=== PATIENT | female | born 1950 | race African-American/Black ===

== ENCOUNTER 2024-05-06 09:17 | Inpatient (IN) | payer MEDICAID, SELFPAY ==
--- NOTE | ~2024-05-06 | CT_ITS ---
EXAMINATION: CT ABDOMEN AND PELVIS WITHOUT CONTRAST CLINICAL INFORMATION: Extensive DVT COMPARISON: None available. TECHNIQUE: Multidetector volumetric imaging was performed from the superior aspect of the liver through the pubic symphysis. Sagittal and coronal reformatted images were obtained on the technologist's workstation. This CT examination was performed using dose optimization techniques as appropriate, variously including the following: *Automated exposure control *Adjustment of mA and/or kV according to patient size (this includes techniques or standardized protocols for targeted exams where dose is matched to indication/reason for exam; i.e. extremities or head) *Use of iterative reconstruction technique DLP: 674 mGy-cm FINDINGS: LUNG BASES: The visualized lung bases are unremarkable. LIVER, GALLBLADDER, AND BILIARY TREE: The liver is normal in size, shape, and attenuation. No focal hepatic lesion or biliary ductal dilatation is present. The gallbladder is unremarkable with no evidence of radiopaque gallstones, gallbladder wall thickening, or obvious pericholecystic inflammatory changes. PANCREAS: Unremarkable. SPLEEN: Unremarkable. ADRENAL GLANDS: There is left adrenal gland thickening KIDNEYS AND URETERS: Left kidney unremarkable. Right kidney not marked hydroureteronephrosis and there is stent present extending from the collecting system total urinary bladder. There is perinephric stranding seen proximally. BLADDER: The pigtail catheter coiled in the bladder GASTROINTESTINAL TRACT: The small and large bowel are unremarkable. The appendix is unremarkable. ABDOMINAL WALL: No significant hernia is appreciated. LYMPH NODES: Normal. VASCULAR: Unremarkable. PELVIC VISCERA: Unremarkable. OSSEOUS STRUCTURES: Unremarkable. CT/CT abdomen pelvis wo IV con IMPRESSION: Right hydroureteronephrosis with stent. Fleischner guidelines were followed. Electronically signed by: Duglas Ordoñez MD 05/06/2024 03:12 PM EDT
--- NOTE | ~2024-05-06 | CT_ITS ---
EXAMINATION: CT angio chest PE protocol CLINICAL INFORMATION: chest pain new DVT concerning for PE COMPARISON: No pertinent prior studies are available for comparison. TECHNIQUE: Prior to contrast administration, noncontrast localization images were obtained. Subsequently, multidetector volumetric imaging was performed from the thoracic inlet to below the pubic symphysis following the administration of 65 mL Omnipaque 350 intravenous contrast. No contrast reaction reported Sagittal, coronal, and MIP oblique sagittal reformatted images were obtained on the CT workstation, uploaded to PACS, and reviewed. This CT examination was performed using dose optimization techniques as appropriate, variously including the following: * Automated exposure control * Adjustment of mA and/or kV according to patient size (this includes techniques or standardized protocols for targeted exams where dose is matched to indication/reason for exam; i.e. extremities or head) Use of iterative reconstruction technique Total exam dose-length product 674 mGy-cm FINDINGS: QUALITY OF STUDY/CONTRAST BOLUS: Satisfactory. PULMONARY ARTERIES: There is pulmonary embolism identified in the pulmonary arteries of the left lower lobe THORACIC AORTA: No aneurysm or dissection. LUNG: No focal consolidation, nodules or masses. PLEURA: No pleural effusion or pneumothorax. MEDIASTINUM: Normal heart size. No pericardial effusion. No hilar or mediastinal lymphadenopathy. No evidence of septal bowing or right heart strain. CHEST WALL/AXILLA: No axillary or internal mammary lymphadenopathy. ABDOMEN/PELVIS: LIVER, GALLBLADDER, BILIARY TREE: The liver is normal in size, shape, and attenuation. No focal hepatic lesion or biliary ductal dilatation is present. The gallbladder is unremarkable with no evidence of radiopaque gallstones, gallbladder wall thickening, or pericholecystic inflammatory changes. PANCREAS: Normal; no mass or surrounding fluid. SPLEEN: Normal size. No focal lesion. ADRENAL GLANDS: There is thickening of the left adrenal gland. KIDNEYS AND URETERS: Kidneys are unremarkable. The right kidney revealed high-grade infiltrative process and periureteral stranding seen proximally there is right ureteral stent present. BLADDER: Pigtail catheter coiled in the urinary bladder PELVIC VISCERA: Unremarkable. GASTROINTESTINAL TRACT: The stomach and small bowel appear unremarkable. No dilated loops of bowel or evidence of obstruction. No colonic wall thickening or adjacent inflammatory changes. The appendix is unremarkable. PERITONEAL SPACE: No free air or free fluid identified. ABDOMINAL WALL: No significant hernia is appreciated. LYMPHOVASCULAR STRUCTURES: Lymph nodes: Normal. Vascular: The aorta is normal in caliber. OSSEOUS STRUCTURES: No suspicious sclerotic or lytic bone lesions are identified. CT/CT angio chest PE protocol IMPRESSION: Left pulmonary embolism Right-sided hydronephrosis is catheter extending from the collecting system to urinary bladder VTE: positive Electronically signed by: Duglas Ordoñez MD 05/06/2024 03:10 PM EDT
--- NOTE | ~2024-05-06 | US_ITS ---
EXAMINATION: US TRIPLEX LOWER EXTREMITY, LEFT CLINICAL INFORMATION: Left lower extremity pain and swelling COMPARISON: None available. TECHNIQUE: Color-flow triplex imaging with spectral analysis and compression Doppler were performed on the left lower extremity. FINDINGS: Occlusive thrombus extending from the visualized external left iliac vein, left common femoral vein, superficial femoral vein, profunda femoral vein, popliteal vein, posterior tibial vein, and peroneal vein. Normal respiratory variation and flow in the contralateral right common femoral vein. There is no Mcfarland's cyst. US/US venous duplex LE LT IMPRESSION: Extensive occlusive thrombus extending from the visualized left external iliac vein to the calf veins. Consider CTV of the abdomen/pelvis to assess for extension of thrombus. Electronically signed by: Frida Melgoza MD 05/06/2024 11:53 AM EDT
--- NOTE | ~2024-05-06 | XR_ITS ---
EXAMINATION: XR CHEST CLINICAL INFORMATION: Dyspnea. COMPARISON: None available. TECHNIQUE: Frontal view of the chest was obtained. FINDINGS: Focal linear scarring within the left lung base. No large airspace consolidation. No pleural effusion or pneumothorax. Unremarkable cardiomediastinal silhouette. XR/XR chest 1V IMPRESSION: Focal linear scarring within the left lung base. Electronically signed by: Juan David Murray MD 05/06/2024 12:05 PM EDT
[2024-05-06 09:39] VITALS: BP 149/67; PULSE 73; RESP 18; TEMP 36.5; O2SAT 99
--- NOTE | 2024-05-06 10:10 | ED.GENADULT ---
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 She still has L left swelling and has told them she has pain on L side of her body as well. No fevers, n/v/d and her family who is now caring for her here note she is at her baseline confused and has hallucinations but is doing much better since her arrival and they have been giving her her medications. MD complaint: left leg swelling, pain L body Onset (ago): day(s) (several) Location: left and lower extremity Radiation: other (entire L side of body points to L shoulder area) Severity: moderate Quality: aching Pain Consistency: constant Relieving factors: none Exacerbating factors: movement Associated symptoms: denies other symptoms Treatments prior to arrival: NSAID Related Data Allergies Allergy/AdvReac Type Severity Reaction Status Date / Time No Known Allergies Allergy Verified 05/06/24 09:43 Review of Systems Review of Systems: ROS unable to be obtained due to dementia REPLACED BY [facility] Past Medical History Attestation statement: The following information was validated with the patient. Source: old records reviewed Medical History Leg edema Dementia TIA (transient ischemic attack) HTN (hypertension) Diabetes Social History Social History (Updated 05/06/24 @ 10:38 by Michell Salter DO) Patient Tobacco Use Status: Tobacco use Unknown Advance Directives: No Advance Directives Information Provided: Yes Physical Exam ED Vital Signs: Vital Signs - 24 hr 05/06/24 09:39 05/06/24 12:22 Temperature 97.7 F 97.6 F Pulse Rate 73 78 Respiratory Rate 18 15 Blood Pressure 149/67 H 163/65 H Pulse Oximetry 99 98 Oxygen Delivery Method Room Air Room Air BMI result Body Mass Index 30.2 Appearance: Alert. Oriented to person. No acute distress. Eyes: Pupils equal, round and reactive to light. ENT: Pharynx normal. Neck: Normal inspection. Neck supple. CVS: Normal heart rate and rhythm. Pulses normal. Respiratory: No respiratory distress. Breath sounds normal. Abdomen: Soft and nontender. Skin: Skin warm and dry. Normal skin color. Normal skin turgor. Extremities: left leg edema 1-2+ on L side no heat or erythema noted pulses intact swelling up to thigh noted Neuro: Oriented to person. No motor deficit. No sensory deficit. Course Course Course Narrative: has DVT given L shoulder pain will order CTA 1114am Reevaluation(s) Reevaluation #1: IV heparin given extent of DVT Reevaluation #2: + UTI at this time infection suspected 322pm patient not aware of ureteral stent and family nor patient not aware of R kidney lesion/disease or stent family is going to call those caring for [place] Medications Administered Generic Name Dose Route Start Last Admin Trade Name Freq PRN Reason Stop Dose Admin Heparin Sodium/Sodium Chloride 25,000 unit in 250 mls @ 0 mls/hr 05/06/24 12:15 05/06/24 12:28 Heparin Sodium,Porcine/1/2ns IVCONT 14 units/kg/hr .Q0M CRIS 12.18 mls/hr Administration Protocol Per Protocol Discontinued Medications Generic Name Dose Route Start Last Admin Trade Name Freq PRN Reason Stop Dose Admin Heparin Sodium (Porcine) 7,000 unit 05/06/24 12:01 05/06/24 12:26 Heparin Sodium,Porcine 5,000 Unit/Ml Vial 80 unit/kg (7000 unit) 05/06/24 12:02 7,000 unit IVPUSH Administration ONCE ONE Iohexol 65 ml 05/06/24 12:39 05/06/24 12:40 Iohexol 350 Mg/Ml 100 Ml Infus..Btl IV 05/06/24 12:40 65 ml ONCE ONE Administration Medical Decision Making Medical Decision Making [facility] Narrative: 74 yo female with PMH of dementia - severe hx of elopements, TIA, CAD, HTN, IDDM, UTI here with c/o left leg swelling and pain on L shoulder area at this time labs, DVT study if positive CTA to evaluate for PE. She will get basic labs, EKG, BNP. Suspect mass/DVT/renal failure Differential Diagnosis Differential Diagnoses: The differential diagnosis associated with the presentation includes mass/DVT/renal failure/PE Admission/Observation Consideration of admission/observation: Escalation of care including admission/observation considered admit for IV heparin vascular input Consult Healthcare Provider Management of the patient was discussed with: Hospitalist (will admit) and Geographic Information System Surveyor Dr. Song aware - IV heparin at this time Lab Data MDM Lab Attestation statement: I reviewed the patient's lab results. 05/06/24 10:29 05/06/24 10:29 Labs: Lab Results 05/06/24 05/06/24 05/06/24 Range/Units 10:29 12:46 14:56 WBC 6.1 (4.8-10.8) X10*3/uL RBC 4.01 L (4.20-5.50) X10*6/uL Hgb 12.4 (12.0-16.0) g/dl Hct 36.4 L (37.0-47.0) % MCV 90.8 (80.0-98.0) fL MCH 30.9 (27.0-33.0) pg MCHC 34.1 (31.0-35.0) g/dl RDW 11.9 (11.0-16.0) % Plt Count 126 L (160-400) X10*3/uL MPV 9.8 (9.4-12.3) fL Immature Gran % (Auto) 0.5 H (0.0-0.4) % Neut % (Auto) 63.0 (45-73) % Lymph % (Auto) 18.2 L (20-40) % [place] % (Auto) 14.9 H (2-11) % Eos % (Auto) 3.1 (0-4) % Baso % (Auto) 0.3 (0-2) % Lymph # (Auto) 1.1 L (1.2-4.9) X10*3/uL [place] # (Auto) 0.9 (0.1-1.2) X10*3/uL Eos # (Auto) 0.2 (0.0-0.4) X10*3/uL Baso # (Auto) 0.0 (0.0-0.2) X10*3/uL Abs Immat Gran (auto) 0.03 (0.00-0.03) X10*3/uL Absolute Neuts (auto) 3.8 (2.0-8.3) x10*3/uL Absolute Nucleated RBC 0.000 (0.0-0.012) X10*3/uL Nucleated RBC % (auto) 0.0 (0.0-0.2) /100WBC PT 11.6 (11.1-13.3) SEC INR 1.0 (0.9-1.1) aPTT Heparin Protocol 30.4 L Cancelled (53-77.9) SEC D-Dimer High Sensitivty 2413 NG/ML Sodium 138 (135-145) mmol/L Potassium 4.2 (3.3-5.1) mmol/L Chloride 103 (96-108) mmol/L Carbon Dioxide 30 H (22-29) mmol/L Anion Gap 9 L (12-20) BUN 18 H (9-16) mg/dL Creatinine 1.51 H (0.5-1.4) mg/dL Estim Creat Clear Calc 37.0 Estimated GFR 34 Random Glucose 145 H (60-115) mg/dL Calcium 9.6 (8.4-10.2) mg/dL Total Bilirubin 0.8 (0.0-1.0) mg/dL Direct Bilirubin 0.2 (0.0-0.5) mg/dL AST 15 (5-31) U/L ALT 9 (0-31) U/L Alkaline Phosphatase 97 (39-117) U/L Troponin I High Sens < 2.7 (<3.5-17.0) ng/L B-Natriuretic Peptide < 10 (<100) pg/mL Total Protein 7.7 (6.5-8.0) g/dL Albumin 4.1 (3.5-5.0) g/dL Lipase 20 (8-78) U/L Urine Color Yellow Urine Appearance Cloudy Urine pH 6.5 (5.0-9.0) Ur Specific [place] >= 1.030 H (1.005-1.025) Urine Protein 30 (1+) H (Neg-Trace) mg/dL Urine Glucose (UA) Negative (Negative) mg/dL Urine Ketones Trace (Negative) mg/dL Urine Blood Negative (Negative) Urine Nitrite Negative (Negative) Ur Leukocyte Esterase Large (3+) H (Negative) Independent Interpretation I performed an independent interpretation of an: EKG, Plain X-Ray (normal), Ultrasound (+ DVT) and CT Scan (+ PE) Interpretation: Rate: 66 Rhythm: NSR [place]: left Normal P waves. Normal DIA. Normal QRS complex. ST T wave : normal no GILA qTC: 423 prior studies: no acute ischemia The study has been interpreted contemporaneously by me. . Radiology Impression Discussion of test interpretation with radiology: I have reviewed the radiologist's reading. Independent Historian Clinical information obtained from an independent historian. History obtained from or confirmed by: Other (daughter in law) External Record Review External record reviewed: Outpatient record Critical Care Time Critical Care Time Critical Care Time: Yes Total Critical Care Time: 40 Attestation: review of outside records, heparin for extensive DVT, admission, consult I attest to this time spent taking care of the patient Discharge Plan Discharge Clinical Impression: Acute UTI DVT (deep venous thrombosis) Qualifiers: DVT location: lower extremity Affected thrombotic vein of extremity: iliac Chronicity: acute Laterality: left Qualified Code(s): I82.422 - Acute embolism and thrombosis of left iliac vein Patient Disposition: Admitted As Inpatient Print Language: Bruneian
--- NOTE | 2024-05-06 10:23 | ECG_ITS ---
Test Reason : DYSPNEA Blood Pressure : / mmHG Vent. Rate : 066 BPM Atrial Rate : 066 BPM P-R Int : 184 ms QRS Dur : 088 ms QT Int : 404 ms P-R-T Axes : 073 -16 053 degrees QTc Int : 423 ms Normal sinus rhythm Moderate voltage criteria for LVH, may be normal variant ( R in aVL , Ruddy product ) Cannot rule out Anterior infarct , age undetermined Abnormal ECG No previous ECGs available Referred By: Michell Salter Electronically Signed By:WILLARD ALEXANDRE
[2024-05-06 10:34] LABS: MANUAL DIFF FLAG NO
[2024-05-06 10:37] LABS: Basophils Percent Auto 0.3 % (0-2); Eosinophils Absolute Auto 0.2 X10*3/uL (0.0-0.4); Eosinophils Percent Auto 3.1 % (0-4); Hematocrit 36.4 % (37.0-47.0); Hemoglobin 12.4 g/dl (12.0-16.0); Imm Gran Abs Auto 0.03 X10*3/uL (0.00-0.03); Imm Gran Pct Auto 0.5 % (0.0-0.4); Lymphocytes Absolute Auto 1.1 X10*3/uL (1.2-4.9); Lymphocytes Percent Auto 18.2 % (20-40); Mean Corpuscular HGB Conc 34.1 g/dl (31.0-35.0); Mean Corpuscular Hemoglobin 30.9 pg (27.0-33.0); Mean Corpuscular Volume 90.8 fL (80.0-98.0); Mean Platelet Volume 9.8 fL (9.4-12.3); Monocytes Absolute Auto 0.9 X10*3/uL (0.1-1.2); Monocytes Percent Auto 14.9 % (2-11); Neutrophils Absolute Auto 3.8 x10*3/uL (2.0-8.3); Platelet Count 126 X10*3/uL (160-400); Red Blood Count 4.01 X10*6/uL (4.20-5.50); Red Cell Distribution Width 11.9 % (11.0-16.0); White Blood Count 6.1 X10*3/uL (4.8-10.8)
[2024-05-06 10:44] LABS: Prothrombin Time 11.6 SEC (11.1-13.3)
[2024-05-06 10:46] LABS: D Dimer High Sensitivity 2413 NG/ML
[2024-05-06 11:10] LABS: B Type Natriuretic Peptide < 10 pg/mL (<100)
[2024-05-06 11:15] LABS: Troponin-I High Sensitivity < 2.7 ng/L (<3.5-17.0)
[2024-05-06 11:17] LABS: Alanine Aminotransferase 9 U/L (0-31); Albumin Level 4.1 g/dL (3.5-5.0); Alkaline Phosphatase 97 U/L (39-117); Anion Gap 9 (12-20); Aspartate Amino Transferase 15 U/L (5-31); Bilirubin Direct 0.2 mg/dL (0.0-0.5); Bilirubin Total 0.8 mg/dL (0.0-1.0); Blood Urea Nitrogen 18 mg/dL (9-16); Calcium 9.6 mg/dL (8.4-10.2); Carbon Dioxide 30 mmol/L (22-29); Chloride 103 mmol/L (96-108); Estimated Glomerular Filt Rate 34; Glucose Random 145 mg/dL (60-115); Lipase 20 U/L (8-78); Potassium 4.2 mmol/L (3.3-5.1); Sodium 138 mmol/L (135-145); Total Protein 7.7 g/dL (6.5-8.0)
[2024-05-06 12:08] VITALS: BMI 30.2
--- NOTE | 2024-05-06 12:17 | PC.NURSE ---
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
[2024-05-06 12:22] VITALS: BP 163/65; PULSE 78; RESP 15; TEMP 36.4; O2SAT 98
[2024-05-06] MEDS: Heparin Sodium,Porcine 5,000 UNIT/ML VIAL 7000 UNIT IVPUSH (12:26)
[2024-05-06] MEDS: Heparin Sodium,Porcine/1/2NS 25,000 UNIT/250 ML IV.SOLN 12.18 UNIT IVCONT (12:28)
--- NOTE | 2024-05-06 12:36 | PC.NURSE ---
Pt.'s actual weight is 87.4kg, but Heparin gtt was made based on 87kg. Per Braulio in Pharmacy, use 87.4kg to program the pump.
[2024-05-06] MEDS: iohexoL 350 MG/ML 100 ML INFUS..BTL 65 ML IV (12:40)
[2024-05-06 13:08] LABS: PTT Heparin Drip 30.4 SEC (53-77.9)
[2024-05-06 15:12] LABS: Appearance Urine Cloudy; Color Urine Yellow; Glucose Urine UA Negative (Negative); Leukocyte Esterase Urine Large (3+) (Negative); Nitrite Urine Negative (Negative); PH 6.5 (5.0-9.0); Specific Gravity - Urine >= 1.030 (1.005-1.025); UMIC TRIGGER UACC YES; Urine Blood Negative (Negative); Urine Ketones Trace mg/dL (Negative); Urine Protein 30 (1+) mg/dL (Neg-Trace)
[2024-05-06 15:17] LABS: Bacteria Urine 1+ (None Seen); Hyaline Casts Urine 0-2 /LPF (0-2); RBC Urine 0-2 /HPF (0-2); UACC Culture Trigger YES; WBC Urine >50 /HPF (0-5)
[2024-05-06 16:18] LABS: Lactic Acid 1.8 mmol/L (0.5-2.0)
[2024-05-06] MEDS: cefTRIAXone sodium 1 GM in 0.9 % Sodium Chloride 50 ML IV (16:32)
--- NOTE | 2024-05-06 16:33 | P.HPHOSP_ITS ---
History of Present Illness Date of Service: 05/06/24 Chief Complaint: Pulmonary embolus 74-year-old female with a history of dementia (with elopement) TIA, CAD, hypertension, IDDM, UTI brought from [place] by family secondary to inadequate care. They noted her left leg to be swollen and she told them also she has pain on the left side of her body. Family denies fever chills nausea vomiting. Family notes she is less confused since arriving with them but continues to have pain and swelling of the left leg. Initial workup in the ER including CTA of the chest and venous duplex demonstrates extensive occlusive thrombus from visualized left external iliac vein to calf. CTA demonstrates left pulmonary embolism; right-sided hydronephrosis and stent is visualized as well etiology unknown. Family attempting records from [place] at this time Review of Systems 2 Review of Systems: Via [id number]; Denies chest pain Denies shortness of breath Denies nausea vomiting diarrhea Denies fever chills PMFSH Medical History (Updated 05/06/24 @ 16:39 by Idris Clark DO) Leg edema Dementia TIA (transient ischemic attack) HTN (hypertension) Diabetes Social History Patient Tobacco Use Status: Tobacco use Unknown Advance Directives: No Advance Directives Information Provided: Yes Meds Allergies Allergy/AdvReac Type Severity Reaction Status Date / Time No Known Allergies Allergy Verified 05/06/24 09:43 Active Medications: Current Medications Acetaminophen (Acetaminophen 325 Mg Tablet) 650 mg PO Q6H PRN PRN Reason: Pain, Mild (Pain Scale 1-3), fever or headache Calcium Carbonate (Calcium Carbonate 750 Mg Tab.Chew) 750 mg PO Q4H PRN PRN Reason: Heartburn Heparin Sodium (Porcine) (Heparin Sodium,Porcine 5,000 Unit/Ml Vial) 3,500 unit 40 unit/kg (3500 unit) IVPUSH PROTOCOL BOLUS PRN; Protocol PRN Reason: 40 unit/kg - Heparin Protocol Heparin Sodium (Porcine) (Heparin Sodium,Porcine 5,000 Unit/Ml Vial) 7,000 unit 80 unit/kg (7000 unit) IVPUSH PROTOCOL BOLUS PRN; Protocol PRN Reason: 80 unit/kg - Heparin Protocol Hydromorphone HCl (Hydromorphone Hcl 0.5 Mg/0.5 Ml Syringe) 0.5 mg SUBCUT Q4H PRN; Protocol PRN Reason: Pain, Severe (Pain Scale 7-10) Heparin Sodium/Sodium Chloride (Heparin Sodium,Porcine/1/2ns) 25,000 unit in 250 mls @ 0 mls/hr IVCONT .Q0M [facility]; Protocol Last Admin: 05/06/24 12:28 Dose: 14 units/kg/hr, 12.18 mls/hr Magnesium Hydroxide (Milk Of Magnesia 30 Ml Oral.Susp) 30 ml PO DAILY PRN PRN Reason: Constipation Melatonin (Melatonin 3 Mg Tablet) 6 mg PO BEDTIME PRN PRN Reason: Insomnia Ondansetron HCl (Ondansetron Hcl 4 Mg/2 Ml Vial) 4 mg IVPUSH Q8H PRN PRN Reason: Nausea and Vomiting Oxycodone HCl (Oxycodone Hcl Immed Release 5 Mg Tablet) 5 mg PO Q6H PRN PRN Reason: Pain, Severe (Pain Scale 7-10) Sodium Chloride (0.9 % Sodium Chloride Flush 3 Ml Syringe) 3 [facility] Medications ?Medication ?Instructions ?Recorded ?Confirmed ?Last Taken ?Type risperidone 0.5 mg tablet 0.5 mg PO BID 05/06/24 05/06/24 05/06/24 09:00 History temazepam 15 mg capsule 15 mg PO BEDTIME 05/06/24 05/06/24 05/05/24 History Physical Exam 2 Vital Signs and Narrative: Vital Signs: Last Vital Signs Temp 97.6 F 05/06/24 12:22 Pulse 78 05/06/24 12:22 Resp 15 05/06/24 12:22 BP 163/65 H 05/06/24 12:22 Pulse Ox 98 05/06/24 12:22 O2 Del Method Room Air 05/06/24 12:22 BMI result Body Mass Index 30.2 Const: Other: Awake alert pleasant Resp: Other: Clear to auscultation bilaterally no rales rhonchi or wheezes Cardio: Other: No S4; positive S1-S2; no S3 murmurs rubs or gallops GI: Other: Soft nontender nondistended normoactive bowel sounds Extrem: Other: Extensive left leg swelling from thigh to calf. Right leg without edema Results Labs 05/06/24 10:29 05/06/24 10:29 Labs: Laboratory Results - last 24 hr 05/06/24 05/06/24 05/06/24 10:29 12:46 14:56 MCV 90.8 MCH 30.9 MCHC 34.1 RDW 11.9 Plt Count 126 L MPV 9.8 Immature Gran % (Auto) 0.5 H Neut % (Auto) 63.0 Lymph % (Auto) 18.2 L [place] % (Auto) 14.9 H Eos % (Auto) 3.1 Baso % (Auto) 0.3 Lymph # (Auto) 1.1 L [place] # (Auto) 0.9 Eos # (Auto) 0.2 Baso # (Auto) 0.0 Abs Immat Gran (auto) 0.03 Absolute Neuts (auto) 3.8 Absolute Nucleated RBC 0.000 Nucleated RBC % (auto) 0.0 PT 11.6 INR 1.0 aPTT Heparin Protocol 30.4 L Cancelled D-Dimer High Sensitivty 2413 Anion Gap 9 L Estim Creat Clear Calc 37.0 Estimated GFR 34 Random Glucose 145 H Lactic Acid Calcium 9.6 Total Bilirubin 0.8 Direct Bilirubin 0.2 AST 15 ALT 9 Alkaline Phosphatase 97 Troponin I High Sens < 2.7 B-Natriuretic Peptide < 10 Total Protein 7.7 Albumin 4.1 Lipase 20 Urine Color Yellow Urine Appearance Cloudy Urine pH 6.5 Ur Specific [place] >= 1.030 H Urine Protein 30 (1+) H Urine Glucose (UA) Negative Urine Ketones Trace Urine Blood Negative Urine Nitrite Negative Ur Leukocyte Esterase Large (3+) H Urine RBC 0-2 Urine WBC >50 H Ur Squamous Epith Cells 3-5 Urine Bacteria 1+ Hyaline Casts 0-2 Blood Type O Positive Antibody Screen NEGATIVE 05/06/24 15:59 MCV MCH MCHC RDW Plt Count MPV Immature Gran % (Auto) Neut % (Auto) Lymph % (Auto) [place] % (Auto) Eos % (Auto) Baso % (Auto) Lymph # (Auto) [place] # (Auto) Eos # (Auto) Baso # (Auto) Abs Immat Gran (auto) Absolute Neuts (auto) Absolute Nucleated RBC Nucleated RBC % (auto) PT INR aPTT Heparin Protocol D-Dimer High Sensitivty Anion Gap Estim Creat Clear Calc Estimated GFR Random Glucose Lactic Acid 1.8 Calcium Total Bilirubin Direct Bilirubin AST ALT Alkaline Phosphatase Troponin I High Sens B-Natriuretic Peptide Total Protein Albumin Lipase Urine Color Urine Appearance Urine pH Ur Specific [place] Urine Protein Urine Glucose (UA) Urine Ketones Urine Blood Urine Nitrite Ur Leukocyte Esterase Urine RBC Urine WBC Ur Squamous Epith Cells Urine Bacteria Hyaline Casts Blood Type Antibody Screen Imaging Radiologist's Impressions: Impressions Chest X-Ray 05/06/24 10:22 IMPRESSION: Focal linear scarring within the left lung base. Electronically signed by: Juan David Murray MD 05/06/2024 12:05 PM EDT RP Venous Duplex 05/06/24 10:56 IMPRESSION: Extensive occlusive thrombus extending from the visualized left external iliac vein to the calf veins. Consider CTV of the abdomen/pelvis to assess for extension of thrombus. Electronically signed by: Frida Melgoza MD 05/06/2024 11:53 AM EDT RP Chest CTA 05/06/24 11:49 IMPRESSION: Left pulmonary embolism Right-sided hydronephrosis is catheter extending from the collecting system to urinary bladder VTE: positive Electronically signed by: Duglas Ordoñez MD 05/06/2024 03:10 PM EDT RP Abdomen/Pelvis CT 05/06/24 13:54 IMPRESSION: Right hydroureteronephrosis with stent. Fleischner guidelines were followed. Electronically signed by: Duglas Ordoñez MD 05/06/2024 03:12 PM EDT RP Assessment and Plan (1) DVT (deep venous thrombosis): Qualifiers: Affected thrombotic vein of extremity: iliac Chronicity: acute DVT location: lower extremity Laterality: left Qualified Code(s): I82.422 - Acute embolism and thrombosis of left iliac vein Status: Acute (2) Acute UTI: Status: Acute (3) Pulmonary emboli: Qualifiers: Pulmonary embolism type: unspecified Chronicity: acute Acute cor pulmonale presence: without acute cor pulmonale Qualified Code(s): I26.99 - Other pulmonary embolism without acute cor pulmonale Status: Acute (4) HTN (hypertension): Qualifiers: Hypertension type: primary hypertension Qualified Code(s): I10 - Essential (primary) hypertension Status: Acute (5) Dementia: Qualifiers: Dementia type: unspecified type Dementia severity: unspecified severity Dementia behavioral or psychological symptom: unspecified whether behavioral, psychotic, or mood disturbance or anxiety Qualified Code(s): F03.90 - Unspecified dementia, unspecified severity, without behavioral disturbance, psychotic disturbance, mood disturbance, and anxiety Status: Acute Plan 74-year-old female recently immigrated from [place] with a history of dementia, diabetes hypertension. Imaging revealed right-sided hydro as well as pulmonary embolus and extensive left lower extremity thrombus. Limited history; family attempting to get records from [place] 1. Extensive left lower extremity thrombus/pulmonary embolism -case discussed with vascular; recommended heparinization and no acute intervention -heparin as per protocol -PPI for gut protection while on heparin 2. Acute UTI -ceftriaxone empirically -adjust as appropriate when cultures complete 3. Hypertension -list no antihypertensive meds -will start low-dose amlodipine and adjust as indicated 4. ADELSO -unknown creatinine baseline -gentle volume overnight -follow renals/divalents 5. Right hydronephrosis with stent imaging -unknown etiology -await records from [place] -urology consult Full code Heparin Requires at least 2 midnights going forward of inpatient stay to anticoagulate for extensive clot burden and evaluate right hydronephrosis. We will also requires specialty consultation. This can not be achieved a lesser acute setting Quality Stroke Does the patient have a stroke diagnosis?: No VTE Prior VTE?: No VTE Risk Level:: Medical - moderate - high VTE Device Contraindication: Treatment Not Indicated VTE Drug Contraindication: N/A - Med Ordered
[2024-05-06 17:24] LABS: PTT Heparin Drip > 200.0 SEC (53-77.9)
--- NOTE | 2024-05-06 17:28 | PC.NURSE ---
Lab called this RN with critical result of PTT-HD of >200. This PTT-HD was scheduled to be drawn at 18:30 and was mistakenly drawn by vp construction appx. two hours early. Heparin gtt held at this time and Michele Clark MD notified on how to proceed next- whether to hold gtt and follow protocol although lab was drawn early, or to continue gtt and re-draw at 18:30.
--- NOTE | 2024-05-06 17:36 | PHA.MEDREC ---
Addendum entered by Issa Montes, [facility] 05/06/24 17:44: Med rec reviewed Original Note: Pharmacy Consult ? Medication Reconciliation Pharmacy has completed the medication reconciliation. Family at bedside brought Rx stock bottles of Sertraline 50mg 1 tab daily, Furosemide 20mg 1 daily, Rispiridone 0.5mg 1 tab BID and Temazepam 15mh 1 tab @ bedtime. Patient family also states she is taking Humalog U-100 and states according to her uncle the patient is doing it only 15 units if her levels are less then 300 and 20 units if her levels are above 300 daily. She took all her medications this morning but the Furosemide and Termazepam.
--- NOTE | 2024-05-06 17:39 | PC.NURSE ---
Per Michele Clark MD re: Heparin gtt: Hold the Heparin gtt at this time, re-draw another PTT-HD at 18:30, then follow the Heparin protocol from there based on that PTT-HD result.
--- NOTE | 2024-05-06 18:59 | PC.NURSE ---
received report from Krystina Miller RN, assume care of pt at this time
--- NOTE | 2024-05-06 19:00 | PC.NURSE ---
Report given to Deedee Toth RN. Heparin gtt continues to be paused at this time. Awaiting results of PTT-HD redraw. Deedee aware of plan re: Heparin gtt.
[2024-05-06 19:01] VITALS: BP 149/62; PULSE 80; RESP 16; O2SAT 99
[2024-05-06] MEDS: Omeprazole 40 MG CAPSULE.DR PO (19:02)
[2024-05-06] MEDS: amLODIPine Besylate 2.5 MG TABLET PO (19:02)
[2024-05-06] MEDS: Lactated Ringers 1,000 ML 100 ML IVCONT (19:03)
[2024-05-06 19:54] LABS: PTT Heparin Drip > 200.0 SEC (53-77.9)
--- NOTE | 2024-05-06 20:06 | PC.NURSE ---
PTT greater than 200, informed Dr Elias Dan, will redraw PTT per protocol
[2024-05-06 20:43] LABS: PTT Heparin Drip 59.7 SEC (53-77.9)
[2024-05-06 23:08] VITALS: BP 131/63; PULSE 82; RESP 20; TEMP 37.1; O2SAT 98
[2024-05-06] MEDS: risperiDONE 0.5 MG TABLET PO (23:32)
[2024-05-07] VITALS (8 sets, daily range): BP systolic 137–174; BP diastolic 64–82; PULSE 85–98; RESP 18–20; TEMP 36–36.7; O2SAT 97–100; BMI 30.2
--- NOTE | 2024-05-07 01:34 | PC.NURSE ---
pt pulled her bilat IV's out, replaced 2 IVs.
[2024-05-07 04:21] LABS: PTT Heparin Drip 63.5 SEC (53-77.9)
[2024-05-07] MEDS: Lactated Ringers 1,000 ML 100 ML IVCONT (06:29)
[2024-05-07] MEDS: Omeprazole 40 MG CAPSULE.DR PO (06:30)
[2024-05-07 08:49] LABS: MANUAL DIFF FLAG NO
[2024-05-07 08:52] LABS: Basophils Percent Auto 0.3 % (0-2); Eosinophils Absolute Auto 0.2 X10*3/uL (0.0-0.4); Eosinophils Percent Auto 2.3 % (0-4); Hematocrit 34.5 % (37.0-47.0); Hemoglobin 11.8 g/dl (12.0-16.0); Imm Gran Abs Auto 0.04 X10*3/uL (0.00-0.03); Imm Gran Pct Auto 0.6 % (0.0-0.4); Lymphocytes Absolute Auto 1.2 X10*3/uL (1.2-4.9); Lymphocytes Percent Auto 18.3 % (20-40); Mean Corpuscular HGB Conc 34.2 g/dl (31.0-35.0); Mean Corpuscular Volume 90.6 fL (80.0-98.0); Mean Platelet Volume 10.1 fL (9.4-12.3); Monocytes Absolute Auto 0.8 X10*3/uL (0.1-1.2); Monocytes Percent Auto 12.5 % (2-11); Neutrophils Absolute Auto 4.3 x10*3/uL (2.0-8.3); Platelet Count 115 X10*3/uL (160-400); Red Blood Count 3.81 X10*6/uL (4.20-5.50); Red Cell Distribution Width 11.9 % (11.0-16.0); White Blood Count 6.5 X10*3/uL (4.8-10.8)
[2024-05-07 08:59] LABS: Prothrombin Time 11.6 SEC (10.9-12.4)
[2024-05-07 09:01] LABS: PTT Heparin Drip 78.9 SEC (53-77.9)
[2024-05-07 09:12] LABS: Alanine Aminotransferase 11 U/L (0-31); Albumin Level 4.1 g/dL (3.5-5.0); Alkaline Phosphatase 102 U/L (39-117); Anion Gap 14 (12-20); Aspartate Amino Transferase 12 U/L (5-31); Bilirubin Total 0.7 mg/dL (0.0-1.0); Blood Urea Nitrogen 17 mg/dL (9-16); Calcium 9.5 mg/dL (8.4-10.2); Carbon Dioxide 25 mmol/L (22-29); Chloride 101 mmol/L (96-108); Creatinine Clr Calc Pharmacy 38.8; Estimated Glomerular Filt Rate 36; Glucose Random 355 mg/dL (60-115); Potassium 4.7 mmol/L (3.3-5.1); Sodium 135 mmol/L (135-145); Total Protein 7.7 g/dL (6.5-8.0)
--- NOTE | 2024-05-07 09:12 | MHC.CM.PN ---
Addendum entered by Delilah Abdalla 05/07/24 14:08: Dtr, Citlalli has an appointment scheduled with Financial services 2:30pm. The provider informed Citlalli that Eliquis will be ordered for discharge. A coupon was provided for a 30 day supply. Discharge is anticipated tomorrow 05/08. Original Note: Female 74 DX PE. Recent UTI HX dementia. She lives with her DTR/HCP. She brought her from [place]. Her Dtr works @ [employer] [facility] [employer] 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 The patient is requiring more assistance. She is more forgetful, Per DTR. The patient needs Insurance. A consult has been faxed to Sandra, @ [employer]. A referral has been sent to [facility]. An [facility] [employer] [facility] Physician brochure was provided to pts dtr. She was instructed to schedule an appointment with a new PCP. A copy of patients HCP has been requested. DP home with dtrs support and transport home.
--- NOTE | 2024-05-07 09:22 | PC.NURSE ---
Late entry because unable to back time a MAR entry to yesterday's date 05/06: This RN turned off Heparin gtt on 05/06 at 17:30 after receiving critical PTT-HD result of greater than 200. Left Heparin gtt turned off at that time per instructions of Michele Clark MD.
[2024-05-07] MEDS: risperiDONE 0.5 MG TABLET PO ×2 (09:48→20:51)
[2024-05-07] MEDS: amLODIPine Besylate 2.5 MG TABLET PO (09:48)
[2024-05-07] MEDS: oxyCODONE HCl Immed Release 5 MG TABLET PO (09:53)
[2024-05-07 10:37] LABS: Estimated Average Glucose 174 mg/dL; Hemoglobin A1c % 7.7 % (<6.0)
[2024-05-07 11:22] LABS: Glucose, Whole Blood 319 mg/dL (60-115)
[2024-05-07] MEDS: Insulin Lispro 100 UNIT/ML 3 ML VIAL SUBCUT ×3 (11:32→20:52)
--- NOTE | 2024-05-07 11:54 | PM.UROCN ---
History of Present Illness Consult details Consult date: 05/07/24 Narrative: Sheri is a 74-year-old Malay-speaking female history of dementia TIA, CAD, hypertension, IDDM, UTI brought from [place] by family who was admitted with complaints of left lower extremity swelling and pain. Evaluation included CT scan imaging. CTAP-right hydronephrosis with right ureteral stent. Review of Systems Review of Systems: Yes all other systems are reviewed and are negative Constitutional: Constitutional: Reports no additional constitutional complaints Eyes: Eyes: Reports no additional eye complaints ENT: Reports system reviewed and no additional complaints, except as documented Cardiovascular: Cardiovascular: Reports no additional cardiovascular complaints Respiratory: Respiratory: Reports no additional respiratory complaints Gastrointestinal: Gastrointestinal: Reports no additional gastrointestinal complaints Genitourinary: Genitourinary: Reports as per HPI Musculoskeletal: Musculoskeletal: Reports no additional musculoskeletal complaints Integumentary/Breasts: Skin/Breast: Reports system reviewed and no additional complaints, except as docu Neurologic: Reports system reviewed and no additional complaints, except as documented Psychiatric: Psychiatric: Reports no additional psychiatric complaints Endocrine: Endocrine: Reports no additional endocrine complaints Hematologic/Lymphatic: Hematologic/Lymphatic: Reports no additional hematologic/lymphatic complaints Allergic/Immunologic: Allergic/Immunologic: Reports no additional allergic/immunologic complaints [facility] Past Medical History Medical History (Updated 05/07/24 @ 11:58 by Alejo Thomas MD) Leg edema Dementia TIA (transient ischemic attack) HTN (hypertension) Diabetes Social History Social History Household Members: Children Housing: House Do you presently have visiting nurse or other home services: No Comment: sitter in room Patient Tobacco Use Status: Former Tobacco user service: No Meds Allergies Allergy/AdvReac Type Severity Reaction Status Date / Time No Known Allergies Allergy Verified 05/06/24 09:43 Active Medications: Current Medications Acetaminophen (Acetaminophen 325 Mg Tablet) 650 mg PO Q6H PRN PRN Reason: Pain, Mild (Pain Scale 1-3), fever or headache Amlodipine Besylate (Amlodipine Besylate 2.5 Mg Tablet) 2.5 mg PO DAILY CRIS; Protocol Last Admin: 05/07/24 09:48 Dose: 2.5 mg Calcium Carbonate (Calcium Carbonate 750 Mg Tab.Chew) 750 mg PO Q4H PRN PRN Reason: Heartburn Glucose (Glucose Gel 15 Gm Gel..Gram.) 15 gm PO Q15M PRN; Protocol PRN Reason: per Hypoglycemia Standing Ord. Heparin Sodium (Porcine) (Heparin Sodium,Porcine 5,000 Unit/Ml Vial) 3,500 unit 40 unit/kg (3500 unit) IVPUSH PROTOCOL BOLUS PRN; Protocol PRN Reason: 40 unit/kg - Heparin Protocol Heparin Sodium (Porcine) (Heparin Sodium,Porcine 5,000 Unit/Ml Vial) 7,000 unit 80 unit/kg (7000 unit) IVPUSH PROTOCOL BOLUS PRN; Protocol PRN Reason: 80 unit/kg - Heparin Protocol Heparin Sodium/Sodium Chloride (Heparin Sodium,Porcine/1/2ns) 25,000 unit in 250 mls @ 0 mls/hr IVCONT .Q0M [facility]; Protocol Last Titration: 05/07/24 10:59 Dose: 8 units/kg/hr, 6.96 mls/hr Ceftriaxone Sodium 1 gm/ (Sodium Chloride) 50 mls @ 100 mls/hr IV Q24H [facility] Lactated Ringer's (Lr) 1,000 mls @ 100 mls/hr IVCONT .Q10H [facility] Last Admin: 05/07/24 06:29 Dose: 100 mls/hr Dextrose (D10) 250 mls @ 750 mls/hr IV Q15M PRN; Protocol PRN Reason: per Hypoglycemia Standing Ord. Insulin Human Lispro (Insulin Lispro 100 Unit/Ml 3 Ml Vial) 0 unit SUBCUT QIDACHS [facility]; Protocol Last Admin: 05/07/24 11:32 Dose: 8 unit Magnesium Hydroxide (Milk Of Magnesia 30 Ml Oral.Susp) 30 ml PO DAILY PRN PRN Reason: Constipation Melatonin (Melatonin 3 Mg Tablet) 6 mg PO BEDTIME PRN PRN Reason: Insomnia Omeprazole (Omeprazole 40 Mg Capsule.Dr) 40 mg PO DAILY@0630 [facility] Last Admin: 05/07/24 06:30 Dose: 40 mg Ondansetron HCl (Ondansetron Hcl 4 Mg/2 Ml Vial) 4 mg IVPUSH Q8H PRN PRN Reason: Nausea and Vomiting Oxycodone HCl (Oxycodone Hcl Immed Release 5 Mg Tablet) 5 mg PO Q6H PRN PRN Reason: Pain, Severe (Pain Scale 7-10) Last Admin: 05/07/24 09:53 Dose: 5 mg Risperidone (Risperidone 0.5 Mg Tablet) 0.5 mg PO BID [facility] Last Admin: 05/07/24 09:48 Dose: 0.5 mg Sertraline HCl (Sertraline Hcl 50 Mg Tablet) 50 mg PO DAILY [facility] Sodium Chloride (0.9 % Sodium Chloride Flush 3 Ml Syringe) 3 ml IVFLUSH QSHIFT [facility] Last Admin: 05/07/24 09:48 Dose: Not Given Temazepam (Temazepam 15 Mg Capsule) 15 mg PO BEDTIME [facility] Last Admin: 05/06/24 23:41 Dose: Not Given Home Medications ?Medication ?Instructions ?Recorded ?Confirmed ?Last Taken ?Type furosemide 20 mg tablet 20 mg PO DAILY 05/06/24 05/06/24 05/05/24 07:30 History risperidone 0.5 mg tablet 0.5 mg PO BID 05/06/24 05/06/24 05/06/24 09:00 History sertraline 50 mg tablet 50 mg PO DAILY 05/06/24 05/06/24 05/06/24 07:30 History temazepam 15 mg capsule 15 mg PO BEDTIME 05/06/24 05/06/24 05/05/24 07:30 History Physical Exam Vital Signs: Vital Signs: Last Vital Signs Temp 97.1 F 05/07/24 07:38 Pulse 85 05/07/24 07:38 Resp 18 05/07/24 07:38 BP 152/72 H 05/07/24 09:48 Pulse Ox 100 05/07/24 07:38 O2 Del Method Room Air 05/07/24 07:38 BMI result Body Mass Index 30.2 Const: General: no acute distress Orientation/consciousness: patient oriented x3 HEENT: Head: Yes normal to inspection, Yes normocephalic and Yes atraumatic Eyes: Conjunctivae: conjunctivae normal Neck: Neck: Yes normal visual inspection and Yes trachea midline Chest: Chest palpation & inspection: normal inspection of the chest Resp: Effort & Inspection: normal respiratory effort Cardio: Rate: regular rate GI: Inspection: Yes normal to inspection Palpation (GI): Soft to palpation Neuro: General: patient oriented x3 Psych: Appearance: grossly normal Results Labs 05/08/24 08:56 05/08/24 08:56 Labs: Abnormal lab results 05/06/24 05/06/24 05/06/24 Range/Units 10:29 14:56 16:23 RBC (4.20-5.50) X10*6/uL Hgb (12.0-16.0) g/dl Hct (37.0-47.0) % Plt Count (160-400) X10*3/uL Immature Gran % (Auto) (0.0-0.4) % Lymph % (Auto) (20-40) % Angelina % (Auto) (2-11) % Abs Immat Gran (auto) (0.00-0.03) X10*3/uL aPTT Heparin Protocol 30.4 L > 200.0 H* D (53-77.9) SEC BUN (9-16) mg/dL Creatinine (0.5-1.4) mg/dL POC Glucose (60-115) mg/dL Random Glucose (60-115) mg/dL Hemoglobin A1c % (<6.0) % Ur Specific Winters >= 1.030 H (1.005-1.025) Urine Protein 30 (1+) H (Neg-Trace) mg/dL Ur Leukocyte Esterase Large (3+) H (Negative) Urine WBC >50 H (0-5) /HPF 05/06/24 05/07/24 05/07/24 Range/Units 18:40 08:45 10:08 RBC 3.81 L (4.20-5.50) X10*6/uL Hgb 11.8 L (12.0-16.0) g/dl Hct 34.5 L (37.0-47.0) % Plt Count 115 L (160-400) X10*3/uL Immature Gran % (Auto) 0.6 H (0.0-0.4) % Lymph % (Auto) 18.3 L (20-40) % Angelina % (Auto) 12.5 H (2-11) % Abs Immat Gran (auto) 0.04 H (0.00-0.03) X10*3/uL aPTT Heparin Protocol > 200.0 H* 78.9 H D 82.0 H (53-77.9) SEC BUN 17 H (9-16) mg/dL Creatinine 1.44 H (0.5-1.4) mg/dL POC Glucose (60-115) mg/dL Random Glucose 355 H* (60-115) mg/dL Hemoglobin A1c % 7.7 H (<6.0) % Ur Specific Winters (1.005-1.025) Urine Protein (Neg-Trace) mg/dL Ur Leukocyte Esterase (Negative) Urine WBC (0-5) /HPF 05/07/24 Range/Units 11:14 RBC (4.20-5.50) X10*6/uL Hgb (12.0-16.0) g/dl Hct (37.0-47.0) % Plt Count (160-400) X10*3/uL Immature Gran % (Auto) (0.0-0.4) % Lymph % (Auto) (20-40) % Angelina % (Auto) (2-11) % Abs Immat Gran (auto) (0.00-0.03) X10*3/uL aPTT Heparin Protocol (53-77.9) SEC BUN (9-16) mg/dL Creatinine (0.5-1.4) mg/dL POC Glucose 319 H (60-115) mg/dL Random Glucose (60-115) mg/dL Hemoglobin A1c % (<6.0) % Ur Specific Winters (1.005-1.025) Urine Protein (Neg-Trace) mg/dL Ur Leukocyte Esterase (Negative) Urine WBC (0-5) /HPF Short CBC 05/07/24 Range/Units 08:45 WBC 6.5 (4.8-10.8) X10*3/uL Hgb 11.8 L (12.0-16.0) g/dl Hct 34.5 L (37.0-47.0) % Plt Count 115 L (160-400) X10*3/uL BMP 05/07/24 08:45 Sodium 135 Potassium 4.7 Chloride 101 Carbon Dioxide 25 BUN 17 H Creatinine 1.44 H Calcium 9.5 Liver Function 05/07/24 Range/Units 08:45 Total Bilirubin 0.7 (0.0-1.0) mg/dL AST 12 (5-31) U/L ALT 11 (0-31) U/L Alkaline Phosphatase 102 (39-117) U/L Albumin 4.1 (3.5-5.0) g/dL Urine 05/06/24 Range/Units 14:56 Urine Color Yellow Urine Appearance Cloudy Urine pH 6.5 (5.0-9.0) Ur Specific Winters >= 1.030 H (1.005-1.025) Urine Protein 30 (1+) H (Neg-Trace) mg/dL Urine Glucose (UA) Negative (Negative) mg/dL Imaging Additional studies: Date of Service: 05/06/24 CT ABDOMEN AND PELVIS WITHOUT CONTRAST CLINICAL INFORMATION: Extensive DVT COMPARISON: None available. TECHNIQUE: Multidetector volumetric imaging was performed from the superior aspect of the liver through the pubic symphysis. Sagittal and coronal reformatted images were obtained on the technologist's workstation. This CT examination was performed using dose optimization techniques as appropriate, variously including the following: *Automated exposure control *Adjustment of mA and/or kV according to patient size (this includes techniques or standardized protocols for targeted exams where dose is matched to indication/reason for exam; i.e. extremities or head) *Use of iterative reconstruction technique DLP: 674 mGy-cm FINDINGS: LUNG BASES: The visualized lung bases are unremarkable. LIVER, GALLBLADDER, AND BILIARY TREE: The liver is normal in size, shape, and attenuation. No focal hepatic lesion or biliary ductal dilatation is present. The gallbladder is unremarkable with no evidence of radiopaque gallstones, gallbladder wall thickening, or obvious pericholecystic inflammatory changes. PANCREAS: Unremarkable. SPLEEN: Unremarkable. ADRENAL GLANDS: There is left adrenal gland thickening KIDNEYS AND URETERS: Left kidney unremarkable. Right kidney not marked hydroureteronephrosis and there is stent present extending from the collecting system total urinary bladder. There is perinephric stranding seen proximally. BLADDER: The pigtail catheter coiled in the bladder GASTROINTESTINAL TRACT: The small and large bowel are unremarkable. The appendix is unremarkable. ABDOMINAL WALL: No significant hernia is appreciated. LYMPH NODES: Normal. VASCULAR: Unremarkable. PELVIC VISCERA: Unremarkable. OSSEOUS STRUCTURES: Unremarkable. IMPRESSION: Right hydroureteronephrosis with stent. Assessment and Plan (1) Hydronephrosis, right: Status: Acute (2) Ureteral stent present: Status: Acute Plan UTI possible, UA -- white cells and blood typical finding with ureteral stent present. urine culture pending. Hydronephrosis etiology is unclear. Further evaluation with cystoscopy retrograde and possible stent removal is nonurgent can either be done as an outpatient or if she has a longer hospital stay may be done during this admission next week. Procedures Date of Service Date of Service: 05/09/24
[2024-05-07] MEDS: Heparin Sodium,Porcine/1/2NS 25,000 UNIT/250 ML IV.SOLN 6.96 UNIT IVCONT (12:39)
--- NOTE | 2024-05-07 14:02 | P.PNIM_ITS ---
Subjective Subjective Date of Service: 05/07/24 Interval History: Seen and examined this morning Follow-up for acute PE/DVT Pleasantly confused, no shortness of breath Review of Systems Review of Systems: Yes all other systems are reviewed and are negative Constitutional Constitutional: Denies chills and Denies fever(s) Cardiovascular Cardiovascular: Denies chest pain Neurologic Neurologic: Reports confusion Psychiatric Psychiatric: Reports confusion Physical Exam 2 Vital Signs: Vital Signs: Last Vital Signs Temp 96.9 F 05/07/24 12:00 Pulse 88 05/07/24 12:00 Resp 20 05/07/24 12:00 BP 147/67 H 05/07/24 12:00 Pulse Ox 97 05/07/24 12:00 O2 Del Method Room Air 05/07/24 12:00 BMI result Body Mass Index 30.2 Const: General: comfortable, no acute distress, alert, awake and confusion Nutritional Appearance: average body habitus Orientation/consciousness: c onfusion Resp: Effort & Inspection: normal respiratory effort, able to speak in complete sentences, no respiratory distress and no use of accessory muscles Cardio: Rate: regular rate Neuro: Other: grossly nonfocal General: moves all extremities and confusion Objective Data Active Medications Acetaminophen (Acetaminophen 325 Mg Tablet) 650 mg PO Q6H PRN PRN Reason: Pain, Mild (Pain Scale 1-3), fever or headache Amlodipine Besylate (Amlodipine Besylate 2.5 Mg Tablet) 2.5 mg PO DAILY CRIS; Protocol Last Admin: 05/07/24 09:48 Dose: 2.5 mg Documented By: ERASMO Calcium Carbonate (Calcium Carbonate 750 Mg Tab.Chew) 750 mg PO Q4H PRN PRN Reason: Heartburn Glucose (Glucose Gel 15 Gm Gel..Gram.) 15 gm PO Q15M PRN; Protocol PRN Reason: per Hypoglycemia Standing Ord. Heparin Sodium (Porcine) (Heparin Sodium,Porcine 5,000 Unit/Ml Vial) 3,500 unit 40 unit/kg (3500 unit) IVPUSH PROTOCOL BOLUS PRN; Protocol PRN Reason: 40 unit/kg - Heparin Protocol Heparin Sodium (Porcine) (Heparin Sodium,Porcine 5,000 Unit/Ml Vial) 7,000 unit 80 unit/kg (7000 unit) IVPUSH PROTOCOL BOLUS PRN; Protocol PRN Reason: 80 unit/kg - Heparin Protocol Heparin Sodium/Sodium Chloride (Heparin Sodium,Porcine/1/2ns) 25,000 unit in 250 mls @ 0 mls/hr IVCONT .Q0M [facility]; Protocol Last Admin: 05/07/24 12:39 Dose: 8 units/kg/hr, 6.96 mls/hr Documented By: ERASMO Co-signed By: YEMI Ceftriaxone Sodium 1 gm/ (Sodium Chloride) 50 mls @ 100 mls/hr IV Q24H [facility] Dextrose (D10) 250 mls @ 750 mls/hr IV Q15M PRN; Protocol PRN Reason: per Hypoglycemia Standing Ord. Insulin Human Lispro (Insulin Lispro 100 Unit/Ml 3 Ml Vial) 0 unit SUBCUT QIDACHS [facility]; Protocol Last Admin: 05/07/24 11:32 Dose: 8 unit Documented By: ERASMO Magnesium Hydroxide (Milk Of Magnesia 30 Ml Oral.Susp) 30 ml PO DAILY PRN PRN Reason: Constipation Melatonin (Melatonin 3 Mg Tablet) 6 mg PO BEDTIME PRN PRN Reason: Insomnia Omeprazole (Omeprazole 40 Mg Capsule.) 40 mg PO DAILY@0630 [facility] Last Admin: 05/07/24 06:30 Dose: 40 mg Documented By: DEEDEE Ondansetron HCl (Ondansetron Hcl 4 Mg/2 Ml Vial) 4 mg IVPUSH Q8H PRN PRN Reason: Nausea and Vomiting Oxycodone HCl (Oxycodone Hcl Immed Release 5 Mg Tablet) 5 mg PO Q6H PRN PRN Reason: Pain, Severe (Pain Scale 7-10) Last Admin: 05/07/24 09:53 Dose: 5 mg Documented By: ERASMO Risperidone (Risperidone 0.5 Mg Tablet) 0.5 mg PO BID [facility] Last Admin: 05/07/24 09:48 Dose: 0.5 mg Documented By: ERASMO Sertraline HCl (Sertraline Hcl 50 Mg Tablet) 50 mg PO DAILY [facility] Sodium Chloride (0.9 % Sodium Chloride Flush 3 Ml Syringe) 3 ml IVFLUSH QSHIFT [facility] Last Admin: 05/07/24 09:48 Dose: Not Given Documented By: ERASMO Non-Admin Reason: IV Running Temazepam (Temazepam 15 Mg Capsule) 15 mg PO BEDTIME [facility] Last Admin: 05/06/24 23:41 Dose: Not Given Documented By: SUN Non-Admin Reason: Med Not Available Labs 05/07/24 08:45 05/07/24 08:45 Labs: Laboratory Results - last 24 hr 05/06/24 05/06/24 05/06/24 14:56 15:59 16:23 MCV MCH MCHC RDW Plt Count MPV Immature Gran % (Auto) Neut % (Auto) Lymph % (Auto) Union % (Auto) Eos % (Auto) Baso % (Auto) Lymph # (Auto) Union # (Auto) Eos # (Auto) Baso # (Auto) Abs Immat Gran (auto) Absolute Neuts (auto) Absolute Nucleated RBC Nucleated RBC % (auto) PT INR aPTT Heparin Protocol > 200.0 H* D Anion Gap Estim Creat Clear Calc Estimated GFR POC Glucose Random Glucose Estimat Average Glucose Hemoglobin A1c % Lactic Acid 1.8 Calcium Total Bilirubin AST ALT Alkaline Phosphatase Total Protein Albumin Urine Color Yellow Urine Appearance Cloudy Urine pH 6.5 Ur Specific [place]vid >= 1.030 H Urine Protein 30 (1+) H Urine Glucose (UA) Negative Urine Ketones Trace Urine Blood Negative Urine Nitrite Negative Ur Leukocyte Esterase Large (3+) H Urine RBC 0-2 Urine WBC >50 H Ur Squamous Epith Cells 3-5 Urine Bacteria 1+ Hyaline Casts 0-2 Blood Type O Positive Antibody Screen NEGATIVE 05/06/24 05/06/24 05/07/24 18:40 20:29 04:02 MCV MCH MCHC RDW Plt Count MPV Immature Gran % (Auto) Neut % (Auto) Lymph % (Auto) Union % (Auto) Eos % (Auto) Baso % (Auto) Lymph # (Auto) Union # (Auto) Eos # (Auto) Baso # (Auto) Abs Immat Gran (auto) Absolute Neuts (auto) Absolute Nucleated RBC Nucleated RBC % (auto) PT INR aPTT Heparin Protocol > 200.0 H* 59.7 D 63.5 Anion Gap Estim Creat Clear Calc Estimated GFR POC Glucose Random Glucose Estimat Average Glucose Hemoglobin A1c % Lactic Acid Calcium Total Bilirubin AST ALT Alkaline Phosphatase Total Protein Albumin Urine Color Urine Appearance Urine pH Ur Specific [place] Urine Protein Urine Glucose (UA) Urine Ketones Urine Blood Urine Nitrite Ur Leukocyte Esterase Urine RBC Urine WBC Ur Squamous Epith Cells Urine Bacteria Hyaline Casts Blood Type Antibody Screen 09/05/07/24 05/07/24 08:45 10:08 11:14 MCV 90.6 MCH 31.0 MCHC 34.2 RDW 11.9 Plt Count 115 L MPV 10.1 Immature Gran % (Auto) 0.6 H Neut % (Auto) 66.0 Lymph % (Auto) 18.3 L Union % (Auto) 12.5 H Eos % (Auto) 2.3 Baso % (Auto) 0.3 Lymph # (Auto) 1.2 Union # (Auto) 0.8 Eos # (Auto) 0.2 Baso # (Auto) 0.0 Abs Immat Gran (auto) 0.04 H Absolute Neuts (auto) 4.3 Absolute Nucleated RBC 0.000 Nucleated RBC % (auto) 0.0 PT 11.6 INR 1.0 aPTT Heparin Protocol 78.9 H D 82.0 H Anion Gap 14 Estim Creat Clear Calc 38.8 Estimated GFR 36 POC Glucose 319 H Random Glucose 355 H* Estimat Average Glucose 174 Hemoglobin A1c % 7.7 H Lactic Acid Calcium 9.5 Total Bilirubin 0.7 AST 12 ALT 11 Alkaline Phosphatase 102 Total Protein 7.7 Albumin 4.1 Urine Color Urine Appearance Urine pH Ur Specific [place] Urine Protein Urine Glucose (UA) Urine Ketones Urine Blood Urine Nitrite Ur Leukocyte Esterase Urine RBC Urine WBC Ur Squamous Epith Cells Urine Bacteria Hyaline Casts Blood Type Antibody Screen Microbiology Microbiology Results: Microbiology 05/06/24 Unknown Urine Culture - Final Urine clean catch - Clean Catch Midstream Assessment and Plan (1) Hydronephrosis, right: Status: Acute (2) Dementia: Status: Acute (3) Pulmonary emboli: Status: Acute (4) DVT (deep venous thrombosis): Status: Acute Plan 74-year-old female recently immigrated from [place] with a history of dementia, diabetes hypertension. Imaging revealed right-sided hydro as well as pulmonary embolus and extensive left lower extremity thrombus. Limited history; family attempting to get records from [place] 1. Extensive left lower extremity thrombus/pulmonary embolism case discussed with vascular; recommended heparin, no acute intervention trop, bnp negative will transition to PO eliquis this evenin 2. Acute UTI ruled out Urine culture negative, we will DC antibiotics 3. Hypertension Not on any medication baseline Blood pressure improving on low-dose Norvasc 4. ADELSO unknown creatinine baseline Kidney function improved slightly. Likely at baseline we will stop IV fluid 5. Right hydronephrosis with stent imaging unknown etiology No records available from [place] at this time Seen by Urology, recommend cystoscopy and possible stent removal as an outpatient 6. Diabetes Continue diabetic diet HB A1c 7.7 Likely discharge on sliding scale Full code Heparin ->eliquis Requires ongoing inpatient stay for anticoagulation for extensive clot burden and evaluate right hydronephrosis Quality Stroke Does the patient have a stroke diagnosis?: No VTE Prior VTE?: No VTE Risk Level:: Medical - moderate - high VTE Device Contraindication: Treatment Not Indicated VTE Drug Contraindication: N/A - Med Ordered
[2024-05-07 16:17] LABS: Glucose, Whole Blood 204 mg/dL (60-115)
[2024-05-07] MEDS: cefTRIAXone sodium 1 GM in 0.9 % Sodium Chloride 50 ML IV (16:42)
[2024-05-07 18:08] LABS: PTT Heparin Drip 100.6 SEC (53-77.9)
[2024-05-07] MEDS: Temazepam 15 MG CAPSULE PO (20:51)
[2024-05-07] MEDS: Apixaban 5 MG TABLET 10 MG PO (20:52)
[2024-05-07] MEDS: 0.9 % Sodium Chloride Flush 3 ML SYRINGE IVFLUSH (20:55)
[2024-05-07 20:56] LABS: Glucose, Whole Blood 183 mg/dL (60-115)
[2024-05-08 02:43] LABS: PTT Heparin Drip 78.9 SEC (53-77.9)
[2024-05-08 03:34] VITALS: BP 138/63; PULSE 85; RESP 20; TEMP 37.1; O2SAT 96
[2024-05-08] MEDS: Omeprazole 40 MG CAPSULE.DR PO (06:14)
[2024-05-08 07:42] LABS: Glucose, Whole Blood 196 mg/dL (60-115)
[2024-05-08 08:00] VITALS: BP 128/54; PULSE 99; RESP 20; TEMP 37.2; O2SAT 97
[2024-05-08] MEDS: oxyCODONE HCl Immed Release 5 MG TABLET PO (08:40)
[2024-05-08] MEDS: Sertraline HCL 50 MG TABLET PO (08:40)
[2024-05-08] MEDS: risperiDONE 0.5 MG TABLET PO (08:40)
[2024-05-08] MEDS: amLODIPine Besylate 2.5 MG TABLET PO (08:40)
[2024-05-08] MEDS: Apixaban 5 MG TABLET 10 MG PO (08:40)
[2024-05-08] MEDS: Insulin Lispro 100 UNIT/ML 3 ML VIAL SUBCUT ×3 (08:41→18:19)
[2024-05-08] MEDS: 0.9 % Sodium Chloride Flush 3 ML SYRINGE IVFLUSH ×2 (08:41→15:52)
[2024-05-08 09:25] LABS: Hematocrit 32.2 % (37.0-47.0); Hemoglobin 10.9 g/dl (12.0-16.0); Mean Corpuscular HGB Conc 33.9 g/dl (31.0-35.0); Mean Corpuscular Hemoglobin 31.1 pg (27.0-33.0); Mean Corpuscular Volume 91.7 fL (80.0-98.0); Mean Platelet Volume 10.2 fL (9.4-12.3); Platelet Count 151 X10*3/uL (160-400); Red Blood Count 3.51 X10*6/uL (4.20-5.50); Red Cell Distribution Width 12.1 % (11.0-16.0); White Blood Count 5.4 X10*3/uL (4.8-10.8)
[2024-05-08 09:36] LABS: Anion Gap 12 (12-20); Blood Urea Nitrogen 15 mg/dL (9-16); Calcium 9.3 mg/dL (8.4-10.2); Carbon Dioxide 29 mmol/L (22-29); Chloride 102 mmol/L (96-108); Creatinine Clr Calc Pharmacy 40.5; Estimated Glomerular Filt Rate 37; Glucose Random 204 mg/dL (60-115); Potassium 4.5 mmol/L (3.3-5.1); Sodium 138 mmol/L (135-145)
[2024-05-08] MEDS: ondansetron HCL 4 MG/2 ML VIAL IVPUSH (09:55)
--- NOTE | 2024-05-08 11:15 | MHC.CM.PN ---
Addendum entered by Delilah Abdalla 05/08/24 16:13: Patient c/o abdominal painearlier today. Discharge may be on hold. Provider will reassess for discharge. Original Note: Per MD rounds patient is ready to discharge today. A script for Eliquis is to be filled be [facility]. The Eliquis coupon was provided yesterday to hermanr/Felecia. [facility] has referred the patient to [facility]. The patient lives in [place]. [facility] does not cover [place], S does. Felecia met with Financial services for assist with obtaining [employer]. DP home with family support. Felecia will provide a ride home.
[2024-05-08 11:19] VITALS: BP 125/59; PULSE 76; RESP 20; TEMP 36.7; O2SAT 95
[2024-05-08 11:39] LABS: Glucose, Whole Blood 210 mg/dL (60-115)
[2024-05-08 15:47] VITALS: BP 120/59; PULSE 70; RESP 20; TEMP 36.5; O2SAT 96
[2024-05-08 16:24] LABS: Glucose, Whole Blood 191 mg/dL (60-115)
--- NOTE | 2024-05-08 17:23 | PM.DS ---
DS: Providers Provider Date of Service: 05/08/24 Date of admission: 05/06/24 16:31 Date of discharge: 05/08/24 Primary care physician: None Physician Consults: 05/07/24 10:51 Consult to Urology Routine Consulting Provider: [facility] Reason for consultation: hydro with stent placed in [place] Has provider been notified: No Attending physician on discharge: Cristopher Guardado Discharging clinician: Jenna Sanches DS: Diagnosis Discharge Diagnosis (1) Pulmonary emboli: Status: Acute (2) Hydronephrosis, right: Status: Acute (3) Dementia: Status: Acute (4) DVT (deep venous thrombosis): Status: Acute DS: Summary Hospital Course Hospital Course: From H&P on the day of admission 74-year-old female with a history of dementia (with elopement) TIA, CAD, hypertension, IDDM, UTI brought from [place] by family secondary to inadequate care. They noted her left leg to be swollen and she told them also she has pain on the left side of her body. Family denies fever chills nausea vomiting. Family notes she is less confused since arriving with them but continues to have pain and swelling of the left leg. Initial workup in the ER including CTA of the chest and venous duplex demonstrates extensive occlusive thrombus from visualized left external iliac vein to calf. CTA demonstrates left pulmonary embolism; right-sided hydronephrosis and stent is visualized as well etiology unknown. Family attempting records from [place] at this time 74-year-old female recently immigrated from [place] with a history of dementia, diabetes hypertension. Imaging revealed right-sided hydro as well as pulmonary embolus and extensive left lower extremity thrombus. Limited history; family attempting to get records from [place] Extensive left lower extremity thrombus/pulmonary embolism case discussed with vascular; recommended heparin, no acute intervention trop, bnp negative will transition to PO eliquis this evenin Acute UTI ruled out Urine culture negative, we will DC antibiotics Hypertension Not on any medication baseline Blood pressure improving on low-dose Norvasc ADELSO unknown creatinine baseline Kidney function improved slightly. Likely at baseline Right hydronephrosis with stent imaging unknown etiology No records available from [place] at this time Seen by Urology, recommend cystoscopy and possible stent removal as an outpatient Diabetes Continue diabetic diet HB A1c 7.7 was only taking short acting insulin prior to admission, will change to sliding scale met with financial services to assist with obtaining [facility]. Time Attestation Discharge Coordination Time (in mins): 36 Quality: Safe Use of Opioids Does Pt have an Active Cancer Diagnosis on the Problem List?: No Quality: Stroke Does the patient have a stroke diagnosis?: No Physical Exam Vital Signs: Vital Signs: Last Vital Signs Temp 97.7 F 05/08/24 15:47 Pulse 70 05/08/24 15:47 Resp 20 05/08/24 15:47 BP 120/59 L 05/08/24 15:47 Pulse Ox 96 05/08/24 15:47 O2 Del Method Room Air 05/08/24 15:47 BMI result Body Mass Index 30.2 Const: General: comfortable, no acute distress, alert, awake and confusion Nutritional Appearance: average body habitus Orientation/consciousness: confusion Resp: Effort & Inspection: normal respiratory effort, able to speak in complete sentences, no respiratory distress and no use of accessory muscles Cardio: Rate: regular rate Neuro: Other: grossly nonfocal General: moves all extremities and confusion DS: Data Data Completed and Pending Labs on day of discharge: Laboratory Results - last 24 hr 05/07/24 05/07/24 05/08/24 17:38 20:43 02:23 WBC RBC Hgb Hct MCV MCH MCHC RDW Plt Count MPV Absolute Nucleated RBC Nucleated RBC % (auto) aPTT Heparin Protocol 100.6 H D 78.9 H D Sodium Potassium Chloride Carbon Dioxide Anion Gap BUN Creatinine Estim Creat Clear Calc Estimated GFR POC Glucose 183 H Random Glucose Calcium 05/08/24 05/08/24 05/08/24 07:36 08:56 11:22 WBC 5.4 RBC 3.51 L Hgb 10.9 L Hct 32.2 L MCV 91.7 MCH 31.1 MCHC 33.9 RDW 12.1 Plt Count 151 L D MPV 10.2 Absolute Nucleated RBC 0.000 Nucleated RBC % (auto) 0.0 aPTT Heparin Protocol Sodium 138 Potassium 4.5 Chloride 102 Carbon Dioxide 29 Anion Gap 12 BUN 15 Creatinine 1.38 Estim Creat Clear Calc 40.5 Estimated GFR 37 POC Glucose 196 H 210 H Random Glucose 204 H Calcium 9.3 05/08/24 16:11 WBC RBC Hgb Hct MCV MCH MCHC RDW Plt Count MPV Absolute Nucleated RBC Nucleated RBC % (auto) aPTT Heparin Protocol Sodium Potassium Chloride Carbon Dioxide Anion Gap BUN Creatinine Estim Creat Clear Calc Estimated GFR POC Glucose 191 H Random Glucose Calcium Preliminary micro results at discharge 05/06/24 16:23 Blood Culture - Preliminary Blood - Venous No growth after 24 hours. 05/06/24 15:59 Blood Culture - Preliminary Blood - Venous No growth after 24 hours. Discharge Plan Discharge Anticipated Discharge Date/Time: 05/08/24 17:32 Patient Disposition: Home, Self-Care Discharge Diagnosis: DVT/PE HTN Referrals: Alejo Thomas MD [Physician] - 1 Week Physician,None [Primary Care Provider] - 1 Week Discharge Medications: New Eliquis 5 mg tablet 5 mg PO BID Qty: 60 0RF Rx Instructions: take two tabs (10mg) twice daily until 05/13 then take 1 tab (5mg) twice daily after that amlodipine 2.5 mg Tablet 2.5 mg PO DAILY 30 Days Qty: 30 0RF Protocol: Hold for SBP< HOLD for SBP < : 90 insulin lispro [Humalog KwikPen Insulin] 100 unit/mL insulin pen 1 sliding scale dose SUBCUT QIDACHS MDD 30 Qty: 15 0RF Rx Instructions: Blood Sugar: <150 - 0 units 151-200 - 2 units 201-250 - 4 units 251-300 - 6 units 301-350 - 8 units >350 - 10 units Continued temazepam 15 mg Capsule 15 mg PO BEDTIME Rx Instructions: Per pt.'s daughter, pt. takes this medication at 19:00 risperidone 0.5 mg Tablet 0.5 mg PO BID furosemide 20 mg Tablet 20 mg PO DAILY sertraline 50 mg Tablet 50 mg PO DAILY Discontinued insulin lispro [Humalog U-100 Insulin] 100 unit/mL Solution See Protocol SUBCUT TIDAC Protocol: Insulin Correction Scale Less than or equal to 110 ---- Give (units): 0 111 to 150 Give (units): 0 151 to 200 Give (units): 15 201 to 250 Give (units): 15 251 to 300 Give (units): 15 301 to 350 Give (units): 20 Greater than 350 Give (units): 20 Call MD if Blood Glucose > : 350 Rx Instructions: 15 units if levels are under 300 20 units if levels are over 300 Discharge Orders: Discharge Order (Routine); Ordered 05/08/24 Ordered By: Jenna Sanches Activity on Discharge: As tolerated Stand Alone Forms: Patient Portal Discharge page Print Language: Bruneian Care Plan Goals: See below Health Concerns: Left lower extremity DVT, pulmonary embolism Hypertension Diabetes Right hydronephrosis Plan of Treatment: Take Eliquis 10 mg twice daily until 05/13, then take 5 mg twice daily take norvasc as prescribed for blood pressure control Take short-acting insulin on sliding scale Establish care with primary care provider for close monitoring of blood sugar, blood pressure monitor for signs of bleeding while taking blood thinner Outpatient follow-up with Urology for cystoscopy and evaluation for stent removal Assessment: See discharge summary
--- NOTE | 2024-05-08 17:54 | P.CDIM_ITS ---
PROVIDER RESPONSE TEXT: To clarify, the appropriate diagnosis supported by the clinical indicators: Deep Vein Thrombus left external iliac vein to the calf veins: acute QUERY TEXT: PHYSICIAN'S DOCUMENTATION REQUEST Date of Query: 05/08/2024 12:41 PM EDT Patient Name: Sheri Jansen Admit Date: 05/06/2024 Dear Jenna MERCEDES, A review of the medical record indicates additional documentation may be needed. Please review below and update the documentation accordingly. Clinical Indicators: Venous Duplex - Extensive occlusive thrombus extending from the visualized left external iliac vein t o the calf vein. Consider CTV of the abdomen/pelvis to assess for extension of thrombus. Based on the above, could you clarify further specifics of the noted DVT: Deep Vein Thrombus left external iliac vein to the calf veins possible, probable, suspected etc. Other (explain) Clinically unable to determine (explain) Thank you, Della James, CCS, CDIS Use of terms such as suspected, likely, concern for, or probable (associated with a specific diagnosi s that is being evaluated, monitored, or treated as if it exists) are acceptable and can be coded in the inpatient se tting, when documented at the time of discharge. Please use your independent medical judgment in providing your response. THIS QUERY IS PART OF THE PERMANENT MEDICAL RECORD
== END 2024-05-08 18:45 | disposition home or self-care (01) | DRG 197 ==
LOC: HO.ED 14:44 → HO.EDOVER 16:36 → HO.IMC 05-07 00:26
PROVIDERS: Internal Medicine; Admitting Provider Hospitalist; Emergency Provider Emergency Medicine; Visit Provider Physician Assistant Medical
DX: I82.422 Acute embolism and thrombosis of left iliac vein (principal); I26.99 Other pulmonary embolism without acute cor pulmonale; N17.9 Acute kidney failure, unspecified; I82.412 Acute embolism and thrombosis of left femoral vein; F03.911 Unspecified dementia, unspecified severity, with agitation; I25.10 Atherosclerotic heart disease of native coronary artery without angina pectoris; I82.432 Acute embolism and thrombosis of left popliteal vein; I10 Essential (primary) hypertension; N13.30 Unspecified hydronephrosis; E11.9 Type 2 diabetes mellitus without complications; I82.452 Acute embolism and thrombosis of left peroneal vein; I82.442 Acute embolism and thrombosis of left tibial vein; Z87.891 Personal history of nicotine dependence; Z79.899 Other long term (current) drug therapy
CPT/HCPCS: 36415; 71045; 71275; 74176; 80048; 80053; 81001; 82248; 82947; 83036; 83605; 83690; 83880; 84484; 85025; 85027; 85379; 85610; 85730; 86850; 86900; 86901; 87040; 87086; 93005; 93971; 99285; J0696; J1644; J2405; J7120; Q9967

== ENCOUNTER → 2024-05-06 16:31 | Outpatient (BNV) | payer MEDICAID, SELFPAY | PROVIDERS: Admitting Provider Hospitalist; Emergency Provider Emergency Medicine; Visit Provider Urology | DX: N13.30 Unspecified hydronephrosis (principal); Z96.0 Presence of urogenital implants | CPT/HCPCS: 99222 ==

== ENCOUNTER → 2024-05-06 16:31 | Outpatient (BNV) | payer OTHER, SELFPAY | PROVIDERS: Admitting Provider Hospitalist; Emergency Provider Emergency Medicine; Visit Provider Hospitalist | DX: I82.422 Acute embolism and thrombosis of left iliac vein (principal); I26.99 Other pulmonary embolism without acute cor pulmonale; F03.90 Unspecified dementia, unspecified severity, without behavioral disturbance, psychotic disturbance, mood disturbance, and anxiety; N13.30 Unspecified hydronephrosis | CPT/HCPCS: 99223; 99232; 99239 ==

== ENCOUNTER 2024-06-25 08:32 | Outpatient (AMB) | payer MEDICAID, SELFPAY ==
--- NOTE | 2024-06-25 08:39 | A.OFFVIS_ITS ---
Intake Visit Reasons: hydronephrosis/stent in place(Placed in [place]) Intake Note: New patient is Present for Hydronephrosis/Stent in place Stent was placed in [place]. Patient's daughter states that her mother does not remember what surgery took place, she is in early stages of dementia Daughter states that stent was placed in 10 years ago. Was recently treated for Urinary Tract Infection at [facility] er 05/06/24 Urology Med:None Antibiotic Allergy: None Blood Thinner: Eliquis Supervisor Belt And Link Assembly Required: No Assistant Professor Sculpture: Assistant Professor Sculpture Present (Caleb Naidu) Accompanied by: Daughter Allergies No Known Allergies Allergy (Verified 06/25/24 08:43) HPI Comments Details: Sheri is a pleasant Thai-speaking female. She is a patient of Dr. Christian. She seen for the following urologic conditions - retained ureteric stent Translation provided by daughter who is comfortable with this role Retained ureteric stent Right side Placed a number of years ago in [place] Patient has been developing persistent right flank pain Imaging reviewed which shows indwelling right ureteric stent Plan removal in operating room [facility] Medical History Leg edema Dementia TIA (transient ischemic attack) HTN (hypertension) Diabetes Social History Household Members: Children Housing: House Do you presently have visiting nurse or other home services: No Comment: sitter in room Patient Tobacco Use Status: Former Tobacco user service: No Review of Systems Const Denies chills and Denies fever(s) Card Reports no additional complaints and Denies syncope Resp Denies cough GI Denies abdominal pain and Denies heartburn Reports as per HPI and Denies change in libido Neuro Denies syncope Psych Denies change in libido Endo Denies change in libido Physical Exam Const General: cooperative, healthy appearing, comfortable and no acute distress Orientation/consciousness: patient oriented x3 HEENT Face and sinus: Yes normal facial exam Mouth: moist mucous membranes Neck Neck: Yes normal visual inspection, Yes full ROM and Yes trachea midline Chest Chest palpation & inspection: normal inspection of the chest Resp Effort & Inspection: normal respiratory effort, able to speak in complete sentences and no respiratory distress GI Inspection: Yes normal to inspection Back/Spine/Pelvis Cervical Spine: normal cervical lordosis Thoracic/Lumbar Spine: thoracic and lumbar spine normal to inspection Skin General skin exam: no rashes or lesions noted Neuro General: patient oriented x3, gait normal, tone normal and moves all extremities Extrem General: Yes normal to inspection and Yes capillary refill normal Results AMB Urinalysis, Automated UA Leukoctes 500 Yuli/uL Last Edit by TERRA BoatengA on 06/25/24 09:00 UA Nitrite Negative Last Edit by Gretta Mosquera A on 06/25/24 09:00 UA Urobilinogen 0.2 mg/dL Last Edit by Gretta Mosquera A on 06/25/24 09:0 0 UA Protein 30 mg/dL Last Edit by Gretta Mosquera A on 06/25/24 09:00 UA pH 6.5 Last Edit by Gretta Mosquera A on 06/25/24 09:00 UA Blood 80 Primitivo/uL Last Edit by Gretta Mosquera A on 06/25/24 09:00 UA Specific [place] 1.010 Last Edit by Gretta Mosquera A on 06/25/24 09: 00 UA Ketone Negative Last Edit by Gretta Mosquera A on 06/25/24 09:00 UA Bilirubin 0 mg/dL Last Edit by Gretta Mosquera A on 06/25/24 09:00 UA Glucose 0 mg/dL Last Edit by Gretta Mosquera A on 06/25/24 09:00 Results Reviewed Results Reviewed: Laboratory Last Values Urine pH (Auto) 6.5 06/25/24 08:43 Specific [place] (Auto) 1.010 06/25/24 08:43 Urine Protein (Auto) 30 mg/dL 06/25/24 08:43 Glucose (UA)(Auto) 0 mg/dL 06/25/24 08:43 Urine Ketones (Auto) Negative 06/25/24 08:43 Urine Blood (Auto) 80 Primitivo/uL 06/25/24 08:43 Urine Nitrite (Auto) Negative 06/25/24 08:43 Urine Bilirubin (Auto) 0 mg/dL 06/25/24 08:43 Urine Urobilinogen (Auto) 0.2 mg/dL 06/25/24 08:43 Leukocyte Esterase (Auto) 500 Yuli/uL 06/25/24 08:43 Assessment & Plan Assessment & Plan (1) Hydronephrosis, right: Code(s): N13.30 - Unspecified hydronephrosis Category: Medical (2) Ureteral stent present: Code(s): Z96.0 - Presence of urogenital implants Category: Medical Plan Risks, benefits and alternatives to therapy were discussed. These include but are not limited to infection, bleeding, damage to local organs and tissues, need for further interventions. Anesthetic risks regarding cardiac arrhythmia, blood clots, and potential mortality were discussed. The patient understands the typical recovery time and the outpatient nature of the procedure. After consideration of these risks the patient gives full informed consent and they wish to move ahead with the procedure. Cystoscopy, right stent removal, possible retrograde with ureteroscopy Orders: Orders AMB Urinalysis Automated Today Z13.9 - Encounter for screening, unspecified Patient Instructions: Imaging studies, laboratory and physical exam results were discussed and reviewed in detail. No major barriers to patient understanding were identified. An opportunity to ask questions regarding the treatment plan was provided. All questions were answered. The patient expressed understanding and agreement with the above treatment plan. The patient is aware they should contact our office by phone for worsening of their current condition or the appearance of new urologic symptoms. Compliance is encouraged with any medications and followup testing that is ordered. It is a privilege to participate in the urologic care of your patient. If you have any questions or concerns regarding treatment for the above conditions, or other urologic issues, please do not hesitate to contact me. The office telephone contact is [phone]. This note is constructed using voice recognition software. While every effort has been made to ensure accuracy consumer lender errors may have been included. Yours sincerely, Dr Tio Payan MD, [place] [facility] - Urology Providers of Expert, Compassionate Care for the Genitourinary System Coding Level of Care Code New Pt Level 4 (07044) Diagnoses Hydronephrosis, right N13.30 Ureteral stent present Z96.0
== END 2024-06-25 09:23 | disposition home or self-care (01) ==
PROVIDERS: PCP Internal Medicine; Visit Provider Urology
DX: N13.30 Unspecified hydronephrosis (principal); Z96.0 Presence of urogenital implants; Z13.9 Encounter for screening, unspecified
CPT/HCPCS: 99204

== ENCOUNTER → 2024-06-25 08:32 | Outpatient (BNVA) | payer MEDICAID, SELFPAY | PROVIDERS: PCP Internal Medicine; Visit Provider Urology | DX: N13.30 Unspecified hydronephrosis (principal); Z96.0 Presence of urogenital implants | CPT/HCPCS: 81003; 99202 ==

== ENCOUNTER 2024-07-13 11:17 | Day surgery (SDC) | payer MEDICAID, SELFPAY ==
[2024-07-13 11:35] VITALS: BMI 29.2
[2024-07-13 11:50] VITALS: BP 155/59; PULSE 68; RESP 18; TEMP 36.7; O2SAT 100
[2024-07-13] MEDS: Lactated Ringers 1,000 ML 100 ML IVCONT (11:59)
[2024-07-13 12:02] LABS: Glucose, Whole Blood 223 mg/dL (60-115)
--- NOTE | 2024-07-13 12:15 | HO.ANESPROP2 ---
Documented by User: Hannah Pearce NP 07/10/24 10:41 HPI - Anesthesia Eval Consult details Narrative: 74yo F for Right Cystoscopy, Ureteroroscopy, Retro, Laser with stent removal Eliquis for hx DVT/PE PMFSH Active Problems Active Problems: All Active Problems Ureteral stent present (Acute) Hydronephrosis, right (Acute) HTN (hypertension) (Acute) Pulmonary emboli (Acute) DVT (deep venous thrombosis) (Acute) Past Medical History Medical History (Updated 07/13/24 @ 11:53 by Tammy Dennis RN) Hx of blood clots Leg edema Dementia TIA (transient ischemic attack) HTN (hypertension) Diabetes Surgical History Surgical History (Updated 07/13/24 @ 11:53 by Tammy Dennis RN) Hx of cardiac catheterization Hx of hysterectomy Social History Social History Household Members: Children Housing: House Are you a primary geriatric care manager to a significant other at home: No Do you presently have visiting nurse or other home services: No Comment: within the last year prior to moving in with family Patient Tobacco Use Status: Former Tobacco user Have you been hit, kicked, punched, or otherwise hurt by someone within the past year? If so, by whom?: No Are you DNR?: No Advance Directives: No Advance Directives Information Provided: Yes Recently lost weight without trying: No Nutrition Risks: No Nutritional Risk service: No Meds Allergies Allergy/AdvReac Type Severity Reaction Status Date / Time No Known Allergies Allergy Verified 07/13/24 11:54 Home Medications ?Medication ?Instructions ?Recorded ?Confirmed ?Last Taken ?Type furosemide 20 mg tablet 20 mg PO DAILY 05/06/24 07/13/24 05/05/24 07:30 History risperidone 0.5 mg tablet 0.5 mg PO BID 05/06/24 07/13/24 07/13/24 History sertraline 50 mg tablet 50 mg PO DAILY 05/06/24 07/13/24 05/06/24 07:30 History temazepam 15 mg capsule 15 mg PO BEDTIME 05/06/24 07/13/24 05/05/24 07:30 History Exam Pertinent Lab Results Pertinent Lab Results: Laboratory Tests 05/08/24 08:56 WBC 5.4 Hgb 10.9 L Hct 32.2 L Plt Count 151 L D Sodium 138 Potassium 4.5 Chloride 102 Carbon Dioxide 29 BUN 15 Creatinine 1.38 Narrative Narrative: EKG 04/2024 Vent. Rate : 066 BPM Atrial Rate : 066 BPM P-R Int : 184 ms QRS Dur : 088 ms QT Int : 404 ms P-R-T Axes : 073 -16 053 degrees QTc Int : 423 ms Normal sinus rhythm Moderate voltage criteria for LVH, may be normal variant ( R in aVL , [place] product ) Cannot rule out Anterior infarct , age undetermined Abnormal ECG No previous ECGs available Assessment and Plan Assessment Anesthesia Assessment: Chart Reviewed Documented by User: Romi Daugherty, 07/13/24 12:27 PMFSH Past Medical History Medical History (Updated 07/13/24 @ 11:53 by Tammy Dennis RN) Hx of blood clots Leg edema Dementia TIA (transient ischemic attack) HTN (hypertension) Diabetes Family History Family history of problems with anesthesia: No Surgical History Surgical History (Updated 07/13/24 @ 11:53 by Tammy Dennis RN) Hx of cardiac catheterization Hx of hysterectomy History of Problems with Anesthesia: No Social History Social History Household Members: Children Housing: House Are you a primary geriatric care manager to a significant other at home: No Do you presently have visiting nurse or other home services: No Comment: within the last year prior to moving in with family Patient Tobacco Use Status: Former Tobacco user Have you been hit, kicked, punched, or otherwise hurt by someone within the past year? If so, by whom?: No Are you DNR?: No Advance Directives: No Advance Directives Information Provided: Yes Recently lost weight without trying: No Nutrition Risks: No Nutritional Risk service: No Meds Allergies Allergy/AdvReac Type Severity Reaction Status Date / Time No Known Allergies Allergy Verified 07/13/24 11:54 Home Medications ?Medication ?Instructions ?Recorded ?Confirmed ?Last Taken ?Type furosemide 20 mg tablet 20 mg PO DAILY 05/06/24 07/13/24 05/05/24 07:30 History risperidone 0.5 mg tablet 0.5 mg PO BID 05/06/24 07/13/24 07/13/24 History sertraline 50 mg tablet 50 mg PO DAILY 05/06/24 07/13/24 05/06/24 07:30 History temazepam 15 mg capsule 15 mg PO BEDTIME 05/06/24 07/13/24 05/05/24 07:30 History Exam Exam Date and Time: 07/13/24 1215 Height,Weight and Vital Signs: Height 5 ft 6 in Weight 82.1 kg Vital Signs Temperature 98.1 F 07/13/24 11:50 Pulse Rate 68 07/13/24 11:50 Respiratory Rate 18 07/13/24 11:50 Blood Pressure 155/59 H 07/13/24 11:50 Pulse Oximetry 100 07/13/24 11:50 Oxygen Delivery Method Room Air 07/13/24 11:50 Temperature 98.1 F 07/13/24 11:50 Pulse Rate 68 07/13/24 11:50 Respiratory Rate 18 07/13/24 11:50 Blood Pressure 155/59 H 07/13/24 11:50 Pulse Oximetry 100 07/13/24 11:50 Oxygen Delivery Method Room Air 07/13/24 11:50 Airway Mallampati Class: II TM Dist: >3cm Neck ROM: Full Heart: S1S2 Lungs: CTAB Assessment and Plan Assessment Anesthesia Assessment: Anesthesia Plan Discussed and Chart Reviewed Final Anesthetic Review Family History of Problems with Anesthesia: No History of Problems with Anesthesia: No NPO: Yes ASA Class: II Final Preanesthetic Review: No Changes in Pt Med Stat, Meds/Allgs Chart Reviewed, Consent Obtained/Reviewed (consent signed with HCP ([id number])) and Anes Risks/Benef Reviewed Patient Risk: Low Procedure Risk: Low Anesthetic Plan Anesthetic Plan: GA and Agree w/ Assess. and Plan Disposition: Standard PACU
--- NOTE | 2024-07-13 12:32 | MHC.SHP ---
Pre-Procedural Eval Section A - 24 Hr Update-Section A only Date of Service: 07/13/24 The patient is an INPATIENT: No Changes since office visit: No Cold of Flu in the past 2 weeks, No New Medical Problems, No Changes in Medication and No Patient answered all questions The patient has been examined within 24 hours of the surgical procedure. The History & Physical has been completed within 30 days and I have reviewed it.: Yes Section B - Complete if H&P > 30 days Chief Complaint: Unspecified hydronephrosis Details of Present Illness: Retained right ureteric stent from [place] Allergies: Allergies Allergy/AdvReac Type Severity Reaction Status Date / Time No Known Allergies Allergy Verified 07/13/24 11:54 Review of Systems Sugical H&P ROS: Negative: Constitution, Cardiovascular, Respiratory, Neurological, Psychiatric, Hem-Onc, Allergic/Immunologic, Gastrointestinal, Genitourinary, Musculoskeletal, Integumentary, Endocrine and Eyes/Ears/Nose/Throat Exam Surgical H&P Exam: Normal: HEENT, Normal: Heart, Normal: Lungs, Normal: Extremities, Normal: Abdomen, Normal: Skin and Normal: Neurological Plan Diagnosis/Plan: Unchanged (Cystoscopy, right retrograde, ureteroscopy with laser lithotripsy and stent removal) I have reviewed the history and physical and performed a pertinent physical examination on my patient. No changes have occurred unless specified. Time Spent With Patient Time: Total time managing care of this patient today ____ minutes.
--- NOTE | 2024-07-13 13:05 | P.OP_ITS ---
Operative Note Operative Note Date of Service: 07/13/24 Narrative: PreOperative Diagnosis: Right retained ureteric stent Post Operative Diagnosis: Right retained ureteric stent Procedure: Cystoscopy Right retrograde Laser of calcification from distal portion of right retained stent in bladder Right stent removal Surgeon: Dr Tio Payan Anesthesia: LMA Indications for procedure: Patient arrived from [place]. Right retained stent present for proximally 7 years was found on imaging. Here for removal. Procedure: After informed consent was verified the patient was brought to the operating room and placed in a supine position. Anesthesia was administered per protocol. The patient was prepped and draped in a sterile fashion. Safety pause time-out was performed. Antibiotics were given. Patient was in a modified dorsal lithotomy position. Twenty-two Maltese cystoscope inserted per urethra. Stent seen in place with extensive calcifications on the distal curl portion of the stent. Open-ended catheter placed alongside stent and retrograde examination performed. Dye was able to reach the kidney. Attempt was made to place a wire alongside the stent. The wire was unable to pass distal 3rd of the stent due to potential obstruction. Using a 500nm end fire holmium laser with bladder stone settings the calcification along the coil of the distal stent was broken apart and removed. This took approximately 30 minutes. Once complete the end of the stent was grasped and the intention was to bring it out to the meatus so that a rigid ureteral scope could be passed alongside and further laser could be performed on calcifications that were expected to be throughout the stent. The stent was able to be removed from the ureter in 1 piece with minimal traction. Imaging confirmed stent had been removed. She tolerated the procedure well and was extubated in operating room transferred in stable condition to the recovery area. Pathology: stent with calcifications Drains: []
[2024-07-13 13:14] VITALS: BP 167/81; PULSE 92; RESP 16; TEMP 36.1; O2SAT 99
[2024-07-13 13:19] VITALS: BP 159/75; PULSE 81; RESP 16; TEMP 36.1; O2SAT 98
[2024-07-13 13:24] VITALS: BP 165/69; PULSE 72; RESP 16; TEMP 36.1; O2SAT 99
[2024-07-13 13:29] VITALS: BP 169/73; PULSE 69; RESP 16; TEMP 36.1; O2SAT 99
[2024-07-13 13:44] VITALS: BP 180/79; PULSE 71; RESP 16; TEMP 36.1; O2SAT 99
== END 2024-07-13 14:55 | disposition home or self-care (01) ==
PROVIDERS: Visit Provider Urology
PROC: (CPT 52315; principal; 2024-07-13 13:10)
DX: T83.192A Other mechanical complication of indwelling ureteral stent, initial encounter (principal); N13.30 Unspecified hydronephrosis; R10.9 Unspecified abdominal pain; Z96.0 Presence of urogenital implants; Y73.2 Prosthetic and other implants, materials and accessory gastroenterology and urology devices associated with adverse incidents; F03.90 Unspecified dementia, unspecified severity, without behavioral disturbance, psychotic disturbance, mood disturbance, and anxiety; I10 Essential (primary) hypertension; E11.9 Type 2 diabetes mellitus without complications; R60.0 Localized edema; Z86.73 Personal history of transient ischemic attack (TIA), and cerebral infarction without residual deficits; Z79.01 Long term (current) use of anticoagulants; Z79.4 Long term (current) use of insulin; Z79.899 Other long term (current) drug therapy; Z87.891 Personal history of nicotine dependence
CPT/HCPCS: 52315; 82947; C1758; C1769; J0131; J1100; J1956; J2003; J2405; J2704; J3010; Q9967

== ENCOUNTER → 2024-07-13 11:17 | Outpatient (BNV) | payer MEDICAID, SELFPAY | PROVIDERS: Visit Provider Urology | DX: N13.30 Unspecified hydronephrosis (principal); Z96.0 Presence of urogenital implants | CPT/HCPCS: 52353 ==

== ENCOUNTER 2024-07-30 10:41 | Outpatient (AMB) | payer MEDICARE, MEDICAID, SELFPAY ==
--- NOTE | 2024-07-30 10:43 | AM.OFFWIN_ITS ---
Intake Vital Signs 07/30/24 10:44 Weight 187 lb BP 140/80 H Blood Pressure Location Rt brachial Position Sitting Pulse 70 Pulse Source Pulse Oximeter Pulse Oximetry (%) 98 Oxygen Delivery Method Room Air Intake Visit Reasons: EP leg swelling, question of DVT Intake Note: Patient here for leg swelling, daughter states when she came from [place] she had her legs very swollen and was brought to the ED and was diagnosed w/DVT and blood clot in lung and was put on eliquis and she finished and now that she has run out her leg is starting to swell again. Patient Tobacco Use Status: Former Tobacco user Allergies No Known Allergies Allergy (Verified 07/30/24 10:47) Do you need a note to return to daycare/school/sports/work: No HPI HPI Comments History of Present Illness Details History of Present Illness The patient is a 74-year-old Macanese-speaking female presenting with her daughter who is interpreting, with left lower extremity swelling and pain, raising concerns for possible recurrent deep vein thrombosis. The patient was initially diagnosed with a left lower extremity thrombus and pulmonary embolism after presenting with leg swelling and shortness of breath in April. She was hospitalized and treated with a heparin drip and transitioned to oral anticoagulation with Eliquis, which she completed two weeks ago. A massive thrombus in the left leg and embolism in the lung were documented. During her hospital stay, she also experienced acute kidney injury, and was noted to have right hydronephrosis managed with stenting. Her hypertension became particularly elevated post-operatively but is currently managed with medication. The patient lacks a primary care physician due to insurance issues since arriving from [place], complicating her ongoing care. She received an appointment with a new PCP (Dr Christian) for May next year, leaving her interim anticoagulation needs unmet. Her current symptoms stem from the previously affected limb, and there is concern over potential clot extension or recurrence due to her anticoagulation cessation. General: Cooperative, healthy appearing, comfortable, no acute distress and well developed Orientation: Patient oriented x3 Limitations: Macanese speaking Head: Normal to inspection Ears: Hearing grossly normal bilaterally Nose: Normal external nose present Face and sinus: Normal facial exam Eyes: Appearance normal, both eyes and all related structures Neck: Normal visual inspection and Yes full ROM Respiratory: Normal respiratory effort and able to speak in complete sentences. Skin: No rashes or lesions noted Neuro: Patient oriented x3 Extremities: Left lower extremity with nonpitting edema, + Homans left leg, normal color. [facility] Medical History (Updated 07/30/24 @ 10:56 by Lesli Castro PA-C) Hx of blood clots Leg edema Dementia TIA (transient ischemic attack) HTN (hypertension) Diabetes Surgical History (Updated 07/13/24 @ 11:53 by Tammy Dennis RN) Hx of cardiac catheterization Hx of hysterectomy Social History Household Members: Children Housing: House Are you a primary career placement specialist to a significant other at home: No Do you presently have visiting nurse or other home services: No Comment: within the last year prior to moving in with family Patient Tobacco Use Status: Former Tobacco user service: No Review of Systems Const All systems reviewed & are unremarkable except as noted in HPI and below Physical Exam Vital Signs: Last Vital Signs Pulse 70 07/30/24 10:44 BP 140/80 H 07/30/24 10:44 Pulse Ox 98 07/30/24 10:44 Oxygen Delivery Method Room Air 07/30/24 10:44 Assessment & Plan Assessment & Plan (1) DVT (deep venous thrombosis): Code(s): I82.409 - Acute embolism and thrombosis of unspecified deep veins of unspecified lower extremity Qualifiers: Affected thrombotic vein of extremity: iliac Chronicity: acute DVT location: lower extremity Laterality: left Qualified Code(s): I82.422 - Acute embolism and thrombosis of left iliac vein Plan: Plan - Conduct an ultrasound of the left lower extremity to evaluate for recurrent deep vein thrombosis. Ultrasound of the left lower extremity showed a small clot. We will restart patient on her Eliquis, prescribed 14 day dose as patient has an appointment with her new PCP in 12 days. Also gave her 14 day supply of her other medications. - Arranged an urgent appointment with Marci Hart PA-C at the [place] office to establish care and ensure anticoagulation continuity. - Monitor blood pressure and ensure dosage adjustment of antihypertensive medications as necessary with new PCP next week. - Ensure upcoming urology and ultrasound appointments are maintained for continuity of care. Patient was informed and verbally consented to the use of an ambient scribe for clinic note documentation during this visit. (2) Left leg swelling: Code(s): M79.89 - Other specified soft tissue disorders Plan: See above Orders: Orders US venous duplex LE LT Today I82.422 - Acute embolism and thrombosis of left iliac vein, M79.89 - Other specified soft tissue disorders Medications: New apixaban (Eliquis) 5 mg PO BID 28 tabs 0RF 14 days sertraline 50 mg PO DAILY 14 tabs 0RF Changed From risperidone 0.5 mg PO BID To risperidone 0.5 mg PO BID 28 tabs 0RF 14 days From amlodipine 2.5 mg See Protocol PO DAILY 30 days 30 tabs 0RF To amlodipine 2.5 mg See Protocol PO DAILY 14 tabs 0RF 14 days Refilled insulin lispro (Humalog KwikPen (U-100) Insulin) Blood Sugar: <150 - 0 units 151-200 - 2 units 201-250 - 4 units 251-300 - 6 units 301-350 - 8 units >350 - 10 units 1 sliding scale dose subcut QIDACHS 15 mL 0RF MDD 30 Coding Level of Care Code New Pt Level 5 (18427) Diagnoses DVT (deep venous thrombosis) I82.422 Affected thrombotic vein of extremity: iliac Chronicity: acute DVT location: lower extremity Laterality: left Left leg swelling M79.89
[2024-07-30 10:44] VITALS: BP 140/80; PULSE 70; O2SAT 98
== END 2024-07-30 12:10 | disposition home or self-care (01) ==
PROVIDERS: Visit Provider Physician Assistant
DX: I82.422 Acute embolism and thrombosis of left iliac vein (principal); M79.89 Other specified soft tissue disorders

== ENCOUNTER 2024-07-30 11:01 | Outpatient (REF) | payer MEDICARE, MEDICAID, SELFPAY ==
--- NOTE | ~2024-07-30 | US_ITS ---
EXAMINATION: US TRIPLEX LOWER EXTREMITY, LEFT CLINICAL INFORMATION: History DVT COMPARISON: 05/06/2024 TECHNIQUE: Color-flow triplex imaging with spectral analysis and compression Doppler were performed on the left lower extremity. FINDINGS: There has been recanalization of the left lower extremity veins with some residual chronic thrombus seen within the common femoral and proximal femoral vein with the vessel is not fully compressible. The remaining venous structures including the external iliac vein, mid and distal segments of the femoral vein, popliteal vein, and midcalf venous segments are patent and have normal flow and compressibility. There is no Mcfarland's cyst. US/US venous duplex LE LT IMPRESSION: Recanalization of the left lower extremity vasculature with chronic thrombus remodeling at the common femoral/proximal femoral vein. The remainder of the lower extremity veins are patent. Electronically signed by: Isidro Dumont MD 07/30/2024 02:37 PM [facility]
== END 2024-07-30 11:02 | disposition home or self-care (01) ==
LOC: HO.HMGCX 11:01
PROVIDERS: PCP Internal Medicine; Visit Provider Physician Assistant
DX: I82.422 Acute embolism and thrombosis of left iliac vein (principal); M79.89 Other specified soft tissue disorders; Z79.01 Long term (current) use of anticoagulants
CPT/HCPCS: 93971; 99212

== ENCOUNTER 2024-08-11 10:35 | Outpatient (AMB) | payer MEDICARE, MEDICAID, SELFPAY ==
--- NOTE | 2024-08-11 10:37 | MHC.PC.OV ---
Vital Signs 08/11/24 10:39 08/11/24 11:19 Height 5 ft 6 in Weight 181 lb BMI 29.2 BP 146/70 H 138/78 Blood Pressure Location Lt brachial Lt brachial Position Sitting Sitting Pulse 84 Pulse Source Pulse Oximeter Pulse Oximetry (%) 97 Oxygen Delivery Method Room Air Intake Visit Reasons: Establish care-ciro connally requested sooner appt Furniture Stainer Required: No Accompanied by: daughter in law/ HCP Allergies No Known Allergies Allergy (Verified 08/11/24 10:42) Medication List - Last Reconciled 08/11/24 by Marci Hart PA-C amlodipine 2.5 mg See Protocol PO DAILY 14 days apixaban (Eliquis) 5 mg PO BID 14 days furosemide 20 mg PO DAILY insulin lispro (Humalog KwikPen (U-100) Insulin) 1 sliding scale dose subcut QIDACHS MDD 30 risperidone 0.5 mg PO BID 14 days sertraline 50 mg PO DAILY temazepam 15 mg PO BEDTIME Tobacco use date assessed: 08/11/24 Fall risk assessment: 1 Fall in past year Last assessed Fall Risk: 08/11/24 Dental Screening Dental Screen Date: 08/11/24 Did you have a dental visit in the last 12 months?: No Did you have a dental problem in the last 6 months where you did not have access to dental care?: No Was dental information given to patient?: Patient has dentist HPI Establish care-ciro connally requested sooner appt HPI Details 74-year-old female coming to the office for the 1st time.? In review of the notes, patient was seen in walk-in clinic 07/30/2024 after having been diagnosed with DVT and pulmonary embolism was placed on Eliquis and has run out of medication at that time and was presenting with lower leg swelling Eliquis and other medications were refilled.?Patient was diagnosed with DVT and pulmonary embolism 05/06/2024 also found to have acute kidney injury while hospitalized. Patient was seen by Urology 06/25/2024 after hospitalization advised to remove the ureter stent which was removed in 06/2024. Patient presents today with her [id number] who interprets for the duration of this visit. Formal pet care associate was offered but declined. Patient has a history of dementia and is a poor historian. She was previously being seen by PCP in [place] but moved to the [facility] in April. She was found to have DVT and pulmonary embolism and was started on Eliquis but does not have any follow up with specialties. She has a history of coronary artery disease and previous myocardial infarctions and was being seen by Cardiology after cardiac catheterization in [place]. She was started on multitude of medications while in [place] and hospitalized for dementia and started on risperidone, sertraline and temazepam nightly. Her [id number] reports if she does not have her temazepam she will act erratically and scream in her sleep. [facility] Medical History Dementia History of [place] (myocardial infarction) Hx of blood clots Leg edema TIA (transient ischemic attack) HTN (hypertension) Diabetes Surgical History Hx of cardiac catheterization Hx of hysterectomy Family History Mother Dementia Social History Household Members: Children Housing: House Are you a primary healthcare facility administrator to a significant other at home: No Do you presently have visiting nurse or other home services: No Alcohol intake: never Comment: within the last year prior to moving in with family Patient Tobacco Use Status: Former Tobacco user Tobacco use type: Cigarette e-Cigarette/Vaping Use: Never Used Second Hand Smoke Exposure: No service: No Current occupational status: disabled Cognitive needs: Yes Hearing needs: No Vision needs: Yes Questionnaire PHQ-9 Over the last 2 weeks, how often have you been bothered by any of the following problems? 1. Little interest or pleasure in doing things: more than half the days 2. Feeling down, depressed, or hopeless: not at all 3. Trouble falling or staying asleep, or sleeping too much: several days 4. Feeling tired or having little energy: several days 5. Poor appetite or overeating: several days 6. Feeling bad about yourself - or that you are a failure or have let yourself or your family down: not at all 7. Trouble concentrating on things, such as reading the newspaper or watching television: nearly every day 8. Moving or speaking so slowly that other people could have noticed. Or the opposite - being so fidgety or restless that you have been moving around a lot more than usual: nearly every day 9. Thoughts that you would be better off or of hurting yourself in some way: not at all Total score: 11 Depression Screening Interpretation: Positive Depression Screening Done: Yes Source: Developed by Drs. Dorian Hawthorne, Niharika Sanchez, Jesse Alston and colleagues, with an educational janet from [employer]. Thrive Questionnaire Date Thrive assessed: 08/11/24 I am a: Parent/Caregiver What is your living situation today?: I have a steady place to live Within the past 12 months, did the food you bought not last and you didn't have the money to get more?: Never true Within the past 12 months, did you worry whether your food would run out before you got money to buy more?: Never true Do you have trouble paying for medicines?: No Do you have trouble getting transportation to medical appointments?: No Do you have trouble paying your heating and electricity bill?: No Do you have trouble taking care of your child, family member or friend?: I choose not to answer this question Do you have trouble with day-to-day activities such as bathing, preparing meals, shopping, managing finances, etc.?: Yes Are you currently unemployed and looking for a job?: I choose not to answer this question Are you interested in more education?: No Please select the resources that you would like help with: Care for elder or disabled Currently or been in a relationship where the following occur: No concerns reported THRIVE Score: 0 AUDIT C Alcohol Use Questionnaire (AUDIT-C) 1. How often do you have a drink containing alcohol?: Never Total Score: 0 OLIVIA-7 AMB Questionnaire OLIVIA-7 Date OLIVIA - 7 assessed: 08/11/24 Feeling nervous, anxious, or on edge: 1 = Several days Not being able to stop or control worryin = Several days Worrying too much about different things: 1 = Several days Trouble relaxin = Nearly every day Being so restless that it is hard to sit still: 0 = Not at all Becoming easily annoyed or irritable: 3 = Nearly every day Feeling afraid as if something awful might happen: 1 = Several days Total OLIVIA-7 score (0-4 normal; 5-9 mild; 10-14 moderate; 15-21 severe): 10 Source: Developed by Drs. Dorian Hawthorne, Niharika Sanchez, Jesse Alston and colleagues, with an educational janet from [employer]. Review of Systems Const Denies body aches, Denies fatigue, Denies fever(s), Denies frequent falls, Denies headache(s) and Denies weakness Eyes Reports no additional complaints and Denies change in vision ENT Denies dizziness, Denies facial pain, Denies headache(s) and Denies nasal congestion Card Denies chest pain, Reports leg edema (Previously) and Denies dyspnea Resp Denies cough and Denies dyspnea GI Denies constipation, Denies dyspepsia, Denies diarrhea, Denies nausea and Denies vomiting Denies urinary frequency, Denies dysuria, Denies urinary hesitancy and Denies urinary urgency Musc Denies back pain and Denies myalgias Skin/Breast Reports system reviewed and no additional complaints, except as documented Neuro Denies dizziness, Denies frequent falls, Denies headache(s) and Denies weakness Psych Reports no additional complaints Endo Denies fatigue Physical exam (Primary Care) Vital Signs: Last Vital Signs Pulse 84 08/11/24 10:39 BP 138/78 08/11/24 11:19 Pulse Ox 97 08/11/24 10:39 Oxygen Delivery Method Room Air 08/11/24 10:39 BMI result Body Mass Index 29.2 Tobacco/Smoking Status: Tobacco use Status Tobacco use date assessed 08/11/24 08/11/24 10:43 Patient Tobacco Use Status Former Tobacco user 08/11/24 10:43 Tobacco use type Cigarette 08/11/24 10:43 e-Cigarette/Vaping Use Never Used 08/11/24 10:43 PHQ-9: PHQ-9 Score PHQ-9: Total score 11 08/11/24 11:25 Depression Screening Interpretation: Positive Thrive Assessment: Date of Thrive Assessment Date Thrive assessed 08/11/24 08/11/24 10:43 Currently or been in a relationship where the following occur: No concerns reported Const General: cooperative, healthy appearing, comfortable and no acute distress Orientation/consciousness: patient oriented x3 HENMT Head: Yes normocephalic Ears: hearing grossly normal bilaterally General nose exam: Normal external nose present Eyes General: appearance normal, both eyes and all related structures Conjunctivae: conjunctivae normal Neck Neck: Yes full ROM and Yes no lymphadenopathy Resp Effort & Inspection: normal respiratory effort Auscultation: clear to auscultation bilaterally, no crackles, no rales, no rhonchi and no wheezes Cardio Rate: regular rate Rhythm: regular rhythm Skin General skin exam: no rashes or lesions noted Neuro General: patient oriented x3 Gait exam (Neuro): Normal gait present Extrem General: Yes normal to inspection, Yes full ROM and No edema Psych Affect: normal affect Attitude: cooperative Insight: Good insight present (Psych) Judgement: Good judgement present (Psych) Office Procedures Flu Questionnaire Does the patient have a severe egg allergy?: No Immunizations Fluarix Triv [id number] (PF) 45 mcg (15 mcg x 3)/0.5 mL IM syringe Performing Provider: Marci Hart PA-C [facility] Documented (not given) by: NEHEMIAS Ken on 08/11/24 11:26 Reason Not Given: Not Given Coding Level of Care Code New Pt Level 4 (27428) Diagnoses Ureteral stent present Z96.0 Acute pulmonary embolism without acute cor pulmonale, unspecified pulmonary embolism type I26.99 Acute cor pulmonale presence: without acute cor pulmonale Chronicity: acute Pulmonary embolism type: unspecified DVT (deep venous thrombosis) I82.422 Affected thrombotic vein of extremity: iliac Chronicity: acute DVT location: lower extremity Laterality: left Primary hypertension I10 Hypertension type: primary hypertension Coronary artery disease I25.10 Hypercholesteremia E78.00 Diabetes E11.9 Dementia, unspecified dementia severity, unspecified dementia type, unspecified whether behavioral, psychotic, or mood disturbance or anxiety F03.90 Dementia behavioral or psychological symptom: unspecified whether behavioral, psychotic, or mood disturbance or anxiety Dementia severity: unspecified severity Dementia type: unspecified type Assessment & Plan Assessment & Plan (1) Ureteral stent present: Code(s): Z96.0 - Presence of urogenital implants Category: Medical Plan: Currently following with Urology and had stent removed successfully without complication. Continue to follow with Urology for follow up. (2) Pulmonary emboli: Code(s): I26.99 - Other pulmonary embolism without acute cor pulmonale Category: Medical Qualifiers: Acute cor pulmonale presence: without acute cor pulmonale Chronicity: acute Pulmonary embolism type: unspecified Qualified Code(s): I26.99 - Other pulmonary embolism without acute cor pulmonale Plan: Patient found to have pulmonary emboli on apixaban 5 mg b.i.d. referral placed to Hematology today for further workup. (3) DVT (deep venous thrombosis): Code(s): I82.409 - Acute embolism and thrombosis of unspecified deep veins of unspecified lower extremity Category: Medical Qualifiers: Affected thrombotic vein of extremity: iliac Chronicity: acute DVT location: lower extremity Laterality: left Qualified Code(s): I82.422 - Acute embolism and thrombosis of left iliac vein Plan: Patient found to have DVT in April started on apixaban b.i.d.. Continue to monitor for symptoms and referral placed for Hematology today. (4) HTN (hypertension): Code(s): I10 - Essential (primary) hypertension Category: Medical Qualifiers: Hypertension type: primary hypertension Qualified Code(s): I10 - Essential (primary) hypertension Plan: Continue on current blood pressure medication. Avoid salt intake and encourage healthy diet and regular exercise. Blood pressure at goal today 130/78 however slightly increased. Given history of myocardial infarction we will have to have good control of blood pressure can consider increasing amlodipine to 5 mg. (5) Coronary artery disease: Code(s): I25.10 - Atherosclerotic heart disease of [place] coronary artery without angina pectoris Category: Medical Plan: Patient has paperwork from [place] and states she has a history of coronary artery disease with lesions on multiple coronary arteries. We will review paperwork further referral placed to Cardiology at this time. Advised good control of cholesterol, blood pressure and blood sugars. Ordered for updated blood work. Patient not currently on a statin we will await cholesterol labs to see intensity of statin. (6) Hypercholesteremia: Code(s): E78.00 - Pure hypercholesterolemia, unspecified Category: Medical Plan: Avoid foods that are high in cholesterol such as red meat, fried foods, eggs and baked goods. Triglyceride goal of less than 150 and LDL goal of less than 70. Not currently on a statin ordered for updated blood work and we will prescribe statin intensity based on these labs. (7) Diabetes: Code(s): E11.9 - Type 2 diabetes mellitus without complications Category: Medical Plan: Decrease the amount of carbohydrates such as pasta, bread, rice, and potatoes and limit the amount of sweets. Although fruits are generally healthy they should be eaten in moderation as they are still high in sugar. Hemoglobin A1c goal of less than 7%. Ordered for repeat A1c currently on a sliding scale of insulin. Patient does have dementia and can not manages on her own but does have a FORECLOSURE CLERK who does this for her. (8) Dementia: Code(s): F03.90 - Unspecified dementia, unspecified severity, without behavioral disturbance, psychotic disturbance, mood disturbance, and anxiety Category: Medical Qualifiers: Dementia behavioral or psychological symptom: unspecified whether behavioral, psychotic, or mood disturbance or anxiety Dementia severity: unspecified severity Dementia type: unspecified type Qualified Code(s): F03.90 - Unspecified dementia, unspecified severity, without behavioral disturbance, psychotic disturbance, mood disturbance, and anxiety Plan: Patient having dementia and currently on sertraline, temazepam and risperidone. Patient was hospitalized while in [place] and we will request these notes. Currently has a FORECLOSURE CLERK and finds this helpful. Referral placed to Neurology for further evaluation and cognitive assessment. Plan to taper temazepam as this medication is not ideal for this patient to be taken daily. Plan to have temazepam 7.5 mg daily for 1 month and every other day for the following month and reassess at that time. In the meantime we will also begin trazodone to help with sleep and mood at bedtime. Reviewed red flag symptoms of benzodiazepine withdrawal and when to present for re-evaluation. Patient and FORECLOSURE CLERK are understanding and agreed to the plan. Plan This note was constructed using voice recognition software. While every effort has been made to ensure accuracy and laborer turkey farm, still areas may have been included sometimes these areas may affect the content or meeting of the given symptoms. Total time spent caring for the patient today was 30 minutes. This includes time spent before the visit reviewing the chart, time spent during the visit, and time spent after the visit and documentation. Orders: Orders Lipid Panel Today E78.00 - Pure hypercholesterolemia, unspecified TSH reflex Free T4 Today Z00.00 - Encounter for general adult medical examination without abnormal findings Free T4 (Free Thyroxine) Today Z00.00 - Encounter for general adult medical examination without abnormal findings Vitamin B12 and Folate Today Z00.00 - Encounter for general adult medical examination without abnormal findings Vitamin D 25-OH Total Today Z00.00 - Encounter for general adult medical examination without abnormal findings Influenza [id number] Immunization Today Z23 - Encounter for immunization Hemoglobin A1c Today E11.65 - Type 2 diabetes mellitus with hyperglycemia Referrals Neurology Referral F03.90 - Unspecified dementia, unspecified severity, without behavioral disturbance, psychotic disturbance, mood disturbance, and anxiety Hematology & Oncology Referral I26.99 - Other pulmonary embolism without acute cor pulmonale, I82.422 - Acute embolism and thrombosis of left iliac vein Cardiology Referral I10 - Essential (primary) hypertension, I25.10 - Atherosclerotic heart disease of [place] coronary artery without angina pectoris, I25.2 - Old myocardial infarction Medications: New temazepam 7.5 mg PO BEDTIME 28 caps 0RF trazodone 50 mg PO BEDTIME 30 tabs 2RF sleep pen needle, diabetic (Ultra-Thin II Insulin Pen [place]) As directed 100 ea 1RF Changed From risperidone 0.5 mg PO BID 14 days 28 tabs 0RF To risperidone 0.5 mg PO BID 180 tabs 2RF From apixaban (Eliquis) 5 mg PO BID 14 days 28 tabs 0RF To apixaban (Eliquis) 5 mg PO BID 180 tabs 3RF Refilled amlodipine 2.5 mg See Protocol PO DAILY 90 tabs 2RF 14 days insulin lispro (Humalog KwikPen (U-100) Insulin) Blood Sugar: <150 - 0 units 151-200 - 2 units 201-250 - 4 units 251-300 - 6 units 301-350 - 8 units >350 - 10 units 1 sliding scale dose subcut QIDACHS 15 mL 3RF MDD 30 sertraline 50 mg PO DAILY 90 tabs 3RF
[2024-08-11 10:39] VITALS: BP 146/70; PULSE 84; O2SAT 97; BMI 29.2
[2024-08-11 11:19] VITALS: BP 138/78
== END 2024-08-11 11:24 | disposition home or self-care (01) ==
PROVIDERS: PCP Internal Medicine
DX: E11.9 Type 2 diabetes mellitus without complications (principal); I26.99 Other pulmonary embolism without acute cor pulmonale; I82.422 Acute embolism and thrombosis of left iliac vein; F03.90 Unspecified dementia, unspecified severity, without behavioral disturbance, psychotic disturbance, mood disturbance, and anxiety; Z96.0 Presence of urogenital implants; I10 Essential (primary) hypertension; I25.10 Atherosclerotic heart disease of native coronary artery without angina pectoris; E78.00 Pure hypercholesterolemia, unspecified; Z23 Encounter for immunization

== ENCOUNTER → 2024-08-11 10:35 | Outpatient (BNVA) | payer MEDICARE, MEDICAID, SELFPAY | PROVIDERS: PCP Internal Medicine | DX: Z00.00 Encounter for general adult medical examination without abnormal findings (principal); I10 Essential (primary) hypertension; I25.10 Atherosclerotic heart disease of native coronary artery without angina pectoris; E78.00 Pure hypercholesterolemia, unspecified; E11.9 Type 2 diabetes mellitus without complications; F03.90 Unspecified dementia, unspecified severity, without behavioral disturbance, psychotic disturbance, mood disturbance, and anxiety; I82.422 Acute embolism and thrombosis of left iliac vein; I26.99 Other pulmonary embolism without acute cor pulmonale; E11.65 Type 2 diabetes mellitus with hyperglycemia; Z96.0 Presence of urogenital implants; Z79.01 Long term (current) use of anticoagulants | CPT/HCPCS: 96127; 99202 ==

== ENCOUNTER 2024-08-20 14:06 | Outpatient (AMB) | payer MEDICARE, MEDICAID, SELFPAY ==
--- NOTE | 2024-08-20 14:07 | A.OFFVIS_ITS ---
Vital Signs 08/20/24 14:10 Height 5 ft 6 in Weight 181 lb BMI 29.2 Intake Visit Reasons: 08/14LVM+Let INP-Cog Impairement Intake Note: pstient [id number] for cognitive impairement Allergies No Known Allergies Allergy (Verified 08/20/24 14:11) Medication List - Last Reconciled 08/20/24 by Gayla Byers MD amlodipine 2.5 mg See Protocol PO DAILY 14 days apixaban (Eliquis) 5 mg PO BID insulin lispro (Humalog KwikPen (U-100) Insulin) 1 sliding scale dose subcut QIDACHS MDD 30 pen needle, diabetic (Ultra-Thin II Insulin Pen [place]) As directed risperidone 0.5 mg PO BID sertraline 50 mg PO DAILY temazepam 7.5 mg PO BEDTIME trazodone 50 mg PO BEDTIME HPI Comments Details: 74y/o Right handed female comes for evaluation of memory issues.A certified medical insurance coder Valorie Gold helped. Her daughter in law is at this visit and helps with history . 1 year ago she was found wandering confused.she was living in [place] at that time . she was admitted to a psych unit .she was started on Risperdal, temazepam and Sert raline. she moved [place] stay with her son 3 mths ago. According to her daughter in law, she needs help with bathing, cooking , dressing . Her confusion worsens in the evenings.she is oriented to people but confused with place .she talks about people that have . she has hallucinations, visual and auditory . she thinks she is is [place]. she also has abnormal screaming yelling and crying at night when she is sleeping 2-3times/week she used to like to cook but now she does not cook. [facility] Medical History Dementia History of [place] (myocardial infarction) Hx of blood clots Leg edema TIA (transient ischemic attack) HTN (hypertension) Diabetes Surgical History Hx of cardiac catheterization Hx of hysterectomy Family History Mother Dementia Social History Household Members: Children Housing: House Are you a primary career information specialist to a significant other at home: No Do you presently have visiting nurse or other home services: No Alcohol intake: never Comment: within the last year prior to moving in with family Patient Tobacco Use Status: Former Tobacco user Tobacco use type: Cigarette e-Cigarette/Vaping Use: Never Used Second Hand Smoke Exposure: No service: No Current occupational status: disabled Cognitive needs: Yes Hearing needs: No Vision needs: Yes Review of Systems Neuro Reports confusion Psych Reports confusion Physical Exam Vital Signs: BMI result Body Mass Index 29.2 Const General: cooperative, healthy appearing, comfortable and confusion Nutritional Appearance: average body habitus Orientation/consciousness: confusion Eyes Pupils: Equal, round and reactive pupils present Neck Neck: Yes no meningeal signs Neuro General: tone normal, moves all extremities, no meningeal signs, no focal motor deficits and confusion Cranial nerves: Yes Facial sensation intact/muscles of mastication intact, Yes Equal, round and reactive pupils present, Yes Bilaterally intact EOM present, Yes Nystagmus not present, Yes Normal facial strength present and Yes Midline tongue present Cognition (Neuro): abnormal cognition Gait exam (Neuro): Normal gait present Deep tendon reflexes (DTR's): Right triceps reflex intensity grade: 2+, Left triceps reflex intensity grade: 2+, Rt Biceps (C5, C6): 2+, Left biceps reflex intensity grade: 2+, Right brachioradialis reflex intensity grade: 2+, Left brachioradialis reflex intensity grade: 2+, Right patellar reflex intensity grade: 2+ and Left patellar reflex intensity grade: 2+ Coordination: [id number] test normal Orientation What is the (year) (season) (date) (day) (month)?: year and season Where are we (state) (county) (town or city) (hospital) (floor)?: hospital/clinic and floor Registration Name of 3 unrelated objects clearly and slowly, then ask patient to repeat all 3 of them. (1st repeat determines score. Make sure they can repeat all three): object 1, object 2 and object 3 Attention & Calculation (CHOOSE ONE) Spell WORLD backwards (DLROW): 3 letters Recall Ask patient to repeat the 3 items from question #3.: object 1 and object 2 Language Show patient a wristwatch & ask what it is. Repeat for pencil.: watch and pencil Ask the patient to repeat the phrase 'No ifs, ands, or buts' after you.: correct Ask the patient to 'take a piece of paper with their right hand' 'fold paper in half' 'place paper on floor': take paper in right hand and fold paper in half Print the sentence 'CLOSE YOUR EYES' on a piece. If patient actually closes eyes then score.: followed written direction Score Score: 18 Assessment & Plan Assessment & Plan (1) Dementia: Comment: with psyhcosis , REM behavior disorder Code(s): F03.90 - Unspecified dementia, unspecified severity, without behavioral disturbance, psychotic disturbance, mood disturbance, and anxiety Category: Medical Qualifiers: Dementia type: unspecified type Dementia severity: unspecified severity Dementia behavioral or psychological symptom: unspecified whether behavioral, psychotic, or mood disturbance or anxiety Qualified Code(s): F03.90 - Unspecified dementia, unspecified severity, without behavioral disturbance, psychotic disturbance, mood disturbance, and anxiety Plan MRI brain Labs ordered by PCP EEG I will trial her on memantine XR 7 mg qd Will consider melatonin for REM Behavior disorder. Orders: Orders MR head/brain wo con Today F03.90 - Unspecified dementia, unspecified severity, without behavioral disturbance, psychotic disturbance, mood disturbance, and anxiety EEG electroencephalogram Today F03.90 - Unspecified dementia, unspecified severity, without behavioral disturbance, psychotic disturbance, mood disturbance, and anxiety Medications: New memantine 7 mg PO DAILY 30 ea 3RF Coding Level of Care Code New Pt Level 4 (70137) Complex EM visit Add On G2211 Diagnoses Dementia, unspecified dementia severity, unspecified dementia type, unspecified whether behavioral, psychotic, or mood disturbance or anxiety F03.90 Dementia type: unspecified type Dementia severity: unspecified severity Dementia behavioral or psychological symptom: unspecified whether behavioral, psychotic, or mood disturbance or anxiety
[2024-08-20 14:10] VITALS: BMI 29.2
== END 2024-08-20 15:00 | disposition home or self-care (01) ==
PROVIDERS: PCP Internal Medicine; Visit Provider Psychiatry & Neurology Neurology
DX: F03.90 Unspecified dementia, unspecified severity, without behavioral disturbance, psychotic disturbance, mood disturbance, and anxiety (principal)
CPT/HCPCS: 99204; G2211

== ENCOUNTER → 2024-08-20 14:06 | Outpatient (BNVA) | payer MEDICARE, MEDICAID, SELFPAY | PROVIDERS: PCP Internal Medicine; Visit Provider Psychiatry & Neurology Neurology | DX: F03.90 Unspecified dementia, unspecified severity, without behavioral disturbance, psychotic disturbance, mood disturbance, and anxiety (principal) | CPT/HCPCS: 99202 ==

== ENCOUNTER 2024-08-24 10:16 | Outpatient (REF) | payer MEDICARE, MEDICAID, SELFPAY ==
--- NOTE | ~2024-08-24 | US_ITS ---
EXAMINATION: US KIDNEY BILATERAL HISTORY: N20.0 - Calculus of kidney TECHNIQUE: Real-time grayscale ultrasound imaging of the kidneys was performed and images were reviewed. COMPARISON: Correlation is made with an unenhanced CT of the abdomen and pelvis dated 05/06/2024. FINDINGS: Right kidney: The right kidney measures 12.4 x 6.9 x 7.6 cm. Renal parenchymal echotexture and thickness are normal. There are no masses. There is severe hydronephrosis. A 1.1 cm calculus is noted in the interpolar region. Left Kidney: The left kidney measures 10.2 x 5.1 x 5.6 cm. Renal parenchymal echotexture and thickness are normal. There are no masses. There is no hydronephrosis or renal calculi. US/US renal BI IMPRESSION: Severe right hydronephrosis. 1.1 cm calculus in the interpolar region. Electronically signed by: Dorian Carlson MD 08/24/2024 02:54 PM EST
[2024-08-24 12:25] LABS: Estimated Average Glucose 209 mg/dL; Hemoglobin A1c % 8.9 % (<6.0); Total Hemoglobin (HGBA1C) 3168.2013 umol/L
[2024-08-24 13:04] LABS: Cholesterol 225 mg/dL (<200); HDL Cholesterol 52 mg/dL (>40); LDL Cholesterol Calculated 150 mg/dL (<100); Triglycerides 117 mg/dL (<150)
[2024-08-24 13:14] LABS: Free T4 (Free Thyroxine) 1.25 ng/dL (0.71-1.85); TSH reflex Free T4 0.87 uIU/mL (0.32-4.0); Vitamin D 25-OH Total 16.4 ng/mL (>30)
[2024-08-24 13:30] LABS: Folate 7.1 ng/mL (> or = 4.0); Vitamin B12 289 pg/mL (200-900)
== END 2024-08-24 10:17 | disposition home or self-care (01) ==
LOC: HO.US 10:16
PROVIDERS: Visit Provider Nurse Practitioner Family
DX: N20.0 Calculus of kidney (principal)
CPT/HCPCS: 36415; 76775; 80061; 82306; 82607; 82746; 83036; 84439; 84443

== ENCOUNTER → 2024-08-24 10:22 | Outpatient (BNV) | payer MEDICARE, MEDICAID, SELFPAY | PROVIDERS: Visit Provider Radiology Diagnostic Radiology | DX: N20.0 Calculus of kidney (principal); N13.39 Other hydronephrosis | CPT/HCPCS: 70551; 76775 ==

== ENCOUNTER 2024-08-24 15:10 | Outpatient (REF) | payer MEDICARE, MEDICAID, SELFPAY ==
--- NOTE | ~2024-08-24 | MR_ITS ---
EXAMINATION: MR BRAIN WITHOUT IV CONTRAST HISTORY: F03.90 - Unspecified dementia, unspecified severity, without behavioral ... TECHNIQUE: Sagittal T1, coronal FLAIR, and axial T1, FLAIR, T2, gradient echo, and diffusion weighted MR images of the brain were obtained. COMPARISON: None FINDINGS: There is prominence of the cortical sulci consistent with atrophy. This is most prominent involving the bilateral temporal and parietal lobes. Santos/white differentiation is normal. There is no mass effect or midline shift. No intra or extra-axial fluid collections are identified. There are no foci of restricted diffusion. Normal vascular flow voids are noted in the basilar and carotid arteries. There is a 4.8 cm soft tissue mass in the right maxillary sinus extending into the nasal vault and right ethmoid sinuses. MR/MR head/brain wo con IMPRESSION: 1. Cortical atrophy, most prominently involving the bilateral temporal and parietal lobes. No evidence of an acute infarct. 2. 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 ENT evaluation is suggested. Electronically signed by: Dorian Carlson MD 08/25/2024 07:37 AM EST
== END 2024-08-24 15:11 | disposition home or self-care (01) ==
LOC: HO.MRI 15:10
PROVIDERS: Visit Provider Psychiatry & Neurology Neurology
DX: F03.90 Unspecified dementia, unspecified severity, without behavioral disturbance, psychotic disturbance, mood disturbance, and anxiety (principal)
CPT/HCPCS: 70551

== ENCOUNTER 2024-08-26 15:35 | Outpatient (REF) | payer MEDICARE, MEDICAID, SELFPAY ==
[2024-08-26 18:02] LABS: Blood Urea Nitrogen 21 mg/dL (9-16); Estimated Glomerular Filt Rate 23
== END 2024-08-26 15:36 | disposition home or self-care (01) ==
LOC: HO.LAB 15:35
PROVIDERS: Visit Provider Nurse Practitioner Family
DX: N13.30 Unspecified hydronephrosis (principal)
CPT/HCPCS: 36415; 82565; 84520

== ENCOUNTER 2024-08-27 10:22 | Outpatient (AMB) | payer MEDICARE, MEDICAID, SELFPAY ==
--- NOTE | 2024-08-27 10:22 | A.OFFVIS_ITS ---
Intake Visit Reasons: follow up Allergies No Known Allergies Allergy (Verified 08/27/24 10:27) Medication List - Last Reconciled 08/27/24 by MARK Corea-STACIE amlodipine 2.5 mg See Protocol PO DAILY 14 days apixaban (Eliquis) 5 mg PO BID dulaglutide (Trulicity) 0.75 mg (0.5 mL) subcut QWEEK insulin lispro (Humalog KwikPen (U-100) Insulin) 1 sliding scale dose subcut QIDACHS MDD 30 memantine 7 mg PO DAILY pen needle, diabetic (Ultra-Thin II Insulin Pen [place]) As directed risperidone 0.5 mg PO BID rosuvastatin 5 mg PO DAILY sertraline 50 mg PO DAILY temazepam 7.5 mg PO BEDTIME trazodone 50 mg PO BEDTIME HPI Comments Details: Sheri is a pleasantly confused 74-year-old [place]-speaking female patient of Dr. Christian who is accompanied by her healthcare proxy Caleb during today's telehealth visit. She has a past medical history of dementia, myocardial infarction, blood clots, TIA, hypertension, and diabetes. Of note, patient underwent surgical procedure with Dr. Payan for retained right-sided ureteric stent on 07/13/24. In discussion with patient's healthcare proxy patient with right-sided stent placement in [place] many years ago however is unaware as to why she had this. In review of patient's chart it appears patient had been reporting persistent right-sided flank pain at which time imaging noted right ureteric stent and therefore this was removed and recommendations were made for renal ultrasound for follow-up. However, in review of most recent renal ultrasound without right ureteral stent in place it notes right-sided severe hydronephrosis. Recent renal imaging results reviewed with the patient and her proxy today. 09/12 Right kidney with severe hydronephrosis. A 1.1 cm calculus is noted in the interpolar region. Left kidney with no hydronephrosis, renal calculi, or masses noted. BUN/creatinine are as follows: BUN: 05/12 18, 05/12 19, 05/12 15, 09/12 21 Creatinine: 05/12 1.51, 05/12 1.44, 05/12 1.38, 09/12 2.07 We discussed further treatment options and risks and benefits of these treatment options. When asked she currently denies any bothersome urinary issues or concerns. We discussed cystoscopy with right retrograde and right stent placement. All questions were answered. [facility] Medical History Dementia History of [place] (myocardial infarction) Hx of blood clots Leg edema TIA (transient ischemic attack) HTN (hypertension) Diabetes Surgical History Hx of cardiac catheterization Hx of hysterectomy Family History Mother Dementia Social History Household Members: Children Housing: House Are you a primary healthcare social worker to a significant other at home: No Do you presently have visiting nurse or other home services: No Alcohol intake: never Comment: within the last year prior to moving in with family Patient Tobacco Use Status: Former Tobacco user Tobacco use type: Cigarette e-Cigarette/Vaping Use: Never Used Second Hand Smoke Exposure: No service: No Current occupational status: disabled Cognitive needs: Yes Hearing needs: No Vision needs: Yes Review of Systems Const Unobtainable due to mental status Physical Exam Const General: cooperative Resp Effort & Inspection: able to speak in complete sentences Psych Attitude: cooperative Insight: Limited insight present (Psych) Judgement: Limited judgement present (Psych) Telehealth Telehealth Telehealth Platform: [facility] Location of provider rendering services: practice address Location of patient: address on file Patient Identification confirmed using: Name, : Yes Telehealth method: voice only Patient verbally consented to treatment: Yes Patient verbally consented to billing insurance company: Yes Patient informed of any privacy concerns related to visit: Yes Minutes spent on Phone/Video with Pt.: 25 Results Reviewed Results Reviewed: Date of Service: 08/24/24 EXAMINATION: US KIDNEY BILATERAL FINDINGS: Right kidney: The right kidney measures 12.4 x 6.9 x 7.6 cm. Renal parenchymal echotexture and thickness are normal. There are no masses. There is severe hydronephrosis. A 1.1 cm calculus is noted in the interpolar region. Left Kidney: The left kidney measures 10.2 x 5.1 x 5.6 cm. Renal parenchymal echotexture and thickness are normal. There are no masses. There is no hydronephrosis or renal calculi. IMPRESSION: Severe right hydronephrosis. 1.1 cm calculus in the interpolar region. Assessment & Plan Assessment & Plan (1) Hydronephrosis, right: Code(s): N13.30 - Unspecified hydronephrosis Category: Medical (2) Nephrolithiasis: Code(s): N20.0 - Calculus of kidney Category: Medical Plan: Risks, benefits and alternatives to therapy were discussed. These include but are not limited to infection, bleeding, damage to local organs and tissues, need for further interventions. ? Anesthetic risks regarding cardiac arrhythmia, blood clots, and potential mortality were discussed. The patient understands the typical recovery time and the outpatient nature of the procedure. After consideration of these risks the patient gives full informed consent and they wish to move ahead with the procedure. Plan Recent renal imaging results reviewed with the patient and her proxy today. Recent BUN and creatinine results reviewed with the patient and her proxy today. We discussed further treatment options and risks and benefits of these treatment options. Patient currently denies any bothersome urinary issues or concerns. Will schedule for cystoscopy, right retrograde, and right-sided stent placement as discussed. All questions were answered. Follow up per doctors orders; or sooner with any issues, concerns, and or questions. Patient Instructions: The patient had an opportunity to ask questions regarding the treatment plan. All questions were answered. Physical exam, labs, and imaging were discussed and reviewed in detail. As well as risks, benefits, and discussion of treatment choices. No major barriers to understanding were identified. The patient expressed understanding and agreement with the above treatment plan. The patient was made aware they should contact our office by phone for worsening of their current condition, the appearance of new symptoms, or with any questions or concerns. Compliance is encouraged with any medications and follow up testing that is ordered. It is a privilege to be allowed the opportunity to participate in? your urological care.? Again, if you have any questions or concerns If you have any questions or concerns please do not hesitate to contact me. The office is [phone]. This note is constructed using voice recognition software. While every effort has been made to ensure accuracy communications tech errors may have been included. Yours sincerely, RADHA Corea Coding Level of Care Code Tele Est Pt Level 4 (17859) Diagnoses Hydronephrosis, right N13.30 Nephrolithiasis N20.0
== END 2024-08-27 11:16 | disposition home or self-care (01) ==
LOC: HO.HUSH 10:22
PROVIDERS: Visit Provider Nurse Practitioner Family
DX: N13.30 Unspecified hydronephrosis (principal); N20.0 Calculus of kidney
CPT/HCPCS: 99214

== ENCOUNTER → 2024-08-27 10:22 | Outpatient (BNVA) | payer MEDICARE, MEDICAID, SELFPAY | PROVIDERS: Visit Provider Nurse Practitioner Family ==

== ENCOUNTER 2024-09-11 11:06 | Outpatient (AMB) | payer MEDICARE, MEDICAID, SELFPAY ==
--- NOTE | 2024-09-11 11:16 | MHC.PC.OV ---
Vital Signs 09/11/24 11:18 Height 5 ft 9 in Weight 182 lb 4 oz BMI 26.9 BP 130/66 Blood Pressure Location Lt brachial Position Sitting Pulse 80 Pulse Source Pulse Oximeter Temp 97.5 F Temp Source Skin Pulse Oximetry (%) 93 Oxygen Delivery Method Room Air Intake Visit Reasons: f/u DM and HLD Intake Note: Patient is here to follow up on DM, HLD. Complaint of coughing, congestion, warm to touch and running nose. Recreation Activities Coordinator Required: Yes Recreation Activities Coordinator Language: Chicle Grinder Feeder Name: Caleb (latoya copeland) Information Interpreted: non-clinical & clinical Aws Architect: Present Accompanied by: Latoya copeland Allergies No Known Allergies Allergy (Verified 09/11/24 11:18) Medication List - Last Reconciled 09/11/24 by Marci Hart PA-C amlodipine 2.5 mg See Protocol PO DAILY 14 days apixaban (Eliquis) 5 mg PO BID blood sugar diagnostic (Freestyle InsuLinx strips) As directed; QID blood-glucose meter (Freestyle InsuLinx meter) As directed dulaglutide (Trulicity) 0.75 mg (0.5 mL) subcut QWEEK insulin lispro (Humalog KwikPen (U-100) Insulin) 1 sliding scale dose subcut QIDACHS MDD 30 lancets (FreeStyle Lancets) As directed QID memantine 7 mg PO DAILY pen needle, diabetic (Ultra-Thin II Insulin Pen [place]) As directed risperidone 0.5 mg PO BID rosuvastatin 5 mg PO DAILY sertraline 50 mg PO DAILY temazepam 7.5 mg PO BEDTIME trazodone 50 mg PO BEDTIME Tobacco use date assessed: 09/11/24 Fall risk assessment: No Falls in past year Last assessed Fall Risk: 09/11/24 Dental Screening Dental Screen Date: 09/11/24 Did you have a dental visit in the last 12 months?: No Did you have a dental problem in the last 6 months where you did not have access to dental care?: No Was dental information given to patient?: No HPI f/u DM and HLD HPI Details 74-year-old female with past medical history of dementia, diabetes, hypertension, DVT and PE, coronary artery disease, hypercholesterolemia last seen 07/2024 coming in for follow up. In review of the notes, patient was seen by Hematology 09/10/2024 advised to continue on Eliquis for at least 1 year and reassess at that time. She also reported right upper quadrant pain in the breast hematology ordered for ultrasound and mammogram for further evaluation. She was seen by Urology 08/27/2024 plan for cystoscopy, right retrograde and right-sided stent placement. Patient was seen by Neurology 08/20/2024 ordered for MRI of the brain, EEG and trial on memantine. Her MRI showed cortical atrophy and 4.8 cm soft tissue mass in the right maxillary sinus may represent in antrochoanal polyp recommended ENT evaluation. Patient presents today with her daughter who is the primary historian and provides translation for the duration of this visit. Formal translation was declined. She states the memantine has been helping with the patient's mood and hallucinations and has been sleeping better at night. Her blood sugars at home since starting the Trulicity have been in the normal range and denies any episodes of hypoglycemia. She was informed by the urologist she would have to discontinue Trulicity prior to her procedure on Saturday but we will resume after the procedure is completed. Patient also complaining of right shoulder pain which has been ongoing for several months. [facility] Medical History (Updated 09/11/24 @ 11:58 by Marci Hart PA-C) History of [place] (myocardial infarction) Hx of blood clots Leg edema Dementia TIA (transient ischemic attack) HTN (hypertension) Diabetes Surgical History Hx of cystoscopy Hx of cardiac catheterization Hx of hysterectomy Family History (Updated 09/11/24 @ 11:17 by NEHEMIAS Santos) Mother Dementia Other Mental health disorder Social History Household Members: Family and Children Housing: House Are you a primary foster care social worker to a significant other at home: No Do you presently have visiting nurse or other home services: No Alcohol intake: never Comment: within the last year prior to moving in with family Patient Tobacco Use Status: Former Tobacco user Tobacco use type: Cigarette e-Cigarette/Vaping Use: Never Used Second Hand Smoke Exposure: Yes service: No Current occupational status: disabled Gender identity: Female Cognitive needs: Yes Hearing needs: No Vision needs: Yes Questionnaire Thrive Questionnaire Date Thrive assessed: 09/11/24 OLIVIA-7 AMB Questionnaire OLIVIA-7 Date OLIVIA - 7 assessed: 08/11/24 Source: Developed by Drs. Dorian Hawthorne, Niharika Sanchez, Jesse Alston and colleagues, with an educational janet from [employer]. Review of Systems Const Denies body aches, Denies chills, Denies fever(s), Denies headache(s) and Denies poor appetite Eyes Reports no additional complaints ENT Denies dizziness and Denies headache(s) Card Denies chest pain, Denies lightheadedness and Denies dyspnea Resp Denies cough and Denies dyspnea GI Denies abdominal pain, Denies nausea and Denies vomiting Reports no additional complaints Musc Details: right shoulder pain Reports no additional complaints and Denies abnormal gait Skin/Breast Reports system reviewed and no additional complaints, except as documented Neuro Denies abnormal gait, Denies dizziness and Denies headache(s) Psych Reports no additional complaints Physical exam (Primary Care) Vital Signs: Last Vital Signs Temp 97.5 F 09/11/24 11:18 Pulse 80 09/11/24 11:18 BP 130/66 09/11/24 11:18 Pulse Ox 93 09/11/24 11:18 Oxygen Delivery Method Room Air 09/11/24 11:18 BMI result Body Mass Index 26.9 Tobacco/Smoking Status: Tobacco use Status Tobacco use date assessed 09/11/24 09/11/24 11:25 Patient Tobacco Use Status Former Tobacco user 09/11/24 11:17 Tobacco use type Cigarette 09/11/24 11:17 e-Cigarette/Vaping Use Never Used 09/11/24 11:17 Thrive Assessment: Date of Thrive Assessment Date Thrive assessed 09/11/24 09/11/24 11:17 Const General: cooperative, healthy appearing, comfortable and no acute distress Orientation/consciousness: patient oriented x3 HENMT Head: Yes normocephalic Ears: hearing grossly normal bilaterally General nose exam: Normal external nose present Eyes General: appearance normal, both eyes and all related structures Conjunctivae: conjunctivae normal Neck Neck: Yes full ROM and Yes no lymphadenopathy Resp Effort & Inspection: normal respiratory effort Auscultation: clear to auscultation bilaterally, no crackles, no rales, no rhonchi and no wheezes Cardio Rate: regular rate Rhythm: regular rhythm Skin General skin exam: no rashes or lesions noted Neuro General: patient oriented x3 Gait exam (Neuro): Normal gait present Extrem General: Yes normal to inspection, Yes full ROM and No edema Psych Affect: normal affect Attitude: cooperative Insight: Good insight present (Psych) Judgement: Good judgement present (Psych) Coding Level of Care Code Est Pt Level 4 (93524) Diagnoses Right shoulder pain M25.511 Upper respiratory infection J06.9 Hypercholesteremia E78.00 Coronary artery disease I25.10 DVT (deep venous thrombosis) I82.422 Affected thrombotic vein of extremity: iliac Chronicity: acute DVT location: lower extremity Laterality: left Dementia, unspecified dementia severity, unspecified dementia type, unspecified whether behavioral, psychotic, or mood disturbance or anxiety F03.90 Dementia type: unspecified type Dementia severity: unspecified severity Dementia behavioral or psychological symptom: unspecified whether behavioral, psychotic, or mood disturbance or anxiety Diabetes E11.9 Primary hypertension I10 Hypertension type: primary hypertension 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 Ordered for shoulder x-ray which showed mild osteoarthritis recommend Tylenol and lidocaine patch for pain. Can consider PT or orthopedics referral. (2) Upper respiratory infection: Code(s): J06.9 - Acute upper respiratory infection, unspecified Category: Medical Plan: Patient complaining of a cough and stuffy nose would like to have viral testing. Ordered for viral testing placed today. (3) Hypercholesteremia: Code(s): E78.00 - Pure hypercholesterolemia, unspecified Category: Medical Plan: Avoid foods that are high in cholesterol such as red meat, fried foods, eggs and baked goods. Triglyceride goal of less than 150 and LDL goal of less than 70. Patient was recently started on rosuvastatin 5 mg we will have repeat blood work in 2 months. (4) Coronary artery disease: Code(s): I25.10 - Atherosclerotic heart disease of [place] coronary artery without angina pectoris Category: Medical Plan: Advised good control of blood pressure, blood sugar and cholesterol. (5) DVT (deep venous thrombosis): Code(s): I82.409 - Acute embolism and thrombosis of unspecified deep veins of unspecified lower extremity Category: Medical Qualifiers: Affected thrombotic vein of extremity: iliac Chronicity: acute DVT location: lower extremity Laterality: left Qualified Code(s): I82.422 - Acute embolism and thrombosis of left iliac vein Plan: Recently seen by Hematology advised to continue on Eliquis for at least a year. Patient will follow up in the next several months with Hematology. (6) Dementia: Comment: with psyhcosis , REM behavior disorder Code(s): F03.90 - Unspecified dementia, unspecified severity, without behavioral disturbance, psychotic disturbance, mood disturbance, and anxiety Category: Medical Qualifiers: Dementia type: unspecified type Dementia severity: unspecified severity Dementia behavioral or psychological symptom: unspecified whether behavioral, psychotic, or mood disturbance or anxiety Qualified Code(s): F03.90 - Unspecified dementia, unspecified severity, without behavioral disturbance, psychotic disturbance, mood disturbance, and anxiety Plan: Recently started on memantine by Neurology and daughter reports her symptoms have been much improved. She is no longer having hallucinations and sleep has been much improved. Continue to follow with Neurology Plan to continue tapering temazepam 7.5 mg to every other day for 2 months. (7) Diabetes: Code(s): E11.9 - Type 2 diabetes mellitus without complications Category: Medical Plan: Decrease the amount of carbohydrates such as pasta, bread, rice, and potatoes and limit the amount of sweets. Although fruits are generally healthy they should be eaten in moderation as they are still high in sugar. Hemoglobin A1c goal of less than 7%. Patient is on sliding scale insulin and Trulicity. Her daughter who is also her caregiver reports her blood sugars since starting on the Trulicity have been improved and she has not needed insulin injections for the most part. She will have to discontinue Trulicity prior to her cystoscopy on Saturday. We will have a repeat A1c in 3 months once the Trulicity has been resumed. Continue on sliding scale insulin and prescription sent for glucose monitor (8) HTN (hypertension): Code(s): I10 - Essential (primary) hypertension Category: Medical Qualifiers: Hypertension type: primary hypertension Qualified Code(s): I10 - Essential (primary) hypertension Plan: Continue on current blood pressure medication. Avoid salt intake and encourage healthy diet and regular exercise. (9) Antrochoanal polyp: Code(s): J33.0 - Polyp of nasal cavity Category: Medical Plan: Patient found to have incidental polyp on MRI and per radiologist recommending ENT evaluation. Referral placed to ENT (10) Breast mass, right: Code(s): N63.10 - Unspecified lump in the right breast, unspecified quadrant Category: Medical Plan: Patient complaining of right breast pain hematology ordered for breast ultrasound and mammogram for further evaluation. Plan This note was constructed using voice recognition software. While every effort has been made to ensure accuracy and automotive technology instructor, still areas may have been included sometimes these areas may affect the content or meeting of the given symptoms. Total time spent caring for the patient today was twenty minutes. This includes time spent before the visit reviewing the chart, time spent during the visit, and time spent after the visit and documentation. Orders: Orders SARS-CoV2/FLU/RSV Today J06.9 - Acute upper respiratory infection, unspecified XR shoulder RT min 2V Today M25.511 - Pain in right shoulder Referrals Ear/Nose/Throat Referral J33.0 - Polyp of nasal cavity Medications: New blood-glucose meter (Freestyle InsuLinx meter) As directed 1 ea 0RF blood sugar diagnostic (Freestyle InsuLinx strips) As directed; QID 50 ea 3RF lancets (FreeStyle Lancets) As directed QID 100 ea 3RF Changed From temazepam 7.5 mg PO BEDTIME 14 caps 0RF To temazepam 7.5 mg orally; At bedtime every other day 14 caps 0RF Refilled temazepam 7.5 mg PO BEDTIME 14 caps 0RF
[2024-09-11 11:18] VITALS: BP 130/66; PULSE 80; TEMP 36.4; O2SAT 93; BMI 26.9
== END 2024-09-11 12:04 | disposition home or self-care (01) ==
PROVIDERS: PCP Internal Medicine
DX: M25.511 Pain in right shoulder (principal); J06.9 Acute upper respiratory infection, unspecified; E78.00 Pure hypercholesterolemia, unspecified; I25.10 Atherosclerotic heart disease of native coronary artery without angina pectoris; I82.422 Acute embolism and thrombosis of left iliac vein; F03.90 Unspecified dementia, unspecified severity, without behavioral disturbance, psychotic disturbance, mood disturbance, and anxiety; E11.9 Type 2 diabetes mellitus without complications; I10 Essential (primary) hypertension; J33.0 Polyp of nasal cavity; N63.10 Unspecified lump in the right breast, unspecified quadrant

== ENCOUNTER 2024-09-11 11:06 | Outpatient (REF) | payer MEDICARE, MEDICAID, SELFPAY ==
--- NOTE | ~2024-09-11 | XR_ITS ---
EXAMINATION: XR SHOULDER 2 OR MORE VIEWS RIGHT HISTORY: M25.511 - Pain in right shoulder COMPARISON: There are no prior studies available for comparison. FINDINGS: Three views of the right shoulder are submitted. Osseous mineralization is normal. There is no fracture or dislocation. The glenohumeral joint is maintained. There is moderate osteoarthritis of the AC joint. The soft tissues are unremarkable. XR/XR shoulder RT min 2V IMPRESSION: Moderate osteoarthritis of the AC joint. Electronically signed by: Dorian Carlson MD 09/11/2024 01:01 PM [facility] BURCIAG[facility]
[2024-09-11 13:14] LABS: Influenza A PCR POSITIVE (Negative); Influenza B PCR NEGATIVE (Negative); Resp Syncy Virus RNA Qual PCR NEGATIVE (Negative); SARS COV2 PCR INHOUSE NEGATIVE (Negative)
== END 2024-09-11 11:07 | disposition home or self-care (01) ==
LOC: HO.XRAY 11:06
PROVIDERS: PCP Internal Medicine
DX: J06.9 Acute upper respiratory infection, unspecified (principal); M25.511 Pain in right shoulder; E78.00 Pure hypercholesterolemia, unspecified; I25.10 Atherosclerotic heart disease of native coronary artery without angina pectoris; I82.422 Acute embolism and thrombosis of left iliac vein; F03.90 Unspecified dementia, unspecified severity, without behavioral disturbance, psychotic disturbance, mood disturbance, and anxiety; E11.9 Type 2 diabetes mellitus without complications; I10 Essential (primary) hypertension; J33.0 Polyp of nasal cavity; N63.10 Unspecified lump in the right breast, unspecified quadrant; Z79.899 Other long term (current) drug therapy
CPT/HCPCS: 0241U; 73030; 99212

== ENCOUNTER → 2024-09-11 12:29 | Outpatient (BNV) | payer MEDICARE, MEDICAID, SELFPAY | PROVIDERS: PCP Internal Medicine; Visit Provider Radiology Diagnostic Radiology | DX: M19.011 Primary osteoarthritis, right shoulder (principal) | CPT/HCPCS: 73030 ==

== ENCOUNTER 2024-09-14 10:57 | Day surgery (SDC) | payer MEDICARE, MEDICAID, SELFPAY ==
[2024-09-10 14:04] VITALS: BMI 29.2
--- NOTE | 2024-09-11 10:57 | P.CONAN_ITS ---
Documented by User: Hannah Pearce NP 09/11/24 11:04 HPI - Anesthesia Eval Consult details Narrative: 74yo F for Cystoscopy right side Retrograde and stent placement s/p same 06/2024 with GA-LMA 4 Eliquis for PE/DVT - not to hold for procedure CAD with vague hx, ? [place] (last cardiac care in [place]) pending referral to [facility] Cardiology Anesthesia Pre-Procedure Meds Is the patient on any of the following meds?: GLP1/DPP4 PMFSH Active Problems Active Problems: All Active Problems Breast mass, right (Acute) Pulmonary embolism (Acute) Nephrolithiasis (Acute) Hypercholesteremia (Acute) Coronary artery disease (Acute) Left leg swelling (Acute) Ureteral stent present (Acute) Hydronephrosis, right (Acute) Pulmonary emboli (Acute) DVT (deep venous thrombosis) (Acute) Dementia (Acute) Diabetes (Acute) HTN (hypertension) (Acute) Past Medical History Medical History (Updated 09/11/24 @ 13:34 by Marci Hart PA-C) History of [place] (myocardial infarction) Hx of blood clots Leg edema Dementia TIA (transient ischemic attack) HTN (hypertension) Diabetes Family History Family History (Updated 09/11/24 @ 11:17 by NEHEMIAS Santos) Mother Dementia Other Mental health disorder Family history of problems with anesthesia: No Surgical History Surgical History Hx of cystoscopy Hx of cardiac catheterization Hx of hysterectomy History of Problems with Anesthesia: No Social History Social History Household Members: Family and Children Household Members Other:: lives with son and daughter in law Housing: House Are you a primary career consultant to a significant other at home: No Do you presently have visiting nurse or other home services: No Alcohol intake: never Comment: within the last year prior to moving in with family Patient Tobacco Use Status: Former Tobacco user Tobacco use type: Cigarette e-Cigarette/Vaping Use: Never Used Second Hand Smoke Exposure: Yes service: No Current occupational status: disabled Gender identity: Female Cognitive needs: Yes Hearing needs: No Vision needs: Yes Meds Allergies Allergy/AdvReac Type Severity Reaction Status Date / Time No Known Allergies Allergy Verified 09/11/24 11:18 Exam Height,Weight and Vital Signs: Height 5 ft 6 in Weight 82.1 kg Narrative Narrative: EKG 04/2024 Vent. Rate : 066 BPM Atrial Rate : 066 BPM P-R Int : 184 ms QRS Dur : 088 ms QT Int : 404 ms P-R-T Axes : 073 -16 053 degrees QTc Int : 423 ms Normal sinus rhythm Moderate voltage criteria for LVH, may be normal variant ( R in aVL , [place] product ) Cannot rule out Anterior infarct , age undetermined Abnormal ECG No previous ECGs available Assessment and Plan Assessment Anesthesia Assessment: Chart Reviewed Final Anesthetic Review Family History of Problems with Anesthesia: No History of Problems with Anesthesia: No Documented by User: Kirstyn Ferreira MD 09/14/24 13:32 [facility] Past Medical History Medical History (Updated 09/11/24 @ 13:34 by Marci Hart PA-C) History of [place] (myocardial infarction) Hx of blood clots Leg edema Dementia TIA (transient ischemic attack) HTN (hypertension) Diabetes Family History Family History (Updated 09/11/24 @ 11:17 by NEHEMIAS Santos) Mother Dementia Other Mental health disorder Surgical History Surgical History Hx of cystoscopy Hx of cardiac catheterization Hx of hysterectomy Social History Social History Household Members: Family and Children Household Members Other:: lives with son and daughter in law Housing: House Are you a primary career consultant to a significant other at home: No Do you presently have visiting nurse or other home services: No Alcohol intake: never Comment: within the last year prior to moving in with family Patient Tobacco Use Status: Former Tobacco user Tobacco use type: Cigarette e-Cigarette/Vaping Use: Never Used Second Hand Smoke Exposure: Yes service: No Current occupational status: disabled Gender identity: Female Cognitive needs: Yes Hearing needs: No Vision needs: Yes Meds Allergies Allergy/AdvReac Type Severity Reaction Status Date / Time No Known Allergies Allergy Verified 09/11/24 11:18 Exam Airway Mallampati Class: II (edentulous) TM Dist: >3cm Neck ROM: Limited Loose/Missing/Broken Teeth: Yes, Upper and Lower Heart: RRR Lungs: CTA Assessment and Plan Assessment Anesthesia Assessment: Anesthesia Plan Discussed Final Anesthetic Review NPO: Yes ASA Class: III Final Preanesthetic Review: Meds/Allgs Chart Reviewed, Consent Obtained/Reviewed and Anes Risks/Benef Reviewed Patient Risk: Intermediate Procedure Risk: Low Anesthetic Plan Anesthetic Plan: GA Disposition: Standard PACU
[2024-09-14] VITALS (7 sets, daily range): BP systolic 145–160; BP diastolic 56–68; PULSE 71–76; RESP 16–20; TEMP 36.7–37.6; O2SAT 100; BMI 28.7
--- NOTE | ~2024-09-14 | FL_ITS ---
EXAMINATION: FL GUIDANCE ONLY HISTORY: STENT COMPARISON: None available. TECHNIQUE: Fluoroscopy time: 1.8 minutes. Cumulative Dose: 35.71 mGy. Images: 2. FINDINGS: Images demonstrate a right nephroureteral stent in place. There is contrast in the bladder and a small amount of contrast in the right renal collecting system. FL/FL guidance in OR IMPRESSION: Fluoroscopy during procedure. Please see procedure report for additional information. Electronically signed by: Dorian Carlson MD 09/15/2024 07:21 AM EST
[2024-09-14 12:10] LABS: Glucose, Whole Blood 98 mg/dL (60-115)
--- NOTE | 2024-09-14 12:28 | PC.NURSE ---
Dr. Ferreira and Dr. Payan aware that patient tested positive for Flu on Saturday at PCP visit due to cough symptoms. Daughter in law, HCP, is at bedside and denies fever/chill/n/v/diarrhea. Stated non productive cough that has improved. VS WNL. Lungs clear, but slightly diminished throughout. OK to proceed per doctors as no acute symptoms. no interventions.
--- NOTE | 2024-09-14 13:13 | MHC.SHP ---
Pre-Procedural Eval Section A - 24 Hr Update-Section A only Date of Service: 09/14/24 The patient is an INPATIENT: No Changes since office visit: No Cold of Flu in the past 2 weeks, No New Medical Problems, No Changes in Medication and No Patient answered all questions The patient has been examined within 24 hours of the surgical procedure. The History & Physical has been completed within 30 days and I have reviewed it.: Yes Section B - Complete if H&P > 30 days Chief Complaint: Unspecified hydronephrosis Details of Present Illness: Cystoscopy, right retrograde, right stent placement Allergies: Allergies Allergy/AdvReac Type Severity Reaction Status Date / Time No Known Allergies Allergy Verified 09/11/24 11:18 Plan I have reviewed the history and physical and performed a pertinent physical examination on my patient. No changes have occurred unless specified. Time Spent With Patient Time: Total time managing care of this patient today ____ minutes.
[2024-09-14] MEDS: Phenazopyridine HCL 100 MG TABLET PO (14:45)
--- NOTE | 2024-09-24 14:50 | P.OP_ITS ---
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 Stent removed a month ago. Subsequent recurrence of right hydronephrosis. Plan for stent placement and diagnostic ureteroscopy. Procedure: After informed consent was verified the patient was brought to the operating room and placed in a supine position. Anesthesia was administered per protocol. The patient was placed in modified dorsal lithotomy position and prepped and draped in a sterile fashion. A safety pause time-out was performed. Laterality of procedure and antibiotics were confirmed, appropriate imaging was available A 22 Ecuadorean cystoscope was introduced per urethra. No abnormality was noted of urethra or bladder. Both ureteric orifices were seen in a normal position. The right ureter was cannulated with an open ended catheter and a retrograde examination was performed. Prostatic narrowing seen through proximal and mid ureter. Hydronephrosis. . A Sensor guidewire was placed under fluoroscopy. The wire was unable to be advanced beyond the mid ureter. The wire was switched for a Glidewire 0.35. This to coiled at mid ureter was unable to be advanced. A decision was made to proceed with diagnostic ureteroscopy in an attempt to pass the area of narrowing. Roney dilator used to dilate the ureteric orifice under fluoroscopy with an indwelling sensor wire. The semi rigid ureteral scope was placed alongside the wire. This was advanced to the mid ureter narrowing. There was redundant ureter and this position. Using retrograde contrast through the ureteral scope the small opening proximally was defined. Sensor wire was able to be fed through the opening in the ureter straightened. The scope was advanced to the next area of narrowing and a similar procedure performed. At this point a sensor wire had good coil within the renal pelvis. A 6 [place]cu[place]orean by 24 cm double J stent was advanced over the wire and up to the level of the renal pelvis under fluoroscopic and direct visualization. The stent was seen with appropriate coil within the renal pelvis and in the bladder after deployment. The patient tolerated the procedure well and was transferred in a stable condition to the recovery area. Pathology: Drains: Stent in place as above
== END 2024-09-14 15:45 | disposition home or self-care (01) ==
PROVIDERS: Visit Provider Urology
PROC: 0TJB8ZZ Inspection of Bladder, Via Natural or Artificial Opening Endoscopic (ICD-10-PCS; CPT 52005; principal; 2024-09-14 12:30)
DX: N13.2 Hydronephrosis with renal and ureteral calculous obstruction (principal); R05.9 Cough, unspecified; F03.90 Unspecified dementia, unspecified severity, without behavioral disturbance, psychotic disturbance, mood disturbance, and anxiety; I25.10 Atherosclerotic heart disease of native coronary artery without angina pectoris; I25.2 Old myocardial infarction; I10 Essential (primary) hypertension; E11.9 Type 2 diabetes mellitus without complications; Z86.73 Personal history of transient ischemic attack (TIA), and cerebral infarction without residual deficits; Z86.718 Personal history of other venous thrombosis and embolism; Z79.4 Long term (current) use of insulin; Z79.85 Long-term (current) use of injectable non-insulin antidiabetic drugs; Z79.01 Long term (current) use of anticoagulants; Z79.899 Other long term (current) drug therapy; Z87.891 Personal history of nicotine dependence
CPT/HCPCS: 52351; 52332; 82947; C1758; C1769; C2617; J1956; J2003; J2704; J3010; Q9967

== ENCOUNTER 2024-09-22 12:31 | Outpatient (REF) | payer MEDICARE, MEDICAID, SELFPAY ==
--- NOTE | ~2024-09-22 | MM_ITS ---
EXAMINATION: MM DIAGNOSTIC DIGITAL BREAST TOMOSYNTHESIS, BILATERAL Limited right breast ultrasound. CLINICAL INFORMATION: Right palpable lump and pain to the axilla and arm. COMPARISON: Mammography: No prior imaging available for comparison. TECHNIQUE: Digital breast mammography with tomosynthesis is performed in both the craniocaudal and mediolateral oblique views along with computer-aided detection (CAD). Limited right breast ultrasound. FINDINGS: There are scattered areas of fibroglandular density (ACR BI-RADS breast composition Category b). There are no significant masses, abnormal calcifications, or other abnormalities. Targeted color Doppler ultrasound scanning in the area of the patient's palpable lump and pain in the right upper outer quadrant and axilla demonstrates normal axillary tissue and normal fibronodular breast tissue. There is no sonographic abnormality. Results are provided to the patient at time of visit by the technologist. MM/MM tomosynthesis diagnostic BI IMPRESSION: Right: No mammographic or sonographic abnormality to account for the patient's palpable area and pain. Recommend clinical evaluation and follow-up. Left: Negative. ASSESSMENT: BI-RADS BI-RADS 1 - Negative RECOMMENDATION: 1 year F/U This patient's information was entered into a reminder system with a target due date for their next mammogram. Electronically signed by: Benita Martínez DO 09/22/2024 01:47 PM [facility]
== END 2024-09-22 12:32 | disposition home or self-care (01) ==
LOC: HO.MAMMO 12:31
PROVIDERS: Visit Provider Internal Medicine Medical Oncology
DX: N63.11 Unspecified lump in the right breast, upper outer quadrant (principal)
CPT/HCPCS: 76642; 77062; 77066

== ENCOUNTER → 2024-09-22 12:45 | Outpatient (BNV) | payer MEDICARE, MEDICAID, SELFPAY | PROVIDERS: Visit Provider Internal Medicine | DX: N64.4 Mastodynia (principal); R92.323 Mammographic fibroglandular density, bilateral breasts | CPT/HCPCS: 76642; 77066; G0279 ==

== ENCOUNTER 2024-09-23 09:26 | Outpatient (AMB) | payer MEDICARE, MEDICAID, SELFPAY ==
--- NOTE | 2024-09-23 09:27 | A.OFFVIS_ITS ---
Intake Visit Reasons: Cysto, Retrograde- follow up Intake Note: Patient is present for CYSTO,RETROGRADE F/U Urology Medication:NONE Antibiotic Allergy:NONE Blood Thinner:APIXABAN Assistant Men'S Lacrosse Coach Required: No Allergies No Known Allergies Allergy (Verified 09/23/24 09:27) HPI Comments Details: Lucero is a pleasantly confused French-speaking female. She is a patient of Dr. Christian. She is seen for the following urologic conditions - right hydro uretero nephrosis Telemedicine Evaluation 15 min Consultation Nitronex Valentino Video Recent stent placement Lucero is cared for by her daughter. Medical history of dementia. Had right-sided stent placed in [place] many years ago and was uncertain as to why this had been placed Stent was removed On follow-up persistent hydronephrosis On stent placement she was found to have scarring in the proximal and mid ureter presumed secondary to prior stone passage Will remain on stent exchange protocol Creatinine: 05/12 1.51, 05/12 1.44, 05/12 1.38, 09/12 2.07, 10/13 1.7 4 month follow-up [facility] Medical History (Updated 09/20/24 @ 12:20 by Lizabeth Clark MD) History of [place] (myocardial infarction) Hx of blood clots Leg edema Dementia TIA (transient ischemic attack) HTN (hypertension) Diabetes Surgical History Hx of cystoscopy Hx of cardiac catheterization Hx of hysterectomy Family History (Updated 09/11/24 @ 11:17 by NEHEMIAS Santos) Mother Dementia Other Mental health disorder Social History Household Members: Family and Children Household Members Other:: lives with son and daughter in law Housing: House Are you a primary critical care nurse to a significant other at home: No Do you presently have visiting nurse or other home services: No Alcohol intake: never Comment: within the last year prior to moving in with family Patient Tobacco Use Status: Former Tobacco user Tobacco use type: Cigarette e-Cigarette/Vaping Use: Never Used Second Hand Smoke Exposure: Yes service: No Current occupational status: disabled Gender identity: Female Cognitive needs: Yes Hearing needs: No Vision needs: Yes Review of Systems Const All systems reviewed & are unremarkable except as noted in HPI and below Reports no additional complaints Resp Reports no additional complaints GI Reports no additional complaints Reports as per HPI Musc Reports no additional complaints Physical Exam Telemedicine evaluation Appropriate responses Regular breathing rate and rhythm HEENT Head: Yes normal to inspection Ears: hearing grossly normal bilaterally Eyes General: appearance normal, both eyes and all related structures Neck Neck: Yes normal visual inspection Chest Chest palpation & inspection: normal inspection of the chest Resp Effort & Inspection: normal respiratory effort and able to speak in complete sentences Telehealth Telehealth Telehealth Platform: Nitronex Location of provider rendering services: practice address Location of patient: address on file Patient Identification confirmed using: Name, : Yes Telehealth method: voice only Patient verbally consented to treatment: Yes Patient verbally consented to billing insurance company: Yes Patient informed of any privacy concerns related to visit: Yes Minutes spent on Phone/Video with Pt.: 15 Assessment & Plan Assessment & Plan (1) Nephrolithiasis: Code(s): N20.0 - Calculus of kidney Category: Medical (2) Hydronephrosis, right: Code(s): N13.30 - Unspecified hydronephrosis Category: Medical Plan Review in 4 months Orders: Orders Creatinine 5 Months N20.0 - Calculus of kidney Blood Urea Nitrogen 5 Months N20.0 - Calculus of kidney Patient Instructions: This note is constructed using voice recognition software. While every effort has been made to ensure accuracy cancer program director errors may have been included. Imaging studies, laboratory and physical exam results were discussed and reviewed in detail. No major barriers to patient understanding were identified. An opportunity to ask questions regarding the treatment plan was provided. All questions were answered. The patient expressed understanding and agreement with the above treatment plan. The patient is aware they should contact our office by phone for worsening of their current condition or the appearance of new urologic symptoms. Compliance is encouraged with any medications and followup testing that is ordered. It is a privilege to participate in the urologic care of your patient. If you have any questions or concerns regarding treatment for the above conditions, or other urologic issues, please do not hesitate to contact me. The office telephone contact is [phone]. Sincerely, Dr Tio Payan MD, [place] [facility] - Urology Compassionate Specialist Care for the Genitourinary System Coding Level of Care Code Tele Est Pt Level 3 (13935) Complex EM visit Add On G2211 Diagnoses Nephrolithiasis N20.0 Hydronephrosis, right N13.30
== END 2024-09-23 10:33 | disposition home or self-care (01) ==
LOC: HO.HUSH 09:26
PROVIDERS: Visit Provider Nurse Practitioner Family
DX: N20.0 Calculus of kidney (principal); N13.30 Unspecified hydronephrosis
CPT/HCPCS: 98016

== ENCOUNTER → 2024-09-23 09:26 | Outpatient (BNVA) | payer MEDICARE, MEDICAID, SELFPAY | PROVIDERS: Visit Provider Nurse Practitioner Family ==

== ENCOUNTER 2024-10-08 09:53 | Outpatient (REF) | payer MEDICARE, MEDICAID, SELFPAY ==
--- NOTE | 2024-10-08 09:57 | EEG_ITS ---
This is a 16-channel EEG with an EKG lead. The patient is reported awake during the tracing. Background EEG rhythm is mixed theta beta, low to medium amplitude with no obvious asymmetry or paroxysmal tendency. Photic stimulation does not produce any significant abnormality. Hyperventilation is not performed. Cardiac lead does not reveal any significant abnormality. No sharp wave spikes or paroxysmal tendency noted. IMPRESSION: Mild slowing with no evidence of seizure disorder. MD TAMMY Barahona/ERIK / [id number]
== END 2024-10-08 09:54 | disposition home or self-care (01) ==
LOC: HO.NEURO 09:53
PROVIDERS: Visit Provider Psychiatry & Neurology Neurology
DX: F03.90 Unspecified dementia, unspecified severity, without behavioral disturbance, psychotic disturbance, mood disturbance, and anxiety (principal)
CPT/HCPCS: 95816

== ENCOUNTER 2024-10-14 11:20 | Outpatient (AMB) | payer MEDICARE, MEDICAID, SELFPAY ==
[2024-10-14 11:25] VITALS: BP 140/82; PULSE 63; O2SAT 95; BMI 28.6
--- NOTE | 2024-10-14 11:25 | A.OFFPC_ITS ---
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 Accompanied by: Self / Same As Patient Allergies No Known Allergies Allergy (Verified 10/14/24 11:41) Medication List - Last Reconciled 10/14/24 by Marci Hart PA-C amlodipine 2.5 mg See Protocol PO DAILY 14 days apixaban (Eliquis) 5 mg PO BID blood sugar diagnostic (Freestyle InsuLinx strips) As directed; QID blood-glucose meter (Freestyle InsuLinx meter) As directed dulaglutide (Trulicity) 0.75 mg (0.5 mL) subcut QWEEK insulin lispro (Humalog KwikPen (U-100) Insulin) 1 sliding scale dose subcut QIDACHS MDD 30 lancets (FreeStyle Lancets) As directed QID lidocaine 5% 1 patch topical DAILY memantine 7 mg PO DAILY pen needle, diabetic (Ultra-Thin II Insulin Pen [place]) As directed risperidone 0.5 mg PO BID rosuvastatin 5 mg PO DAILY sertraline 50 mg PO DAILY temazepam 7.5 mg orally; At bedtime every other day trazodone 50 mg PO BEDTIME Tobacco use date assessed: 10/14/24 Fall risk assessment: No Falls in past year Last assessed Fall Risk: 10/14/24 Dental Screening Dental Screen Date: 10/14/24 Did you have a dental visit in the last 12 months?: Yes Did you have a dental problem in the last 6 months where you did not have access to dental care?: No Was dental information given to patient?: Patient has dentist HPI f/u NOEMI stearns HPI Details 74-year-old female with past medical his tory of dementia, diabetes, hypertension, DVT and PE, coronary artery disease, hypercholesterolemia last seen 08/2024 coming in for follow up.? In review of the notes, patient was seen by Urology 09/23/2024 after recent stent placement for hydronephrosis plan to follow up in 4 months. presenting with insomnia and recurrent nightmares. Nightmares occur two to four times weekly, with themes related to intrusions and expressions of anger. These nightmares are not linked to specific past traumatic experiences known to the family or the patient but can not be certain due to patient's dementia. The patient maintains a strong attachment to her childhood home, which may relate to her emotional state and sleep disturbances. [facility] Medical History History of NH (myocardial infarction) Hx of blood clots Leg edema Dementia TIA (transient ischemic attack) HTN (hypertension) Diabetes Surgical History Hx of cystoscopy Hx of cardiac catheterization Hx of hysterectomy Family History Mother Dementia Other Mental health disorder Social History Household Members: Family and Children Household Members Other:: lives with son and daughter in law Housing: House Are you a primary care director rn to a significant other at home: No Do you presently have visiting nurse or other home services: No Alcohol intake: never Comment: within the last year prior to moving in with family Patient Tobacco Use Status: Former Tobacco user Tobacco use type: Cigarette e-Cigarette/Vaping Use: Never Used Second Hand Smoke Exposure: Yes service: No Current occupational status: disabled Gender identity: Female Cognitive needs: Yes Hearing needs: No Vision needs: Yes Questionnaire PHQ-9 Over the last 2 weeks, how often have you been bothered by any of the following problems? 1. Little interest or pleasure in doing things: more than half the days 2. Feeling down, depressed, or hopeless: not at all 3. Trouble falling or staying asleep, or sleeping too much: several days 4. Feeling tired or having little energy: several days 5. Poor appetite or overeating: several days 6. Feeling bad about yourself - or that you are a failure or have let yourself or your family down: not at all 7. Trouble concentrating on things, such as reading the newspaper or watching television: nearly every day 8. Moving or speaking so slowly that other people could have noticed. Or the opposite - being so fidgety or restless that you have been moving around a lot more than usual: nearly every day 9. Thoughts that you would be better off or of hurting yourself in some way: not at all Total score: 11 Depression Screening Interpretation: Positive Depression Screening Done: Yes Source: Developed by Drs. Dorian Hawthorne, Niharika Sanchez, Jesse Alston and colleagues, with an educational janet from [employer]. Thrive Questionnaire Date Thrive assessed: 10/14/24 I am a: Patient What is your living situation today?: I have a steady place to live Within the past 12 months, did the food you bought not last and you didn't have the money to get more?: Never true Within the past 12 months, did you worry whether your food would run out before you got money to buy more?: Never true Do you have trouble paying for medicines?: No Do you have trouble getting transportation to medical appointments?: No Do you have trouble paying your heating and electricity bill?: No Do you have trouble taking care of your child, family member or friend?: No Do you have trouble with day-to-day activities such as bathing, preparing meals, shopping, managing finances, etc.?: No Are you currently unemployed and looking for a job?: No Are you interested in more education?: No Please select the resources that you would like help with: None Currently or been in a relationship where the following occur: No concerns reported THRIVE Score: 0 AUDIT C Alcohol Use Questionnaire (AUDIT-C) 1. How often do you have a drink containing alcohol?: Never 3. How often do you have six or more drinks on one occasion?: Never Total Score: 0 OLIVIA-7 AMB Questionnaire OLIVIA-7 Date OLIVIA - 7 assessed: 10/14/24 Feeling nervous, anxious, or on edge: 0 = Not at all Not being able to stop or control worryin = Not at all Worrying too much about different things: 0 = Not at all Trouble relaxin = Not at all Being so restless that it is hard to sit still: 0 = Not at all Becoming easily annoyed or irritable: 0 = Not at all Feeling afraid as if something awful might happen: 0 = Not at all Total OLIVIA-7 score (0-4 normal; 5-9 mild; 10-14 moderate; 15-21 severe): 0 Source: Developed by Drs. Dorian Hawthorne, Niharika Sanchez, Jesse Alston and colleagues, with an educational janet from [employer]. Review of Systems Const Denies body aches, Denies chills, Denies fever(s), Denies headache(s) and Denies poor appetite Eyes Reports no additional complaints ENT Denies dizziness and Denies headache(s) Card Denies chest pain, Denies lightheadedness and Denies dyspnea Resp Denies cough and Denies dyspnea GI Denies abdominal pain, Denies constipation, Denies diarrhea, Denies nausea and Denies vomiting Reports no additional complaints Musc Reports no additional complaints and Denies abnormal gait Skin/Breast Reports system reviewed and no additional complaints, except as documented Neuro Denies abnormal gait, Denies dizziness and Denies headache(s) Psych Reports no additional complaints Physical exam (Primary Care) Vital Signs: Last Vital Signs Pulse 63 10/14/24 11:25 BP 140/82 H 10/14/24 11:25 Pulse Ox 95 10/14/24 11:25 Oxygen Delivery Method Room Air 10/14/24 11:25 BMI result Body Mass Index 28.6 Tobacco/Smoking Status: Tobacco use Status Tobacco use date assessed 10/14/24 10/14/24 11:27 Patient Tobacco Use Status Former Tobacco user 10/14/24 11:27 Tobacco use type Cigarette 10/14/24 11:27 e-Cigarette/Vaping Use Never Used 10/14/24 11:27 PHQ-9: PHQ-9 Score PHQ-9: Total score 11 10/14/24 11:35 Depression Screening Interpretation: Positive Thrive Assessment: Date of Thrive Assessment Date Thrive assessed 10/14/24 10/14/24 11:35 Currently or been in a relationship where the following occur: No concerns reported Const General: cooperative, healthy appearing, comfortable and no acute distress Orientation/consciousness: patient oriented x3 HENMT Head: Yes normocephalic Ears: hearing grossly normal bilaterally General nose exam: Normal external nose present Eyes General: appearance normal, both eyes and all related structures Conjunctivae: conjunctivae normal Neck Neck: Yes full ROM and Yes no lymphadenopathy Resp Effort & Inspection: normal respiratory effort Auscultation: clear to auscultation bilaterally, no crackles, no rales, no rhonchi and no wheezes Cardio Rate: regular rate Rhythm: regular rhythm Skin General skin exam: no rashes or lesions noted Neuro General: patient oriented x3 Gait exam (Neuro): Normal gait present Extrem General: Yes normal to inspection, Yes full ROM and No edema Psych Affect: normal affect Attitude: cooperative Insight: Good insight present (Psych) Judgement: Good judgement present (Psych) Coding Level of Care Code Est Pt Level 4 (81813) Diagnoses Insulin dependent type 2 diabetes mellitus E11.9; Z79.4 Hypercholesteremia E78.00 Coronary artery disease I25.10 DVT (deep venous thrombosis) I82.422 Affected thrombotic vein of extremity: iliac Chronicity: acute DVT location: lower extremity Laterality: left Dementia, unspecified dementia severity, unspecified dementia type, unspecified whether behavioral, psychotic, or mood disturbance or anxiety F03.90 Dementia type: unspecified type Dementia severity: unspecified severity Dementia behavioral or psychological symptom: unspecified whether behavioral, psychotic, or mood disturbance or anxiety Primary hypertension I10 Hypertension type: primary hypertension Breast mass, right N63.10 AC joint arthropathy M19.019 Insomnia G47.00 Assessment & Plan Assessment & Plan (1) Insulin dependent type 2 diabetes mellitus: Code(s): E11.9 - Type 2 diabetes mellitus without complications; Z79.4 - long term acute care registered nurse (current) use of insulin Category: Medical Plan: Decrease the amount of carbohydrates such as pasta, bread, rice, and potatoes and limit the amount of sweets. Although fruits are generally healthy they should be eaten in moderation as they are still high in sugar. Hemoglobin A1c goal of less than 7%. Last A1c 8.9%. Patient is not due for A1c plan to repeat at next visit (2) Hypercholesteremia: Code(s): E78.00 - Pure hypercholesterolemia, unspecified Category: Medical Plan: Avoid foods that are high in cholesterol such as red meat, fried foods, eggs and baked goods. Triglyceride goal of less than 150 and LDL goal of less than 70. Continue on rosuvastatin 5 reminded patient about blood work (3) Coronary artery disease: Code(s): I25.10 - Atherosclerotic heart disease of [place] coronary artery without angina pectoris Category: Medical Plan: Advised good control of cholesterol, diabetes and blood pressure. On blood thinner apixaban 5 mg twice daily. (4) DVT (deep venous thrombosis): Code(s): I82.409 - Acute embolism and thrombosis of unspecified deep veins of unspecified lower extremity Category: Medical Qualifiers: Affected thrombotic vein of extremity: iliac Chronicity: acute DVT location: lower extremity Laterality: left Qualified Code(s): I82.422 - Acute embolism and thrombosis of left iliac vein Plan: Recently seen by Hematology advised to continue on Eliquis for at least a year. Patient will follow up in the next several months with Hematology. (5) Dementia: Comment: with psyhcosis , REM behavior disorder Code(s): F03.90 - Unspecified dementia, unspecified severity, without behavioral disturbance, psychotic disturbance, mood disturbance, and anxiety Category: Medical Qualifiers: Dementia type: unspecified type Dementia severity: unspecified severity Dementia behavioral or psychological symptom: unspecified whether behavioral, psychotic, or mood disturbance or anxiety Qualified Code(s): F03.90 - Unspecified dementia, unspecified severity, without behavioral disturbance, psychotic disturbance, mood disturbance, and anxiety Plan: Recently started on memantine by Neurology and daughter reports her symptoms have been much improved. She is no longer having hallucinations and sleep has been much improved. Continue to follow with Neurology patient is a longer taking temazepam (6) HTN (hypertension): Code(s): I10 - Essential (primary) hypertension Category: Medical Qualifiers: Hypertension type: primary hypertension Qualified Code(s): I10 - Essential (primary) hypertension Plan: Continue on current blood pressure medication. Avoid salt intake and encourage healthy diet and regular exercise. (7) Breast mass, right: Code(s): N63.10 - Unspecified lump in the right breast, unspecified quadrant Category: Medical Plan: Breast ultrasound mammogram negative for any abnormality. (8) AC joint arthropathy: Code(s): M19.019 - Primary osteoarthritis, unspecified shoulder Category: Medical Plan: Referral placed to Orthopedics. (9) Insomnia: Code(s): G47.00 - Insomnia, unspecified Category: Medical Plan: Currently on trazodone nightly which has been helping with sleep. And started on prazosin 1 mg nightly to help with nightmares follow up in 1 month. Plan Patient was informed and verbally consented to the use of an ambient scribe for clinic note documentation during this visit. This note was constructed using voice recognition software. While every effort has been made to ensure accuracy and visiting professor, still areas may have been included sometimes these areas may affect the content or meeting of the given symptoms. Total time spent caring for the patient today was 20 minutes. This includes time spent before the visit reviewing the chart, time spent during the visit, and time spent after the visit and documentation. Orders: Referrals Orthopedics Referral M19.019 - Primary osteoarthritis, unspecified shoulder Medications: New flash glucose scanning reader (DryncStyle Ez[place]iel 14 Day [place]) As directed 1 ea 0RF E11.9 - Type 2 diabetes mellitus without complications, Z79.4 - retirement (current) use of insulin prazosin 1 mg PO BEDTIME 30 caps 0RF flash glucose sensor (FreeStyle Ezequiel 14 Day Sensor kit) As directed 1 ea 0RF E11.9 - Type 2 diabetes mellitus without complications, Z79.4 - long term acute care registered nurse (current) use of insulin Refilled dulaglutide (Trulicity) takes on 0.75 mg (0.5 mL) subcut QWEEK 2 mL 0RF Discontinued temazepam Discontinued Reason: Patient no longer taking 7.5 mg orally; At bedtime every other day 14 caps 0RF
[2024-10-14 11:59] VITALS: BP 138/68
== END 2024-10-14 12:04 | disposition home or self-care (01) ==
PROVIDERS: PCP Internal Medicine
DX: E11.9 Type 2 diabetes mellitus without complications (principal); Z79.4 Long term (current) use of insulin; I82.422 Acute embolism and thrombosis of left iliac vein; F03.90 Unspecified dementia, unspecified severity, without behavioral disturbance, psychotic disturbance, mood disturbance, and anxiety; I25.10 Atherosclerotic heart disease of native coronary artery without angina pectoris; E78.00 Pure hypercholesterolemia, unspecified; I10 Essential (primary) hypertension; N63.10 Unspecified lump in the right breast, unspecified quadrant; M19.019 Primary osteoarthritis, unspecified shoulder; G47.00 Insomnia, unspecified

== ENCOUNTER → 2024-10-14 11:20 | Outpatient (BNVA) | payer MEDICARE, MEDICAID, SELFPAY | PROVIDERS: PCP Internal Medicine | DX: E11.9 Type 2 diabetes mellitus without complications (principal); E78.00 Pure hypercholesterolemia, unspecified; I25.10 Atherosclerotic heart disease of native coronary artery without angina pectoris; I82.422 Acute embolism and thrombosis of left iliac vein; F03.90 Unspecified dementia, unspecified severity, without behavioral disturbance, psychotic disturbance, mood disturbance, and anxiety; I10 Essential (primary) hypertension; N63.10 Unspecified lump in the right breast, unspecified quadrant; M19.019 Primary osteoarthritis, unspecified shoulder; G47.00 Insomnia, unspecified; Z79.4 Long term (current) use of insulin | CPT/HCPCS: 99212 ==

== ENCOUNTER 2024-11-11 11:06 | Outpatient (REF) | payer MEDICARE, MEDICAID, SELFPAY | END 2024-11-11 11:07 | disposition home or self-care (01) | LOC: HO.LNP 11:06 | PROVIDERS: PCP Internal Medicine | DX: Z13.89 Encounter for screening for other disorder (principal) | CPT/HCPCS: 87086 ==

== ENCOUNTER 2024-11-11 11:06 | Outpatient (AMB) | payer MEDICARE, MEDICAID, SELFPAY ==
[2024-11-11 11:15] VITALS: BP 120/70; TEMP 36.3; BMI 28.9
--- NOTE | 2024-11-11 11:15 | A.OFFPC_ITS ---
Vital Signs 11/11/24 11:15 Height 5 ft 6 in Weight 179 lb 4 oz BMI 28.9 BP 120/70 Blood Pressure Location Lt brachial Position Sitting Temp 97.3 F Temp Source Temporal Artery Scan Intake Visit Reasons: 1 month f/u Intake Note: Patient is here to follow up on DM. Complaint of burning sensation, confusion and cloudy urine. Family Practice Medical Doctor Required: Yes Family Practice Medical Doctor Language: Senior Director Of Strategy Name: Caleb (latoya copeland) Information Interpreted: non-clinical & clinical (pt decline imaging assistant service prefer daughterin-law to translate) Automotive Technology Instructor: Present Accompanied by: latoya copeland Allergies No Known Allergies Allergy (Verified 11/11/24 11:37) Medication List - Last Reconciled 11/11/24 by Marci Hart PA-C amlodipine 2.5 mg See Protocol PO DAILY 14 days apixaban (Eliquis) 5 mg PO BID blood sugar diagnostic (Freestyle InsuLinx strips) As directed; QID blood-glucose meter (Freestyle InsuLinx meter) As directed blood-glucose meter,continuous (FreeStyle Ezequiel 3 [place]) As directed blood-glucose sensor (FreeStyle Ezequiel 3 Sensor device) As directed dulaglutide (Trulicity) 0.75 mg (0.5 mL) subcut QWEEK insulin lispro (Humalog KwikPen (U-100) Insulin) 1 sliding scale dose subcut QIDACHS MDD 30 lancets (FreeStyle Lancets) As directed QID lidocaine 5% 1 patch topical DAILY memantine 7 mg PO DAILY pen needle, diabetic (Ultra-Thin II Insulin Pen [place]) As directed prazosin 1 mg PO BEDTIME risperidone 0.5 mg PO BID rosuvastatin 5 mg PO DAILY sertraline 50 mg PO DAILY trazodone 50 mg PO BEDTIME Tobacco use date assessed: 11/11/24 Fall risk assessment: No Falls in past year Last assessed Fall Risk: 11/11/24 Dental Screening Dental Screen Date: 10/14/24 HPI 1 month f/u HPI Details 74-year-old female with past medical his tory of dementia, diabetes, hypertension, DVT and PE, coronary artery disease, hypercholesterolemia last seen 09/2024 coming in for follow up.?? Presenting with confusion suspected to be associated with a urinary tract infection, which started following a trip during which she refrained from urination for an extended period. Laboratory findings support infection, noting leukocytes and blood in the urine. The patient's past medical history indicates treatment with Eliquis for prior leg clotting, and she is experiencing recurrent unilateral ankle swelling with associated itchiness but without pain. Continued compliance with anticoagulation therapy is confirmed. At her last visit she was started on prazosin and has found good benefit and night terrors and nightmares with this medication. [facility] Medical History (Updated 11/11/24 @ 11:57 by Marci Hart PA-C) History of [place] (myocardial infarction) Hx of blood clots Leg edema Dementia TIA (transient ischemic attack) HTN (hypertension) Surgical History Hx of cystoscopy Hx of cardiac catheterization Hx of hysterectomy Family History Mother Dementia Other Mental health disorder Social History Household Members: Family and Children Household Members Other:: lives with son and daughter in law Housing: House Are you a primary care manager cna to a significant other at home: No Do you presently have visiting nurse or other home services: No Alcohol intake: never Comment: within the last year prior to moving in with family Patient Tobacco Use Status: Former Tobacco user Tobacco use type: Cigarette e-Cigarette/Vaping Use: Never Used Second Hand Smoke Exposure: Yes service: No Current occupational status: disabled Gender identity: Female Cognitive needs: Yes Hearing needs: No Vision needs: Yes Questionnaire Thrive Questionnaire Date Thrive assessed: 09/11/24 AUDIT C Alcohol Use Questionnaire (AUDIT-C) 2. How many drinks containing alcohol do you have on a typical day when you are drinking?: 1 or 2 3. How often do you have six or more drinks on one occasion?: Never Total Score: 0 OLIVIA-7 AMB Questionnaire OLIVIA-7 Date OLIVIA - 7 assessed: 10/14/24 Source: Developed by Drs. Dorina Hawthorne, Niharika Sanchez, Jesse Alston and colleagues, with an educational janet from [employer]. Review of Systems Const Denies body aches, Denies chills, Denies fever(s), Denies headache(s), Denies poor appetite and Reports weakness Eyes Reports no additional complaints ENT Denies dizziness and Denies headache(s) Card Denies chest pain, Denies lightheadedness and Denies dyspnea Resp Denies cough and Denies dyspnea GI Denies abdominal pain, Denies constipation, Denies diarrhea, Denies nausea and Denies vomiting Reports no additional complaints Musc Details: Left ankle swelling Reports no additional complaints and Denies abnormal gait Skin/Breast Reports system reviewed and no additional complaints, except as documented Neuro Denies abnormal gait, Denies dizziness, Denies headache(s) and Reports weakness Psych Reports no additional complaints Physical exam (Primary Care) Vital Signs: Last Vital Signs Temp 97.3 F 11/11/24 11:15 BP 120/70 11/11/24 11:15 BMI result Body Mass Index 28.9 Tobacco/Smoking Status: Tobacco use Status Tobacco use date assessed 11/11/24 11/11/24 11:26 Patient Tobacco Use Status Former Tobacco user 11/11/24 11:26 Tobacco use type Cigarette 11/11/24 11:26 e-Cigarette/Vaping Use Never Used 11/11/24 11:26 Thrive Assessment: Date of Thrive Assessment Date Thrive assessed 09/11/24 11/11/24 11:26 Const General: cooperative, healthy appearing, comfortable and no acute distress Orientation/consciousness: patient oriented x3 HENMT Head: Yes normocephalic Ears: hearing grossly normal bilaterally General nose exam: Normal external nose present Eyes General: appearance normal, both eyes and all related structures Conjunctivae: conjunctivae normal Neck Neck: Yes full ROM and Yes no lymphadenopathy Resp Effort & Inspection: normal respiratory effort Auscultation: clear to auscultation bilaterally, no crackles, no rales, no rhonchi and no wheezes Cardio Rate: regular rate Rhythm: regular rhythm General: Yes no CVA tenderness Back/Spine/Pelvis Back: no CVA tenderness Skin General skin exam: no rashes or lesions noted Neuro General: patient oriented x3 Gait exam (Neuro): Normal gait present Extrem Other: 1+ pitting edema of left ankle pulses intact in bilateral lower extremities. General: Yes normal to inspection, Yes full ROM and No edema Psych Affect: normal affect Attitude: cooperative Insight: Good insight present (Psych) Judgement: Good judgement present (Psych) Results AMB Urinalysis, Automated UA Leukoctes 3 Yuli/uL Last Edit by Vega Benson A on 11/11/24 11:43 UA Nitrite Negative Last Edit by Vega Benson A on 11/11/24 11:43 UA Urobilinogen 0 mg/dL Last Edit by Vega Benson A on 11/11/24 11:43 UA Protein 1 mg/dL Last Edit by Vega Benson A on 11/11/24 11:43 UA pH 6.5 Last Edit by Vega Benson, A on 11/11/24 11:43 UA Blood 3 Primitivo/uL Last Edit by Vega Benson A on 11/11/24 11:43 UA Specific Cocoa 1.015 Last Edit by Vega Benson A on 11/11/24 11: 43 UA Ketone Negative Last Edit by Vega Benson A on 11/11/24 11:43 UA Bilirubin 0 mg/dL Last Edit by Vega Benson [facility] on 11/11/24 11:43 UA Glucose 0 mg/dL Last Edit by Vega Benson A on 11/11/24 11:43 Results Reviewed Results Reviewed: Laboratory Last Values Urine pH (Auto) 6.5 11/11/24 11:14 Specific Cocoa (Auto) 1.015 11/11/24 11:14 Urine Protein (Auto) 1 mg/dL L* 11/11/24 11:14 Glucose (UA)(Auto) 0 mg/dL 11/11/24 11:14 Urine Ketones (Auto) Negative 11/11/24 11:14 Urine Blood (Auto) 3 Primitivo/uL H* 11/11/24 11:14 Urine Nitrite (Auto) Negative 11/11/24 11:14 Urine Bilirubin (Auto) 0 mg/dL 11/11/24 11:14 Urine Urobilinogen (Auto) 0 mg/dL 11/11/24 11:14 Leukocyte Esterase (Auto) 3 Yuli/uL H* 11/11/24 11:14 Coding Level of Care Code Est Pt Level 4 (25537) Diagnoses Insulin dependent type 2 diabetes mellitus E11.9; Z79.4 Coronary artery disease I25.10 Primary hypertension I10 Hypertension type: primary hypertension Hypercholesteremia E78.00 Cystitis N30.90 DVT (deep venous thrombosis) I82.422 Affected thrombotic vein of extremity: iliac Chronicity: acute DVT location: lower extremity Laterality: left Assessment & Plan Assessment & Plan (1) Insulin dependent type 2 diabetes mellitus: Code(s): E11.9 - Type 2 diabetes mellitus without complications; Z79.4 - 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 Although fruits are generally healthy they should be eaten in moderation as they are still high in sugar. Hemoglobin A1c goal of less than 7%. Working on getting glucose sensors covered as patient is insulin dependent. Repeat A1c next month (2) Coronary artery disease: Code(s): I25.10 - Atherosclerotic heart disease of [place] coronary artery without angina pectoris Category: Medical Plan: Advised good control of diabetes, blood pressure and cholesterol. (3) HTN (hypertension): Code(s): I10 - Essential (primary) hypertension Category: Medical Qualifiers: Hypertension type: primary hypertension Qualified Code(s): I10 - Essential (primary) hypertension Plan: Continue on current blood pressure medication. Avoid salt intake and encourage healthy diet and regular exercise. (4) Hypercholesteremia: Code(s): E78.00 - Pure hypercholesterolemia, unspecified Category: Medical Plan: Avoid foods that are high in cholesterol such as red meat, fried foods, eggs and baked goods. Triglyceride goal of less than 150 and LDL goal of less than 70. Continue on rosuvastatin. Blood Work due at next visit (5) Cystitis: Code(s): N30.90 - Cystitis, unspecified without hematuria Category: Medical Plan: The plan is to address the confusion and suspected urinary tract infection by starting cefpodoxime therapy, observing closely for symptom resolution. Advised good water intake and prevention of holding the urine. Discussed with patient and her daughter if symptoms do not resolve ED evaluation may be needed. Reviewed with patient red flag symptoms (6) DVT (deep venous thrombosis): Code(s): I82.409 - Acute embolism and thrombosis of unspecified deep veins of unspecified lower extremity Category: Medical Qualifiers: Affected thrombotic vein of extremity: iliac Chronicity: acute DVT location: lower extremity Laterality: left Qualified Code(s): I82.422 - Acute embolism and thrombosis of left iliac vein Plan: Swelling from past DVT is managed with attention to current anticoagulation treatment and continued patient education on supportive care like elevation and use of compression. Plan to reorder for left lower extremity venous duplex ordered urgently. Continue on Eliquis Plan This note was constructed using voice recognition software. While every effort has been made to ensure accuracy and offset lithographic press operator, still areas may have been included sometimes these areas may affect the content or meeting of the given symptoms. Total time spent caring for the patient today was 20 minutes. This includes time spent before the visit reviewing the chart, time spent during the visit, and time spent after the visit and documentation. Patient was informed and verbally consented to the use of an ambient scribe for clinic note documentation during this visit. Orders: Orders AMB Urinalysis Automated Today Z13.9 - Encounter for screening, unspecified Hemoglobin A1c 1 Month E11.65 - Type 2 diabetes mellitus with hyperglycemia Urine Culture Today N30.90 - Cystitis, unspecified without hematuria US venous duplex LE LT Today I82.422 - Acute embolism and thrombosis of left iliac vein Medications: New cefpodoxime must administer with a meal/food 100 mg PO BID 7 days 14 tabs 0RF flash glucose scanning reader (FreeStyle Ezequiel 14 Day [place]) As directed 1 ea 0RF flash glucose sensor (FreeStyle Ezequiel 14 Day Sensor kit) As directed 1 ea 0RF Refilled prazosin 1 mg PO BEDTIME 90 caps 1RF Discontinued blood-glucose sensor (FreeStyle Ezequiel 3 Sensor device) Discontinued Reason: Insurance Denied As directed 1 ea 0RF E11.9 - Type 2 diabetes mellitus without complications blood-glucose meter,continuous (FreeStyle Ezequiel 3 [place]) Discontinued Reason: Insurance Denied As directed 1 ea 0RF E11.9 - Type 2 diabetes mellitus without complications
== END 2024-11-11 12:14 | disposition home or self-care (01) ==
LOC: HO.HMCH 11:07
PROVIDERS: PCP Internal Medicine
DX: E11.9 Type 2 diabetes mellitus without complications (principal); Z79.4 Long term (current) use of insulin; I25.10 Atherosclerotic heart disease of native coronary artery without angina pectoris; I82.422 Acute embolism and thrombosis of left iliac vein; I10 Essential (primary) hypertension; E78.00 Pure hypercholesterolemia, unspecified; N30.90 Cystitis, unspecified without hematuria

== ENCOUNTER 2024-11-11 14:08 | Outpatient (REF) | payer MEDICARE, MEDICAID, SELFPAY ==
--- NOTE | ~2024-11-11 | US_ITS ---
EXAMINATION: US TRIPLEX LOWER EXTREMITY, LEFT CLINICAL INFORMATION: Edema, left lower extremity. COMPARISON: None available. TECHNIQUE: Color-flow triplex imaging with spectral analysis and compression Doppler were performed on the left lower extremity. FINDINGS: Respiratory variation, normal compression and augmented flow are noted throughout the interrogated common femoral vein, superficial femoral vein, profunda femoral vein, popliteal vein and midcalf peroneal and posterior tibial veins. There is no Mcfarland's cyst. US/US venous duplex LE IMPRESSION: No acute deep venous thrombosis involving the left lower extremity. Negative for DVT. Electronically signed by: Nabeel Hardin MD 11/11/2024 02:59 PM EDT
== END 2024-11-11 14:09 | disposition home or self-care (01) ==
LOC: HO.US 14:08
DX: I82.422 Acute embolism and thrombosis of left iliac vein (principal); N30.90 Cystitis, unspecified without hematuria; E11.9 Type 2 diabetes mellitus without complications; I25.10 Atherosclerotic heart disease of native coronary artery without angina pectoris; I10 Essential (primary) hypertension; E78.00 Pure hypercholesterolemia, unspecified; Z79.4 Long term (current) use of insulin
CPT/HCPCS: 81003; 87086; 93971; 99212

== ENCOUNTER → 2024-11-11 14:20 | Outpatient (BNV) | payer MEDICARE, MEDICAID, SELFPAY | PROVIDERS: Visit Provider Radiology Diagnostic Radiology | DX: R22.42 Localized swelling, mass and lump, left lower limb (principal) | CPT/HCPCS: 93971 ==

== ENCOUNTER 2024-12-02 11:10 | Outpatient (AMB) | payer MEDICARE, MEDICAID, SELFPAY ==
--- NOTE | 2024-12-02 11:15 | A.OFFVIS_ITS ---
Vital Signs 12/02/24 11:17 Height 5 ft 6 in Weight 179 lb 4 oz BMI 28.9 Pulse 51 Pulse Source Pulse Oximeter Pulse Oximetry (%) 100 Oxygen Delivery Method Room Air Intake Visit Reasons: 3 mnts f/u per MD with Re Intake Note: patient presents followup Dementia. MRI done 08/24/24-EEG 10/08/24. Medication working but still having moments of aggression and sometimes daughter in law gets worried and patient does not want to leave the house. Qlikview Developer Required: Yes Qlikview Developer Services: Qlikview Developer Offered & Declined Qlikview Developer Name: Daughter dinorah(caregiver) Accompanied by: Other Relationship Allergies No Known Allergies Allergy (Verified 11/11/24 11:37) HPI Comments Details: 74y/o Right handed female comes for evaluation of memory issues. Her DIL Felecia helps with history. 1 year ago she was found wandering confused. She was living [place] at that time. She was admitted to a psych unit, and started on Risperdone, Temazepam and Sertraline. She moved to [place] to stay with her son in Aug 2024. According to her daughter in law, she needs help with bathing, cooking , dressing. Her confusion worsens in the evenings. She is oriented to people but confused with places. She talks about people that have . She has A/V hallucinations now 2x a week since starting Prazosin, she still believes she is living in [place] and gets disoriented. She screams and yell at night, starts crying and goes to the bathroom 2-3x since her stent replacement for hydronephrosis. She used to enjoy cooking but now she is sedentary, watches her [employer] daily and refuses to leave the home. She gets aggressive with the grandkids 18, and 19 year old so Felecia has to diffuse the situation by changing the topics to de- escalate the situation. Today we reviewed her labs and EEG she has no evidence of seizure disorder, we also reviewed her brain MRI which shows temporal and parietal atrophy. 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 [facility] Medical History History of [place] (myocardial infarction) Hx of blood clots Leg edema Dementia TIA (transient ischemic attack) HTN (hypertension) Surgical History Hx of cystoscopy Hx of cardiac catheterization Hx of hysterectomy Family History Mother Dementia Other Mental health disorder Social History Household Members: Family and Children Household Members Other:: lives with son and daughter in law Housing: House Are you a primary child caregiver private home to a significant other at home: No Do you presently have visiting nurse or other home services: No Alcohol intake: never Comment: within the last year prior to moving in with family Patient Tobacco Use Status: Former Tobacco user Tobacco use type: Cigarette e-Cigarette/Vaping Use: Never Used Second Hand Smoke Exposure: Yes service: No Current occupational status: disabled Gender identity: Female Cognitive needs: Yes Hearing needs: No Vision needs: Yes Review of Systems Neuro Reports confusion Psych Reports confusion Physical Exam Vital Signs: Last Vital Signs Pulse 51 12/02/24 11:17 Pulse Ox 100 12/02/24 11:17 Oxygen Delivery Method Room Air 12/02/24 11:17 BMI result Body Mass Index 28.9 Const General: cooperative, healthy appearing, comfortable and confusion Nutritional Appearance: average body habitus Orientation/consciousness: confusion Eyes Pupils: Equal, round and reactive pupils present Neck Neck: Yes no meningeal signs Neuro Other: Disoriented, with tongue tremors and slow to respond, may be the language barrier. General: tone normal, moves all extremities, no meningeal signs, no focal motor deficits and confusion Cranial nerves: Yes Facial sensation intact/muscles of mastication intact, Yes Equal, round and reactive pupils present, Yes Bilaterally intact EOM present, Yes Nystagmus not present, Yes Normal facial strength present and Yes Midline tongue present Cognition (Neuro): abnormal cognition Gait exam (Neuro): Normal gait present Motor exam (neuro): Abnormal motor strength present (4/5 UE and LE) Deep tendon reflexes (DTR's): Right triceps reflex intensity grade: 2+, Left triceps reflex intensity grade: 2+, Rt Biceps (C5, C6): 2+, Left biceps reflex intensity grade: 2+, Right brachioradialis reflex intensity grade: 2+, Left brachioradialis reflex intensity grade: 2+, Right patellar reflex intensity grade: 2+ and Left patellar reflex intensity grade: 2+ Coordination: [id number] test normal Psych Speech and movement: Other speech and movement exam findings present (Psych) (Disoriented) Attitude: cooperative and Other attitude/behavior findings present (Psych) (she smiles and says thank you often.) Insight: Fair insight present (Psych) Judgement: Fair judgement present (Psych) Results Reviewed Results Reviewed: 10/2024 FINDINGS: Venous US - Negative for DVT Respiratory variation, normal compression and augmented flow are noted throughout the interrogated common femoral vein, superficial femoral vein, profunda femoral vein, popliteal vein and midcalf peroneal and posterior tibial veins. There is no Mcfarland's cyst. EEG Sep 2024 This is a 16-channel EEG with an EKG lead. The patient is reported awake during the tracing. Background EEG rhythm is mixed theta beta, low to medium amplitude with no obvious asymmetry or paroxysmal tendency. Photic stimulation does not produce any significant abnormality. Hyperventilation is not performed. Cardiac lead does not reveal any significant abnormality. No sharp wave spikes or paroxysmal tendency noted. MRI Aug 2024 IMPRESSION: Mild slowing with no evidence of seizure disorder. 1. Cortical atrophy, most prominently involving the bilateral temporal and parietal lobes. No evidence of an acute infarct. 2. 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 ENT evaluation is suggested. Assessment & Plan Assessment & Plan (1) Dementia: Comment: with psyhcosis , REM behavior disorder, LBD? and Alzheimers? Code(s): F03.90 - Unspecified dementia, unspecified severity, without behavioral disturbance, psychotic disturbance, mood disturbance, and anxiety Category: Medical Qualifiers: Dementia type: unspecified type Dementia severity: unspecified severity Dementia behavioral or psychological symptom: unspecified whether behavioral, psychotic, or mood disturbance or anxiety Qualified Code(s): F03.90 - Unspecified dementia, unspecified severity, without behavioral disturbance, psychotic disturbance, mood disturbance, and anxiety (2) Confusion and disorientation: Code(s): R41.0 - Disorientation, unspecified Category: Medical (3) Aggressive behavior due to dementia: Code(s): F03.918 - Unspecified dementia, unspecified severity, with other behavioral disturbance Category: Medical (4) Night terrors: Code(s): F51.4 - Sleep terrors [night terrors] Category: Medical (5) Screaming: Code(s): R45.89 - Other symptoms and signs involving emotional state Category: Medical (6) Fatigue due to sleep pattern disturbance: Code(s): R53.83 - Other fatigue; G47.9 - Sleep disorder, unspecified Category: Medical Plan Home Sleep study for evaluation of apneic events and somnolence, taking Trazadone 50mg PO for sleep, will add Melatonin 5mg today. Reviewed EEG with patient today and No evidence for Seizure disorder Reviewed MRI of brain with patient today, Temporal and Parietal Atrophy most likely dementia. Reviewed Labs she is slightly anemic we disscused dietary and supplemental options to increase iron, will do labs to check Ferritin, B12, TSH, Aggressive behavior and irritable mood continue Risperidone 0.5mg PO BID Night terrors with screaming continue Prazosin 1mg PO at bedtime. I will increase her Memantine XR to 14mg PO daily at bedtime. I will increase the Sertraline from 50mg PO daily to 75mg PO daily in the mornings. Orders: Orders Homocysteine Today G47.9 - Sleep disorder, unspecified, R53.83 - Other fatigue Methylmalonic Acid Today G47.9 - Sleep disorder, unspecified, R53.83 - Other fatigue Vitamin B12 and Folate Today G47.9 - Sleep disorder, unspecified, R53.83 - Other fatigue Comprehensive Met. Panel Today G47.9 - Sleep disorder, unspecified, R53.83 - Other fatigue Ferritin Today G47.9 - Sleep disorder, unspecified, R53.83 - Other fatigue Vitamin D 25-OH Total Today G47.9 - Sleep disorder, unspecified, R53.83 - Other fatigue TSH reflex Free T4 Today G47.9 - Sleep disorder, unspecified, R53.83 - Other fatigue RT home sleep study Today G47.19 - Other hypersomnia Medications: Changed From sertraline 50 mg PO DAILY 90 tabs 3RF F03.918 - Unspecified dementia, unspecified severity, with other behavioral disturbance, R45.89 - Other symptoms and signs involving emotional state To sertraline take one 75 mg po tablet daily in the morning. 75 mg (1.5 x 50 mg) PO DAILY 90 tabs 3RF anxiety MDD 75mg F03.918 - Unspecified dementia, unspecified severity, with other behavioral disturbance, R45.89 - Other symptoms and signs involving emotional state Patient Instructions: Sleep Hygiene provided: set a scheduled bedtime and wake time to help regulate the circadian rhythm and balance the release of pituitary hormones. Sleep in a dark room, temperatures below 68 degrees, and no devices n bed. Limit caffeinated products 6 hours prior to bed, and limit fluids 2-4 hours prior to bed. Gentle night yoga, diffusing essential oils, and playing soft music can be relaxing. Coding Level of Care Code Est Pt Level 4 (12374) Complex EM visit Add On G2211 Diagnoses Dementia, unspecified dementia severity, unspecified dementia type, unspecified whether behavioral, psychotic, or mood disturbance or anxiety F03.90 Dementia type: unspecified type Dementia severity: unspecified severity Dementia behavioral or psychological symptom: unspecified whether behavioral, psychotic, or mood disturbance or anxiety Confusion and disorientation R41.0 Aggressive behavior due to dementia F03.918 Night terrors F51.4 Screaming R45.89 Fatigue due to sleep pattern disturbance R53.83; G47.9 Time Spent (min) 40
[2024-12-02 11:17] VITALS: PULSE 51; O2SAT 100; BMI 28.9
== END 2024-12-02 12:25 | disposition home or self-care (01) ==
LOC: HO.HSMS 11:11
PROVIDERS: PCP Internal Medicine; Visit Provider Physician Assistant Medical
DX: F03.90 Unspecified dementia, unspecified severity, without behavioral disturbance, psychotic disturbance, mood disturbance, and anxiety (principal); R41.0 Disorientation, unspecified; F03.918 Unspecified dementia, unspecified severity, with other behavioral disturbance; F51.4 Sleep terrors [night terrors]; R45.89 Other symptoms and signs involving emotional state; R53.83 Other fatigue; G47.9 Sleep disorder, unspecified
CPT/HCPCS: 99214; G2211

== ENCOUNTER → 2024-12-02 11:10 | Outpatient (BNVA) | payer MEDICARE, MEDICAID, SELFPAY | PROVIDERS: PCP Internal Medicine; Visit Provider Physician Assistant Medical | DX: R41.0 Disorientation, unspecified (principal); F03.918 Unspecified dementia, unspecified severity, with other behavioral disturbance; F51.4 Sleep terrors [night terrors]; R45.89 Other symptoms and signs involving emotional state; R53.83 Other fatigue; G47.9 Sleep disorder, unspecified | CPT/HCPCS: 99212 ==

== ENCOUNTER 2024-12-16 10:31 | Outpatient (AMB) | payer MEDICARE, MEDICAID, SELFPAY ==
[2024-12-16 10:44] VITALS: BP 126/64; PULSE 63; TEMP 36.4; O2SAT 98; BMI 28.1
--- NOTE | 2024-12-16 10:44 | A.OFFPC_ITS ---
Vital Signs 12/16/24 10:44 Height 5 ft 6 in Weight 174 lb BMI 28.1 BP 126/64 Blood Pressure Location Lt brachial Position Sitting Pulse 63 Pulse Source Pulse Oximeter Temp 97.5 F Temp Source Skin Pulse Oximetry (%) 98 Oxygen Delivery Method Room Air Intake Visit Reasons: f/u DM and HLD Intake Note: Patient here for a follow up DM, HLD Manager Utilization Required: No Accompanied by: daughter in law/caregiver Allergies No Known Allergies Allergy (Verified 12/16/24 10:51) Medication List - Last Reconciled 12/16/24 by Marci Hart PA-C amlodipine 2.5 mg See Protocol PO DAILY 14 days apixaban (Eliquis) 5 mg PO BID blood sugar diagnostic (Freestyle InsuLinx strips) As directed; QID blood-glucose meter (Freestyle InsuLinx meter) As directed blood-glucose sensor (BiddingForGoodStyle Ezequiel 2 Plus Sensor device) 1 ea miscellaneous QID dulaglutide (Trulicity) 0.75 mg (0.5 mL) subcut QWEEK flash glucose scanning reader (FreeStyle Ezequiel 2 Center [place]) 1 ea miscellaneous QID insulin lispro (Humalog KwikPen (U-100) Insulin) 1 sliding scale dose subcut QIDACHS MDD 30 lancets (FreeStyle Lancets) As directed QID lidocaine 5% 1 patch topical DAILY memantine 14 mg (2 x 7 mg) PO DAILY pen needle, diabetic (Ultra-Thin II Insulin Pen [place]) As directed prazosin 1 mg PO BEDTIME risperidone 0.5 mg PO BID rosuvastatin 5 mg PO DAILY sertraline 75 mg (1.5 x 50 mg) PO DAILY MDD 75mg trazodone 50 mg PO BEDTIME Tobacco use date assessed: 11/11/24 Fall risk assessment: No Falls in past year Last assessed Fall Risk: 12/16/24 Dental Screening Dental Screen Date: 12/16/24 Did you have a dental visit in the last 12 months?: No Did you have a dental problem in the last 6 months where you did not have access to dental care?: No Was dental information given to patient?: Patient has dentist HPI f/u DM and HLD HPI Details 74-year-old female with past medical his tory of dementia, diabetes, hypertension, DVT and PE, coronary artery disease, hypercholesterolemia last seen 10/2024 coming in for follow up. In review of the notes, he was seen by Neurology 11/2024 plan for sleep study, continue with trazodone and add melatonin.?MRI was reviewed consistent with dementia plan to started on risperidone twice daily for irritable mood, continue on prazosin and increase memantine and sertraline. Presenting with type 2 diabetes managed with Trulicity. Her recent A1c of 5.5% is a significant improvement since August when it was at 8.9%. She was previously utilizing Humalog, but has not needed it in recent months. She has been monitoring her blood sugar and denies any lows below 98. Pain management for persistent shoulder discomfort has been ineffective with Tylenol and Lidocaine patches. The patient's dementia includes difficulty in recognition and memory retention, impairing her routine activities. [facility] Medical History History of SC (myocardial infarction) Hx of blood clots Leg edema Dementia TIA (transient ischemic attack) HTN (hypertension) Surgical History Hx of cystoscopy Hx of cardiac catheterization Hx of hysterectomy Family History Mother Dementia Other Mental health disorder Social History Household Members: Family and Children Household Members Other:: lives with son and daughter in law Housing: House Are you a primary respiratory care technician to a significant other at home: No Do you presently have visiting nurse or other home services: No Alcohol intake: never Comment: within the last year prior to moving in with family Patient Tobacco Use Status: Former Tobacco user Tobacco use type: Cigarette e-Cigarette/Vaping Use: Never Used Second Hand Smoke Exposure: Yes service: No Current occupational status: disabled Gender identity: Female Cognitive needs: Yes Hearing needs: No Vision needs: Yes Questionnaire PHQ-9 Over the last 2 weeks, how often have you been bothered by any of the following problems? 1. Little interest or pleasure in doing things: several days 2. Feeling down, depressed, or hopeless: several days 3. Trouble falling or staying asleep, or sleeping too much: several days 4. Feeling tired or having little energy: several days 5. Poor appetite or overeating: several days 6. Feeling bad about yourself - or that you are a failure or have let yourself or your family down: more than half the days 7. Trouble concentrating on things, such as reading the newspaper or watching television: several days 8. Moving or speaking so slowly that other people could have noticed. Or the opposite - being so fidgety or restless that you have been moving around a lot more than usual: nearly every day 9. Thoughts that you would be better off or of hurting yourself in some way: not at all Total score: 11 Depression Screening Interpretation: Positive Depression Screening Follow-up: Existing condition and In treatment Depression Screening Done: Yes Source: Developed by Drs. Dorian Hawthorne, Niharika Sanchez, Jesse Alston and colleagues, with an educational janet from [employer]. Thrive Questionnaire Date Thrive assessed: 12/16/24 I am a: Parent/Caregiver What is your living situation today?: I have a steady place to live Within the past 12 months, did the food you bought not last and you didn't have the money to get more?: I choose not to answer this question Within the past 12 months, did you worry whether your food would run out before you got money to buy more?: I choose not to answer this question Do you have trouble paying for medicines?: I choose not to answer this question Do you have trouble getting transportation to medical appointments?: Yes Do you have trouble paying your heating and electricity bill?: I choose not to answer this question Do you have trouble taking care of your child, family member or friend?: No Do you have trouble with day-to-day activities such as bathing, preparing meals, shopping, managing finances, etc.?: Yes Are you currently unemployed and looking for a job?: No Are you interested in more education?: No Please select the resources that you would like help with: None Currently or been in a relationship where the following occur: No concerns reported THRIVE Score: 1 AUDIT C Alcohol Use Questionnaire (AUDIT-C) 1. How often do you have a drink containing alcohol?: Never Total Score: 0 OLIVIA-7 AMB Questionnaire OLIVIA-7 Date OLIVIA - 7 assessed: 12/16/24 Feeling nervous, anxious, or on edge: 0 = Not at all Not being able to stop or control worryin = Not at all Worrying too much about different things: 1 = Several days Trouble relaxin = Not at all Being so restless that it is hard to sit still: 0 = Not at all Becoming easily annoyed or irritable: 1 = Several days Feeling afraid as if something awful might happen: 0 = Not at all Total OLIVIA-7 score (0-4 normal; 5-9 mild; 10-14 moderate; 15-21 severe): 2 Source: Developed by Drs. Dorian Hawthorne, Niharika Sanchez, Jesse Alston and colleagues, with an educational janet from [employer]. Review of Systems Const Denies body aches, Denies chills, Denies fever(s), Denies headache(s) and Denies poor appetite Eyes Reports no additional complaints ENT Denies dizziness and Denies headache(s) Card Denies chest pain, Denies syncope, Denies lightheadedness and Denies dyspnea Resp Denies dyspnea Details: Nocturnal enuresis Musc Reports no additional complaints and Denies abnormal gait Skin/Breast Reports system reviewed and no additional complaints, except as documented Neuro Denies abnormal gait, Denies dizziness, Denies syncope and Denies headache(s) Psych Reports no additional complaints Physical exam (Primary Care) Vital Signs: Last Vital Signs Temp 97.5 F 12/16/24 10:44 Pulse 63 12/16/24 10:44 BP 126/64 12/16/24 10:44 Pulse Ox 98 12/16/24 10:44 Oxygen Delivery Method Room Air 12/16/24 10:44 BMI result Body Mass Index 28.1 Tobacco/Smoking Status: Tobacco use Status Tobacco use date assessed 11/11/24 12/16/24 10:48 Patient Tobacco Use Status Former Tobacco user 12/16/24 10:48 Tobacco use type Cigarette 12/16/24 10:48 e-Cigarette/Vaping Use Never Used 12/16/24 10:48 PHQ-9: PHQ-9 Score PHQ-9: Total score 11 12/16/24 10:53 Depression Screening Interpretation: Positive Depression Screening Follow-up: Existing condition and In treatment Thrive Assessment: Date of Thrive Assessment Date Thrive assessed 12/16/24 12/16/24 10:48 Currently or been in a relationship where the following occur: No concerns reported Const General: cooperative, healthy appearing, comfortable and no acute distress Orientation/consciousness: patient oriented x3 HENMT Head: Yes normocephalic Ears: hearing grossly normal bilaterally General nose exam: Normal external nose present Eyes General: appearance normal, both eyes and all related structures Conjunctivae: conjunctivae normal Neck Neck: Yes full ROM and Yes no lymphadenopathy Resp Effort & Inspection: normal respiratory effort Auscultation: clear to auscultation bilaterally, no crackles, no rales, no rhonchi and no wheezes Cardio Rate: regular rate Rhythm: regular rhythm Skin General skin exam: no rashes or lesions noted Neuro General: patient oriented x3 Gait exam (Neuro): Normal gait present Extrem General: Yes normal to inspection, Yes full ROM and No edema Psych Affect: normal affect Attitude: cooperative Insight: Good insight present (Psych) Judgement: Good judgement present (Psych) Results AMB Hemoglobin A1c AMB Hemoglobin A1c 5.5 % Last Edit by NEHEMIAS Ken on 12/16/24 10:5 1 Results Reviewed Results Reviewed: Laboratory Last Values Hgb A1c (Clinic) 5.5 % (4.0-6.0) 12/16/24 10:49 Coding Level of Care Code Est Pt Level 3 (50158) Diagnoses Insulin dependent type 2 diabetes mellitus E11.9; Z79.4 Coronary artery disease I25.10 Primary hypertension I10 Hypertension type: primary hypertension Hypercholesteremia E78.00 Night terrors F51.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 Although fruits are generally healthy they should be eaten in moderation as they are still high in sugar. Hemoglobin A1c goal of less than 7%. Patient's A1c in the clinic today is 5.5% she has been using only the Trulicity 0.75 mg weekly. At this time her blood sugars are very well managed plan to discontinue Trulicity and repeat A1c in 3 months. She has not had any lows below 98. (2) Coronary artery disease: Code(s): I25.10 - Atherosclerotic heart disease of [place] coronary artery without angina pectoris Category: Medical Plan: Advised good control of diabetes, blood pressure and cholesterol. (3) HTN (hypertension): Code(s): I10 - Essential (primary) hypertension Category: Medical Qualifiers: Hypertension type: primary hypertension Qualified Code(s): I10 - Essential (primary) hypertension Plan: Continue on current blood pressure medication. Avoid salt intake and encourage healthy diet and regular exercise. (4) Hypercholesteremia: Code(s): E78.00 - Pure hypercholesterolemia, unspecified Category: Medical Plan: Avoid foods that are high in cholesterol such as red meat, fried foods, eggs and baked goods. Triglyceride goal of less than 150 and LDL goal of less than 70. Continue on rosuvastatin. Reminded about blood work (5) Night terrors: Code(s): F51.4 - Sleep terrors [night terrors] Category: Medical Plan: Has been doing well in the prazosin and has not no longer having night terrors. 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 Family member reports improvement of mental status and irritation. (7) Confusion and disorientation: Code(s): R41.0 - Disorientation, unspecified Category: Medical Plan: Continue to follow with Neurology and continue on current medication regimen. Her family reports seeing improvement in overall mental status and agitation. (8) Incontinence: Code(s): R32 - Unspecified urinary incontinence Category: Medical Plan: Patient experiencing nocturnal incontinence prescription was sent for bed under pads for management. (9) AC joint arthropathy: Code(s): M19.019 - Primary osteoarthritis, unspecified shoulder Category: Medical Plan: Patient continues to have severe right shoulder pain she was due to see the orthopedics however appointment was canceled and rescheduled to end of December. At this time patient continues to have severe pain and due to Eliquis is restricted in what medications she can take. Recommend continue with Tylenol and lidocaine patch and plan to give short course of steroids for 5 days. I did advise the patient to maintain her Trulicity while on the steroids and then may discontinue as prednisone can raise the blood sugars. Plan The patient's diabetes management will focus on maintaining her current A1c level, with Trulicity on hold as we monitor glucose metrics. I will observe for any rises that necessitate returning to medication. Current pain management strategies for her shoulder discomfort include a short steroid course to relieve inflammation while ensuring glucose stability. Continued monitoring of the patient's dementia will include sustained use of trazodone and memantine, supported by her family ensuring a stable environment. Hyperlipidemia will be controlled through ongoing rosuvastatin therapy, and cholesterol levels will be revisited at subsequent appointments. This note was constructed using voice recognition software. While every effort has been made to ensure accuracy and plan manager, still areas may have been included sometimes these areas may affect the content or meeting of the given symptoms. Total time spent caring for the patient today was 20 minutes. This includes time spent before the visit reviewing the chart, time spent during the visit, and time spent after the visit and documentation. Patient was informed and verbally consented to the use of an ambient scribe for clinic note documentation during this visit. Orders: Orders AMB Hemoglobin A1c Today E11.9 - Type 2 diabetes mellitus without complications, Z79.4 - USP (current) use of insulin Medications: New blood sugar diagnostic (OneTouch Ultra Test strips) As directed. BID 100 ea 0RF E11.9 - Type 2 diabetes mellitus without complications, Z79.4 - USP (current) use of insulin prednisone 20 mg PO DAILY 5 tabs 0RF prednisone 20 mg PO DAILY 5 tabs 0RF blood-glucose meter (OneTouch Ultra2 Meter) As directed BID 1 ea 0RF E11.9 - Type 2 diabetes mellitus without complications, Z79.4 - USP (current) use of insulin lancets (OneTouch Delica Plus Lancet) As directed. BID 100 ea 0RF underpads (Bed Underpads) As directed. nightly use 100 ea 0RF R32 - Unspecified urinary incontinence Refilled dulaglutide (Trulicity) takes on 0.75 mg (0.5 mL) subcut QWEEK 2 mL 0RF Discontinued insulin lispro (Humalog KwikPen (U-100) Insulin) Blood Sugar: <150 - 0 units 151-200 - 2 units 201-250 - 4 units 251-300 - 6 units 301-350 - 8 units >350 - 10 units Discontinued Reason: Patient no longer taking 1 sliding scale dose subcut QIDACHS 15 mL 3RF MDD 30 blood-glucose meter (Freestyle InsuLinx meter) Discontinued Reason: Patient no longer taking As directed 1 ea 0RF E11.9 - Type 2 diabetes mellitus without complications, Z79.4 - parts counterman (current) use of insulin blood sugar diagnostic (Freestyle InsuLinx strips) Discontinued Reason: Patient no longer taking As directed; QID 50 ea 3RF E11.9 - Type 2 diabetes mellitus without complications, Z79.4 - parts counterman (current) use of insulin lancets (FreeStyle Lancets) Discontinued Reason: Patient no longer taking As directed QID 100 ea 3RF E11.9 - Type 2 diabetes mellitus without complications, Z79.4 - parts counterman (current) use of insulin blood-glucose sensor (FreeStyle Ezequiel 2 Plus Sensor device) Sugars to be checked QID Discontinued Reason: Patient no longer taking 1 ea miscellaneous QID 1 ea 0RF E11.9 - Type 2 diabetes mellitus without complications, Z79.4 - USP (current) use of insulin pen needle, diabetic (Ultra-Thin II Insulin Pen [place]) Discontinued Reason: Patient no longer taking As directed 100 ea 1RF flash glucose scanning reader (FreeStyle Ezequiel 2 Center [place]) To be tested four times a day Discontinued Reason: Patient no longer taking 1 ea miscellaneous QID 1 ea 0RF E11.9 - Type 2 diabetes mellitus without complications, Z79.4 - parts counterman (current) use of insulin
== END 2024-12-16 11:22 | disposition home or self-care (01) ==
LOC: HO.HMCH 10:32
PROVIDERS: PCP Internal Medicine
DX: E11.9 Type 2 diabetes mellitus without complications (principal); Z79.4 Long term (current) use of insulin; F03.918 Unspecified dementia, unspecified severity, with other behavioral disturbance; M19.011 Primary osteoarthritis, right shoulder; I25.10 Atherosclerotic heart disease of native coronary artery without angina pectoris; I10 Essential (primary) hypertension; E78.00 Pure hypercholesterolemia, unspecified; F51.4 Sleep terrors [night terrors]; R41.0 Disorientation, unspecified; R32 Unspecified urinary incontinence

== ENCOUNTER → 2024-12-16 10:31 | Outpatient (BNVA) | payer MEDICARE, MEDICAID, SELFPAY | PROVIDERS: PCP Internal Medicine | DX: E11.9 Type 2 diabetes mellitus without complications (principal); I25.10 Atherosclerotic heart disease of native coronary artery without angina pectoris; I10 Essential (primary) hypertension; E78.00 Pure hypercholesterolemia, unspecified; F51.4 Sleep terrors [night terrors]; F03.918 Unspecified dementia, unspecified severity, with other behavioral disturbance; R41.0 Disorientation, unspecified; R32 Unspecified urinary incontinence; M19.019 Primary osteoarthritis, unspecified shoulder; Z79.4 Long term (current) use of insulin | CPT/HCPCS: 83036; 99212 ==

== ENCOUNTER 2024-12-17 13:38 | Outpatient (AMB) | payer MEDICARE, MEDICAID, SELFPAY ==
--- NOTE | 2024-12-17 13:51 | MHC.OFFVIS ---
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 BID blood-glucose meter ([employer] Ultra2 Meter) As directed BID dulaglutide (Trulicity) 0.75 mg (0.5 mL) subcut QWEEK lancets (GAMINSIDETouch Delica Plus Lancet) As directed. BID lidocaine 5% 1 patch topical DAILY memantine 14 mg (2 x 7 mg) PO DAILY prazosin 1 mg PO BEDTIME prednisone 20 mg PO DAILY risperidone 0.5 mg PO BID rosuvastatin 5 mg PO DAILY sertraline 75 mg (1.5 x 50 mg) PO DAILY MDD 75mg trazodone 50 mg PO BEDTIME underpads (Bed Underpads) As directed. nightly use HPI Comments Details: Sheri is here for consultation regarding coronary artery disease. She is accompanied by her family. She has lived in [place] in the past but then moved here to be with family. She underwent a cardiac catheterization 2021. Etiology for that isn't very clear. Findings on that study include 70% LAD lesion in the proximal part; 70% mid circumflex lesion. Nothing significant in RCA. Does not appear that she had any interventions. Per family, patient has also been diagnosed with dementia. Because of this, they feel she is not a reliable historian. Any case, she has not really complained about any chest pains or anything cardiac related. In 2023, she also had DVT/PE and it seems that she has been put on Eliquis since that time. [facility] Medical History History of DC (myocardial infarction) Hx of blood clots Leg edema Dementia TIA (transient ischemic attack) HTN (hypertension) Surgical History Hx of cystoscopy Hx of cardiac catheterization Hx of hysterectomy Family History Mother Dementia Other Mental health disorder Social History Household Members: Family and Children Household Members Other:: lives with son and daughter in law Housing: House Are you a primary client care manager to a significant other at home: No Do you presently have visiting nurse or other home services: No Alcohol intake: never Comment: within the last year prior to moving in with family Patient Tobacco Use Status: Former Tobacco user Tobacco use type: Cigarette e-Cigarette/Vaping Use: Never Used Second Hand Smoke Exposure: Yes service: No Current occupational status: disabled Gender identity: Female Cognitive needs: Yes Hearing needs: No Vision needs: Yes Review of Systems Const Denies chills, Denies fatigue, Denies fever(s), Denies frequent falls, Denies weakness, Denies weight gain and Denies weight loss ENT Denies dizziness Card Denies chest pain, Denies leg edema, Denies lightheadedness, Denies palpitations, Denies dyspnea, Denies dyspnea on exertion and Denies orthopnea Resp Denies cough, Denies dyspnea and Denies dyspnea on exertion GI Denies bloating and Denies change in bowel habits Musc Denies muscle weakness, Denies numbness and Denies tingling Neuro Denies dizziness, Denies frequent falls, Denies numbness, Denies tingling and Denies weakness Endo Denies fatigue and Denies palpitations Physical Exam Vital Signs: Last Vital Signs Pulse 72 12/17/24 13:53 BP 130/60 12/17/24 13:53 BMI result Body Mass Index 28.5 Const General: comfortable and no acute distress Orientation/consciousness: patient oriented x3 HEENT Other: Unremarkable Head: Yes normal to inspection Neck Neck: Yes normal visual inspection Chest Chest palpation & inspection: normal inspection of the chest Resp Auscultation: clear to auscultation bilaterally Cardio Palpation: normal PMI Heart sounds: S1 normal heart sound present, S2 normal heart sound present, no gallops, no murmurs and no rubs GI Palpation (GI): Soft to palpation Back/Spine/Pelvis Other: unremarkable Skin General skin exam: no rashes or lesions noted Neuro General: patient oriented x3 Extrem General: Yes normal to inspection Psych Mental Status: mental status grossly normal Office Procedures EKG Details: EKG with underlying sinus rhythm, 72/Min; nonspecific intraventricular conduction defect; rightward axis; inferior downsloping STs as well as lateral leads. These changes are not seen in the EKG from 2023. [id number], Complete Assessment & Plan Assessment & Plan (1) Atherosclerotic cardiovascular disease: Code(s): I25.10 - Atherosclerotic heart disease of [place] coronary artery without angina pectoris Category: Medical Plan EKG findings as discussed above. Unclear chronicity but not seen in the EKG from April 2024. Cardiac catheterization 2021 at [place]-proximal LAD 70% stenosis; 90% D1 ostial lesion, very small artery; mid circumflex 70% stenosis; RCA nothing significant. Per notes, no interventions. Echocardiogram 2021 at [place]-LVEF > 55%; no significant valvular findings. Overall, multivessel coronary artery disease as discussed above; no clear angina at this time; new EKG changes when compared to EKG from April 2024; background of dementia. Discussed with family who came for appointment in detail. Findings discussed. Recommended diagnostic catheterization to assess coronary anatomy considering the new EKG findings. They agree with the above. In spite of dementia, they would like to proceed. We will make arrangements for the same. Start low-dose aspirin. Per apparently, advised to take anticoagulation with Eliquis for about one year total. We will follow her up after the procedure. Discussion Notes I discussed with the patient and her tuyere fitter the need for further diagnostic evaluations including an echocardiogram and a repeat catheterization to assess coronary artery disease progression. Consent for catheterization included explaining procedural risks, while emphasizing benefits given the changes in EKG findings and the need to address potential worsening of coronary blockages. Patient was informed and verbally consented to the use of an ambient scribe for clinic note documentation during this visit. Orders: Orders Cardiac Cath LT Diagnostic Today I25.10 - Atherosclerotic heart disease of [place] coronary artery without angina pectoris Complete Blood Count no Diff Today I25.10 - Atherosclerotic heart disease of [place] coronary artery without angina pectoris CA echo transthoracic complete Today I25.10 - Atherosclerotic heart disease of [place] coronary artery without angina pectoris Basic Metabolic Panel Today I25.10 - Atherosclerotic heart disease of [place] coronary artery without angina pectoris Prothrombin Time INR Today I25.10 - Atherosclerotic heart disease of [place] coronary artery without angina pectoris Patient Instructions: - Begin taking baby aspirin daily as advised. - Undergo scheduled echocardiogram and catheterization. - Monitor for any new or worsening symptoms, including chest pain or increased dizziness. - Follow up with blood tests to check cholesterol levels. - Maintain safe physical activity that does not increase fatigue or breathlessness. Coding Level of Care Code New Pt Level 5 (98784) Complex EM visit Add On G2211 Diagnoses Atherosclerotic cardiovascular disease I25.10 CPT Codes EKG - CPT: 27999-[id number], Complete ([id number])
[2024-12-17 13:53] VITALS: BP 130/60; PULSE 72; BMI 28.5
== END 2024-12-17 14:37 | disposition home or self-care (01) ==
LOC: HO.HCS 13:39
PROVIDERS: Visit Provider Internal Medicine
DX: I25.10 Atherosclerotic heart disease of native coronary artery without angina pectoris (principal)
CPT/HCPCS: 93010; 99204; G2211

== ENCOUNTER → 2024-12-17 13:38 | Outpatient (BNVA) | payer MEDICARE, MEDICAID, SELFPAY | PROVIDERS: Visit Provider Internal Medicine | DX: I25.10 Atherosclerotic heart disease of native coronary artery without angina pectoris (principal); I45.4 Nonspecific intraventricular block; R94.31 Abnormal electrocardiogram [ECG] [EKG] | CPT/HCPCS: 93005; 99202 ==

== ENCOUNTER 2025-01-08 13:40 | Outpatient (AMB) | payer MEDICARE, MEDICAID, SELFPAY ==
--- NOTE | 2025-01-08 13:48 | A.OFFVIS_ITS ---
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 History of dementia. Patient was seen by here PCP who ordered x-rays and referred to orthopedics. Patient reports her pain has been present for about a year, Denies injury. Her pain radiates down her arm. Her pain is mostly when she wakes up in the mornings. Limited ROM. Finds little relief with taking motrin. Strategic Partnership Representative Required: Yes Strategic Partnership Representative Services: Strategic Partnership Representative Present Strategic Partnership Representative Name: Rossana Allergies No Known Allergies Allergy (Verified 01/08/25 13:51) Medication List - Last Reconciled 01/08/25 by Bjorn Song PA-C amlodipine 2.5 mg See Protocol PO DAILY 14 days apixaban (Eliquis) 5 mg PO BID blood sugar diagnostic ([employer]Touch Ultra Test strips) As directed. BID blood-glucose meter ([employer] Ultra2 Meter) As directed BID dulaglutide (Trulicity) 0.75 mg (0.5 mL) subcut QWEEK lancets ([employer] SolutionsTouch Delica Plus Lancet) As directed. BID lidocaine 5% 1 patch topical DAILY memantine 14 mg (2 x 7 mg) PO DAILY prazosin 1 mg PO BEDTIME prednisone 20 mg PO DAILY risperidone 0.5 mg PO BID rosuvastatin 5 mg PO DAILY sertraline 75 mg (1.5 x 50 mg) PO DAILY MDD 75mg trazodone 50 mg PO BEDTIME underpads (Bed Underpads) As directed. 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 She denies injury, developed pain overtime. The pain is constant and worse with reaching over head. She does have strength with carrying objects. She does have pain with sleeping as she sleeps with her arm up under her head. [facility] Medical History History of [place] (myocardial infarction) Hx of blood clots Leg edema Dementia TIA (transient ischemic attack) HTN (hypertension) Surgical History Hx of cystoscopy Hx of cardiac catheterization Hx of hysterectomy Family History Mother Dementia Other Mental health disorder Social History (Updated 01/08/25 @ 13:51 by Yue Rodríguez [facility]) Household Members: Family and Children Household Members Other:: lives with son and daughter in law Housing: House Are you a primary healthcare administrative assistant to a significant other at home: No Do you presently have visiting nurse or other home services: No Alcohol intake: never Comment: within the last year prior to moving in with family Patient Tobacco Use Status: Former Tobacco user Tobacco use type: Cigarette e-Cigarette/Vaping Use: Never Used Second Hand Smoke Exposure: Yes service: No Current occupational status: disabled Current occupation: right hand dominant Gender identity: Female Cognitive needs: Yes Hearing needs: No Vision needs: Yes Review of Systems Const All systems reviewed & are unremarkable except as noted in HPI and below Physical Exam Const General: cooperative and no acute distress Orientation/consciousness: patient oriented x3 Resp Effort & Inspection: normal respiratory effort and able to speak in complete sentences Cardio Peripheral pulses: Peripheral pulses 2+ throughout Neuro General: patient oriented x3 Extrem Other: Right shoulder is normal to inspection she has mild tenderness over the AC joint and pain with cross-body abduction. She is able to activate rotator cuff strength. Results Reviewed Results Reviewed: X-rays of the right shoulder obtained from primary care provider in August of 2024 show mild AC joint arthritis. Assessment & Plan Assessment & Plan (1) Osteoarthritis of right AC (acromioclavicular) joint: Code(s): M19.011 - Primary osteoarthritis, right shoulder Category: Medical Plan: We discussed options which include PT, NSAIDs and injections. She will defer on the injection today and proceed with PT and NSAIDs. If symptoms persist she will contact me for an injection, otherwise, prn. Orders: Orders PT Evaluation and Treatment Today M19.011 - Primary osteoarthritis, right shoulder Coding Level of Care Code New Pt Level 3 (49879) Complex EM visit Add On G2211 Diagnoses Osteoarthritis of right AC (acromioclavicular) joint M19.011
== END 2025-01-08 14:14 | disposition home or self-care (01) ==
LOC: HO.HOS 13:41
PROVIDERS: PCP Internal Medicine; Visit Provider Physician Assistant
DX: M19.011 Primary osteoarthritis, right shoulder (principal)
CPT/HCPCS: 99203; G2211

== ENCOUNTER → 2025-01-08 13:40 | Outpatient (BNVA) | payer MEDICARE, MEDICAID, SELFPAY | PROVIDERS: PCP Internal Medicine; Visit Provider Physician Assistant | DX: M19.011 Primary osteoarthritis, right shoulder (principal) | CPT/HCPCS: 99202 ==

== ENCOUNTER → 2025-01-15 14:20 | Outpatient (REF) | payer MEDICARE, MEDICAID, SELFPAY ==
--- NOTE | 2025-01-15 14:24 | CA_ITS ---
Transthoracic Echocardiogram Patient (Last, First, Middle): Sheri Jansen, Gender: Female Date of : 1950 Age: 74 Procedure Date: 01/15/2025 Procedure Type: Transthoracic Echocardiogram Location: OP Height: 167. cm Weight: 82.56 kg BSA: 1.92 m2 Heart Rate: 68 bpm BP: 142 / 80 mmHg Sales Exec: LYNDSEY Tena MD: Son Evans MD Bulk Sealer Operator: Ken Dobson MD Symptoms: I25.10 - Atherosclerotic heart disease of [place] coronary artery without... Study Quality: Adequate ECG Rhythm: Sinus Conclusions: - 1. Normal LV ejection fraction of 60 65% 2. Normal cardiac valvular Dopplers 3. Normal RV systolic pressure 4. No gross pericardial effusion Findings Left Ventricle Normal left ventricular size, thickness, and systolic function. The visually estimated ejection fraction is between 60-65%. Spectral Doppler is indicative of an impaired relaxation filling pattern. Wall Motion Rest Echo Findings The inferoseptal wall, the basal inferior, and mid inferior segments are hypokinetic. All other scored wall segments showed normal motion. Right Ventricle Normal right ventricular cavity size and systolic function. Atria Both atria are normal in size. There is no evidence of interatrial shunt. Aortic Valve Normal aortic valve structure and function. There is no aortic valve stenosis. There is no aortic valve regurgitation. Mitral Valve Normal mitral valve structure and function. There is trace mitral valve regurgitation. There is no mitral valve stenosis. Pulmonic Valve The pulmonic valve is likely normal. Tricuspid Valve Normal tricuspid valve structure. There is trace tricuspid valve regurgitation. The right ventricular systolic pressure is normal. The right ventricular systolic pressure is 27 mmHg. Normal right atrial pressure. There is no evidence of pulmonary hypertension. Great Vessels All visible segments of the aorta are normal in size. The pulmonary artery was not well visualized. There is no dilatation of the ascending aorta measuring 2.90 cm. Venous The inferior vena cava is normal in size and collapses greater than 50% with inspiration. Pericardium/Pleural There is no evidence of pericardial effusion. Prior Study Comparison No prior study available for comparison. Measurements 2D Linear Measurements IVSd: 0.92 0.6-0.9/0.6-1.0 cm LVIDd: 4.59 3.9-5.3/4.2-5.9 cm LVIDd Index: 2.39 2.4-3.2/2.2-3.1 cm/m2 LVIDs: 3.04 2.0-3.6 cm LVPWd: 0.97 0.7-1.1 cm LA Diam: 3.00 2.7-3.8/3.0-4.0 cm LAIDs Index: 1.56 1.5-2.3 cm/m2 LV Mass: 183.20 67-162/88-224 g LV Mass Index: 95.42 43-95/49-115 g/m2 LVOT Diam: 1.90 3.0+(-)1.3 cm 2D Systolic Function EF 4C: 61.90 >55% EF 2C: 67.10 >55% EF BiP: 63.70 >55% Mitral Valve MV Pk E: 0.91 MV PK A: 1.12 MV Decel Time: 177.00 E/A: 0.80 E'Lateral: 7.07 E'Medial: 5.22 E/E' Med: 17.40 E/E' Lat: 12.80 PHT: 52.00 MVA PHT: 4.23 Decel Nelson: 5.12 Aortic Valve AoV Pk Robbin: 1.49 AoV Mn Robbin: 1.03 AoV VTI: 0.36 AoV Pk Grad: 9.00 Aov Mn Grad: 5.00 JAGRUTI Cont.VTI: 2.01 LVOT LVOT Pk Robbin: 1.13 LVOT Mn Robbin: 0.77 LVOT VTI: 0.25 LVOT Pk Grad: 5.00 LVOT Mn Grad: 3.00 LVOT Diam: 1.90 LVOT Area: 2.84 Diastolic Function MV Pk E: 0.91 MV Pk A: 1.12 E/A: 0.80 E'Medial: 5.22 E/E' Med: 17.40 E' Laterial: 7.07 E/E' Lat: 12.80 Right Ventricle TAPSE (mm): 22.80 TVS' Robbin: 9.15 Tricuspid Valve TR Pk Robbin: 2.44 TR Pk Grad: 24.00 RA Press: 3.00 RVSP: 27.00 Great Vessels Aorta Sinus of Valsalva: 2.80 2.0-3.5 cm Ao Asc: 2.90 2.1-3.4 cm Ao Arch: 2.20 Pulmonary Valve PV Pk Robbin: 0.81 Peak PV Grad: 3.00 Updated in Other Vendor System with Status of Final Ken Dobson MD electronically signed on 01/16/2025 11:40:18 AM with status of Final
[2025-01-15 14:35] LABS: Hematocrit 33.4 % (37.0-47.0); Hemoglobin 10.9 g/dl (12.0-16.0); Mean Corpuscular HGB Conc 32.6 g/dl (31.0-35.0); Mean Corpuscular Hemoglobin 28.7 pg (27.0-33.0); Mean Corpuscular Volume 87.9 fL (80.0-98.0); Mean Platelet Volume 10.2 fL (9.4-12.3); Platelet Count 153 X10*3/uL (160-400); Red Cell Distribution Width 12.6 % (11.0-16.0); White Blood Count 4.2 X10*3/uL (4.8-10.8)
[2025-01-15 14:40] LABS: INTERNATIONAL NORM RATIO 1.2 (0.9-1.1); Prothrombin Time 13.9 SEC (10.9-12.4)
[2025-01-15 15:51] LABS: Anion Gap 9 (12-20); Blood Urea Nitrogen 24 mg/dL (9-16); Calcium 9.7 mg/dL (8.4-10.2); Carbon Dioxide 31 mmol/L (22-29); Chloride 104 mmol/L (96-108); Estimated Glomerular Filt Rate 25; Glucose Random 110 mg/dL (60-115); Potassium 4.3 mmol/L (3.3-5.1); Sodium 140 mmol/L (135-145)
== END ==
LOC: HO.CARD 14:20
PROVIDERS: Visit Provider Internal Medicine
DX: I25.10 Atherosclerotic heart disease of native coronary artery without angina pectoris (principal)
CPT/HCPCS: 36415; 80048; 85027; 85610; 93306

== ENCOUNTER → 2025-01-15 14:24 | Outpatient (BNV) | payer MEDICARE, MEDICAID, SELFPAY | PROVIDERS: Visit Provider Internal Medicine Cardiovascular Disease | DX: I25.10 Atherosclerotic heart disease of native coronary artery without angina pectoris (principal); I42.8 Other cardiomyopathies | CPT/HCPCS: 93306 ==

== ENCOUNTER → 2025-01-19 23:59 | Outpatient (BNV) | payer MEDICARE, MEDICAID, SELFPAY | PROVIDERS: Visit Provider Internal Medicine Cardiovascular Disease | DX: I25.10 Atherosclerotic heart disease of native coronary artery without angina pectoris (principal) | CPT/HCPCS: 93458; 99152 ==

== ENCOUNTER 2025-01-20 11:12 | Outpatient (AMB) | payer MEDICARE, MEDICAID, SELFPAY ==
--- NOTE | 2025-01-20 11:13 | A.OFFVIS_ITS ---
Intake Visit Reasons: F/u Stent Intake Note: Patient is present for STENT F/U Urology Medication:NONE Antibiotic Allergy:NONE Blood Thinner:APIXABAN Power Barker Required: No Allergies No Known Allergies Allergy (Verified 01/20/25 11:15) HPI Comments Details: Lucero is a pleasantly confused British-speaking female. She is a patient of Dr. Christian. She is seen for the following urologic conditions - right hydro uretero nephrosis Telemedicine Evaluation 15 min Consultation Cydcor Valentino Video Discussion about stent exchange Daughter busy next 3 weeks with education related activities Lucero is cared for by her daughter. Medical history of dementia. Had right-sided stent placed in [place] many years ago and was uncertain as to why this had been placed Stent was removed On follow-up persistent hydronephrosis On stent placement she was found to have scarring in the proximal and mid ureter presumed secondary to prior stone passage Will remain on stent exchange protocol Creatinine: 05/12 1.51, 05/12 1.44, 05/12 1.38, 09/12 2.07, 10/13 1.7 Last stent exchange 09/24/24 [facility] Medical History History of [place] (myocardial infarction) Hx of blood clots Leg edema Dementia TIA (transient ischemic attack) HTN (hypertension) Surgical History Hx of cystoscopy Hx of cardiac catheterization Hx of hysterectomy Family History Mother Dementia Other Mental health disorder Social History (Updated 01/08/25 @ 13:51 by NEHEMIAS Almazan) Household Members: Family and Children Household Members Other:: lives with son and daughter in law Housing: House Are you a primary health care recruiter to a significant other at home: No Do you presently have visiting nurse or other home services: No Alcohol intake: never Comment: within the last year prior to moving in with family Patient Tobacco Use Status: Former Tobacco user Tobacco use type: Cigarette e-Cigarette/Vaping Use: Never Used Second Hand Smoke Exposure: Yes service: No Current occupational status: disabled Current occupation: right hand dominant Gender identity: Female Cognitive needs: Yes Hearing needs: No Vision needs: Yes Review of Systems Const All systems reviewed & are unremarkable except as noted in HPI and below Reports no additional complaints Resp Reports no additional complaints GI Reports no additional complaints Reports as per HPI Musc Reports no additional complaints Physical Exam Telemedicine evaluation Appropriate responses Regular breathing rate and rhythm HEENT Head: Yes normal to inspection Ears: hearing grossly normal bilaterally Eyes General: appearance normal, both eyes and all related structures Neck Neck: Yes normal visual inspection Chest Chest palpation & inspection: normal inspection of the chest Resp Effort & Inspection: normal respiratory effort and able to speak in complete sentences Telehealth Telehealth Telehealth Platform: Cydcor Location of provider rendering services: practice address Location of patient: address on file Patient Identification confirmed using: Name, : Yes Telehealth method: video Patient verbally consented to treatment: Yes Patient verbally consented to billing insurance company: Yes Patient informed of any privacy concerns related to visit: Yes Minutes spent on Phone/Video with Pt.: 15 Assessment & Plan Assessment & Plan (1) Hydronephrosis, right: Code(s): N13.30 - Unspecified hydronephrosis Category: Medical Plan: .E Plan Risks, benefits and alternatives to therapy were discussed. These include but are not limited to infection, bleeding, damage to local organs and tissues, need for further interventions. Anesthetic risks regarding cardiac arrhythmia, blood clots, and potential mortality were discussed. The patient understands the typical recovery time and the outpatient nature of the procedure. After consideration of these risks the patient gives full informed consent and they wish to move ahead with the procedure. - right stent exchange Patient Instructions: This note is constructed using voice recognition software. While every effort has been made to ensure accuracy clerical grader errors may have been included. Imaging studies, laboratory and physical exam results were discussed and reviewed in detail. No major barriers to patient understanding were identified. An opportunity to ask questions regarding the treatment plan was provided. All questions were answered. The patient expressed understanding and agreement with the above treatment plan. The patient is aware they should contact our office by phone for worsening of their current condition or the appearance of new urologic symptoms. Compliance is encouraged with any medications and followup testing that is ordered. It is a privilege to participate in the urologic care of your patient. If you have any questions or concerns regarding treatment for the above conditions, or other urologic issues, please do not hesitate to contact me. The office telephone contact is [phone]. Sincerely, Dr Tio Payan MD, [place] [facility] - Urology Compassionate Specialist Care for the Genitourinary System Coding Level of Care Code Tele Est Pt Level 3 (76261) Complex EM visit Add On G2211 Diagnoses Hydronephrosis, right N13.30
== END 2025-01-20 12:07 | disposition home or self-care (01) ==
LOC: HO.HUSH 11:12
PROVIDERS: Visit Provider Urology
DX: N13.30 Unspecified hydronephrosis (principal)
CPT/HCPCS: 99213; G2211

== ENCOUNTER → 2025-01-20 11:12 | Outpatient (BNVA) | payer MEDICARE, MEDICAID, SELFPAY | PROVIDERS: Visit Provider Urology | DX: Z13.89 Encounter for screening for other disorder (principal) ==

== ENCOUNTER 2025-01-25 09:49 | Outpatient (AMB) | payer MEDICARE, MEDICAID, SELFPAY ==
--- NOTE | 2025-01-25 10:07 | AM.OFFVISNUR ---
Intake Visit Reasons: TB implant Allergies No Known Allergies Allergy (Verified 01/20/25 11:15) Office Meds tuberculin PPD 5 tub. unit/0.1 mL intradermal injection solution Performing Provider: Marci Hart PA-C [facility] Administered by: Doreen Peña RN on 01/25/25 10:07 Dose Route Admin Location Dispensed Lot Number Expiration Date [facility] Laboratory Engineer 0.1 mL intradermal left forearm 0.1 mL [id number] 07/18/27 90054-312-37 [employer] Assessment & Plan Assessment & Plan Orders: Orders AMB PPD Planted Today Z11.1 - Encounter for screening for respiratory tuberculosis Medications: New tuberculin PPD 0.1 mL intradermal ONCE 0.1 mL 0RF Z11.1 - Encounter for screening for respiratory tuberculosis Coding
== END 2025-01-25 10:09 | disposition home or self-care (01) ==
LOC: HO.HMCH 09:50
DX: Z11.1 Encounter for screening for respiratory tuberculosis (principal)

== ENCOUNTER 2025-01-25 09:49 | Outpatient (REF) | payer MEDICARE, MEDICAID, SELFPAY ==
[2025-01-25 10:54] LABS: Estimated Average Glucose 140 mg/dL; Hemoglobin A1c % 6.5 % (<6.0)
[2025-01-25 11:21] LABS: Alanine Aminotransferase 10 U/L (0-31); Albumin Level 4.1 g/dL (3.5-5.0); Alkaline Phosphatase 81 U/L (39-117); Anion Gap 7 (12-20); Aspartate Amino Transferase 15 U/L (5-31); Bilirubin Total 0.4 mg/dL (0.0-1.0); Blood Urea Nitrogen 23 mg/dL (9-16); Calcium 9.3 mg/dL (8.4-10.2); Carbon Dioxide 29 mmol/L (22-29); Chloride 107 mmol/L (96-108); Cholesterol 135 mg/dL (<200); Estimated Glomerular Filt Rate 29; Glucose Random 149 mg/dL (60-115); HDL Cholesterol 48 mg/dL (>40); LDL Cholesterol Calculated 78 mg/dL (<100); Potassium 4.4 mmol/L (3.3-5.1); Sodium 139 mmol/L (135-145); Total Protein 6.9 g/dL (6.5-8.0); Triglycerides 49 mg/dL (<150)
[2025-01-25 11:35] LABS: Ferritin 28 ng/mL (10-250); TSH reflex Free T4 1.41 uIU/mL (0.32-4.0); Vitamin D 25-OH Total 15.1 ng/mL (>30)
[2025-01-25 11:45] LABS: Folate 6.3 ng/mL (> or = 4.0); Vitamin B12 257 pg/mL (200-900)
[2025-01-27 19:42] LABS: Homocysteine 26.3 umol/L (< or = 13.4)
[2025-01-28 11:33] LABS: Methylmalonic Acid 418 nmol/L (69-390)
== END 2025-01-25 09:50 | disposition home or self-care (01) ==
LOC: HO.LAB 09:49
PROVIDERS: Physician Assistant Medical
DX: Z11.1 Encounter for screening for respiratory tuberculosis (principal); R53.83 Other fatigue; G47.9 Sleep disorder, unspecified; E78.00 Pure hypercholesterolemia, unspecified; E11.65 Type 2 diabetes mellitus with hyperglycemia
CPT/HCPCS: 36415; 80053; 80061; 82306; 82607; 82728; 82746; 83036; 83090; 83921; 84443; 86580

== ENCOUNTER → 2025-01-27 14:01 | Outpatient (BNVA) | payer MEDICARE, MEDICAID, SELFPAY | DX: Z13.89 Encounter for screening for other disorder (principal) ==

== ENCOUNTER 2025-02-02 13:56 | Outpatient (AMB) | payer MEDICARE, MEDICAID, SELFPAY ==
--- NOTE | 2025-02-02 14:10 | MHC.OFFVIS ---
Vital Signs 02/02/25 14:13 Height 5 ft 6 in Weight 179 lb 7.3 oz BMI 29.0 BP 124/60 Blood Pressure Location Lt brachial Position Sitting Pulse 63 Pulse Source Pulse Oximeter Intake Visit Reasons: 2 week follow up s/p / Cardiac cath Clinical Cytogeneticist Required: No Clinical Cytogeneticist Services: Clinical Cytogeneticist Offered & Declined Accompanied by: Self / Same As Patient Allergies No Known Allergies Allergy (Verified 01/20/25 11:15) Medication List - Last Reconciled 02/02/25 by Son Evans MD amlodipine 2.5 mg See Protocol PO DAILY 14 days apixaban (Eliquis) 5 mg PO BID blood sugar diagnostic ([employer] Ultra Test strips) As directed. BID blood-glucose meter ([employer] Ultra2 Meter) As directed BID cholecalciferol (vitamin D3) 25 mcg PO DAILY 4 months MDD 1 capsule 1000 units dulaglutide (Trulicity) 0.75 mg (0.5 mL) subcut QWEEK lancets ([employer] Delica Plus Lancet) As directed. BID lidocaine 5% 1 patch topical DAILY mecobalamin (vitamin B12) 1,000 mcg sublingual BEDTIME 2 months MDD 1 tablet memantine 14 mg (2 x 7 mg) PO DAILY metoprolol succinate ER 25 mg PO DAILY prazosin 1 mg PO BEDTIME prednisone 20 mg PO DAILY risperidone 0.5 mg PO BID rosuvastatin 5 mg PO DAILY sertraline 75 mg (1.5 x 50 mg) PO DAILY MDD 75mg trazodone 50 mg PO BEDTIME underpads (Bed Underpads) As directed. nightly use HPI Comments Details: Sheri returns for follow-up regarding coronary artery disease. She is accompanied by her [id number]. She used to live in [place], but then moved here to be with her family. She underwent cardiac catheterization in 2021 but no interventions. She also has dementia and hence not a reliable historian. Any case, she did not have any clear-cut chest pains. However, there were EKG changes last time that led to a repeat catheterization but again recommended medical therapy. 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 No new concerns since last seen. She states she feels well. [facility] Medical History History of [place] (myocardial infarction) Hx of blood clots Leg edema Dementia TIA (transient ischemic attack) HTN (hypertension) Surgical History Hx of cystoscopy Hx of cardiac catheterization Hx of hysterectomy Family History Mother Dementia Other Mental health disorder Social History Household Members: Family and Children Household Members Other:: lives with son and daughter in law Housing: House Are you a primary customer care professional to a significant other at home: No Do you presently have visiting nurse or other home services: No Alcohol intake: never Comment: within the last year prior to moving in with family Patient Tobacco Use Status: Former Tobacco user Tobacco use type: Cigarette e-Cigarette/Vaping Use: Never Used Second Hand Smoke Exposure: Yes service: No Current occupational status: disabled Current occupation: right hand dominant Gender identity: Female Cognitive needs: Yes Hearing needs: No Vision needs: Yes Review of Systems Const Denies chills, Denies fatigue, Denies fever(s), Denies frequent falls, Denies weakness, Denies weight gain and Denies weight loss ENT Denies dizziness Card Denies chest pain, Denies leg edema, Denies lightheadedness, Denies palpitations, Denies dyspnea and Denies dyspnea on exertion Resp Denies cough, Denies dyspnea and Denies dyspnea on exertion GI Denies hematochezia Musc Denies abnormal gait, Denies muscle weakness, Denies numbness, Denies radiating pain into limb and Denies tingling Neuro Denies abnormal gait, Denies dizziness, Denies frequent falls, Denies numbness, Denies tingling and Denies weakness Endo Denies fatigue and Denies palpitations Physical Exam Vital Signs: Last Vital Signs Pulse 63 02/02/25 14:13 BP 124/60 02/02/25 14:13 BMI result Body Mass Index 29.0 Const General: comfortable and no acute distress Orientation/consciousness: patient oriented x3 HEENT Other: Unremarkable Head: Yes normal to inspection Neck Neck: Yes normal visual inspection Chest Chest palpation & inspection: normal inspection of the chest Resp Auscultation: clear to auscultation bilaterally Cardio Palpation: normal PMI Heart sounds: S1 normal heart sound present, S2 normal heart sound present, no gallops, no murmurs and no rubs GI Palpation (GI): Soft to palpation Back/Spine/Pelvis Other: unremarkable Skin General skin exam: no rashes or lesions noted Neuro General: patient oriented x3 Extrem General: Yes normal to inspection Psych Mental Status: mental status grossly normal Assessment & Plan Assessment & Plan (1) Atherosclerotic cardiovascular disease: Code(s): I25.10 - Atherosclerotic heart disease of [place] coronary artery without angina pectoris Category: Medical Plan Cardiac catheterization reviewed from 01/2025-LAD with 2 tandem lesions of 60% stenosis. Diagonal 1 and 2 have ostial stenosis. Mild disease in the RCA/circumflex. Recommended medical therapy. She is currently on Eliquis for DVT. If that is going to be stopped, then we will need aspirin. We discussed about that today. She is on beta-blockers she has got no active chest pains but if present we can do sublingual nitroglycerin. With regard to statins, we can increase the dose. Follow-up lipids in due course. Discussed with family who came for appointment. They will contact us with any concerns. Follow up in 6 months. Discussion Notes We discussed the plan to manage the patient's coronary artery disease non-invasively through consistent medication use. Plan would be to continue the current medications. We agreed to increase the rosuvastatin dose for better lipid management, reviewing potential benefits of improved cholesterol levels and risks of higher dosages. Safety measures such as watching for adverse effects or new symptoms, like chest pain and dizziness, were highlighted. Instructions included addressing symptoms promptly to prevent complications. Follow-up arrangements in six months were discussed to evaluate treatment progress and amend as needed. Patient was informed and verbally consented to the use of an ambient scribe for clinic note documentation during this visit. Total time spent including review of data, counseling, documentation, coordination of care-33 minutes. Medications: New rosuvastatin 10 mg PO DAILY 90 tabs 3RF Discontinued rosuvastatin Discontinued Reason: Doctor's Order 5 mg PO DAILY 90 tabs 2RF Patient Instructions: - Increase Rosuvastatin to 10 mg daily. - Monitor for chest pain or dizziness; use nitroglycerin if pain starts and inform me. - Watch for forgetfulness; report any changes. - Come back for a check-up in six months. - Let me know if you notice any new symptoms or concerns. Coding Level of Care Code Est Pt Level 4 (94674) Complex EM visit Add On G2211 Diagnoses Atherosclerotic cardiovascular disease I25.10
[2025-02-02 14:13] VITALS: BP 124/60; PULSE 63; BMI 29.0
== END 2025-02-02 14:28 | disposition home or self-care (01) ==
PROVIDERS: Visit Provider Internal Medicine
DX: I25.10 Atherosclerotic heart disease of native coronary artery without angina pectoris (principal)
CPT/HCPCS: 99214; G2211

== ENCOUNTER → 2025-02-02 13:56 | Outpatient (BNVA) | payer MEDICARE, MEDICAID, SELFPAY | PROVIDERS: Visit Provider Internal Medicine | DX: I25.10 Atherosclerotic heart disease of native coronary artery without angina pectoris (principal) | CPT/HCPCS: 99212 ==

== ENCOUNTER 2025-02-03 09:57 | Outpatient (AMB) | payer MEDICARE, MEDICAID, SELFPAY ==
--- NOTE | 2025-02-03 10:06 | MHC.OFFVIS ---
Vital Signs 02/03/25 10:10 Height 5 ft 6 in Weight 179 lb BMI 28.9 Intake Visit Reasons: INJ- RT shoulder injection Intake Note: Sheri is a 74 year old female who presents today for a left shoulder injection. Allergies No Known Allergies Allergy (Verified 02/03/25 10:10) HPI HPI INJ- RT shoulder injection: Details: 74-year-old female returns to the office today accompanied by her daughter for right shoulder pain. The pain is limiting her ability to perform daily activities. [facility] Medical History History of [place] (myocardial infarction) Hx of blood clots Leg edema Dementia TIA (transient ischemic attack) HTN (hypertension) Surgical History Hx of cystoscopy Hx of cardiac catheterization Hx of hysterectomy Family History Mother Dementia Other Mental health disorder Social History Household Members: Family and Children Household Members Other:: lives with son and daughter in law Housing: House Are you a primary healthcare sales representative to a significant other at home: No Do you presently have visiting nurse or other home services: No Alcohol intake: never Comment: within the last year prior to moving in with family Patient Tobacco Use Status: Former Tobacco user Tobacco use type: Cigarette e-Cigarette/Vaping Use: Never Used Second Hand Smoke Exposure: Yes service: No Current occupational status: disabled Current occupation: right hand dominant Gender identity: Female Cognitive needs: Yes Hearing needs: No Vision needs: Yes Review of Systems Const All systems reviewed & are unremarkable except as noted in HPI and below Physical Exam Vital Signs: BMI result Body Mass Index 28.9 Const General: cooperative and no acute distress Orientation/consciousness: patient oriented x3 Resp Effort & Inspection: normal respiratory effort and able to speak in complete sentences Cardio Peripheral pulses: Peripheral pulses 2+ throughout Neuro General: patient oriented x3 Extrem Other: Right shoulder is normal to inspection she has mild tenderness over the AC joint and pain with cross-body abduction. She is able to activate rotator cuff strength. Office Procedures AMB Joint Injection/Aspiration Joint Injection/Aspiration Primary Site: right shoulder Prep: site was prepped using aseptic technique, ethochloride spray was applied and injection warnings given Injected: 80 mg of, DepoMedrol, with 8 mL of, 1% plain lidocaine and in the subcromial space Approach Used: posterolateral Procedure: The patient tolerated the procedure well and there was some relief with the local anesthesia Coding 60593 - Glenohumeral/Tronchanteric Bursa/Intraarticular Procedure code (CPT) selection complete Assessment & Plan Assessment & Plan (1) Osteoarthritis of right AC (acromioclavicular) joint: Code(s): M19.011 - Primary osteoarthritis, right shoulder Category: Medical Plan: We discussed options today, which include steroid injection. The patient did consent to move forward with the injection, which was tolerated well.? I recommended rest, ice and elevation and OTC antiinflammatories prn for discomfort. If symptoms persist over the next 6-8 weeks, they will contact our office, otherwise, prn We also discussed their diabetes and the effect the steroid can have on thier blood glucose levels; therefore, they will continue to monitor these very closely over the next 72 hours Coding Level of Care Code Est Pt Level 3 (39072) Complex EM visit Add On G2211 Diagnoses Osteoarthritis of right AC (acromioclavicular) joint M19.011 CPT Codes Coding - Joint 7: 85497 - Glenohumeral/Tronchanteric Bursa/Intraarticular ([id number])
[2025-02-03 10:10] VITALS: BMI 28.9
== END 2025-02-03 10:36 | disposition home or self-care (01) ==
LOC: HO.HOS 09:58
PROVIDERS: PCP Internal Medicine; Visit Provider Physician Assistant
DX: M19.011 Primary osteoarthritis, right shoulder (principal)
CPT/HCPCS: 20610; 99213

== ENCOUNTER → 2025-02-03 09:57 | Outpatient (BNVA) | payer MEDICARE, MEDICAID, SELFPAY | PROVIDERS: PCP Internal Medicine; Visit Provider Physician Assistant | DX: M19.011 Primary osteoarthritis, right shoulder (principal) | CPT/HCPCS: 20610; 99212; J1010; J2003 ==

== ENCOUNTER → 2025-02-17 11:04 | Outpatient (REF) | payer MEDICARE, MEDICAID, SELFPAY | LOC: HO.SL 11:04 | PROVIDERS: Visit Provider Physician Assistant Medical | DX: G47.19 Other hypersomnia (principal); R06.83 Snoring | CPT/HCPCS: 95806 ==

== ENCOUNTER → 2025-02-17 11:12 | Outpatient (BNV) | payer MEDICARE, MEDICAID, SELFPAY | PROVIDERS: Visit Provider Psychiatry & Neurology Neurology | DX: R06.83 Snoring (principal) | CPT/HCPCS: 95806 ==

== ENCOUNTER 2025-02-23 11:29 | Outpatient (AMB) | payer MEDICARE, MEDICAID, SELFPAY ==
--- NOTE | 2025-02-23 11:28 | A.OFFVIS_ITS ---
Intake Visit Reasons: 5m/labs Intake Note: Patient is present for 5 mo follow up for hydronephrosis , patient is c/o flank pain , strong odor in urine Urology Medication:NONE Antibiotic Allergy:NONE Blood Thinner:APIXABAN Labs 01/25/25 Molder Vacuum Required: Yes Molder Vacuum Language: Kazakh Accompanied by: Health Care Proxy Allergies No Known Allergies Allergy (Verified 02/23/25 11:40) HPI Comments Details: Lucero is a pleasantly confused Kazakh-speaking female. She is a patient of Dr. Christian. She is seen for the following urologic conditions - right hydro uretero nephrosis Discussion about stent exchange may well have urinary tract infection - Treat antibiotics Also noted to have some incontinence plan for right stent exchange and may benefit from overactive bladder medications Lucero is cared for by her daughter. Medical history of dementia. Had right-sided stent placed in [place] many years ago and was uncertain as to why this had been placed Stent was removed On follow-up persistent hydronephrosis On stent placement she was found to have scarring in the proximal and mid ureter presumed secondary to prior stone passage Creatinine: 05/12 1.51, 05/12 1.44, 05/12 1.38, 09/12 2.07, 10/13 1.7 Last stent exchange 09/24/24 [facility] Medical History History of [place] (myocardial infarction) Hx of blood clots Leg edema Dementia TIA (transient ischemic attack) HTN (hypertension) Surgical History Hx of cystoscopy Hx of cardiac catheterization Hx of hysterectomy Family History Mother Dementia Other Mental health disorder Social History Household Members: Family and Children Household Members Other:: lives with son and daughter in law Housing: House Are you a primary day care supervisor to a significant other at home: No Do you presently have visiting nurse or other home services: No Alcohol intake: never Comment: within the last year prior to moving in with family Patient Tobacco Use Status: Former Tobacco user Tobacco use type: Cigarette e-Cigarette/Vaping Use: Never Used Second Hand Smoke Exposure: Yes service: No Current occupational status: disabled Current occupation: right hand dominant Gender identity: Female Cognitive needs: Yes Hearing needs: No Vision needs: Yes Review of Systems Const Denies chills and Denies fever(s) Card Reports no additional complaints and Denies syncope Resp Denies cough GI Denies abdominal pain and Denies heartburn Reports as per HPI and Denies change in libido Neuro Denies syncope Psych Denies change in libido Endo Denies change in libido Physical Exam Const General: cooperative, healthy appearing, comfortable and no acute distress Orientation/consciousness: patient oriented x3 HEENT Face and sinus: Yes normal facial exam Mouth: moist mucous membranes Neck Neck: Yes normal visual inspection, Yes full ROM and Yes trachea midline Chest Chest palpation & inspection: normal inspection of the chest Resp Effort & Inspection: normal respiratory effort, able to speak in complete sentences and no respiratory distress GI Inspection: Yes normal to inspection Back/Spine/Pelvis Cervical Spine: normal cervical lordosis Thoracic/Lumbar Spine: thoracic and lumbar spine normal to inspection Skin General skin exam: no rashes or lesions noted Neuro General: patient oriented x3, gait normal, tone normal and moves all extremities Extrem General: Yes normal to inspection and Yes capillary refill normal Assessment & Plan Assessment & Plan (1) Hydronephrosis, right: Code(s): N13.30 - Unspecified hydronephrosis Category: Medical Plan Risks, benefits and alternatives to therapy were discussed. These include but are not limited to infection, bleeding, damage to local organs and tissues, need for further interventions. Anesthetic risks regarding cardiac arrhythmia, blood clots, and potential mortality were discussed. The patient understands the typical recovery time and the outpatient nature of the procedure. After consideration of these risks the patient gives full informed consent and they wish to move ahead with the procedure. - cystoscopy right stent exchange Orders: Orders AMB Urinalysis Automated Today Z13.9 - Encounter for screening, unspecified Medications: New ciprofloxacin HCl 500 mg PO BID 10 tabs 0RF 5 days N13.30 - Unspecified hydronephrosis Patient Instructions: This note is constructed using voice recognition software. While every effort has been made to ensure accuracy cafeteria operator errors may have been included. Imaging studies, laboratory and physical exam results were discussed and reviewed in detail. No major barriers to patient understanding were identified. An opportunity to ask questions regarding the treatment plan was provided. All questions were answered. The patient expressed understanding and agreement with the above treatment plan. The patient is aware they should contact our office by phone for worsening of their current condition or the appearance of new urologic symptoms. Compliance is encouraged with any medications and followup testing that is ordered. It is a privilege to participate in the urologic care of your patient. If you have any questions or concerns regarding treatment for the above conditions, or other urologic issues, please do not hesitate to contact me. The office telephone contact is [phone]. Sincerely, Dr Tio Payan MD, [place] [facility] - Urology Compassionate Specialist Care for the Genitourinary System Coding Level of Care Code Est Pt Level 4 (54913) Complex EM visit Add On G2211 Diagnoses Hydronephrosis, right N13.30
== END 2025-02-23 12:39 | disposition home or self-care (01) ==
LOC: HO.HUSH 11:31
PROVIDERS: Visit Provider Urology
DX: N13.30 Unspecified hydronephrosis (principal); Z13.9 Encounter for screening, unspecified
CPT/HCPCS: 99214; G2211

== ENCOUNTER → 2025-02-23 11:29 | Outpatient (BNVA) | payer MEDICARE, MEDICAID, SELFPAY | PROVIDERS: Visit Provider Urology | DX: N13.30 Unspecified hydronephrosis (principal); Z93.6 Other artificial openings of urinary tract status | CPT/HCPCS: 81003; 99212 ==

== ENCOUNTER 2025-03-17 10:39 | Outpatient (AMB) | payer MEDICARE, MEDICAID, SELFPAY ==
--- NOTE | 2025-03-17 10:47 | A.OFFVIS_ITS ---
Intake Vital Signs 03/17/25 10:48 Height 5 ft 6 in Weight 172 lb 6 oz BMI 27.8 BP 120/56 L Blood Pressure Location Lt brachial Position Sitting Respiration 18 Pulse 58 Pulse Source Pulse Oximeter Temp 97.3 F Temp Source Temporal Artery Scan Pulse Oximetry (%) 98 Oxygen Delivery Method Room Air Intake Visit Reasons: AWV Stove Mounter Required: No Accompanied by: caregiver/daughter in law Allergies No Known Allergies Allergy (Verified 03/17/25 10:59) Medication List - Last Reconciled 03/17/25 by Marci Hart PA-C amlodipine 2.5 mg See Protocol PO DAILY 14 days apixaban (Eliquis) 5 mg PO BID blood sugar diagnostic ([employer] Ultra Test strips) As directed. BID blood-glucose meter ([employer] Ultra2 Meter) As directed BID cholecalciferol (vitamin D3) 25 mcg PO DAILY 4 months MDD 1 capsule 1000 units dulaglutide (Trulicity) 0.75 mg (0.5 mL) subcut QWEEK lancets ([employer] Delica Plus Lancet) As directed. BID mecobalamin (vitamin B12) 1,000 mcg sublingual BEDTIME 2 months MDD 1 tablet memantine 14 mg (2 x 7 mg) PO DAILY metoprolol succinate ER 25 mg PO DAILY prazosin 1 mg PO BEDTIME risperidone 0.5 mg PO BID rosuvastatin 10 mg PO DAILY sertraline 75 mg (1.5 x 50 mg) PO DAILY MDD 75mg trazodone 50 mg PO BEDTIME underpads (Bed Underpads) As directed. nightly use HPI AWV HPI Details 75-year-old female with past medical his tory of dementia, diabetes, hypertension, DVT and PE, coronary artery disease, hypercholesterolemia last seen 11/2024 coming in for annual exam.?In review of the notes, patient was seen by Urology 02/2025 for hydronephrosis given ciprofloxacin advised to follow up. Seen by Cardiology 01/2025 continue on Eliquis, beta-cesar and statins and follow up in 6 months. Patient presents today with her [id number] who is the primary historian and adjunct psychology professor for the duration of this visit. Formal interpretation was declined. They have no acute concerns today. The hizllrvy-ox-jim does mentioned the patient will complain about constipation however she is noted to have regular bowel movements. The bowel movements however are dark brown/black. Given Eliquis concern for possible GI bleed. Mammogram: 09/2024 Eye exam: UTD Colonoscopy: declined Vaccines: [facility] Medical History History of KS (myocardial infarction) Hx of blood clots Leg edema Dementia TIA (transient ischemic attack) HTN (hypertension) Surgical History Hx of cystoscopy Hx of cardiac catheterization Hx of hysterectomy Family History Mother Dementia Other Mental health disorder Social History Household Members: Family and Children Household Members Other:: lives with son and daughter in law Housing: House Are you a primary nurse wound care to a significant other at home: No Do you presently have visiting nurse or other home services: No Alcohol intake: never Comment: within the last year prior to moving in with family Patient Tobacco Use Status: Former Tobacco user Tobacco use type: Cigarette e-Cigarette/Vaping Use: Never Used Second Hand Smoke Exposure: Yes service: No Current occupational status: disabled Current occupation: right hand dominant Gender identity: Female Cognitive needs: Yes Hearing needs: No Vision needs: Yes Questionnaire Medicare Wellness Checkup [age] What gender do you identify with?: female During the past 4 weeks, how much have you been bothered by emotional problems such as feeling anxious, depressed, irritable, sad or downhearted, and blue?: moderately During the past 4 weeks, has your physical & emotional health limited your social activities with family, friends, neighbors, or groups?: extremely During the past 4 weeks, how much bodily pain have you generally had?: severe pain During the past 4 weeks, was someone available to help you if you needed & wanted help?: yes, as much as I wanted During the past 4 weeks, what was the hardest physical activity you could do for at least 2 minutes?: very light Can you get to places out of walking distance without help? (For eg., can you travel alone on buses, taxis or drive your car?): No Can you go shopping for groceries or clothes without someone's help?: No Can you prepare your own meals?: No Can you do your housework without help?: No Because of any health problems, do you need the help of another person with your personal care needs such as eating, bathing, dressing or getting around the house?: Yes Can you handle your own money without help?: No During the past 4 weeks, how would you rate your health in general?: poor During the past 4 weeks how have things been going for you?: very well; could hardly better Are you having difficulties driving your car?: not applicable, I don't use a car Do you always fasten your seat belt when you are in a car?: yes, usually During past 4 weeks, have you been bothered by the following: never: Sexual problems?, Problems using the telephone? and Tiredness or fatigue?, sometimes: Trouble eating well? and often: Falling or dizzy when standing up and Teeth or denture problems? Have you fallen 2 or more times in the past year?: No Are you afraid of falling?: Yes Are you a smoker?: no During the past 4 weeks, how many drinks of wine, beer, or other alcoholic beverages did you have?: no alcohol at all Do you exercise for about 20 minutes 3 or more times a week?: no, I usually do not exercise this much Have you been given information to help with the following?: yes: Hazards in your house that might hurt you? and yes: Keeping track of your medications? How often do you have trouble taking medicines the way you have been told to take them?: I always take medicine as prescribed How confident are you that you can control & manage most of your health problems?: not very confident What is your race?: or origin or descent PHQ-9 Over the last 2 weeks, how often have you been bothered by any of the following problems? 1. Little interest or pleasure in doing things: nearly every day 2. Feeling down, depressed, or hopeless: nearly every day 3. Trouble falling or staying asleep, or sleeping too much: nearly every day 4. Feeling tired or having little energy: nearly every day 5. Poor appetite or overeating: several days 6. Feeling bad about yourself - or that you are a failure or have let yourself or your family down: nearly every day 7. Trouble concentrating on things, such as reading the newspaper or watching television: not at all 8. Moving or speaking so slowly that other people could have noticed. Or the opposite - being so fidgety or restless that you have been moving around a lot more than usual: nearly every day 9. Thoughts that you would be better off or of hurting yourself in some way: several days Total score: 20 Depression Screening Interpretation: Positive Depression Screening Follow-up: Existing condition and In treatment Depression Screening Done: Yes Source: Developed by Drs. Dorian Hawthorne, Niharika Sanchez, Jesse Alston and colleagues, with an educational janet from [employer]. Review of Systems Const Denies body aches, Denies chills, Denies fever(s), Denies headache(s) and Denies poor appetite Eyes Reports no additional complaints ENT Denies dizziness and Denies headache(s) Card Denies chest pain, Denies syncope, Denies edema, Denies irregular heart rhythm, Denies lightheadedness and Denies dyspnea Resp Denies cough and Denies dyspnea GI Denies abdominal pain, Reports melena, Reports constipation, Denies diarrhea, Denies nausea and Denies vomiting Reports no additional complaints Musc Reports no additional complaints and Denies abnormal gait Skin/Breast Reports system reviewed and no additional complaints, except as documented Neuro Denies abnormal gait, Denies dizziness, Denies syncope and Denies headache(s) Psych Reports no additional complaints Physical Exam Vital Signs: Last Vital Signs Temp 97.3 F 03/17/25 10:48 Pulse 58 03/17/25 10:48 Resp 18 03/17/25 10:48 BP 120/56 L 03/17/25 10:48 Pulse Ox 98 03/17/25 10:48 Oxygen Delivery Method Room Air 03/17/25 10:48 BMI result Body Mass Index 27.8 Const General: cooperative, healthy appearing, comfortable and no acute distress Orientation/consciousness: patient oriented x3 HEENT Head: Yes normocephalic Ears: hearing grossly normal bilaterally General nose exam: Normal external nose present Eyes General: appearance normal, both eyes and all related structures Conjunctivae: conjunctivae normal Neck Neck: Yes full ROM and Yes no lymphadenopathy Resp Effort & Inspection: normal respiratory effort Auscultation: clear to auscultation bilaterally, no crackles, no rales, no rhonchi and no wheezes Cardio Rate: regular rate Rhythm: regular rhythm Skin General skin exam: no rashes or lesions noted Neuro General: patient oriented x3 Gait exam (Neuro): Normal gait present Extrem General: Yes normal to inspection, Yes full ROM and No edema Psych Affect: normal affect Attitude: cooperative Insight: Good insight present (Psych) Judgement: Good judgement present (Psych) Assessment & Plan Assessment & Plan (1) Annual wellness visit: Code(s): Z00.00 - Encounter for general adult medical examination without abnormal findings Plan: Patient is up-to-date on all recommended routine screenings and vaccinations for her age. She is due for bone density screening and possibly colonoscopy, Referrals for these were made today. Blood work is up-to-date and has been reviewed with the patient. Patient does have a history of dementia and is pleasantly confused on exam today. She was given healthcare proxy and MOLST forms to be completed at home with loved ones. [place] of care was also reviewed and patient was provided a written screening schedule. She does have poor cognition due to her dementia and does need assistance with making informed decisions about her health. (2) Dark stools: Code(s): R19.5 - Other fecal abnormalities Plan: Given the dark stools in the presence of anticoagulation therapy plan to obtain CBC for further evaluation. Referral was also placed to GI for further evaluation and treatment as well. (3) Insulin dependent type 2 diabetes mellitus: Code(s): E11.9 - Type 2 diabetes mellitus without complications; Z79.4 - alf ( current) use of insulin Plan: Decrease the amount of carbohydrates such as pasta, bread, rice, and potatoes and limit the amount of sweets. Although fruits are generally healthy they should be eaten in moderation as they are still high in sugar. Hemoglobin A1c goal of less than 7%. Patient's A1c in the clinic today is 5.5% she has been using only the Trulicity 0.75 mg weekly. At this time her blood sugars are very well managed. Trulicity was initially discontinued however her blood sugars did rise so plan to continue this medication at this time. Denies any hypoglycemic episodes (4) Coronary artery disease: Code(s): I25.10 - Atherosclerotic heart disease of [place] coronary artery without angina pectoris Plan: Advised good control of diabetes, blood pressure and cholesterol. Continue to follow with Cardiology (5) HTN (hypertension): Code(s): I10 - Essential (primary) hypertension Qualifiers: Hypertension type: primary hypertension Qualified Code(s): I10 - Essential (primary) hypertension Plan: Continue on current blood pressure medication. Avoid salt intake and encourage healthy diet and regular exercise. (6) Hypercholesteremia: Code(s): E78.00 - Pure hypercholesterolemia, unspecified Plan: Avoid foods that are high in cholesterol such as red meat, fried foods, eggs and baked goods. Triglyceride goal of less than 150 and LDL goal of less than 70. Continue on rosuvastatin. Last blood work within normal limits. Her LDL is mildly above goal at 78 and reinforce dietary and lifestyle modification (7) Night terrors: Code(s): F51.4 - Sleep terrors [night terrors] Plan: Has been doing well in the prazosin and has not no longer having night terrors. (8) Incontinence: Code(s): R32 - Unspecified urinary incontinence Plan: Patient experiencing nocturnal incontinence prescription was sent for bed under pads for management. (9) AC joint arthropathy: Code(s): M19.019 - Primary osteoarthritis, unspecified shoulder Plan: Patient to continue to follow up with Orthopedics. She recently received a cortisone injection and pain initially improved however has been worsening. Advised patient to reach out to Orthopedics to reschedule appointment. (10) Atherosclerotic cardiovascular disease: Code(s): I25.10 - Atherosclerotic heart disease of [place] coronary artery without angina pectoris Plan: Currently following with Cardiology and rosuvastatin was increased to 10 mg at her last visit. Continue to monitor cholesterol with LDL goal less than 70. Continue on metoprolol and amlodipine (11) DVT (deep venous thrombosis): Code(s): I82.409 - Acute embolism and thrombosis of unspecified deep veins of unspecified lower extremity Qualifiers: Affected thrombotic vein of extremity: iliac Chronicity: acute DVT location: lower extremity Laterality: left Qualified Code(s): I82.422 - Acute embolism and thrombosis of left iliac vein Plan: Continue with full oral anticoagulation with Eliquis (12) Vitamin D insufficiency: Code(s): E55.9 - Vitamin D deficiency, unspecified Plan: Continue with vitamin-D supplementation and continue to monitor lab work (13) Ureteral stent present: Code(s): Z96.0 - Presence of urogenital implants Plan: She is continuing to follow with Urology and consideration for stent removal and replacement was discussed at her last visit. She will continue to follow with Dr. Payan (14) Dementia: Comment: with psyhcosis , REM behavior disorder, LBD? and Alzheimers? Code(s): F03.90 - Unspecified dementia, unspecified severity, without behavioral disturbance, psychotic disturbance, mood disturbance, and anxiety Qualifiers: Dementia behavioral or psychological symptom: unspecified whether behavioral, psychotic, or mood disturbance or anxiety Dementia severity: unspec ified severity Dementia type: unspecified type Qualified Code(s): F03.90 - Unspecified dementia, unspecified severity, without behavioral disturbance, psychotic disturbance, mood disturbance, and anxiety Plan: Patient is currently following with Neurology and her Risperdal was recently increased. She will continue to follow with Neurology Plan This note was constructed using voice recognition software. While every effort has been made to ensure accuracy and medical donation professional, still areas may have been included sometimes these areas may affect the content or meeting of the given symptoms. Total time spent caring for the patient today was 30 minutes. This includes time spent before the visit reviewing the chart, time spent during the visit, and time spent after the visit and documentation. 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 Quality Reporting (2019) Depression/Bipolar (159/160/161/177) PHQ-9: Total score: 20 Coding Level of Care Code Medicare First (G0438) Diagnoses Annual wellness visit Z00.00 Dark stools R19.5 Insulin dependent type 2 diabetes mellitus E11.9; Z79.4 Coronary artery disease I25.10 Primary hypertension I10 Hypertension type: primary hypertension Hypercholesteremia E78.00 Night terrors F51.4 Incontinence R32 AC joint arthropathy M19.019 Atherosclerotic cardiovascular disease I25.10 DVT (deep venous thrombosis) I82.422 Affected thrombotic vein of extremity: iliac Chronicity: acute DVT location: lower extremity Laterality: left Vitamin D insufficiency E55.9 Ureteral stent present Z96.0 Dementia, unspecified dementia severity, unspecified dementia type, unspecified whether behavioral, psychotic, or mood disturbance or anxiety F03.90 Dementia behavioral or psychological symptom: unspecified whether behavioral, psychotic, or mood disturbance or anxiety Dementia severity: unspecified severity Dementia type: unspecified type CPT Codes Advance Care Planning - Time spent: 1-15 minutes, not on file ([id number]) Advance Care Planning Advance Care Planning discussion: Completed/Scanned Date of discussion: 03/17/25 Who was present: patient, daughter in law Forms completed: Health Care Proxy and MOLST Time spent: 1-15 minutes, not on file Actual minutes spent: 5 Did not discuss due to Cultural/Spiritual beliefs: No
[2025-03-17 10:48] VITALS: BP 120/56; PULSE 58; RESP 18; TEMP 36.3; O2SAT 98; BMI 27.8
== END 2025-03-17 12:01 | disposition home or self-care (01) ==
LOC: HO.HMCH 10:40
PROVIDERS: PCP Internal Medicine
DX: Z00.00 Encounter for general adult medical examination without abnormal findings (principal); E11.9 Type 2 diabetes mellitus without complications; Z79.4 Long term (current) use of insulin; I82.422 Acute embolism and thrombosis of left iliac vein; F03.90 Unspecified dementia, unspecified severity, without behavioral disturbance, psychotic disturbance, mood disturbance, and anxiety; R19.5 Other fecal abnormalities; I25.10 Atherosclerotic heart disease of native coronary artery without angina pectoris; I10 Essential (primary) hypertension; E78.00 Pure hypercholesterolemia, unspecified; F51.4 Sleep terrors [night terrors]; R32 Unspecified urinary incontinence; M19.011 Primary osteoarthritis, right shoulder

== ENCOUNTER 2025-03-17 10:39 | Outpatient (REF) | payer MEDICARE, MEDICAID, SELFPAY ==
[2025-03-17 12:55] LABS: MANUAL DIFF FLAG NO
[2025-03-17 13:41] LABS: Hematocrit 31.9 % (37.0-47.0); Hemoglobin 10.4 g/dl (12.0-16.0); Imm Gran Abs Auto 0.02 X10*3/uL (0.00-0.03); Imm Gran Pct Auto 0.4 % (0.0-0.4); Lymphocytes Absolute Auto 1.3 X10*3/uL (1.2-4.9); Mean Corpuscular HGB Conc 32.6 g/dl (31.0-35.0); Mean Corpuscular Hemoglobin 28.4 pg (27.0-33.0); Mean Corpuscular Volume 87.2 fL (80.0-98.0); NRBC Abs Auto 0.000 X10*3/uL (0.0-0.012); NRBC Pct Auto 0.0 /100WBC (0.0-0.2); Platelet Count 163 X10*3/uL (160-400); Red Blood Count 3.66 X10*6/uL (4.20-5.50); White Blood Count 4.7 X10*3/uL (4.8-10.8)
[2025-03-17 14:45] LABS: Blood Urea Nitrogen 23 mg/dL (9-16); Estimated Glomerular Filt Rate 29
== END 2025-03-17 10:40 | disposition home or self-care (01) ==
LOC: HO.LAB 10:39
PROVIDERS: Urology; PCP Internal Medicine
DX: Z00.00 Encounter for general adult medical examination without abnormal findings (principal); R19.5 Other fecal abnormalities; E11.9 Type 2 diabetes mellitus without complications; I25.10 Atherosclerotic heart disease of native coronary artery without angina pectoris; I10 Essential (primary) hypertension; E78.00 Pure hypercholesterolemia, unspecified; F51.4 Sleep terrors [night terrors]; R32 Unspecified urinary incontinence; M19.019 Primary osteoarthritis, unspecified shoulder; I82.422 Acute embolism and thrombosis of left iliac vein; E55.9 Vitamin D deficiency, unspecified; F03.90 Unspecified dementia, unspecified severity, without behavioral disturbance, psychotic disturbance, mood disturbance, and anxiety; N20.0 Calculus of kidney; Z96.0 Presence of urogenital implants; Z78.0 Asymptomatic menopausal state; Z79.4 Long term (current) use of insulin; Z79.899 Other long term (current) drug therapy
CPT/HCPCS: 36415; 82565; 84520; 85025

== ENCOUNTER 2025-03-24 13:23 | Outpatient (AMB) | payer MEDICARE, MEDICAID, SELFPAY ==
[2025-03-24 13:25] VITALS: BP 122/60; PULSE 55; O2SAT 98; BMI 28.6
--- NOTE | 2025-03-24 13:25 | A.OFFVIS_ITS ---
Vital Signs 03/24/25 13:25 Height 5 ft 6 in Weight 177 lb 6 oz BMI 28.6 BP 122/60 Blood Pressure Location Lt brachial Pulse 55 Pulse Source Pulse Oximeter Pulse Oximetry (%) 98 Oxygen Delivery Method Room Air Intake Visit Reasons: 3 mnts f/u per MD with Re Intake Note: Patient presents follow up Dementia. Labs/HST on chart(AHI-<1, NAYELY-82%). Patient states having issues with Memantine order. Retail Merchandising Coordinator Required: Yes Retail Merchandising Coordinator Language: Wicker Worker Services: Retail Merchandising Coordinator Offered & Declined Retail Merchandising Coordinator Name: Daughter Accompanied by: Daughter Allergies No Known Allergies Allergy (Verified 03/24/25 13:29) HPI Comments Details: 75y/o Right handed female comes for evaluation of memory issues. Her DIL Felecia helps with history. She lives with her son since moving from [place] in Aug 2024. She was in a psychiatric unit, and mood was managed with Sertraline and Risperidone. She started daycare, 2x week and 8am to 2pm, she enjoys the activities, exercises, plays bingo and does arts and crafts. She gets combative every other week, refuses to attend, and enjoys her time once she is there. She sleeps from 8pm and 7pm, has incontinence and will have multiple awakenings for the bathroom. She has stents for hydronephrosis. T2DM is well controlled. She needs help with all her ADLs, bathing, cooking, dressing, shopping. Her anxiety and confusion worsens in the evenings. She is oriented to people but confused with place and time. She is given chores now in the house and helps around the house, sets the table, and vacuums. She has A/V hallucinations now 1x week since starting Prazosin, she still hears people calling her name, they are not aggressive. She no longer screams and yells at night. She watches her [employer] daily and comes down to get her hair done. She even started to come down the stairs to socialize since her daughters and 1 son is visiting from [place]. She gets aggressive with the grand-kids, so Felecia has to diffuse the situation by changing the topics and de-escalating the situation. 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 [facility] Medical History History of ND (myocardial infarction) Hx of blood clots Leg edema Dementia TIA (transient ischemic attack) HTN (hypertension) Surgical History Hx of cystoscopy Hx of cardiac catheterization Hx of hysterectomy Family History Mother Dementia Other Mental health disorder Social History Household Members: Family and Children Household Members Other:: lives with son and daughter in law Housing: House Are you a primary career technical education instructor to a significant other at home: No Do you presently have visiting nurse or other home services: No Alcohol intake: never Comment: within the last year prior to moving in with family Patient Tobacco Use Status: Former Tobacco user Tobacco use type: Cigarette e-Cigarette/Vaping Use: Never Used Second Hand Smoke Exposure: Yes service: No Current occupational status: disabled Current occupation: right hand dominant Gender identity: Female Cognitive needs: Yes Hearing needs: No Vision needs: Yes Review of Systems Neuro Reports confusion Psych Reports confusion Physical Exam Vital Signs: Last Vital Signs Pulse 55 03/24/25 13:25 BP 122/60 03/24/25 13:25 Pulse Ox 98 03/24/25 13:25 Oxygen Delivery Method Room Air 03/24/25 13:25 BMI result Body Mass Index 28.6 Const General: cooperative, healthy appearing, comfortable and confusion Nutritional Appearance: average body habitus Orientation/consciousness: confusion Neck Neck: Yes no meningeal signs Neuro Other: Disoriented, with oral and facial / tongue tremors and slow to respond may be the language barrier. Gait is stable, ambulates without cane cataracts General: tone normal, moves all extremities, no meningeal signs and confusion Cranial nerves: Yes Facial sensation intact/muscles of mastication intact, Yes Bilaterally intact EOM present, Yes Nystagmus not present, Yes Normal facial strength present, Yes Midline tongue present, Yes Ability to bilaterally rotate head present and Yes Ability to bilaterally elevate shoulders present Cognition (Neuro): abnormal cognition Gait exam (Neuro): Normal gait present Psych Appearance: well kempt Attitude: cooperative and Other attitude/behavior findings present (Psych) (she smiles and says thank you often.) Insight: Limited insight present (Psych) Judgement: Limited judgement present (Psych) Assessment & Plan Assessment & Plan (1) Dementia: Comment: with psyhcosis , REM behavior disorder, LBD? and Alzheimers? Code(s): F03.90 - Unspecified dementia, unspecified severity, without behavioral disturbance, psychotic disturbance, mood disturbance, and anxiety Category: Medical Qualifiers: Dementia behavioral or psychological symptom: unspecified whether behavioral, psychotic, or mood disturbance or anxiety Dementia severity: unspecified severity Dementia type: unspecified type Qualified Code(s): F03.90 - Unspecified dementia, unspecified severity, without behavioral disturbance, psychotic disturbance, mood disturbance, and anxiety (2) Confusion and disorientation: Code(s): R41.0 - Disorientation, unspecified Category: Medical (3) Aggressive behavior due to dementia: Comment: Risperidone and Sertraline Code(s): F03.918 - Unspecified dementia, unspecified severity, with other behavioral disturbance Category: Medical (4) Screaming: Code(s): R45.89 - Other symptoms and signs involving emotional state Category: Medical (5) Insomnia: Code(s): G47.00 - Insomnia, unspecified Category: Medical Qualifiers: Insomnia type: unspecified Qualified Code(s): G47.00 - Insomnia, unspecified Plan HST c/w no evidence of VIRGILIO continue Trazadone 50mg PO for sleep, will add Melatonin 5mg today. Reviewed MRI of brain with patient today, Temporal and Parietal Atrophy most likely alzheimer / or fronto-temporal dementia. I will increase her Memantine XR to 14mg PO daily at bedtime to 21 mg po daily. Reviewed Labs she is slightly anemic we discussed dietary and supplemental options to increase iron, B12 and Vit D. ENT referral for Mass in Ethmoid sinus 4cm. Aggressive behavior and irritable mood continue Risperidone 0.5mg PO BID, and sertraline 75mg po daily. Insomnia with Night terrors and screaming continue Prazosin 1mg PO at bedtime. 3 month f/u Medications: New melatonin take one 5mg po capsule daily. 5 mg PO DAILY 30 caps 3RF sleep difficulties 30 days MDD 5mg G47.00 - Insomnia, unspecified Changed From memantine take one 14mg capsule daily at bedtime. 14 mg (2 x 7 mg) PO DAILY 30 ea 3RF dementia F03.90 - Unspecified dementia, unspecified severity, without behavioral disturbance, psychotic disturbance, mood disturbance, and anxiety To memantine take(3)-7mg capsules by mouth daily at bedtime. 21 mg (3 x 7 mg) PO DAILY 90 ea 3RF dementia 1 month MDD 21mg F03.90 - Unspecified dementia, unspecified severity, without behavioral disturbance, psychotic disturbance, mood disturbance, and anxiety Patient Instructions: Sleep Hygiene provided: set a scheduled bedtime and wake time to help regulate the circadian rhythm and balance the release of pituitary hormones. Sleep in a dark room, temperatures below 68 degrees, and no devices n bed. Limit caffeinated products 6 hours prior to bed, and limit fluids 2-4 hours prior to bed. Gentle night yoga, diffusing essential oils, and playing soft music can be relaxing. Socialization, reading, puzzles, music, dancing, biking, swimming, are all social activities, which are important for a patient with dementia, continue to introduce Sheri to new learning opportunities. Coding Level of Care Code Est Pt Level 4 (58902) Diagnoses Dementia, unspecified dementia severity, unspecified dementia type, unspecified whether behavioral, psychotic, or mood disturbance or anxiety F03.90 Dementia behavioral or psychological symptom: unspecified whether behavioral, psychotic, or mood disturbance or anxiety Dementia severity: unspecified severity Dementia type: unspecified type Confusion and disorientation R41.0 Aggressive behavior due to dementia F03.918 Screaming R45.89 Insomnia, unspecified type G47.00 Insomnia type: unspecified
== END 2025-03-24 14:11 | disposition home or self-care (01) ==
LOC: HO.HSMS 13:23
PROVIDERS: PCP Internal Medicine; Visit Provider Physician Assistant Medical
DX: F03.90 Unspecified dementia, unspecified severity, without behavioral disturbance, psychotic disturbance, mood disturbance, and anxiety (principal); R41.0 Disorientation, unspecified; F03.918 Unspecified dementia, unspecified severity, with other behavioral disturbance; R45.89 Other symptoms and signs involving emotional state; G47.00 Insomnia, unspecified
CPT/HCPCS: 99214

== ENCOUNTER → 2025-03-24 13:23 | Outpatient (BNVA) | payer MEDICARE, MEDICAID, SELFPAY | PROVIDERS: PCP Internal Medicine; Visit Provider Physician Assistant Medical | DX: R45.89 Other symptoms and signs involving emotional state (principal); G47.00 Insomnia, unspecified; F03.918 Unspecified dementia, unspecified severity, with other behavioral disturbance; R41.0 Disorientation, unspecified | CPT/HCPCS: 99212 ==

== ENCOUNTER 2025-04-12 07:49 | Day surgery (SDC) | payer MEDICARE, MEDICAID, SELFPAY ==
[2025-04-08 12:30] VITALS: BMI 28.1
--- NOTE | 2025-04-09 10:34 | HO.ANESPROP2 ---
Documented by User: Meme Plaza NP 04/09/25 10:42 HPI - Anesthesia Eval Consult details Narrative: 75 yr old female for cystoscopy with stent exchange s/p cystoscopy with GA, LMA 4 09/2024 Dementia: follows with neurology, occasional combative behavior H/O blood clots: on eliquis CAD/H/O PA: Follows with [facility] cards, Cardiac catheterization reviewed from 01/2025-LAD with 2 tandem lesions of 60% stenosis. Diagonal 1 and 2 have ostial stenosis. Mild disease in the RCA/circumflex. Medical therapy recommended by cards. Anesthesia Pre-Procedure Meds Is the patient on any of the following meds?: GLP1/DPP4 PMFSH Active Problems Active Problems: All Active Problems Annual wellness visit (Acute) Dark stools (Acute) Vitamin D insufficiency (Acute) Osteoarthritis of right AC (acromioclavicular) joint (Acute) Atherosclerotic cardiovascular disease (Acute) Incontinence (Acute) Fatigue due to sleep pattern disturbance (Acute) Screaming (Acute) Night terrors (Acute) Aggressive behavior due to dementia (Acute) Confusion and disorientation (Acute) Cystitis (Acute) Insomnia (Acute) AC joint arthropathy (Acute) Insulin dependent type 2 diabetes mellitus (Acute) Upper respiratory infection (Acute) Right shoulder pain (Acute) Antrochoanal polyp (Acute) Breast mass, right (Acute) Pulmonary embolism (Acute) Nephrolithiasis (Acute) Hypercholesteremia (Acute) Coronary artery disease (Acute) Left leg swelling (Acute) Ureteral stent present (Acute) Hydronephrosis, right (Acute) Pulmonary emboli (Acute) DVT (deep venous thrombosis) (Acute) Dementia (Acute) HTN (hypertension) (Acute) Past Medical History Medical History (Updated 03/24/25 @ 22:40 by Re Kramer PA-C) History of PA (myocardial infarction) Hx of blood clots Leg edema Dementia TIA (transient ischemic attack) HTN (hypertension) Family History Family History Mother Dementia Other Mental health disorder Family history of problems with anesthesia: No Surgical History Surgical History (Updated 04/08/25 @ 12:22 by Magaly Galindo RN) Hx of cystoscopy Hx of cardiac catheterization Hx of hysterectomy History of Problems with Anesthesia: No Social History Social History Household Members: Family and Children Household Members Other:: lives with son and daughter in law Housing: House Are you a primary long term care pharmacist to a significant other at home: No Do you presently have visiting nurse or other home services: No Alcohol intake: never Comment: within the last year prior to moving in with family Patient Tobacco Use Status: Former Tobacco user Tobacco use type: Cigarette e-Cigarette/Vaping Use: Never Used Second Hand Smoke Exposure: Yes Use of substances other than those prescribed or required for medical reasons: No Advance Directives: No Advance Directives Information Provided: Yes service: No Current occupational status: disabled Current occupation: right hand dominant Gender identity: Female Cognitive needs: Yes Hearing needs: No Vision needs: Yes Meds Allergies Allergy/AdvReac Type Severity Reaction Status Date / Time No Known Allergies Allergy Verified 03/24/25 13:29 Exam Height,Weight and Vital Signs: Height 5 ft 6 in Weight 78.925 kg Pertinent Lab Results Pertinent Lab Results: Laboratory Tests 01/25/25 03/17/25 10:36 12:50 WBC 4.7 L RBC 3.66 L Hgb 10.4 L Hct 31.9 L Plt Count 163 Sodium 139 Potassium 4.4 BUN 23 H Creatinine 1.73 H Narrative Narrative: EKG 12/2024 NSR, rate 70s, no acute ST-T wave changes Procedure Date: 01/15/2025 Procedure Type: Transthoracic Echocardiogram Location: OP Height: 167. cm Weight: 82.56 kg BSA: 1.92 m2 Heart Rate: 68 bpm BP: 142 / 80 mmHg Home Staging Specialist: LYNDSEY Referring MD: Son Evans MD Tea Taster: Ken Dobson MD Symptoms: I25.10 - Atherosclerotic heart disease of [place] coronary artery without... Study Quality: Adequate ECG Rhythm: Sinus Conclusions: - 1. Normal LV ejection fraction of 60 65% 2. Normal cardiac valvular Dopplers 3. Normal RV systolic pressure 4. No gross pericardial effusion Assessment and Plan Final Anesthetic Review Family History of Problems with Anesthesia: No History of Problems with Anesthesia: No Documented by User: Angleita Joseph MD 04/12/25 09:10 [facility] Past Medical History Medical History (Updated 03/24/25 @ 22:40 by Re Kramer PA-C) History of PA (myocardial infarction) Hx of blood clots Leg edema Dementia TIA (transient ischemic attack) HTN (hypertension) Family History Family History Mother Dementia Other Mental health disorder Surgical History Surgical History (Updated 04/08/25 @ 12:22 by Magaly Galindo RN) Hx of cystoscopy Hx of cardiac catheterization Hx of hysterectomy Social History Social History Household Members: Family and Children Household Members Other:: lives with son and daughter in law Housing: House Are you a primary long term care pharmacist to a significant other at home: No Do you presently have visiting nurse or other home services: No Alcohol intake: never Comment: within the last year prior to moving in with family Patient Tobacco Use Status: Former Tobacco user Tobacco use type: Cigarette e-Cigarette/Vaping Use: Never Used Second Hand Smoke Exposure: Yes Use of substances other than those prescribed or required for medical reasons: No Advance Directives: No Advance Directives Information Provided: Yes service: No Current occupational status: disabled Current occupation: right hand dominant Gender identity: Female Cognitive needs: Yes Hearing needs: No Vision needs: Yes Meds Allergies Allergy/AdvReac Type Severity Reaction Status Date / Time No Known Allergies Allergy Verified 03/24/25 13:29 Exam Airway Mallampati Class: II TM Dist: >3cm Neck ROM: Full Denture: Upper and Lower Heart: rrr Lungs: cta Assessment and Plan Assessment Anesthesia Assessment: Anesthesia Plan Discussed and Chart Reviewed Final Anesthetic Review NPO: Yes ASA Class: III Final Preanesthetic Review: No Changes in Pt Med Stat, Meds/Allgs Chart Reviewed and Consent Obtained/Reviewed Patient Risk: Intermediate Procedure Risk: Low Anesthetic Plan Anesthetic Plan: MAC: Disposition: Standard PACU
[2025-04-12] VITALS (8 sets, daily range): BP systolic 132–169; BP diastolic 45–111; PULSE 58–65; RESP 12–24; TEMP 36.1–36.4; O2SAT 98–100
--- NOTE | ~2025-04-12 | FL_ITS ---
EXAMINATION: FL GUIDANCE ONLY HISTORY: STENT COMPARISON: Correlation is made with an unenhanced CT of the abdomen and pelvis dated 05/06/2024. TECHNIQUE: Fluoroscopy time: 0.4 minutes. Cumulative Dose: 9.19 mGy. DAP: 2.5 mGym2 Images: 3. FINDINGS: Images demonstrate placement of a right nephroureteral stent. Contrast is seen in the lower portion of the right intrarenal clipping system which is dilated. FL/FL guidance in OR IMPRESSION: Fluoroscopy during procedure. Please see procedure report for additional information. Electronically signed by: Dorian Carlson MD 04/12/2025 10:49 AM EDT
[2025-04-12 08:11] LABS: Glucose, Whole Blood 125 mg/dL (60-115)
[2025-04-12] MEDS: Lactated Ringers 1,000 ML 100 ML IVCONT (08:25)
--- NOTE | 2025-04-12 09:51 | MHC.SHP ---
Pre-Procedural Eval Section A - 24 Hr Update-Section A only Date of Service: 04/12/25 The patient is an INPATIENT: No Changes since office visit: No Cold of Flu in the past 2 weeks, No New Medical Problems, No Changes in Medication and No Patient answered all questions The patient has been examined within 24 hours of the surgical procedure. The History & Physical has been completed within 30 days and I have reviewed it.: Yes Section B - Complete if H&P > 30 days Chief Complaint: Hydronephrosis with ureteropelvic junction obstruc Details of Present Illness: Cystoscopy, right ureteric stent exchange Allergies: Allergies Allergy/AdvReac Type Severity Reaction Status Date / Time No Known Allergies Allergy Verified 03/24/25 13:29 Review of Systems Sugical H&P ROS: Negative: Constitution, Cardiovascular, Respiratory, Neurological, Psychiatric, Hem-Onc, Allergic/Immunologic, Gastrointestinal, Genitourinary, Musculoskeletal, Integumentary, Endocrine and Eyes/Ears/Nose/Throat Exam Surgical H&P Exam: Normal: HEENT, Normal: Heart, Normal: Lungs, Normal: Extremities, Normal: Abdomen, Normal: Skin and Normal: Neurological Plan Diagnosis/Plan: Unchanged I have reviewed the history and physical and performed a pertinent physical examination on my patient. No changes have occurred unless specified. Time Spent With Patient Time: Total time managing care of this patient today ____ minutes.
--- NOTE | 2025-04-12 10:30 | P.OP_ITS ---
Operative Note Operative Note Date of Service: 04/12/25 Narrative: PreOperative Diagnosis: Right ureteric stent exchange Post Operative Diagnosis: Right proximal and mid ureteric stricture the hydronephrosis Procedure: Cystoscopy, right retrograde, removal right stent, right ureteroscopy with stent placement Surgeon: Dr Tio Payan Anesthesia: LMA Indications for procedure: Here for right stent exchange. Known right ureteric stricture. Procedure: After informed consent was verified the patient was brought to the operating room and placed in a supine position. Anesthesia was administered per protocol. The patient was placed in modified dorsal lithotomy position and prepped and draped in a sterile fashion. A safety pause time-out was performed. Laterality of procedure and antibiotics were confirmed, appropriate imaging was available A 22 [place]raini cystoscope was introduced per urethra. No abnormality was noted of urethra or bladder. Both ureteric orifices were seen in a normal position. Stent seen emerging from right ureter. The right ureter was cannulated with an open ended catheter and a retrograde examination was performed. A Sensor guidewire was placed under fluoroscopy. The indwelling stent was removed. At removal was noted that the sensor guidewire did not advance all the way up to the renal pelvis. Attempt was made to place an angled Glidewire. This too was not able to advance. A decision was made to proceed with diagnostic ureteroscopy in an attempt to pass the area of narrowing. This was advanced to the mid ureter narrowing. Using retrograde contrast through the ureteral scope the small opening proximally was defined. The angled Glidewire was advanced beyond the narrowing and into the renal pelvis. The rigid scope was removed. The open-ended catheter was placed over the wire up to the level of the renal pelvis. The angled Glidewire was exchanged for sensor guidewire. At this point a sensor wire had good coil within the renal pelvis. A 7 [place]i by 24 cm double J stent was advanced over the wire and up to the level of the renal pelvis under fluoroscopic and direct visualization. The stent was seen with appropriate coil within the renal pelvis and in the bladder after deployment. The patient tolerated the procedure well and was transferred in a stable condition to the recovery area. Pathology: Drains: Stent in place as above
--- NOTE | 2025-04-12 12:59 | PC.NURSE ---
Vital signs upon d/c from PACU: 97.1, 71, 12, 155/58, and 97% on RA. Pain 3/10. IV angio removed. Aldretti score 9 upon discharge. Family member arrived in d/c lounge to review instructions.
--- NOTE | 2025-04-12 13:03 | PC.NURSE ---
11:45 VS: BP 161/64 HR 63 RR 18 Spo2 100% Aldretti: 9 12:00 VS: BP 167/68 HR 71 RR 14 Spo2 99% Aldretti: 9 12:15 VS: BP 171/66 HR 59 RR 16 Spo2 100% Aldretti: 9
== END 2025-04-12 12:51 | disposition home or self-care (01) ==
PROVIDERS: PCP Internal Medicine; Visit Provider Urology
PROC: (CPT 52332; principal; 2025-04-12 09:40)
DX: N13.0 Hydronephrosis with ureteropelvic junction obstruction (principal); Z96.0 Presence of urogenital implants; R32 Unspecified urinary incontinence; I25.2 Old myocardial infarction; I25.10 Atherosclerotic heart disease of native coronary artery without angina pectoris; I10 Essential (primary) hypertension; R60.0 Localized edema; F03.90 Unspecified dementia, unspecified severity, without behavioral disturbance, psychotic disturbance, mood disturbance, and anxiety; Z86.73 Personal history of transient ischemic attack (TIA), and cerebral infarction without residual deficits; M19.011 Primary osteoarthritis, right shoulder; E55.9 Vitamin D deficiency, unspecified; Z79.01 Long term (current) use of anticoagulants; Z79.4 Long term (current) use of insulin; Z98.890 Other specified postprocedural states; Z87.891 Personal history of nicotine dependence
CPT/HCPCS: 52332; 82947; C1758; C1769; C2617; J2003; J2704; J3010; Q9967

== ENCOUNTER → 2025-04-12 07:49 | Outpatient (BNV) | payer MEDICARE, MEDICAID, SELFPAY | PROVIDERS: PCP Internal Medicine; Visit Provider Urology | DX: R13.12 Dysphagia, oropharyngeal phase (principal) | CPT/HCPCS: 52332; 74420 ==

== ENCOUNTER 2025-05-04 10:41 | Outpatient (REF) | payer MEDICARE, MEDICAID, SELFPAY ==
--- NOTE | ~2025-05-04 | MM_ITS ---
EXAMINATION: DXA BONE DENSITY AXIAL HISTORY: Z78.0 - Asymptomatic menopausal state TECHNIQUE: [employer] Dual energy absorptiometry (DEXA) of the lumbar spine, total left hip, and femoral neck was performed. COMPARISON: Comparison is made with the prior examination dated 10/17/2010. FINDINGS: The bone mineral density of the lumbar spine is 1.096 g/cm2, corresponding to a T-score of -0.7, and a Z-score of 0.4. This is indicative of normal bone mineral density. This represents a BMD change of 4.1% compared to the prior exam. This is statistically significant. The bone mineral density of the left total hip is 1.084 g/cm2, corresponding to a T-score of 0.6, and a Z-score of 1.9. This is indicative of normal bone mineral density. This represents a BMD change of -5.0% compared to the prior exam. This is statistically significant. The bone mineral density of the left femoral neck is 1.104 g/cm2, corresponding to a T-score of 0.5, and a Z-score of 2.0. This is indicative of normal bone mineral density. This represents a BMD change of -3.0% compared to the prior exam. FRACTURE RISK: The FRAX index suggests a ten year probability of major osteoporotic fracture of 5.3%, and of hip fracture 1.7%. MM/XR DEXA axial skeleton IMPRESSION: Based on bone mineral density, and according to World Health Organization (WHO) criteria, the diagnosis is consistent with normal bone mineral density. Statistically, 68% of repeat scans fall within 1 SD (+/- 0.010 g/cm2 for AP spine L1-L4) and 1 SD (+/- 0.012 g/cm2 for femur total) FRAX is a trademark of the [employer], a World Health Organization (WHO) Collaborating Center. Electronically signed by: Dorian Carlson MD 05/04/2025 11:46 AM EDT
== END 2025-05-04 10:42 | disposition home or self-care (01) ==
LOC: HO.MAMMO 10:41
DX: Z13.820 Encounter for screening for osteoporosis (principal); Z78.0 Asymptomatic menopausal state
CPT/HCPCS: 77080

== ENCOUNTER → 2025-05-04 11:00 | Outpatient (BNV) | payer MEDICARE, MEDICAID, SELFPAY | PROVIDERS: Visit Provider Radiology Diagnostic Radiology | DX: E28.39 Other primary ovarian failure (principal) | CPT/HCPCS: 77080 ==

== ENCOUNTER 2025-06-18 10:37 | Outpatient (AMB) | payer MEDICARE, MEDICAID, SELFPAY ==
--- NOTE | 2025-06-18 10:41 | MHC.PC.OV ---
Vital Signs 06/18/25 10:45 06/18/25 11:21 Height 5 ft 6 in Weight 175 lb BMI 28.2 BP 148/72 H 136/72 Blood Pressure Location Lt brachial Lt brachial Position Sitting Sitting Pulse 74 Pulse Source Pulse Oximeter Temp 97.1 F Temp Source Temporal Artery Scan Pulse Oximetry (%) 98 Oxygen Delivery Method Room Air Intake Visit Reasons: f/u CAD Intake Note: Patient here for a follow up DM, HLD Asset Protection Lead Required: No Accompanied by: daughter in law/caregiver Allergies No Known Allergies Allergy (Verified 06/18/25 10:53) Medication List - Last Reconciled 06/18/25 by Marci Hart PA-C amlodipine 2.5 mg See Protocol PO DAILY 14 days apixaban (Eliquis) 5 mg PO BID blood sugar diagnostic (CittadinoTouch Ultra Test strips) As directed. BID blood-glucose meter (mValentuch Ultra2 Meter) As directed BID cholecalciferol (vitamin D3) 25 mcg PO DAILY 4 months MDD 1 capsule 1000 units dulaglutide (Trulicity) 0.75 mg (0.5 mL) subcut QWEEK lancets (CittadinoTouch Delica Plus Lancet) As directed. BID levofloxacin 500 mg PO DAILY 5 days mecobalamin (vitamin B12) 1,000 mcg sublingual BEDTIME 2 months MDD 1 tablet melatonin 5 mg PO DAILY 30 days MDD 5mg memantine 21 mg (3 x 7 mg) PO DAILY 1 month MDD 21mg metoprolol succinate ER 25 mg PO DAILY prazosin 1 mg PO BEDTIME risperidone 0.5 mg PO BID rosuvastatin 10 mg PO DAILY sertraline 75 mg (1.5 x 50 mg) PO DAILY MDD 75mg trazodone 50 mg PO BEDTIME underpads (Bed Underpads) As directed. nightly use vibegron 75 mg PO DAILY 90 days Tobacco use date assessed: 06/18/25 Fall risk assessment: No Falls in past year Last assessed Fall Risk: 12/16/24 Dental Screening Dental Screen Date: 06/18/25 Did you have a dental visit in the last 12 months?: No Did you have a dental problem in the last 6 months where you did not have access to dental care?: No Was dental information given to patient?: Patient has dentist HPI f/u CAD HPI Details 75-year-old female with past medical history of dementia, diabetes, hypertension, DVT and PE, coronary artery disease, hypercholesterolemia last seen 02/2025 coming in for follow up. 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 Saw ENT and underwent surgery for the mass which was determined to be benign. The patient is a 75-year-old female presenting for a follow-up on multiple chronic conditions and recent post-operative concerns. She recently underwent surgery on the of this month for the removal of a papilloma, which was benign. The ENT surgeon recommended follow-up every six months for surveillance due to the potential for recurrence. The patient's caregiver reported an episode of dizziness at her adult day program, where her blood pressure was found to be low at 80/50 mmHg. A nurse at the program advised discontinuing amlodipine, and her home blood pressures have since normalized to around 128/70 mmHg. Behavioral symptoms related to her dementia are reportedly worsening, with new onset paranoia, such as believing people on television are watching her. She has also experienced a reversal of her circadian rhythm, with daytime somnolence and nighttime wakefulness, which has not improved with trazodone or an increased dose of memantine. New complaints include a white coating on her tongue with a foul odor which began about one month ago. She does wear dentures. [facility] Medical History History of OH (myocardial infarction) Hx of blood clots Leg edema Dementia TIA (transient ischemic attack) HTN (hypertension) Surgical History Hx of cystoscopy Hx of cardiac catheterization Hx of hysterectomy Family History Mother Dementia Other Mental health disorder Social History Household Members: Family and Children Household Members Other:: lives with son and daughter in law Housing: House Are you a primary care center manager to a significant other at home: No Do you presently have visiting nurse or other home services: No Alcohol intake: never Comment: within the last year prior to moving in with family Patient Tobacco Use Status: Former Tobacco user Tobacco use type: Cigarette Years Smoked: quit smoking e-Cigarette/Vaping Use: Never Used Second Hand Smoke Exposure: No service: No Current occupational status: disabled Current occupation: right hand dominant Gender identity: Female Cognitive needs: Yes Hearing needs: No Vision needs: Yes Questionnaire PHQ-9 Over the last 2 weeks, how often have you been bothered by any of the following problems? 1. Little interest or pleasure in doing things: nearly every day 2. Feeling down, depressed, or hopeless: nearly every day 3. Trouble falling or staying asleep, or sleeping too much: nearly every day 4. Feeling tired or having little energy: nearly every day 5. Poor appetite or overeating: several days 6. Feeling bad about yourself - or that you are a failure or have let yourself or your family down: nearly every day 7. Trouble concentrating on things, such as reading the newspaper or watching television: not at all 8. Moving or speaking so slowly that other people could have noticed. Or the opposite - being so fidgety or restless that you have been moving around a lot more than usual: nearly every day 9. Thoughts that you would be better off or of hurting yourself in some way: several days Total score: 20 Depression Screening Interpretation: Positive Depression Screening Follow-up: Existing condition and In treatment Depression Screening Done: Yes Source: Developed by Drs. Dorian Hawthorne, Niharika Sanchez, Jesse Alston and colleagues, with an educational janet from [employer]. Thrive Questionnaire Date Thrive assessed: 12/16/24 I am a: Parent/Caregiver What is your living situation today?: I have a steady place to live Within the past 12 months, did the food you bought not last and you didn't have the money to get more?: I choose not to answer this question Within the past 12 months, did you worry whether your food would run out before you got money to buy more?: I choose not to answer this question Do you have trouble paying for medicines?: I choose not to answer this question Do you have trouble getting transportation to medical appointments?: Yes Do you have trouble paying your heating and electricity bill?: I choose not to answer this question Do you have trouble taking care of your child, family member or friend?: No Do you have trouble with day-to-day activities such as bathing, preparing meals, shopping, managing finances, etc.?: Yes Are you currently unemployed and looking for a job?: No Are you interested in more education?: No Please select the resources that you would like help with: None Currently or been in a relationship where the following occur: No concerns reported THRIVE Score: 1 AUDIT C Alcohol Use Questionnaire (AUDIT-C) 1. How often do you have a drink containing alcohol?: Never 3. How often do you have six or more drinks on one occasion?: Never Total Score: 0 OLIVIA-7 AMB Questionnaire OLIVIA-7 Date OLIVIA - 7 assessed: 06/18/25 Feeling nervous, anxious, or on edge: 0 = Not at all Not being able to stop or control worryin = Not at all Worrying too much about different things: 1 = Several days Trouble relaxin = Not at all Being so restless that it is hard to sit still: 0 = Not at all Becoming easily annoyed or irritable: 1 = Several days Feeling afraid as if something awful might happen: 0 = Not at all Total OLIVIA-7 score (0-4 normal; 5-9 mild; 10-14 moderate; 15-21 severe): 2 Source: Developed by Drs. Dorian Hawthorne, Niharika Sanchez, Jesse Alston and colleagues, with an educational janet from [employer]. Review of Systems Const Denies body aches, Denies chills and Denies fever(s) ENT Reports dizziness Card Denies chest pain, Denies irregular heart rhythm, Denies lightheadedness and Denies dyspnea Resp Denies dyspnea GI Reports no additional complaints Reports no additional complaints Musc Details: generalized weakness Neuro Reports dizziness Physical exam (Primary Care) Vital Signs: Last Vital Signs Temp 97.1 F 06/18/25 10:45 Pulse 74 06/18/25 10:45 BP 136/72 06/18/25 11:21 Pulse Ox 98 06/18/25 10:45 Oxygen Delivery Method Room Air 06/18/25 10:45 BMI result Body Mass Index 28.2 Tobacco/Smoking Status: Tobacco use Status Tobacco use date assessed 06/18/25 06/18/25 10:42 Patient Tobacco Use Status Former Tobacco user 10/31/25 10:53 Tobacco use type Cigarette 06/18/25 10:42 e-Cigarette/Vaping Use Never Used 06/18/25 10:42 PHQ-9: PHQ-9 Score PHQ-9: Total score 20 06/18/25 11:28 Depression Screening Interpretation: Positive Depression Screening Follow-up: Existing condition and In treatment Thrive Assessment: Date of Thrive Assessment Date Thrive assessed 12/16/24 06/18/25 10:42 Currently or been in a relationship where the following occur: No concerns reported Const General: cooperative, healthy appearing, comfortable and no acute distress Orientation/consciousness: patient oriented x3 HENMT Head: Yes normocephalic Ears: hearing grossly normal bilaterally General nose exam: Normal external nose present Mouth: tongue abnormal with white coating Eyes General: appearance normal, both eyes and all related structures Conjunctivae: conjunctivae normal Neck Neck: Yes full ROM and Yes no lymphadenopathy Resp Effort & Inspection: normal respiratory effort Auscultation: clear to auscultation bilaterally, no crackles, no rales, no rhonchi and no wheezes Cardio Rate: regular rate Rhythm: regular rhythm Skin General skin exam: no rashes or lesions noted Neuro General: patient oriented x3 Gait exam (Neuro): Normal gait present Extrem General: Yes normal to inspection, Yes full ROM and No edema Psych Affect: normal affect Attitude: cooperative Insight: Poor insight present (Psych) Judgement: Poor judgement present (Psych) Results AMB Hemoglobin A1c AMB Hemoglobin A1c 6.2 % Last Edit by NEHEMIAS Drake on 06/18/25 11:29 Results Reviewed Results Reviewed: Laboratory Last Values Hgb A1c (Clinic) 6.2 % (4.0-6.0) H 06/18/25 10:59 Coding Level of Care Code Est Pt Level 4 (91941) Diagnoses Insulin dependent type 2 diabetes mellitus E11.9; Z79.4 Coronary artery disease I25.10 Primary hypertension I10 Hypertension type: primary hypertension Hypercholesteremia E78.00 Night terrors F51.4 Dementia, unspecified dementia severity, unspecified dementia type, unspecified whether behavioral, psychotic, or mood disturbance or anxiety F03.90 Dementia behavioral or psychological symptom: unspecified whether behavioral, psychotic, or mood disturbance or anxiety Dementia severity: unspecified severity Dementia type: unspecified type Thrush, oral B37.0 Left shoulder pain M25.512 Assessment & Plan Assessment & Plan (1) Insulin dependent type 2 diabetes mellitus: Code(s): E11.9 - Type 2 diabetes mellitus without complications; 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 Although fruits are generally healthy they should be eaten in moderation as they are still high in sugar. Hemoglobin A1c goal of less than 7%. Patient's A1c in the clinic today is 6.2%. Continue on current medication regimen (2) Coronary artery disease: Code(s): I25.10 - Atherosclerotic heart disease of [place] coronary artery without angina pectoris Category: Medical Plan: For CAD patient is currently following with [facility] cardiology. We will continue to work on suagars with A1c goal of less than 7%, cholesterol with LDL goal of less than 70 and labs ordered. Her amlodipine was d/c by her day program as her pressures were 80s/50s causing lightheadedness. (3) HTN (hypertension): Code(s): I10 - Essential (primary) hypertension Category: Medical Qualifiers: Hypertension type: primary hypertension Qualified Code(s): I10 - Essential (primary) hypertension Plan: Continue on current blood pressure medication. Avoid salt intake and encourage healthy diet and regular exercise. Discontinue amlodipine and continue on Metoprolol. Blood pressures at home have been in the 120 systolic over 70 diastolic range. (4) Hypercholesteremia: Code(s): E78.00 - Pure hypercholesterolemia, unspecified Category: Medical Plan: Avoid foods that are high in cholesterol such as red meat, fried foods, eggs and baked goods. Triglyceride goal of less than 150 and LDL goal of less than 70. Continue on rosuvastatin. Last blood work within normal limits. Her LDL is mildly above goal at 78 and reinforce dietary and lifestyle modification. Ordered for repeat blood work. (5) Night terrors: Comment: Prazosin Code(s): F51.4 - Sleep terrors [night terrors] Category: Medical Plan: Has been doing well in the prazosin. (6) Dementia: Comment: with psyhcosis , REM behavior disorder, LBD? and Alzheimers? Code(s): F03.90 - Unspecified dementia, unspecified severity, without behavioral disturbance, psychotic disturbance, mood disturbance, and anxiety Category: Medical Qualifiers: Dementia behavioral or psychological symptom: unspecified whether behavioral, psychotic, or mood disturbance or anxiety Dementia severity: unspecified severity Dementia type: unspecified type Qualified Code(s): F03.90 - Unspecified dementia, unspecified severity, without behavioral disturbance, psychotic disturbance, mood disturbance, and anxiety Plan: Patient is currently following with Neurology and her Memantine was recently increased. She will continue to follow with Neurology with upcoming appt 06/25/2025. (7) Thrush, oral: Code(s): B37.0 - Candidal stomatitis Category: Medical Plan: Plan to treat with nystatin rinses. Patient's caregiver states she is able to switch and swallow. Follow up as needed for this concern (8) Left shoulder pain: Code(s): M25.512 - Pain in left shoulder Category: Medical Plan: Referral was placed for orthopedics as she is requesting injection for the shoulder. Plan This note was constructed using voice recognition software. While every effort has been made to ensure accuracy and carpentry foreman, still areas may have been included sometimes these areas may affect the content or meeting of the given symptoms. Total time spent caring for the patient today was 30 minutes. This includes time spent before the visit reviewing the chart, time spent during the visit, and time spent after the visit and documentation. Orders: Orders AMB Hemoglobin A1c Today Z13.9 - Encounter for screening, unspecified Comprehensive Met. 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
[2025-06-18 10:45] VITALS: BP 148/72; PULSE 74; TEMP 36.2; O2SAT 98; BMI 28.2
[2025-06-18 11:21] VITALS: BP 136/72
--- OUTSIDE RECORDS SUMMARY | 2025-06-18 12:03 | XMS_ITS | Data Portability ---
Author Organization ID - [facility], Allergy Address [address] [address] Care Team Providers Care Dietary Internship Name Role Phone CJ MEZA Referring Provider [phone] Assessment Encounter Date Assessment Date Assessment LastModified by Organization Details LastModified Time 05/19/2025 05/19/2025 75-year-old female presents for evaluation of nasal polyp. MRI brain without contrast 08/24/2024 at [facility] demonstrated 4.8 cm soft tissue mass in the right maxillary sinus extending into the nasal vault and right ethmoid sinuses. Images were not available for review. Nasal endoscopy demonstrated right middle meatal polyp. No purulence. Recommended CT sinus for further evaluation. We will arrange follow-up with a surgeon to review imaging and to discuss surgical intervention. Patient and her [id number] agree with the plan and all questions were answered. [email or web address] Not available 05/19/2025 10:34:31 06/03/2025 06/03/2025 75-year-old female presents for evaluation of right maxillary sinus nasal polyp. MRI brain without contrast 08/24/2024 at [facility] demonstrated 4.8 cm soft tissue mass in the right maxillary sinus extending into the nasal vault and right ethmoid sinuses. It does appear benign based on the CT scan but without tissue sampling I cannot tell her exactly what it is. I do have some concern of the expansion of this could cause some orbital problems in the future. CT sinus was performed today showing: Right nasal mass with expansion of the maxillary sinus, abutting the orbit. This does prolapse posteriorly nasopharynx. We reviewed the clinic findings today with the patient and had an extensive discussion on the natural history of their symptoms and the pathology causing them. The patient has evidence of a nasal mass without prior tissue diagnosis, would recommend obtaining permanent specimen for this. The mass was confirmed on Nasal Endoscopy and CT. Options were discussed, including conservative management, serial imaging, vs surgical intervention. We also discussed the treatment paradigm in cases of potential malignancy, which could include adjuvant radiotherapy versus chemoradiotherapy . Surgical Discussion: Surgical plan would consist of: , Bilateral Inferior Turbinate Outfracture, Right nasal endoscopy with biopsyand likely maxillary antrostomy for tissue sampling and removal. We discussed the risks, benefits, and alternatives of surgery, which include bleeding, infection, scarring, nasal septal perforation, saddle nose deformity, cranial base injury, CSF leak, orbital injury, vision loss/diplopia, need for postoperative splinting, or need for further procedures. The expected recovery period was reviewed, which will likely include postoperative debridements and splint removal. After reviewing their options, the patient would like to pursue the surgical route. We will work on getting this scheduled at their earliest convenience. The patient understands they can reach out anytime to further clarify questions or concerns. 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 Debridement was performed in the right nasal cavity today which revealed normal healing mucosa. We had an extensive discussion today on her pathology findings of inverting papilloma. I did mention this is a benign sinonasal tumor that has a 10% chance of transformation to malignancy in the future. I also mentioned that these tend to recur and that frequent surveillance is necessary for the first few years to make sure this does not grow back with serial nasal endoscopy. If it does recur, revision surgery is indicated. - Continue nasal saline washes at least twice daily - Return visit in 1 months for recheck with nasal endoscopy [email or web address] Not available 06/16/2025 13:42:05 Plan of Treatment Reminders Order Date Submit Date Provider Last Modified By Organization Details Last Modified Time Details Appointments Establish ed 15 2024 02:15P Reina Isabel, DO Not available Not available Not available Lab None recorded. Referral None recorded. Procedures None recorded. Surgeries submucous resection inferior turbinate (SURG) 2024 025 [email or web address] Not available 06/03/2025 11:45:15 endoscopy , nasal/sin us, w/ maxillary antrostom y & tissue removal (SURG) 2024 025 [email or web address] Not available 06/03/2025 11:45:15 stereotac tic computer- assisted navigatio n (SURG) 2024 [email or web address] Not available 06/03/2025 11:45:[address], sinuses, w/o contrast - to be scheduled in office with MD follow up 2024 [email or web address] Not available 05/21/2025 14:04:49 Medication Orders None recorded. Patient TargetsNo targets recorded. Patient InstructionsNo instructions recorded. Reason for Referral None Reported. Results Created Date Observation Date Name Description Value Unit Range Abnormal Flag Note LastModifiedBy Organization Detail LastModifiedTime 06/09/20 25 imagi ng/di agnos tic resul t No observ ation record ed. Not Available 2024 12:08:36 Result Notes None recorded. Problems Name Problem SNOMED Code Status Onset Date Resolution Date Notes Provider Name and Address Organization Details Recorded Time Polyp of nasal cavity and/or nasal sinus 197351620 Active 2024 MELONIE MORGAN PA-C [address] [place] [address], [place], [address], [facility] - [facility] 10:07:45 Polyp of right nasal cavity 294171959 Active 2024 MELONIE MORGAN PA-C [address] [place] [address], [place], [address], [facility] - [facility] 10:07:56 Chronic rhinitis 47705393 Active 2024 MELONIE MORGAN PA-C [address] [address], [place], [address], [facility] - [facility] 10:30:32 Nasal congestion 94714905 Active 2024 MELONIE MORGAN PA-C [address] [address], [place], [address], [facility] - [facility] 10:30:36 Deviated nasal septum 500957301 Active 2024 Daniel Isabel, [address] [address], [place], [address], [facility] - [facility] 11:10:23 Chronic sinusitis 53108761 Active 2024 Daniel Isabel, [address] [address], [place], [address], [facility] - [facility] 11:10:23 Hypertrophy of nasal turbinates 01010692 Active 2024 Daniel Isabel [address] [address], [place], [address], [facility] - [facility] 11:10:23 Problem Notes None recorded. Procedures Surgical History Date Name Laterality Status Provider Name and Address Organization Details Recorded Time 06/16/20 25 debride_sinus_ri ght_L completed Daniel Isabel [address], [address], [facility] - [facility] 06/16/2025 13:41:50 06/08/20 25 endoscopic medial maxillectomy completed Daniel Isabel [address], [address], [facility] - [facility] 06/08/2025 16:24:17 06/03/[address] sinus - X[facility]an completed Daniel Isabel [address], [address], [facility] - [facility] 06/03/2025 11:09:01 05/19/20 25 NasalEndoscopy_D P completed MELONIE MORGAN PA-C [address] [place] [address],[address], [address], [place] - [facility] 05/19/2025 10:29:41 Imaging Results None recorded. Procedure Notes None recorded. Medical Equipment None Reported. Allergies No known drug allergies Medications Name Sig Start Date Stop Date Status Note LastModified by Organization Details LastModified Time cefpodoxime 100 mg tablet TAKE 1 TABLET BY MOUTH TWICE A DAY WITH A MEAL/FOOD FOR 7 DAYS 05/18 completed Not Available Not Available Not Available prazosin 1 mg capsule TAKE 1 CAPSULE BY MOUTH EVERYDAY AT BEDTIME active Not Available Not Available No t Available prednisone 20 mg tablet TAKE 1 TABLET BY MOUTH EVERY DAY 05/19 completed Not Available Not Available Not Available amlodipine 2.5 mg tablet TAKE 1 TABLET BY MOUTH EVERY DAY FOR 14 DAYS active Not Available Not Available No t Available ciprofloxac in 500 mg tablet TAKE 1 TABLET BY MOUTH TWICE A DAY FOR 5 DAYS 05/18 completed Not Available Not Available Not Available OneTouch Ultra Test strips USE TO TEST TWICE DAILY DIRECTED active Not Available Not Available No t Available metoprolol succinate ER 25 mg tablet,exte nded release 24 hr Take 1 tablet every day by oral route. active Not Available Not Available No t Available insulin lispro (U-100) 100 unit/mL subcutaneou s pen PLEASE SEE ATTACHED FOR DETAILED DIRECTION S 05/19 completed Not Available Not Available Not Available risperidone 0.5 mg disintegrat ing tablet Place 2 tablets every day by transling ual route. active Not Available Not Available No t Available melatonin 1 mg tablet Take by oral route. active Not Available Not Available No t Available memantine 21 mg capsule sprinkle,ex tended release 24hr Take 1 capsule every day by oral route for 7 days. active Not Available Not Available No t Available Trulicity 0.75 mg/0.5 mL subcutaneou s pen injector Inject by subcutane ous route. active Not Available Not Available No t Available OneTouch Ultra2 Meter USE DIRECTED TWICE A DAY active Not Available Not Available No t Available vibegron 75 mg tablet Take 1 tablet every day by oral route. active Not Available Not Available No t Available Vitals Date Recorded Body height Body mass index (BMI) Body weight Provider Name and Address Organization Details Last Updated DateTime 05/19/2025 167.64 cm 30 kg/m2 96121.18 g Jessica Larios [facility] 05/19/2025 09:55:05 Date Recorded Body height Body weight Provider Name and Address Organization Details Last Updated DateTime 06/03/2025 167.64 cm 77041.59 g Marita Jarrett [place] - [facility] 06/03/2025 10:42:03 Date Recorded Body height Provider Name an d Address Organization Details Last Updated DateTime 06/16/2025 167.64 cm JAZMINE PACHECO RAINA - [facility] 06/16/2025 13:11:03 Social History None recorded. Functional Status Question Answer Note LastModified by Organization D etails LastModified Time What is your level of alcohol consumption? None [email or web address] Information not available 05/19/2025 Mental Status None recorded. Family History Nothing Reported. Medical History Condition Response Arthritis Y Anxiety Y Depression Y Heart Attack ([place]) Y Hypertension Y Kidney Disease Y Gynecological HistoryNo gynecological history recorded. Obstetrics History GPAL:G 0 P 0 0 0 0 Past Encounters Encounter ID Performer Location Encounter Start Date Encounter Closed Date Diagnosis/Indication Diagnosis SNOMED-CT Code Diagnosis ICD10 Code Diagnosis IMO Codes Diagnosis Note [id number] MELONIE MORGAN PA-C [facility] [address] [address] 05/19/2025 09:38:11 05/19/2025 10:21:14 Polyp of right nasal cavity 931224118 J33.0 8944271848 Chronic rhinitis 4641183 6 J31.0 2545 Nasal congestion 2346543 0 R09.81 03132 [id number] Daniel Isabel, DO [facility] [address] [address] 06/03/2025 09:53:22 06/03/2025 11:15:45 Polyp of right nasal cavity 544416176 J33.0 6009829227 Chronic rhinitis 5515319 6 J31.0 2545 Nasal congestion 3212676 0 R09.81 11578 Chronic sinusitis 781222 00 J32.8 79273 Hypertroph y of nasal turbinates 92815278 J34.3 [id number] Daniel Isabel DO [facility] [address] [place] [address] 06/16/2025 12:57:34 06/16/2025 13:39:47 Polyp of right nasal cavity 981009545 J33.0 2097434774 Chronic rhinitis 4397899 6 J31.0 2545 Nasal congestion 5697613 0 R09.81 99634 Chronic sinusitis 540635 00 J32.8 18172 Hypertroph y of nasal turbinates 99358229 J34.3 2416017 Health Concerns Section Related Observation LastModified by Organization Detai ls LastModified Time None Recorded Concern Status LastModified by Organization Details LastModified Time None Recorded Advance Directives Directive None Recorded Payers Insurance Date Sequence Insurance Name Policy Number Policy Valdovinos Covered Member ID Valdovinos Member ID Guarantor Name 06/16/2025 2 MEDICAID-ID: [facility] Sheri Travis [id number] Sheri Travis 06/16/2025 1 MEDICARE B-[place]: [employer] Sheri Travis [id number] Sheri Travis Notes Date Note Type Note Provider Name and Address Organization Details Recorded Time 05/19/2025 text/html ROS as noted in the HPI 75-year-old female presents for evaluation of nasal polyp. She had an MRI brain at [facility] back in August which showed a large polyp in the right maxillary sinus. She was referred for further evaluation. Has not trialed any nasal sprays or antihistamines. Denies history of recurrent sinusitis. Admits to snoring, rhinitis, and nasal congestion at night, but denies facial pain, epistaxis, or fevers. Reports PSG was negative for sleep apnea. History of dementia, diabetes, CAD, DVT and PE on Eliquis, and hyperlipidemia. Accompanied by daughter in law who acts as lime kiln worker helper. MELONIE MORGAN PA-C [address] [place] [address], [place], [address], [facility] - [facility] 05/19/2025 10:35:09 06/03/2025 text/html ROS as noted in the HPI Interval history: The patient's [id number] does act as a lime kiln worker helper today the did not require the use of an online one. The patient is fairly asymptomatic from the nasal mass, but the daughter has some concern with the chronic findings. That she says the patient typically does not tell them about their symptoms to try to avoid intervention. The patient does have fairly significant dementia per the patient daughter. Previous visit: Melonie [age]-year-old female presents for evaluation of nasal polyp. She had an MRI brain at [facility] back in August which showed a large polyp in the right maxillary sinus. She was referred for further evaluation. Has not trialed any nasal sprays or antihistamines. Denies history of recurrent sinusitis. Admits to snoring, rhinitis, and nasal congestion at night, but denies facial pain, epistaxis, or fevers. Reports PSG was negative for sleep apnea. History of dementia, diabetes, CAD, DVT and PE on Eliquis, and hyperlipidemia. Accompanied by daughter in law who acts as lime kiln worker helper. Daniel Isabel, DO [address], [address], [facility] - [facility] 06/03/2025 11:11:08 06/16/2025 text/html ROS as noted in the HPI Interval history: Overall has been feeling very fatigued since surgery per her [id number] no extensive bleeding. S/p right nasal biopsy, endoscopic medial maxillectomy, middle turbinectomy, and anterior ethmoidectomy for right nasal mass. 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 PV: The patient's bgwzhlap-rg-zbl does act as a lime kiln worker helper today the did not require the use of an online one. The patient is fairly asymptomatic from the nasal mass, but the daughter has some concern with the chronic findings. That she says the patient typically does not tell them about their symptoms to try to avoid intervention. The patient does have fairly significant dementia per the patient daughter. Previous visit: Melonie [age]-year-old female presents for evaluation of nasal polyp. She had an MRI brain at [facility] back in August which showed a large polyp in the right maxillary sinus. She was referred for further evaluation. Has not trialed any nasal sprays or antihistamines. Denies history of recurrent sinusitis. Admits to snoring, rhinitis, and nasal congestion at night, but denies facial pain, epistaxis, or fevers. Reports PSG was negative for sleep apnea. History of dementia, diabetes, CAD, DVT and PE on Eliquis, and hyperlipidemia. Accompanied by daughter in law who acts as lime kiln worker helper. Daniel Isabel, [address] [facility],[address] [address], [place], [address], [facility] - [facility] 06/16/2025 13:42:36 OBGyn Episode No OBEpisode recorded.
--- OUTSIDE RECORDS SUMMARY | 2025-06-18 12:03 | XMS_ITS | Continuity of Care Document ---
Author Organization [place] - [facility], [facility] Address [address] [place] [address] Care Team Providers Care Slabber Light Name Role Phone CJ MEZA Referring Provider Assessment Encounter Date Assessment Date Assessment LastModified by Organization Details LastModified Time 06/16/2025 06/16/2025 75-year-old female presents for evaluation [...] Referral None recorded. Procedures None recorded. Surgeries None recorded. Imaging None recorded. Medication Orders None recorded. Patient TargetsNo targets recorded. Patient InstructionsNo instructions recorded. Reason for Referral None Reported. Results Created Date Observation Date Name Description Value Unit Range Abnormal Flag Note LastModifiedBy Organization Detail LastModifiedTime 06/09/20 25 imagi ng/di agnos tic resul t No observ ation record ed. [email or web address] Not Available 2024 12:08:36 Result Notes None recorded. Problems Name Problem SNOMED Code Status Onset Date Resolution Date Notes Provider Name and Address Organization Details Recorded Time Polyp of nasal cavity and/or nasal sinus 324975513 Active 2024 MELONIE MORGAN PA-C [address] [facility],[place] [address], [place], [phone], [facility] - [facility] [place] 10:07:45 Polyp of right nasal cavity 431720682 Active 2024 [address] [place], [address] [facility], [place], [address], [facility] - [facility] [place] 10:07:56 Chronic rhinitis 28411584 Active 2024 MELONIE MORGAN PA-C [address] [place] [address], [address] [facility], [place], [address], [facility] - [facility] [place] 10:30:32 Nasal congestion 60097563 Active 2024 MELONIE MORGAN PA-C [address] [place] [address], [address] [facility], [place], [address], [facility] - [facility] [place] 10:30:36 Deviated nasal septum 633994330 Active 2024 Daniel Isabel DO [address] [place] [address], [place], [address], [facility] - [facility] [place] 11:10:23 Chronic sinusitis 57682004 Active 2024 Daniel Isabel [place] [address], [place], [address], [facility] - [facility] [place] 11:10:23 Hypertrophy of nasal turbinates 08792703 Active 2024 Daniel Isabel DO [address] [facility],[place] [address], [place], [address], [facility] 11:10:23 Problem Notes None recorded. Procedures Surgical History Date Name Laterality Status Provider Name and Address Organization Details Recorded Time 06/16/20 25 debride_sinus_ri ght_DHL completed Daniel Isabel, DO [address] [facility] [place],[address], [address], [facility] - [facility] 06/16/2025 13:41:50 06/08/20 25 endoscopic medial maxillectomy completed Daniel Isabel, DO [address] [facility] [address], [address], [facility] 06/08/2025 16:24:17 06/03/[address] sinus - Xoran completed Daniel Isabel, DO [address] [facility],[address], [address], [facility] 06/03/2025 11:09:01 05/19/20 25 NasalEndoscopy_D P completed MELONIE MORGAN PA-C [address] [facility],[address], [address], [facility] 05/19/2025 10:29:41 Imaging Results None recorded. Procedure [...] completed Not Available Not Available Not Available BabyageToJin-Magic Ultra Test strips USE TO TEST TWICE [...] t Available Vitals Date Recorded Body height Provider Name an d Address Organization Details Last Updated DateTime 06/16/2025 167.64 cm JAZMINE PACHECO [place] - [facility] 06/16/2025 13:11:03 Social History None recorded. Functional Status Question Answer Note LastModified by Organization D etails LastModified Time What is your level of alcohol consumption? None [email or web address] Information not available 05/19/2025 Mental Status None recorded. Family History Nothing Reported. Medical History Condition Response Anxiety Y Depression Y Heart Attack ([place]) Y Arthritis Y Hypertension Y Kidney Disease Y Gynecological HistoryNo gynecological history recorded. Obstetrics History GPAL:G 0 P 0 0 0 0 Past Encounters Encounter ID Performer Location Encounter Start Date Encounter Closed Date Diagnosis/Indication Diagnosis SNOMED-CT Code Diagnosis ICD10 Code Diagnosis IMO Codes Diagnosis Note [id number] MELONIE MORGAN PA-C [facility] of [address] [address] 05/19/2025 09:38:11 05/19/2025 10:21:14 Polyp of right nasal cavity 150387367 J33.0 [id number] Chronic rhinitis 9664989 6 J31.0 2545 Nasal congestion 8374113 0 R09.81 [id number] Daniel Isabel DO [facility] [address] [place] [address] 06/03/2025 09:53:22 06/03/2025 11:15:45 Polyp of right nasal cavity 907510404 J33.0 5900524485 Chronic rhinitis 6580648 6 J31.0 2545 Nasal congestion 0120935 0 R09.81 99804 Chronic sinusitis 917293 00 J32.8 38581 Hypertroph y of nasal turbinates 19512127 J34.3 [id number] Daniel Isabel DO [facility] [address] [place] [address] 06/16/2025 12:57:34 06/16/2025 13:39:47 Polyp of right nasal cavity 840996637 J33.0 5952301451 Chronic rhinitis 9379202 6 J31.0 2545 Nasal congestion 0776307 0 R09.81 09413 Chronic sinusitis 421706 00 J32.8 51435 Hypertroph y of nasal turbinates 28251528 J34.3 [id number] Health Concerns Section Related Observation LastModified by Organization Detai ls LastModified Time None Recorded Concern Status LastModified by Organization Details LastModified Time None Recorded Payers Encounter Date Sequence Insurance Name Policy Number Policy Valdovinos Covered Member ID Valdovinos Member ID Guarantor Name 06/16/2025 2 [place]: [facility] Sheri Travis [id number] Sheri Travis 06/16/2025 1 MEDICARE B-[place]: [facility] [employer] Sheri Travis [id number] Sheri Travis Notes Date Note Type Note Provider Name and Address Organization Details Recorded Time 06/16/2025 text/html ROS as noted in the HPI Interval history: Overall has been feeling very fatigued since surgery per her deuqanbk-xg-zpg no extensive bleeding. S/p right nasal biopsy, endoscopic medial maxillectomy, middle turbinectomy, and anterior ethmoidectomy for right nasal mass. 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 PV: The patient's vwemdkua-wq-rjk does act as a manager study today the did not require the use of an online one. The patient is fairly asymptomatic from the nasal mass, but the daughter has some concern with the chronic findings. That she says the patient typically does not tell them about their symptoms to try to avoid intervention. The patient does have fairly significant dementia per the patient daughter. Previous visit: Melonie Hollingsworth 5-year-old female presents for evaluation of nasal polyp. She had an MRI brain at [facility] back in August which showed a large [...] by daughter in law who acts as manager study. Daniel Isabel, DO [address] [facility],[address], [address], [facility] - [facility] 06/16/2025 13:42:36 OBGyn Episode No OBEpisode recorded.
--- OUTSIDE RECORDS SUMMARY | 2025-06-18 12:03 | XMS_ITS | Clinical Summary ---
Author Organization [address] [facility] Address [address] [place] [address] Phone Care Team Providers Care Educational Paraprofessional Name Role Phone Marci Hart Primary Care Provider [phone] Allergies No known active allergies Medications dulaglutide (Trulicity) 0.75 mg/0.5 mL pen injector injection Inject 0.5 mL (0.75 mg total) under the skin every 7 (seven) days. LD: 05/29/25 Active apixaban (ELIQUIS) 5 mg tablet Take 1 tablet (5 mg total) by mouth 2 (two) times a day. LD; 06/05/25 Active amLODIPine (NORVASC) 2.5 mg tablet Take by mouth 1 (one) time each day. Active risperiDONE (RisperDAL M-TABS) 0.5 mg disintegrating tablet Dissolve 1 tablet (0.5 mg total) on top of the tongue 2 (two) times a day. Active memantine (NAMENDA XR) 7 mg extended release capsule Take 1 capsule (7 mg total) by mouth 3 (three) times a day. Active sertraline (ZOLOFT) 50 mg tablet Take 1.5 mg by mouth 1 (one) time each day. Active metoprolol succinate (TOPROL-XL) 25 mg 24 hr tablet Take 1 tablet (25 mg total) by mouth 1 (one) time each day. Do not crush or chew. Active rosuvastatin (CRESTOR) 10 mg tablet Take 1 tablet (10 mg total) by mouth 1 (one) time each day. Active cholecalciferol (VITAMIN D-3) 25 mcg (1,000 unit) tablet Take 1 tablet (1,000 Units total) by mouth 1 (one) time each day. Active vibegron (Gemtesa) 75 mg tablet tablet Take 1 tablet (75 mg total) by mouth 1 (one) time each day. Active prazosin (MINIPRESS) 1 mg capsule Take 1 capsule (1 mg total) by mouth at bedtime. Active Active Problems Problem Noted Date Diagnosed Date Nasal mass 06/08/2025 Chronic maxillary sinusitis 06/08/2025 MS (myocardial infarction) ([facility] V24, [facility] V28) 06/08/2025 HTN (hypertension) 06/08/2025 CAD (coronary artery disease) 06/08/2025 Diabetes mellitus, type 2 ([facility] V24, [facility] V28) 06/08/2025 Liver disease 06/08/2025 Encounters Date Type Department Care Team Description 06/08/2025 7:31 AM EDT Anesthesia Event [facility] [place] [address] [place] [phone] Krystian Darling MD Lema Alava, Steven, SRNA 06/08/2025 7:30 AM EDT - 06/08/2025 9:30 AM EDT Surgery [facility] OR [address] [place] [phone] Daniel Isabel DO LEFT ENDOSCOPIC NASAL BIOPSY, LEFT ENDOSCOPIC MAXILLARY ANTROSTOMY [44098 (CPT )] 06/08/2025 5:55 AM EDT - 06/08/2025 11:04 AM EDT Hospital Encounter [facility] [place] [address] [place] [phone] Daniel Isabel DO Chronic maxillary sinusitis Discharge Disposition: Home or Self Care from Last 3 Months Surgical History Surgery Date Site/Laterality Comments OTHER SURGICAL HISTORY KIDNEY STONE SURGERY LITHOTRIPSY BLADDER SURGERY Medical History Medical History Date Comments Hypertension Hyperlipidemia Myocardial infarction ([facility] V24, [facility] V28) X3 Diabetes mellitus ([facility] V24, [facility] V28) Chronic kidney disease Peripheral vascular disease ([facility] V24) BLOOD CLOT Pulmonary embolism ([facility] V24, [facility] V28) Arthritis Joint pain Dementia ([facility] V24, [facility] V28) Social History Tobacco Use Types Packs/Day Years Used Date Smoking Tobacco: Former Cigarettes Smokeless Tobacco: Never Tobacco Cessation:Counseling Given: Not Answered Comments Unknown Sex and Gender Information Value Date Recorded Sex Assigned at Not on file Legal Sex Female 3:56 PM EST Gender Identity Not on file Sexual Orientation Not on file Obstetrics History Last Filed Vital Signs Vital Sign Reading Time Taken Comments Blood Pressure 150/71 06/08/2025 10:00 AM EDT Pulse 81 06/08/2025 10:00 AM EDT Temperature 36.1 C (96.9 F) 06/08/2025 10:00 AM EDT Respiratory Rate 12 06/08/2025 10:00 AM EDT Oxygen Saturation 98% 06/08/2025 10:00 AM EDT Inhaled Oxygen Concentration - - Weight 84.4 kg (186 lb) 06/04/2025 8:00 AM EDT Height 167.6 cm (5' 6 ) 06/04/2025 8:00 AM EDT Body Mass Index 30.02 06/04/2025 8:00 AM EDT Plan of Treatment Health Maintenance Due Date Last Done Comments Colorectal Cancer Screening: Colonoscopy 1950 Diabetes: Annual GFR (Glomer ular Filtration Rate) 1950 Diabetes: Annual Foot Exam 02/09/1960 Diabetes: Annual Retina Eye Exam 02/09/1960 DTaP,Tdap,and Td Vaccines (1 - Tdap) 1969 Pneumococcal Vaccine: 50+ Ye ars (1 of 2 - PCV) 1969 Zoster Vaccines (1 of 2) 02/09/2000 Cholesterol Screening (Lipid Panel) 07/07/2024 Falls Risk Assessment 07/07/2024 Hepatitis C Screening 07/07/2024 Medicare Annual Wellness Visit 07/07/2024 Osteoporosis Screening (Bone Density Screening) 07/07/2024 Social Influencers of Health Screening 07/07/2024 Depression Screening 08/19/2024 RSV Immunization Adult Patie nts (1 - 1-dose 75+ series) 2025 COVID-19 Vaccine (2023-2 5 season) 2025 Influenza Vaccine (#1) 2025 Diabetes: Annual Urine Albumin-Creatinine Ratio (uACR) 06/08/2025 Diabetes: Blood Sugar Contro l Test (HGBA1C) 06/08/2025 Hypertension/CHF/CAD Annual BMP Blood Test 06/08/2025 HIB Vaccines Aged Out No longer eligi ble based on patient's age to complete this topic HPV Vaccines Aged Out No longer eligi ble based on patient's age to complete this topic Hepatitis A Vaccines Aged Out No long er eligible based on patient's age to complete this topic Hepatitis B Vaccines Aged Out No long er eligible based on patient's age to complete this topic IPV Vaccines Aged Out No longer eligi ble based on patient's age to complete this topic MMR Vaccines Aged Out No longer eligi ble based on patient's age to complete this topic Meningococcal ACWY Vaccine Aged Out N o longer eligible based on patient's age to complete this topic Meningococcal B Vaccine Aged Out No l onger eligible based on patient's age to complete this topic RSV Immunization Patients Un ortega 20 months Aged Out No longer eligible b ased on patient's age to complete this topic Varicella Vaccines Aged Out No longer eligible based on patient's age to complete this topic Goals Goal Patient Goal Type Associated Problems Recent Progress Patient-Stated? Author Autogenerat ed Goal Care Plan Autogenerated Problem No Eh [employer] Implanted Type Area Rf Design Engineer Device Identifier Shelf Expiration Date Model / Serial / Lot Hemostat Flour Collgn 1gm Avitene - Sna - [id number] Implanted:Qty: 1 on 06/08/2025 by Daniel Isabel DO at [facility] Hemostasis Right: Nose CR BARD - DAVOL DIV 11/14/2027 [id number] / NA / [id number] Hemostat Flour Collgn 1gm Avitene - Sna - [id number] Implanted:Qty: 1 on 06/08/2025 by Daniel Isabel DO at [facility] Hemostasis Right: Nose CR BARD - [employer]OL [employer] [id number] 11/14/2027 [id number] / NA / [id number] Procedures Procedure Name Priority Date/Time Associated Diagnosis Comments TISSUE EXAM Routine 06/08/2025 8:07 AM EDT Chronic maxillary sinusitis TH AN ENDOTRACHEAL(NO CHARGE) Routine 06/08/2025 7:59 AM EDT KS NASAL/SINUS ENDO W MAXILLARY ANTROSTOMY W REM TISSUE FROM MAX SINUS 06/08/2025 7:30 AM EDT Chronic maxillary sinusitis Case Notes [employer], 0, 30, 70 DEGREE ENDOSCOPES, M5 MICRODEBRIDER W/TRICUT BLADE, SEPTO INSTRUMENTS, 1:1000 TOPICAL EPINEPHRINE W/FLUORESCEIN ON PLEDGETS, NOVAPACK, ARIZMENDI SPLINTS,GENERAL W/TUBE TO LEFT LOWER CORNER PER BOOKING SHEET.Move to 15 POCT GLUCOSE BLOOD Routine 06/08/2025 6:18 AM EDT from Last 3 Months Results * Tissue exam (06/08/2025 8:07 AM EDT) Final Diagnosis A. Sinus, Paranasal, right-antrostomy: -SINONASAL PAPILLOMA (SCHNEIDERIAN PAPILLOMA) B. Sinus, Paranasal, right antrostomy: -FRAGMENTS OF SINONASAL PAPILLOMA (SCHNEIDERIAN PAPILLOMA) 06/09/2025 3:12 PM EDT [facility] at 1512 EDT Gross Description A. Sinus, Paranasal, right nasal mass: Labeled sinus, para, right cesar . Received in formalin is a 4.2 x 3.6 x 0.3 cm aggregate of irregular hui-pink disrupted soft tissue fragments with occasional bone fragments, which is wrapped in paper and submitted in toto in four cassettes (cassette four following decalcification), multiple pieces each. B. Sinus, Paranasal, right nasal contents: Labeled sinus, para, right cesar . Received in formalin is a 10.2 x 9.3 x 0.9 cm aggregate of irregular hui-pink soft tissue fragments and abundant clotted blood of which technical sales representative sections are submitted in one cassette, multiple pieces. RAJIV 06/09/2025 3:12 PM EDT [facility] Disclaimer Unless otherwise specified, all tissue is 10% NB formalin fixed and paraffin embedded. 06/09/2025 3:12 PM EDT [facility] Tissue Nasal sinus structure / Unknown 06/08/2025 8:07 AM EDT 06/08/2025 9:37 AM EDT Tissue specimen (specimen) Nasal sinus structure / Unknown 06/08/2025 8:25 AM EDT 06/08/2025 9:37 AM EDT Daniel Isabel DO LAB PATHOLOGY ORDERABLES Final Result [facility] [address] [place] [address], [place] [phone] * TH AN ENDOTRACHEAL(NO CHARGE) (06/08/2025 7:59 AM EDT) Narrative Cresencio Carbajal SRNA - 06/08/2025 7:59 AM EDT MIKE Day 06/08/2025 7:59 AM General Information and Staff Patient location during procedure: OR Other anesthesia staff: MIKE Day Performed: resident/CAD TECHNICIAN/CAA Performed by: MIKE Day Authorized by: Krystian Darling MD Intubation Airway not difficult Reason: elective Final Airway Details Successful airway: ETT Cuffed: yes Successful intubation technique: direct laryngoscopy Adjuncts used in placement: cricoid pressure Blade: Austyn Blade size: #3 ETT size (mm): 7.0 Cormack-Lehane Classification: grade I - full view of glottis Placement verified by: chest auscultation and capnometry Cuff volume (mL): 8 Measured from: lips ETT to lips (cm): 23 Final airway type: endotracheal airway Indications and Patient Condition Indications for airway management: anesthesia Preoxygenated: yesSoft Tissue Damage: No Dentition Unchanged: No Patient position: neutral Mask difficulty assessment: 2 - vent by mask + OA or adjuvant +/- NMBA Krystian Darling MD ANESTHESIA ORDERABLES Final Re sult * (ABNORMAL) POCT Glucose, blood (06/08/2025 6:18 AM EDT) Glucose POCT 114(H) 70 - 100 mg/dL 06/08/2025 6:19 AM EDT [facility] Blood Capillary blood specimen / Unknown 06/08/2025 6:18 AM EDT 06/08/2025 6:20 AM EDT us Daniel Isabel DO LAB POINT OF CARE TE ST DOCKED DEVICE UNSOLICITED RESULTS Final Result [facility] [address] [place] [address], [place] [phone] from Last 3 Months Additional Health Concerns Active Problems Noted Date Diagnosed Date Autogenerated Problem 06/09/2025 [place] [address] MEDICA[place] Advance Directives Documents on File Type Date Recorded Patient Endodontist Expl anation Power of Detailer Furniture 06/08/2025 5:54 AM hcp Care Teams Educational Paraprofessional Relationship Specialty Start Date End Date Marci Hart PA [address] [place] [phone] PCP - General 06/03/25
== END 2025-06-18 11:33 | disposition home or self-care (01) ==
LOC: HO.HMCH 10:38
PROVIDERS: PCP Internal Medicine
DX: E11.9 Type 2 diabetes mellitus without complications (principal); Z79.4 Long term (current) use of insulin; I25.10 Atherosclerotic heart disease of native coronary artery without angina pectoris; I10 Essential (primary) hypertension; E78.00 Pure hypercholesterolemia, unspecified; F51.4 Sleep terrors [night terrors]; F03.90 Unspecified dementia, unspecified severity, without behavioral disturbance, psychotic disturbance, mood disturbance, and anxiety; B37.0 Candidal stomatitis; M25.512 Pain in left shoulder; Z13.9 Encounter for screening, unspecified

== ENCOUNTER → 2025-06-18 10:37 | Outpatient (BNVA) | payer MEDICARE, MEDICAID, SELFPAY | PROVIDERS: PCP Internal Medicine | DX: E11.9 Type 2 diabetes mellitus without complications (principal); I25.10 Atherosclerotic heart disease of native coronary artery without angina pectoris; I10 Essential (primary) hypertension; E78.00 Pure hypercholesterolemia, unspecified; F51.4 Sleep terrors [night terrors]; F03.90 Unspecified dementia, unspecified severity, without behavioral disturbance, psychotic disturbance, mood disturbance, and anxiety; B37.0 Candidal stomatitis; M25.512 Pain in left shoulder; Z79.4 Long term (current) use of insulin | CPT/HCPCS: 83036; 99212 ==

== ENCOUNTER 2025-06-19 09:58 | Outpatient (REF) | payer MEDICARE, MEDICAID, SELFPAY ==
--- OUTSIDE RECORDS SUMMARY | 2025-06-19 10:01 | XMS_ITS | Clinical Summary ---
Author Organization [address] [facility] Address [address] [place] [address] Phone Care Team Providers Care Front Line Leader Name Role Phone Marci Hart Primary Care Provider [phone] Allergies No known active allergies Medications dulaglutide [...] Nasal mass 06/08/2025 Chronic maxillary sinusitis 06/08/2025 CO (myocardial infarction) ([facility] V24, [facility] V28) 06/08/2025 HTN (hypertension) 06/08/2025 CAD (coronary artery disease) 06/08/2025 Diabetes mellitus, type 2 ([facility] V24, [facility] V28) 06/08/2025 Liver disease 06/08/2025 Encounters Date Type Department Care Team Description 06/08/2025 7:31 AM EDT Anesthesia Event [facility] OR [address] [place] [phone] Krystian Darling MD Lema Alava, Steven, SRNA 06/08/2025 7:30 AM EDT - 06/08/2025 9:30 AM EDT Surgery [facility] OR [address] [place] [phone] Daniel Isabel DO LEFT ENDOSCOPIC NASAL BIOPSY, LEFT ENDOSCOPIC MAXILLARY ANTROSTOMY [12450 (CPT )] 06/08/2025 5:55 AM EDT - 06/08/2025 11:04 AM EDT Hospital Encounter [facility] OR [address] [place] [phone] Daniel Isabel DO Chronic maxillary sinusitis Discharge Disposition: Home or Self Care from Last 3 Months Surgical History Surgery Date Site/Laterality Comments OTHER SURGICAL HISTORY KIDNEY STONE SURGERY LITHOTRIPSY BLADDER SURGERY Medical History Medical History Date Comments Hypertension Hyperlipidemia Myocardial infarction ([facility] V24, [facility] V28) X3 Diabetes mellitus ([facility] V24, [facility] V28) Chronic kidney disease Peripheral vascular disease ([facility] V24) BLOOD CLOT Pulmonary embolism ([facility] V24, [facility] V28) Arthritis Joint pain Dementia ([facility] V24, [facility] V28) Social History Tobacco Use Types [...] [employer] Implanted Type Area Rotor Coil Taper Device Identifier Shelf Expiration Date Model / Serial / Lot Hemostat Flour Collgn 1gm Avitene - Sna - [id number] Implanted:Qty: 1 on 06/08/2025 by Daniel Isabel DO at [facility] Hemostasis Right: Nose CR BARD - DAVOL DIV 11/14/2027 [id number] / NA / [id number] Hemostat Flour Collgn 1gm Avitene - Sna - [id number] Implanted:Qty: 1 on 06/08/2025 by Daniel Isabel DO at [facility] Hemostasis Right: Nose CR BARD - DAVOL DIV [id number] 11/14/2027 [id number] / NA / [id number] Procedures Procedure Name Priority Date/Time Associated Diagnosis Comments TISSUE EXAM Routine 06/08/2025 8:07 AM EDT Chronic maxillary sinusitis TH AN ENDOTRACHEAL(NO CHARGE) Routine 06/08/2025 7:59 AM EDT UT NASAL/SINUS ENDO W MAXILLARY ANTROSTOMY W REM [...] PAPILLOMA (SCHNEIDERIAN PAPILLOMA) 06/09/2025 3:12 PM EDT [facility] at 1512 EDT Gross Description A. [...] fragments and abundant clotted blood of which direct customer service representative sections are submitted in one cassette, multiple pieces. RAJIV 06/09/2025 3:12 PM EDT [facility] Disclaimer Unless otherwise specified, all tissue is 10% NB formalin fixed and paraffin embedded. 06/09/2025 3:12 PM EDT [facility] Tissue Nasal sinus structure / Unknown 06/08/2025 8:07 AM EDT 06/08/2025 9:37 AM EDT Tissue specimen (specimen) Nasal sinus structure / Unknown 06/08/2025 8:25 AM EDT 06/08/2025 9:37 AM EDT Daniel Isabel DO LAB PATHOLOGY ORDERABLES Final Result [facility]) [facility] [address] [place] [address], [place] [phone] * TH AN ENDOTRACHEAL(NO CHARGE) (06/08/2025 7:59 AM EDT) Narrative Cresencio Carbajal SRNA - 06/08/2025 7:59 AM EDT MIKE Day 06/08/2025 7:59 AM General Information and Staff Patient location during procedure: OR Other anesthesia staff: MIKE Day Performed: resident/[employer] MAINTENANCE WORKER/CAA Performed by: MIKE Day Authorized by: Krystian [...] - 100 mg/dL 06/08/2025 6:19 AM EDT [facility] Blood Capillary blood specimen / Unknown 06/08/2025 6:18 AM EDT 06/08/2025 6:20 AM EDT us Daniel Isabel DO LAB POINT OF CARE TE ST DOCKED DEVICE UNSOLICITED RESULTS Final Result [facility]) [facility] [address] [place] [address], [place] [phone] from Last 3 Months Additional Health Concerns Active Problems Noted Date Diagnosed Date Autogenerated Problem 06/09/2025 [place] [address] MEDICA[place] - [place] MEDICARE Advance Directives Documents on File Type Date Recorded Patient Chief Business Development Officer Expl anation Power of [place]ra [place]ta Setter 06/08/2025 5:54 AM hcp Care Teams Front Line Leader Relationship Specialty Start Date End Date Marci Hart PA [address] [place] [id number] PCP - General 06/03/25
[2025-06-19 10:12] LABS: MANUAL DIFF FLAG NO
[2025-06-19 10:44] LABS: Hematocrit 27.5 % (37.0-47.0); Hemoglobin 8.5 g/dl (12.0-16.0); Imm Gran Abs Auto 0.03 X10*3/uL (0.00-0.03); Imm Gran Pct Auto 0.5 % (0.0-0.4); Lymphocytes Absolute Auto 0.9 X10*3/uL (1.2-4.9); Mean Corpuscular HGB Conc 30.9 g/dl (31.0-35.0); Mean Corpuscular Hemoglobin 25.8 pg (27.0-33.0); Mean Corpuscular Volume 83.3 fL (80.0-98.0); NRBC Abs Auto 0.000 X10*3/uL (0.0-0.012); NRBC Pct Auto 0.0 /100WBC (0.0-0.2); Platelet Count 265 X10*3/uL (160-400); Red Blood Count 3.30 X10*6/uL (4.20-5.50); White Blood Count 6.0 X10*3/uL (4.8-10.8)
[2025-06-19 11:23] LABS: Alanine Aminotransferase 23 U/L (0-31); Albumin Level 4.1 g/dL (3.5-5.0); Alkaline Phosphatase 100 U/L (39-117); Anion Gap 14 (12-20); Aspartate Amino Transferase 17 U/L (5-31); Blood Urea Nitrogen 17 mg/dL (9-16); Calcium 9.5 mg/dL (8.4-10.2); Carbon Dioxide 25 mmol/L (22-29); Chloride 105 mmol/L (96-108); Cholesterol 135 mg/dL (<200); Estimated Glomerular Filt Rate 29; HDL Cholesterol 50 mg/dL (>40); Potassium 4.2 mmol/L (3.3-5.1); Sodium 140 mmol/L (135-145); Total Protein 7.6 g/dL (6.5-8.0); Triglycerides 52 mg/dL (<150)
== END 2025-06-19 09:59 | disposition home or self-care (01) ==
LOC: HO.LAB 09:58
DX: E11.9 Type 2 diabetes mellitus without complications (principal); E78.00 Pure hypercholesterolemia, unspecified; Z79.4 Long term (current) use of insulin; Z13.0 Encounter for screening for diseases of the blood and blood-forming organs and certain disorders involving the immune mechanism; Z13.29 Encounter for screening for other suspected endocrine disorder
CPT/HCPCS: 36415; 80053; 80061; 84443; 85025

== ENCOUNTER 2025-06-25 10:49 | Outpatient (AMB) | payer MEDICARE, MEDICAID, SELFPAY ==
--- NOTE | 2025-06-25 11:16 | MHC.OFFVIS ---
Vital Signs 06/25/25 11:17 Height 5 ft 6 in Weight 179 lb 4 oz BMI 28.9 BP 126/72 Blood Pressure Location Lt brachial Position Sitting Pulse 73 Pulse Source Pulse Oximeter Pulse Oximetry (%) 99 Oxygen Delivery Method Room Air Intake Visit Reasons: 3 mo follow up-Conf w/Daughter in law Intake Note: Patient presents follow up Dementia medication. Behavior getting worse. more depressed. takes napes after day program(family tried to wake her up around 3pm) and doesn't want to get up and then throws off the rest of the night. Hallucinations are getting worse. Gets combative with VNA(staying she is fine and can do things on her own(which is not true)) Customer Marketing Intern Required: Yes Customer Marketing Intern Services: Customer Marketing Intern Offered & Declined Customer Marketing Intern Name: Daughter in-law Information Interpreted: non-clinical & clinical Accompanied by: Daughter Allergies No Known Allergies Allergy (Verified 06/25/25 11:21) HPI Comments Details: 75y/o Right handed female comes for evaluation of cognitive decline. Her DIL Felecia helps with history taking. [facility] [phone] WNE- ENT surgical removal of 4.8cm nasal polyp in r. ethmoid sinus, breathing has improved. Since moving from [place] in Aug 2024, she lives with her son. She was in a psychiatric unit in [place], her mood was managed with Sertraline and Risperidone due to psychosis. She is acclimated to living with the family now, and goes to a day care program 8am to 2pm daily. She enjoys the activities, exercises, plays bingo, dances and does arts and crafts. She eats breakfast and lunch there with her friends. She is a good sleeper, but has incontinence thus wakes up 2-3x for the bathroom. T2DM is well controlled now. She needs help with all her ADLs, bathing, dressing, eating and shopping. The mood worsens in the evenings, she has anxiety, confusion, she hides things and paces back and forth. She prays and feels comforted. She no longer wants to do chores now says it is not her house. She has A/H now 1x week since starting Prazosin, she still hears people calling her name, she screams and yells, though they are not aggressive to her. She doesn't watch tv, due to the noises. She does not like to socialize, or visit friends and family. She gets aggressive, Felecia diffuses the situation, and de-escalates conflict. [facility] Medical History History of [place] (myocardial infarction) Hx of blood clots Leg edema Dementia TIA (transient ischemic attack) HTN (hypertension) Surgical History Hx of cystoscopy Hx of cardiac catheterization Hx of hysterectomy Family History Mother Dementia Other Mental health disorder Social History Household Members: Family and Children Household Members Other:: lives with son and daughter in law Housing: House Are you a primary urgent care technician to a significant other at home: No Do you presently have visiting nurse or other home services: No Alcohol intake: never Comment: within the last year prior to moving in with family Patient Tobacco Use Status: Former Tobacco user Tobacco use type: Cigarette Years Smoked: quit smoking e-Cigarette/Vaping Use: Never Used Second Hand Smoke Exposure: No service: No Current occupational status: disabled Current occupation: right hand dominant Gender identity: Female Cognitive needs: Yes Hearing needs: No Vision needs: Yes Review of Systems Neuro Reports confusion Psych Reports confusion Physical Exam Vital Signs: Last Vital Signs Pulse 73 06/25/25 11:17 BP 126/72 06/25/25 11:17 Pulse Ox 99 06/25/25 11:17 Oxygen Delivery Method Room Air 06/25/25 11:17 BMI result Body Mass Index 28.9 Const General: cooperative, comfortable and confusion Nutritional Appearance: average body habitus Orientation/consciousness: confusion Limitations: language barrier HEENT Face and sinus: Yes face symmetric Teeth and gingiva: other ([place] score of 3) Neck Neck: Yes full ROM and Yes no meningeal signs Resp Effort & Inspection: normal respiratory effort and able to speak in complete sentences Neuro Other: Disoriented, AH /with oral and facial / tongue tremors, slow to respond may be the language barrier. Gait is stable, ambulates without cane, good stride. cataracts bilaterally. General: gait normal, tone normal, moves all extremities, no meningeal signs and confusion Cranial nerves: Yes Facial sensation intact/muscles of mastication intact, Yes Bilaterally intact EOM present, Yes Nystagmus not present, Yes Normal facial strength present, Yes Midline tongue present, Yes Ability to bilaterally rotate head present and Yes Ability to bilaterally elevate shoulders present Cognition (Neuro): abnormal cognition Gait exam (Neuro): Normal gait present Motor exam (neuro): Abnormal motor strength present and Abnormal muscle tone present Coordination: jzvelw-gy-gkwg test normal Psych Appearance: well kempt Mental Status: other Attitude: cooperative and Other attitude/behavior findings present (Psych) (she smiles and says thank you often.) Thought content: Hallucination(s) present Insight: Limited insight present (Psych) Judgement: Limited judgement present (Psych) Results Reviewed Results Reviewed: HST 02/2025 AHI is 0.2 oxygen desaturation to 82%, no evidence of belkis. W. NE ENT referral for obstruction of airway and difficulty breathing, ctscan showed 4.8cm ethmoid cyst in fiorella flannery. 2024 resected, and pt continues to improve. Assessment & Plan Assessment & Plan (1) Dementia: Comment: with psyhcosis , REM behavior disorder, LBD? and Alzheimers? Code(s): F03.90 - Unspecified dementia, unspecified severity, without behavioral disturbance, psychotic disturbance, mood disturbance, and anxiety Category: Medical Qualifiers: Dementia behavioral or psychological symptom: unspecified whether behavioral, psychotic, or mood disturbance or anxiety Dementia severity: unspecified severity Dementia type: unspecified type Qualified Code(s): F03.90 - Unspecified dementia, unspecified severity, without behavioral disturbance, psychotic disturbance, mood disturbance, and anxiety (2) Confusion and disorientation: Code(s): R41.0 - Disorientation, unspecified Category: Medical (3) Aggressive behavior due to dementia: Comment: Risperidone and Sertraline Code(s): F03.918 - Unspecified dementia, unspecified severity, with other behavioral disturbance Category: Medical (4) Screaming: Code(s): R45.89 - Other symptoms and signs involving emotional state Category: Medical (5) Insomnia: Code(s): G47.00 - Insomnia, unspecified Category: Medical Qualifiers: Insomnia type: unspecified Qualified Code(s): G47.00 - Insomnia, unspecified (6) Anxiety: Code(s): F41.9 - Anxiety disorder, unspecified Category: Medical (7) Auditory hallucinations: Code(s): R44.0 - Auditory hallucinations Category: Medical (8) Anemia: Code(s): D64.9 - Anemia, unspecified Category: Medical Qualifiers: Anemia type: iron deficiency Iron deficiency anemia type: other iron deficiency Qualified Code(s): D50.8 - Other iron deficiency anemias (9) Alzheimer's dementia with behavioral disturbance: Code(s): G30.9 - Alzheimer's disease, unspecified; F02.818 - Dementia in other diseases classified elsewhere, unspecified severity, with other behavioral disturbance Category: Medical Plan Sleep disturbances PTSD/ screaming may continue with Prazosin, 1mg po, trazadone, 50mg PO for sleep. OAB - overactive bladder Sleep disturbances with nocturia/ incontinence continue Vibegron 75mg, use underpads/ diapers prn. Cognitive Decline may add Cerefolin, if pt and dil agree Reviewed MRI of brain with patient today, Temporal and Parietal Atrophy most likely alzheimer / or fronto-temporal dementia. We discussed starting Lequmebi and or kisunla if family is comfortable with this therapy. I will increase her Memantine XR to 28 PO daily at bedtime to 21 mg po daily. Pt declines cerefolin. AH/Aggressive behavior and irritable mood continue continue Risperidone 0.5mg PO BID, and sertraline 100mg po bid Continue to stay socially active and engaged at daycare program, eat more foods with omega 3 and increase water intake. Reviewed Labs, anemia we discussed dietary and supplemental options to increase iron, -B12 and Vit D. Will repeat labs. ENT CTscan / polyp resected 4.5cm ethmoid cyst from fiorella flannery, breathing has improved, though had increased loss of blood. MMSE / -Lequembi and Kisunla - next appt. 3 month f/u Orders: Orders Vitamin D 25-OH Total 06/25/25 F41.9 - Anxiety disorder, unspecified, R44.1 - Visual hallucinations, R45.89 - Other symptoms and signs involving emotional state Vitamin B12 and Folate 06/25/25 F41.9 - Anxiety disorder, unspecified, R44.1 - Visual hallucinations, R45.89 - Other symptoms and signs involving emotional state Homocysteine 06/25/25 F41.9 - Anxiety disorder, unspecified, G47.9 - Sleep disorder, unspecified, R44.1 - Visual hallucinations, R45.89 - Other symptoms and signs involving emotional state, R53.83 - Other fatigue Ferritin 06/25/25 F41.9 - Anxiety disorder, unspecified, R44.1 - Visual hallucinations, R45.89 - Other symptoms and signs involving emotional state Methylmalonic Acid 06/25/25 F41.9 - Anxiety disorder, unspecified, G47.9 - Sleep disorder, unspecified, R44.1 - Visual hallucinations, R45.89 - Other symptoms and signs involving emotional state, R53.83 - Other fatigue Medications: New tasvegolrr-dzbjbsn-P-mefolate 600-2-6 mg ([facility] Brain Aptara) 1 tab PO BEDTIME 90 tabs 0RF alzheimers dementia 3 months MDD 1tablet F02.818 - Dementia in other diseases classified elsewhere, unspecified severity, with other behavioral disturbance, G30.9 - Alzheimer's disease, unspecified ferrous sulfate 325 mg PO DAILY 90 tabs 3RF anemia 3 months MDD 1 tablet D64.9 - Anemia, unspecified Changed From memantine take(3)-7mg capsules by mouth daily at bedtime. 21 mg (3 x 7 mg) PO DAILY 1 month 90 ea 3RF dementia MDD 21mg F03.90 - Unspecified dementia, unspecified severity, without behavioral disturbance, psychotic disturbance, mood disturbance, and anxiety To memantine take one tablet daily at bedtime. 28 mg PO DAILY 30 ea 3RF dementia 1 month MDD 28 F03.90 - Unspecified dementia, unspecified severity, without behavioral disturbance, psychotic disturbance, mood disturbance, and anxiety From prazosin 1 mg PO BEDTIME 90 caps 1RF To prazosin 1 mg PO Q12H 90 caps 1RF 3 months Patient Instructions: Please complete the following fasting labs to rule out deficiencies. CBC/CMP/ B12/ Vit D/ TSH/ Homocysteine and MMA/ Ferritin. Sleep Hygiene provided: set a scheduled bedtime and wake time to help regulate the circadian rhythm and balance the release of pituitary hormones. Sleep in a dark room, temperatures below 68 degrees, and no devices n bed. Limit caffeinated products 6 hours prior to bed, and limit fluids 2-4 hours prior to bed. Gentle night yoga, diffusing essential oils, and playing soft music can be relaxing. Pt is interested in leqembi/ Kisunla therapy if qualifies, she has mild to moderate dementia with alzheimers though, MMSE will be conducted at next visit due to language barrier and education. Cerefolin is also added as a supplemental option for MCI.- note this is an out of pocket expense medication/ supplement for a 3 month trial [facility] out of [place] will contact you for payment if you wish to start on this trial. stop b12 once started on cerefolin. Coding Level of Care Code New Pt Level 4 (11091) Complex EM visit Add On G2211 Diagnoses Dementia, unspecified dementia severity, unspecified dementia type, unspecified whether behavioral, psychotic, or mood disturbance or anxiety F03.90 Dementia behavioral or psychological symptom: unspecified whether behavioral, psychotic, or mood disturbance or anxiety Dementia severity: unspecified severity Dementia type: unspecified type Confusion and disorientation R41.0 Aggressive behavior due to dementia F03.918 Screaming R45.89 Insomnia, unspecified type G47.00 Insomnia type: unspecified Anxiety F41.9 Auditory hallucinations R44.0 Other iron deficiency anemia D50.8 Anemia type: iron deficiency Iron deficiency anemia type: other iron deficiency Alzheimer's dementia with behavioral disturbance G30.9; F02.818
[2025-06-25 11:17] VITALS: BP 126/72; PULSE 73; O2SAT 99; BMI 28.9
--- OUTSIDE RECORDS SUMMARY | 2025-06-25 12:51 | XMS_ITS | Continuity of Care Document ---
Author Organization [place] - [facility], [facility] Address [address] [place] [address] Care Team Providers Care Department Specialist Name Role Phone CJ MEZA Referring Provider [phone] Assessment Encounter Date Assessment Date Assessment LastModified [...] resul t No observ ation record ed. [email or web address] Not Available 2024 12:08:36 Result Notes None recorded. Problems Name Problem SNOMED Code Status Onset Date Resolution Date Notes Provider Name and Address Organization Details Recorded Time Polyp of nasal cavity and/or nasal sinus 376878931 Active 2024 MELONIE MORGAN PA-C [address] [facility],[place] [address], [place], [address], [facility] - [facility] [place] 10:07:45 Polyp of right nasal cavity 495230715 Active [address], E [facility], [place], [address], [facility] - [facility] [place] 10:07:56 Chronic rhinitis 15747442 Active 2024 MELONIE MORGAN PA-C [address] [place] [address], E [facility], [place], [address], [facility] - [facility] [place] 10:30:32 Nasal congestion 07450956 Active 2024 MELONIE MORGAN PA-C [address] [place] [address], E [facility], [place], [address], [facility] - [facility] [place] 10:30:36 Deviated nasal septum 793600931 Active 2024 Daniel Isabel DO [address] [place] [address], [place] [place], [address], [facility] - [facility] [place] 11:10:23 Chronic sinusitis 10289239 Active 2024 Daniel Isabel [place] [address], [place] [place], [address], [facility] - [facility] [place] 11:10:23 Hypertrophy of nasal turbinates 62283699 Active 2024 Daniel Isabel DO [address] [facility],[place] [address], [place], [address], [facility] 11:10:23 Problem Notes None recorded. Procedures Surgical History Date Name Laterality Status Provider Name and Address Organization Details Recorded Time 06/16/20 25 debride_sinus_ri ght_DHL completed Daniel Isabel, DO [address] [facility],[address], [address], [facility] - [facility] 06/16/2025 13:41:50 06/08/20 25 endoscopic medial maxillectomy completed Daniel Isabel, DO [address] [facility],[place] [address], [place], [address], [facility] 06/08/2025 16:24:17 06/03/[address] sinus - Xoran completed Daniel Isabel, DO [address] [facility],[address], [address], [facility] 06/03/2025 11:09:01 05/19/20 25 NasalEndoscopy_D P completed MELONIE MORGAN PA-C [address] [facility],[address], [address], [facility] 05/19/2025 10:29:41 Imaging Results None recorded. Procedure [...] completed Not Available Not Available Not Available [employer] OPS Ultra Test strips USE TO TEST TWICE [...] Updated DateTime 06/16/2025 167.64 cm JAZMINE PACHECO [place] [facility] 06/16/2025 13:11:03 Social History None recorded. Functional Status Question Answer Note LastModified by Organization D etails LastModified Time What is your level of alcohol consumption? None [email or web address] Information not available 05/19/2025 Mental Status None recorded. Family History Nothing Reported. Medical History Condition Response Heart Attack ([place]) Y Arthritis Y Anxiety Y Hypertension Y Depression Y Kidney Disease Y Gynecological HistoryNo gynecological history recorded. Obstetrics History GPAL:G 0 P 0 0 0 0 Past Encounters Encounter ID Performer Location Encounter Start Date Encounter Closed Date Diagnosis/Indication Diagnosis SNOMED-CT Code Diagnosis ICD10 Code Diagnosis IMO Codes Diagnosis Note [id number] MELONIE MORGAN PA-C [facility] of [address] [address] 05/19/2025 09:38:11 05/19/2025 10:21:14 Polyp of right nasal cavity 691934514 J33.0 5045351322 Chronic rhinitis 9414689 6 J31.0 2545 Nasal congestion 2806887 0 R09.81 [id number] Daniel Isabel DO [facility] of [facility] [address] [place] [address] 06/03/2025 09:53:22 06/03/2025 11:15:45 Polyp of right nasal cavity 349326229 J33.0 6967241305 Chronic rhinitis 9189833 6 J31.0 2545 Nasal congestion 5219825 0 R09.81 39676 Chronic sinusitis 076444 00 J32.8 65248 Hypertroph y of nasal turbinates 58985886 J34.3 4421987 [id number] Daniel Isabel DO [facility] [address] [place] [address] 06/16/2025 12:57:34 06/16/2025 13:39:47 Polyp of right nasal cavity 082274768 J33.0 0608573993 Chronic rhinitis 2072547 6 J31.0 2545 Nasal congestion 2008595 0 R09.81 50183 Chronic sinusitis 248797 00 J32.8 41126 Hypertroph y of nasal turbinates 67100891 J34.3 8155924 Health Concerns Section Related Observation LastModified by Organization Detai ls LastModified Time None Recorded Concern Status LastModified by Organization Details LastModified Time None Recorded Payers Encounter Date Sequence Insurance Name Policy Number Policy Valdovinos Covered Member ID Valdovinos Member ID Guarantor Name 06/16/2025 2 [place] [facility] Sheri Travis [id number] Sheri Travis 06/16/2025 1 MEDICARE B-[place]: [facility] [employer] Sheri Travis [id number] Sheri Travis Notes Date Note Type Note Provider Name and Address Organization Details Recorded Time 06/16/2025 text/html ROS as noted in the HPI Interval history: Overall has been feeling very fatigued since surgery per her csnygmfn-zv-mom no extensive bleeding. S/p right nasal biopsy, endoscopic medial maxillectomy, middle turbinectomy, and anterior ethmoidectomy for right nasal mass. 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 PV: The patient's liejrgwj-te-ann does act as a vamp maker today the did not require the use [...] polyp. She had an MRI brain at [facility] back in August which showed a [...] by daughter in law who acts as vamp maker. Daniel Isabel, DO 100 [facility],[address], [address], [facility] - [facility] 06/16/2025 13:42:36 OBGyn Episode No OBEpisode recorded.
--- OUTSIDE RECORDS SUMMARY | 2025-06-25 12:51 | XMS_ITS | Continuity of Care Document ---
Author Organization [place] - [facility], [facility] Address [address] [place] [address] Care Team Providers Care Bobbin Stripper Name Role Phone CJ MEZA Referring Provider Assessment Encounter Date Assessment Date Assessment LastModified by Organization Details LastModified Time 05/19/2025 05/19/2025 75-year-old female presents for evaluation of nasal polyp. MRI brain without contrast 08/24/2024 at [facility] demonstrated 4.8 cm soft tissue mass in the right maxillary sinus extending into the nasal vault and right ethmoid sinuses. Images were not available for review. Nasal endoscopy demonstrated right middle meatal polyp. No purulence. Recommended CT sinus for further evaluation. We will arrange follow-up with a surgeon to review imaging and to discuss surgical intervention. Patient and her bnnngzpu-tv-iko agree with the plan and all questions were answered. [email or web address] Not available 05/19/2025 10:34:31 Plan of Treatment Reminders Order Date Submit Date Provider Last Modified By Organization Details Last Modified Time Details Appointments Establish ed 15 2024 02:15P Reina Isabel, DO Not available Not available Not available Lab None recorded. Referral None recorded. Procedures None recorded. Surgeries None recorded. Imaging CT, sinuses, w/o contrast - to be scheduled in office with MD follow up 2024 025 [email or web address] Not available 05/21/2025 14:04:49 Medication Orders None recorded. Patient TargetsNo targets recorded. Patient InstructionsNo instructions recorded. Reason for Referral None Reported. Results Created Date Observation Date Name Description Value Unit Range Abnormal Flag Note LastModifiedBy Organization Detail LastModifiedTime 06/09/20 25 imagi ng/di agnos tic resul t No observ ation record ed. [email or web address] Not Available 2024 12:08:36 Result Notes None recorded. Problems Name Problem SNOMED Code Status Onset Date Resolution Date Notes Provider Name and Address Organization Details Recorded Time Polyp of nasal cavity and/or nasal sinus 734544125 Active 2024 MELONIE MORGAN PA-C 100 [facility],[place] [address], [place], [address], [facility] - [facility] [place] 10:07:45 Polyp of right nasal cavity 700719197 Active 2024 MELONIE MORGAN PA-C [address] [place] [address], E [facility], [place], [address], [facility] - [facility] 10:07:56 Chronic rhinitis 65685566 Active 2024 MELONIE MORGAN PA-C [address] [place] [address], E [facility], [place], [address], [facility] - [facility] [place] 10:30:32 Nasal congestion 73090494 Active 2024 MELONIE MORGAN PA-C [address] [place] [address], E [facility], [place], [address], [facility] - [facility] 10:30:36 Deviated nasal septum 408107745 Active 2024 Daniel Isabel DO [address] [place] [address], E [facility], [place], [address], [facility] - [facility] 11:10:23 Chronic sinusitis 89548529 Active 2024 Daniel Isabel DO [address] [place] [address], E [facility], [place], [address], [facility] - [facility] [place] 11:10:23 Hypertrophy of nasal turbinates 82867995 Active 2024 Daniel Isabel DO 100 [facility], [facility], [place], [address], [facility] - [facility] 11:10:23 Problem Notes None recorded. Procedures Surgical History Date Name Laterality Status Provider Name and Address Organization Details Recorded Time 06/16/20 debride_sinus_ri ght_DHL completed Daniel Isabel, DO 100 [facility],[address], [address], [facility] 06/16/2025 13:41:50 06/08/20 25 endoscopic medial maxillectomy completed Daniel Isabel, 100 [facility],[address], [address], [facility] 06/08/2025 16:24:17 06/03/20 CT sinus - Xoran completed Daniel Isabel, 100 [facility],[address], [address], [facility] 06/03/2025 11:09:01 05/19/20 NasalEndoscopy_D P completed MELONIE MORGAN PA-C [address] [facility],[address], [address], [facility] 05/19/2025 10:29:41 Imaging Results None recorded. Procedure [...] completed Not Available Not Available Not Available Work [employer] Ultra Test strips USE TO TEST TWICE [...] Updated DateTime 05/19/2025 167.64 cm 30 kg/m2 67477.18 g Jessica Larios [facility] 05/19/2025 09:55:05 Social History None recorded. Functional Status Question Answer Note LastModified by Organization D etails LastModified Time What is your level of alcohol consumption? None [email or web address] Information not available 05/19/2025 Mental Status None recorded. Family History Nothing Reported. Medical History Condition Response Heart Attack ([place]) Y Arthritis Y Hypertension Y Anxiety Y Depression Y Kidney Disease Y Gynecological HistoryNo gynecological history recorded. Obstetrics History GPAL:G 0 P 0 0 0 0 Past Encounters Encounter ID Performer Location Encounter Start Date Encounter Closed Date Diagnosis/Indication Diagnosis SNOMED-CT Code Diagnosis ICD10 Code Diagnosis IMO Codes Diagnosis Note [id number] MELONIE MORGAN PA-C [facility] [place] [address] [place] [address] 05/19/2025 09:38:11 05/19/2025 10:21:14 Polyp of right nasal cavity 491906023 J33.0 6867472402 Chronic rhinitis 8829499 6 J31.0 2545 Nasal congestion 4290382 0 R09.81 95826 Health Concerns Section Related Observation LastModified by Organization Detai ls LastModified Time None Recorded Concern Status LastModified by Organization Details LastModified Time None Recorded Payers Encounter Date Sequence Insurance Name Policy Number Policy Valdovinos Covered Member ID Valdovinso Member ID Guarantor Name 05/19/2025 2 [place] [facility] Sheri Travis [id number] Sheri Urenado 05/19/2025 1 [place]IC[place] B-[place]: [employer] Sheri Travis [id number] Sheri Travis Notes Date Note Type Note Provider Name and Address Organization Details Recorded Time 05/19/2025 text/html ROS as noted in the HPI 75-year-old female presents for evaluation of nasal polyp. She had an MRI brain at [facility] back in August which showed a [...] by daughter in law who acts as disulfurizer tender. MELONIE MORGAN PA-C [address] [place] [address], [address], [facility] - [facility] 05/19/2025 10:35:09 OBGyn Episode No OBEpisode recorded.
--- OUTSIDE RECORDS SUMMARY | 2025-06-25 12:51 | XMS_ITS | Continuity of Care Document ---
Author Organization [place] - [facility], [facility] Address [address] [place] [address] Care Team Providers Care Level Vial Marker Name Role Phone CJ MEZA Referring Provider Assessment Encounter Date Assessment Date Assessment LastModified by Organization Details LastModified Time 06/03/2025 06/03/2025 75-year-old female presents for evaluation of right maxillary sinus nasal polyp. MRI brain without contrast [place]24/20[place] [facility] [place] 4.8 cm soft tissue mass in [...] malignancy, which could include adjuvant radiotherapy versus chemoradiotherap y. Surgical Discussion: Surgical plan would consist of: [...] on 06/03/25 [email or web address] Not available 06/03/2025 11:10:01 Plan of Treatment Reminders Order Date Submit Date Provider Last Modified By Organization Details Last Modified Time Details Appointments Establish ed 15 2024 02:15P M Daniel Isabel, DO Not available Not available Not available Lab None recorded. Referral None recorded. Procedures None recorded. Surgeries submucous resection inferior turbinate (SURG) 2024 025 Not available 06/03/2025 11:45:15 endoscopy , nasal/sin us, w/ maxillary antrostom y & tissue removal (SURG) 2024 025 [email or web address] Not available 06/03/2025 11:45:15 stereotac tic computer- assisted navigatio n (SURG) 2024 025 [email or web address] Not available 06/03/2025 11:45:15 Imaging None recorded. Medication Orders None recorded. Patient TargetsNo targets recorded. Patient InstructionsNo instructions recorded. Reason for Referral None Reported. Results Created Date Observation Date Name Description Value Unit Range Abnormal Flag Note LastModifiedBy Organization Detail LastModifiedTime 06/09/20 25 imagi ng/di agnos tic resul t No observ ation record ed. [email or web address] Not Available 2024 12:08:36 Result Notes None recorded. Problems Name Problem SNOMED Code Status Onset Date Resolution Date Notes Provider Name and Address Organization Details Recorded Time Polyp of nasal cavity and/or nasal sinus 046093809 Active 2024 MELONIE MORGAN PA-C [address] [place] [address], [place], [address] , [facility] - [facility] 10:07:45 Polyp of right nasal cavity 286866568 Active 2024 MELONIE MORGAN PA-C 100 [facility],[place] [address], [place], [address], [facility] - [facility] [place] 10:07:56 Chronic rhinitis 11216903 Active 2024 PONCHO CHILEL [address] [place] [address], [place], [address], [facility] - [facility] [place] 10:30:32 Nasal congestion 33217478 Active [address],[place] [address], [place], [address], [facility] - [facility] [place] 10:30:36 Deviated nasal septum 534597949 Active 2024 Daniel Isabel [place] [address], [place], [address], [facility] - [facility] [place] 11:10:23 Chronic sinusitis 73453146 Active 2024 Daniel Isabel [place] [address], [place], [address], [facility] [place] 11:10:23 Hypertrophy of nasal turbinates 19199128 Active 2024 Daniel Isabel [place] [address], [place], [address], [facility] - [facility] [place] 11:10:23 Problem Notes None recorded. Procedures Surgical History Date Name Laterality Status Provider Name and Address Organization Details Recorded Time 06/16/20 25 debride_sinus_ri ght_DHL completed Daniel Isabel [address], [address], [facility] 06/16/2025 13:41:50 06/08/20 25 endoscopic medial maxillectomy completed Daniel Isabel [address], [address], [facility] 06/08/2025 16:24:17 06/03/[address] sinus - Xoran completed Daniel Isabel, [address], [address], [facility] 06/03/2025 11:09:01 05/19/20 25 NasalEndoscopy_D P completed MELONIE MORGAN PA-C [address], [address], [facility] 05/19/2025 10:29:41 Imaging Results None recorded. [...] Available Vitals Date Recorded Body height Body weight Provider Name and Address Organization Details Last Updated DateTime 06/03/2025 167.64 cm 68160.59 g Marita Jarrett [place] - [facility] 06/03/2025 10:42:03 Social History None recorded. Functional Status Question Answer Note LastModified by Organization D etails LastModified Time What is your level of alcohol consumption? None [email or web address] Information not available 05/19/2025 Mental Status None recorded. Family History Nothing Reported. Medical History Condition Response Heart Attack ([place]) Y Arthritis Y Hypertension Y Anxiety Y Depression Y Kidney Disease Y Gynecological HistoryNo gynecological history recorded. Obstetrics History GPAL:G 0 P 0 0 0 0 Past Encounters Encounter ID Performer Location Encounter Start Date Encounter Closed Date Diagnosis/Indication Diagnosis SNOMED-CT Code Diagnosis ICD10 Code Diagnosis IMO Codes Diagnosis Note [id number] MELONIE MORGAN PA-C [facility] of [address] [address] 05/19/2025 09:38:11 05/19/2025 10:21:14 Polyp of right nasal cavity 219733144 J33.0 2695912431 Chronic rhinitis 2971275 6 J31.0 2545 Nasal congestion 8591732 0 R09.81 [id number] Daniel Isabel DO [facility] of [address] [address] 06/03/2025 09:53:22 06/03/2025 11:15:45 Polyp of right nasal cavity 984324273 J33.0 2125207506 Chronic rhinitis 9191044 6 J31.0 2545 Nasal congestion 1878877 0 R09.81 17186 Chronic sinusitis 482334 00 J32.8 96556 Hypertroph y of nasal turbinates 45309821 J34.3 1064126 Health Concerns Section Related Observation LastModified by Organization Detai ls LastModified Time None Recorded Concern Status LastModified by Organization Details LastModified Time None Recorded Payers Encounter Date Sequence Insurance Name Policy Number Policy Valdovinos Covered Member ID Valdovinos Member ID Guarantor Name 06/03/2025 2 [place] [facility] Sheri Travis [id number] Sheri Travis 06/03/2025 1 MEDICARE B-[place] [employer] Sheri Travis [id number] Sheri Travis Notes Date Note Type Note Provider Name and Address Organization Details Recorded Time 06/03/2025 text/html ROS as noted in the HPI Interval history: The patient's hqpcrhwt-fy-oha 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 She had an MRI brain at [facility] back in August which showed a [...] by daughter in law who acts as mill hand plate mill. Daniel Isabel, DO 100 [facility],[place] [address], [place], [address], [facility] - [facility] 06/03/2025 11:11:08 OBGyn Episode No OBEpisode recorded.
--- OUTSIDE RECORDS SUMMARY | 2025-06-25 12:51 | XMS_ITS | Data Portability ---
Author Organization [place] - [facility], Allergy Address [address] [address] Care Team Providers Care Help Desk Representative Name Role Phone CJ MEZA Referring Provider Assessment Encounter Date Assessment Date Assessment LastModified by Organization Details LastModified Time 05/19/2025 05/19/2025 75-year-old female presents for evaluation of nasal polyp. MRI brain without contrast 08/24/2024 at [facility] demonstrated 4.8 cm soft tissue mass in the right maxillary sinus extending into the nasal vault and right ethmoid sinuses. Images were not available for review. Nasal endoscopy demonstrated right middle meatal polyp. No purulence. Recommended CT sinus for further evaluation. We will arrange follow-up with a surgeon to review imaging and to discuss surgical intervention. Patient and her goppappz-aa-suk agree with the plan and all questions were answered. [email or web address] Not available 05/19/2025 10:34:31 06/03/2025 06/03/2025 75-year-old female presents for evaluation of right maxillary sinus nasal polyp. MRI brain without contrast 08/24/2024 at [facility] demonstrated 4.8 cm soft tissue mass in [...] submucous resection inferior turbinate (SURG) 2024 025 [email or web address] Not available 06/03/2025 11:45:15 endoscopy , nasal/sin us, w/ maxillary antrostom y & tissue removal (SURG) 2024 025 [email or web address] Not available 06/03/2025 11:45:15 stereotac tic computer- assisted navigatio n (SURG) 2024 [email or web address] Not available 06/03/2025 11:45:[address], sinuses, w/o contrast - to be scheduled in office with MD follow up 2024 [email or web address] Not available 05/21/2025 14:04:49 Medication Orders None [...] Polyp of nasal cavity and/or nasal sinus 080139480 Active 2024 MELONIE MORGAN PA-C [address] [place] [address], [place], [address], [facility] - [facility] 10:07:45 Polyp of right nasal cavity 086550595 Active 2024 MELONIE MORGAN PA-C [address] [place] [address], [place], [address], [facility] - [facility] 10:07:56 Chronic rhinitis 41375487 Active 2024 MELONIE MORGAN PA-C [address] [address], [place], [address], [facility] - [facility] 10:30:32 Nasal congestion 66778145 Active 2024 MELONIE MORGAN PA-C [address] [address], [place], [address], [facility] - [facility] [place] 10:30:36 Deviated nasal septum 481945774 Active 2024 Daniel Isabel, [address] [address], [place], [address], [facility] - [facility] [place] 11:10:23 Chronic sinusitis 26640491 Active 2024 Daniel Isabel, [address] [address], [place], [address], [facility] - [facility] [place] 11:10:23 Hypertrophy of nasal turbinates 41842705 Active 2024 Daniel Isabel [address] [address], [place], [address], [facility] - [facility] [place] 11:10:23 Problem Notes None recorded. Procedures Surgical History Date Name Laterality Status Provider Name and Address Organization Details Recorded Time 06/16/20 25 debride_sinus_ri ght_L completed Daniel Isabel [address], [address], [facility] - [facility] 06/16/2025 13:41:50 06/08/20 25 endoscopic medial maxillectomy completed Daniel Isabel [address], [address], [facility] - [facility] [place] 06/08/2025 16:24:17 06/03/[address] sinus - Xoran completed Daniel Isabel [address], [address], [facility] - [facility] [place] 06/03/2025 11:09:01 05/19/20 25 NasalEndoscopy_D P completed MELONIE MORGAN PA-C [address] [place] [address],[address], [address], [place] - [facility] 05/19/2025 10:29:41 Imaging Results None recorded. [...] Updated DateTime 05/19/2025 167.64 cm 30 kg/m2 09621.18 g Jessica Larios [facility] [place] 05/19/2025 09:55:05 Date Recorded Body height Body weight Provider Name and Address Organization Details Last Updated DateTime 06/03/2025 167.64 cm 80078.59 g Marita Jarrett [place] - [facility] [place] 06/03/2025 10:42:03 Date Recorded Body height Provider Name an d Address Organization Details Last Updated DateTime 06/16/2025 167.64 cm JAZMINE PACHECO RAINA - [facility] [place] 06/16/2025 13:11:03 Social History None recorded. Functional Status Question Answer Note LastModified by Organization D etails LastModified Time What is your level of alcohol consumption? None [email or web address] Information not available 05/19/2025 Mental Status None recorded. Family History Nothing Reported. Medical History Condition Response Heart Attack ([place]) Y Arthritis Y Hypertension Y Anxiety Y Depression Y Kidney Disease Y Gynecological HistoryNo gynecological history recorded. Obstetrics History GPAL:G 0 P 0 0 0 0 Past Encounters Encounter ID Performer Location Encounter Start Date Encounter Closed Date Diagnosis/Indication Diagnosis SNOMED-CT Code Diagnosis ICD10 Code Diagnosis IMO Codes Diagnosis Note [id number] MELONIE MORGAN PA-C [facility] [address] [address] 05/19/2025 09:38:11 05/19/2025 10:21:14 Polyp of right nasal cavity 030388589 J33.0 6551441072 Chronic rhinitis 7800529 6 J31.0 2545 Nasal congestion 2772402 0 R09.81 [id number] Daniel Isabel, DO [facility] of [address] [address] 06/03/2025 09:53:22 06/03/2025 11:15:45 Polyp of right nasal cavity 675535896 J33.0 1293925607 Chronic rhinitis 2750681 6 J31.0 2545 Nasal congestion 5540131 0 R09.81 28415 Chronic sinusitis 438028 00 J32.8 52858 Hypertroph y of nasal turbinates 27402304 J34.3 [id number] Daniel Isabel DO [facility] [place] [address] [place] [address] 06/16/2025 12:57:34 06/16/2025 13:39:47 Polyp of right nasal cavity 637425843 J33.0 1305283212 Chronic rhinitis 0679150 6 J31.0 2545 Nasal congestion 2403456 0 R09.81 08731 Chronic sinusitis 393877 00 J32.8 22456 Hypertroph y of nasal turbinates 82939303 J34.3 4524815 Health Concerns Section Related Observation LastModified by Organization Detai ls LastModified Time None Recorded Concern Status LastModified by Organization Details LastModified Time None Recorded Advance Directives Directive None Recorded Payers Insurance Date Sequence Insurance Name Policy Number Policy Valdovinos Covered Member ID Valdovinos Member ID Guarantor Name 06/16/2025 2 [place]: [facility] Sheri Travis [id number] Sheri Travis 06/16/2025 1 MEDIC[place] B-[place]: [employer] Sheri Travis [id number] Sheri Travis Notes Date Note Type Note Provider Name and Address Organization Details Recorded Time 05/19/2025 text/html ROS as noted in the HPI 75-year-old female presents for evaluation of nasal polyp. She had an MRI brain at [facility] back in August which showed a [...] by daughter in law who acts as research environmental scientist. MELONIE MORGAN PA-C [address] [place] [address], [place], [address], [facility] - [facility] 05/19/2025 10:35:09 06/03/2025 text/html ROS as noted in the HPI Interval history: The patient's gieepnen-tg-olj does act as a research environmental scientist today the did not require the use [...] polyp. She had an MRI brain at [facility] back in August which showed a [...] by daughter in law who acts as research environmental scientist. Daniel Isabel, DO [address], [address], [facility] - [facility] 06/03/2025 11:11:08 06/16/2025 text/html ROS as noted in the HPI Interval history: Overall has been feeling very fatigued since surgery per her kbckpcpq-tj-[id number] no extensive bleeding. S/p right nasal biopsy, endoscopic medial maxillectomy, middle turbinectomy, and anterior ethmoidectomy for right nasal mass. 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 PV: The patient's ipgjycrl-tg-uui does act as a research environmental scientist today the did not require the use [...] polyp. She had an MRI brain at [facility] back in August which showed a [...] by daughter in law who acts as research environmental scientist. Daniel Isabel, 100 [facility],[address] [address], [place], [address], [facility] - [facility] 06/16/2025 13:42:36 OBGyn Episode No OBEpisode recorded.
--- OUTSIDE RECORDS SUMMARY | 2025-06-25 12:51 | XMS_ITS | Clinical Summary ---
Author Organization 175 [facility] Address [address] [place] [address] Phone Care Team Providers Care Supervisor Assembling Name Role Phone Marci Hart Primary Care Provider [phone] Allergies No known active allergies Medications dulaglutide [...] Nasal mass 06/08/2025 Chronic maxillary sinusitis 06/08/2025 NE (myocardial infarction) ([facility] V24, [facility] V28) 06/08/2025 HTN (hypertension) 06/08/2025 CAD (coronary artery disease) 06/08/2025 Diabetes mellitus, type 2 ([facility] V24, [facility] V28) 06/08/2025 Liver disease 06/08/2025 Encounters Date Type Department Care Team Description 06/08/2025 7:31 AM EDT Anesthesia Event [facility] [place] [address] [place] [phone] Krystian Darling MD Lema Alava, Steven, SRNA 06/08/2025 7:30 AM EDT - 06/08/2025 9:30 AM EDT Surgery [facility] OR [address] [place] [phone] Daniel Isabel DO LEFT ENDOSCOPIC NASAL BIOPSY, LEFT ENDOSCOPIC MAXILLARY ANTROSTOMY [72719 (CPT )] 06/08/2025 5:55 AM EDT - 06/08/2025 11:04 AM EDT Hospital Encounter [facility] [place] [address] [place] [phone] Daniel Isabel DO Chronic maxillary sinusitis Discharge Disposition: Home or Self Care from Last 3 Months Surgical History Surgery Date Site/Laterality Comments OTHER SURGICAL HISTORY KIDNEY STONE SURGERY LITHOTRIPSY BLADDER SURGERY Medical History Medical History Date Comments Hypertension Hyperlipidemia Myocardial infarction ([facility] V24, [facility] V28) X3 Diabetes mellitus ([facility] V24, [facility] V28) Chronic kidney disease Peripheral vascular disease ([facility] V24) BLOOD CLOT Pulmonary embolism ([facility] V24, [facility] V28) Arthritis Joint pain Dementia ([facility] V24, [facility] V28) Social History Tobacco Use [...] [employer] Implanted Type Area Aircraft Launch And Recovery Technician Device Identifier Shelf Expiration Date Model / Serial / Lot Hemostat Flour Collgn 1gm [employer] - Sna - [id number] Implanted:Qty: 1 on 06/08/2025 by Daniel Isabel DO at [facility] Hemostasis Right: Nose CR BARD - DAVOL DIV 11/14/2027 [id number] / NA / [id number] Hemostat Flour Collgn 1gm Avitene - Sna - [id number] Implanted:Qty: 1 on 06/08/2025 by Daniel Isabel DO at [facility] Hemostasis Right: Nose CR BARD - DAVOL DIV [id number] 11/14/2027 [id number] / NA / [id number] Procedures Procedure Name Priority Date/Time Associated Diagnosis Comments TISSUE EXAM Routine 06/08/2025 8:07 AM EDT Chronic maxillary sinusitis TH AN ENDOTRACHEAL(NO CHARGE) Routine 06/08/2025 7:59 AM EDT RI NASAL/SINUS ENDO W MAXILLARY ANTROSTOMY W REM [...] PAPILLOMA (SCHNEIDERIAN PAPILLOMA) 06/09/2025 3:12 PM EDT [facility] at 1512 EDT Gross Description [...] fragments and abundant clotted blood of which sales representative wire rope sections are submitted in one cassette, multiple pieces. RAJIV 06/09/2025 3:12 PM EDT [facility] Disclaimer Unless otherwise specified, all tissue is 10% NB formalin fixed and paraffin embedded. 06/09/2025 3:12 PM EDT [facility] Tissue Nasal sinus structure / Unknown 06/08/2025 8:07 AM EDT 06/08/2025 9:37 AM EDT Tissue specimen (specimen) Nasal sinus structure / Unknown 06/08/2025 8:25 AM EDT 06/08/2025 9:37 AM EDT Daniel Isabel DO LAB PATHOLOGY ORDERABLES Final Result [facility] [address] [place] [address], [place] [phone] * TH AN ENDOTRACHEAL(NO CHARGE) (06/08/2025 7:59 AM EDT) Narrative Cresencio Carbajal SRNA - 06/08/2025 7:59 AM EDT MIKE Day 06/08/2025 7:59 AM General Information and Staff Patient location during procedure: OR Other anesthesia staff: MIKE Day Performed: resident/AIRBRUSH PAINTER/CAA Performed by: MIKE Day Authorized by: Krystian [...] - 100 mg/dL 06/08/2025 6:19 AM EDT [facility] ([facility]) [facility] Blood Capillary blood specimen / Unknown 06/08/2025 6:18 AM EDT 06/08/2025 6:20 AM EDT us Daniel Isabel DO LAB POINT OF CARE TE ST DOCKED DEVICE UNSOLICITED RESULTS Final Result [facility] ([facility]) [facility] [address] [place] [address], [place] [phone] from Last 3 Months Additional Health Concerns Active Problems Noted Date Diagnosed Date Autogenerated Problem 06/09/2025 [place] [address] MEDICAID [place] Advance Directives Documents on File Type Date Recorded Patient Passenger Coach Driver Expl anation Power of Computer Art Instructor 06/08/2025 5:54 AM hcp Care Teams Supervisor Assembling Relationship Specialty Start Date End Date Marci Hart PA [address] [place] [id number] PCP - General 06/03/25
== END 2025-06-25 12:33 | disposition home or self-care (01) ==
LOC: HO.HSMS 10:50
PROVIDERS: PCP Internal Medicine; Visit Provider Physician Assistant Medical
DX: F03.90 Unspecified dementia, unspecified severity, without behavioral disturbance, psychotic disturbance, mood disturbance, and anxiety (principal); R41.0 Disorientation, unspecified; F03.918 Unspecified dementia, unspecified severity, with other behavioral disturbance; R45.89 Other symptoms and signs involving emotional state; G47.00 Insomnia, unspecified; F41.9 Anxiety disorder, unspecified; R44.0 Auditory hallucinations; D50.8 Other iron deficiency anemias; G30.9 Alzheimer's disease, unspecified; F02.818 Dementia in other diseases classified elsewhere, unspecified severity, with other behavioral disturbance
CPT/HCPCS: 99214; G2211

== ENCOUNTER → 2025-06-25 | Outpatient (BNVA) | payer MEDICARE, MEDICAID, SELFPAY | PROVIDERS: PCP Internal Medicine; Visit Provider Physician Assistant Medical | DX: R41.0 Disorientation, unspecified (principal); R44.1 Visual hallucinations; R45.89 Other symptoms and signs involving emotional state; R44.0 Auditory hallucinations; G47.00 Insomnia, unspecified; D50.8 Other iron deficiency anemias; F03.90 Unspecified dementia, unspecified severity, without behavioral disturbance, psychotic disturbance, mood disturbance, and anxiety; F03.918 Unspecified dementia, unspecified severity, with other behavioral disturbance; F02.818 Dementia in other diseases classified elsewhere, unspecified severity, with other behavioral disturbance; F41.9 Anxiety disorder, unspecified | CPT/HCPCS: 99212 ==

== ENCOUNTER 2025-06-28 08:56 | Outpatient (REF) | payer MEDICARE, MEDICAID, SELFPAY ==
[2025-06-28 09:11] LABS: MANUAL DIFF FLAG NO
[2025-06-28 09:26] LABS: Hematocrit 28.4 % (37.0-47.0); Hemoglobin 8.5 g/dl (12.0-16.0); Imm Gran Abs Auto 0.04 X10*3/uL (0.00-0.03); Imm Gran Pct Auto 0.8 % (0.0-0.4); Lymphocytes Absolute Auto 0.8 X10*3/uL (1.2-4.9); Mean Corpuscular HGB Conc 29.9 g/dl (31.0-35.0); Mean Corpuscular Hemoglobin 24.7 pg (27.0-33.0); Mean Corpuscular Volume 82.6 fL (80.0-98.0); NRBC Abs Auto 0.000 X10*3/uL (0.0-0.012); NRBC Pct Auto 0.0 /100WBC (0.0-0.2); Platelet Count 270 X10*3/uL (160-400); Red Blood Count 3.44 X10*6/uL (4.20-5.50); White Blood Count 5.2 X10*3/uL (4.8-10.8)
--- OUTSIDE RECORDS SUMMARY | 2025-06-28 09:36 | XMS_ITS | Continuity of Care Document ---
Author Organization [place] - [facility], [facility] Address [address] [place] [address] Care Team Providers Care Front Desk Agent Name Role Phone CJ MEZA Referring Provider [phone] Assessment Encounter Date Assessment Date Assessment LastModified [...] resul t No observ ation record ed. [email or web address] Not Available 2024 12:08:36 Result Notes None recorded. Problems Name Problem SNOMED Code Status Onset Date Resolution Date Notes Provider Name and Address Organization Details Recorded Time Polyp of nasal cavity and/or nasal sinus 416103203 Active 2024 MELONIE MORGAN PA-C 100 [facility],[place] [address], [place], [address], [facility] - [facility] [place] 10:07:45 Polyp of right nasal cavity 822110063 Active 2024 [address] [place], [address] [facility], [place], [address], [facility] - [facility] [place] 10:07:56 Chronic rhinitis 62409027 Active 2024 MELONIE MORGAN PA-C [address] [place] [address], [address] [facility], [place], [address], [facility] - [facility] [place] 10:30:32 Nasal congestion 19533353 Active 2024 MELONIE MORGAN PA-C [address] [place] [address], [address] [facility], [place], [address], [facility] - [facility] [place] 10:30:36 Deviated nasal septum 975620289 Active 2024 Daniel Isabel DO [address] [place] [address], [place], [address], [facility] - [facility] [place] 11:10:23 Chronic sinusitis 89482559 Active 2024 Daniel Isabel [address] [place] [address], [place], [address], [facility] - [facility] [place] 11:10:23 Hypertrophy of nasal turbinates 69150595 Active 2024 Daniel Isabel DO 100 [facility],[place] [address], [place], [address], [facility] 11:10:23 Problem Notes None recorded. Procedures Surgical History Date Name Laterality Status Provider Name and Address Organization Details Recorded Time 06/16/20 25 debride_sinus_ri ght_DHL completed Daniel Isabel, DO 100 [facility], [address], [facility] - [facility] 06/16/2025 13:41:50 06/08/20 25 endoscopic medial maxillectomy completed Daniel Isabel, DO 100 [facility] [address], [address], [facility] 06/08/2025 16:24:17 06/03/[address] sinus - Xoran completed Daniel Isabel, DO 100 [facility],[address], [address], [facility] 06/03/2025 11:09:01 05/19/20 25 NasalEndoscopy_D P completed MELONIE MORGAN PA-C 100 [facility],[address], [address], [facility] 05/19/2025 10:29:41 Imaging Results None recorded. [...] completed Not Available Not Available Not Available [employer] Ultra Test strips USE TO TEST TWICE [...] Updated DateTime 06/16/2025 167.64 cm JAZMINE PACHECO [place] - [facility] 06/16/2025 13:11:03 Social History None recorded. Functional Status Question Answer Note LastModified by Organization D etails LastModified Time What is your level of alcohol consumption? None [email or web address] Information not available 05/19/2025 Mental Status None recorded. Family History Nothing Reported. Medical History Condition Response Heart Attack ([place]) Y Arthritis Y Anxiety Y Hypertension Y Depression Y Kidney Disease Y Gynecological HistoryNo gynecological history recorded. Obstetrics History GPAL:G 0 P 0 0 0 0 Past Encounters Encounter ID Performer Location Encounter Start Date Encounter Closed Date Diagnosis/Indication Diagnosis SNOMED-CT Code Diagnosis ICD10 Code Diagnosis IMO Codes Diagnosis Note [id number] MELONIE MORGAN PA-C [facility] [address] [address] 05/19/2025 09:38:11 05/19/2025 10:21:14 Polyp of right nasal cavity 249722956 J33.0 4332046183 Chronic rhinitis 6615717 6 J31.0 2545 Nasal congestion 4081904 0 R09.81 [id number] Daniel Isabel DO [facility] [address] [place] [address] 06/03/2025 09:53:22 06/03/2025 11:15:45 Polyp of right nasal cavity 194313792 J33.0 4349066312 Chronic rhinitis 0750323 6 J31.0 2545 Nasal congestion 5390350 0 R09.81 23556 Chronic sinusitis 705542 00 J32.8 86229 Hypertroph y of nasal turbinates 49748872 J34.3 [id number] Daniel Isabel DO [facility] [address] [place] [address] 06/16/2025 12:57:34 06/16/2025 13:39:47 Polyp of right nasal cavity 450467254 J33.0 5895355559 Chronic rhinitis 0026243 6 J31.0 2545 Nasal congestion 9873301 0 R09.81 95498 Chronic sinusitis 101503 00 J32.8 94222 Hypertroph y of nasal turbinates 96994401 J34.3 3511749 Health Concerns Section Related Observation LastModified by Organization Detai ls LastModified Time None Recorded Concern Status LastModified by Organization Details LastModified Time None Recorded Payers Encounter Date Sequence Insurance Name Policy Number Policy Valdovinos Covered Member ID Valdovinos Member ID Guarantor Name 06/16/2025 2 MED[place]: [facility] Sheri Travis [id number] Sheri Travis 06/16/2025 1 MEDICARE B-[place]: [facility] [employer] Sheri Travis [id number] Sheri Travis Notes Date Note Type Note Provider Name and Address Organization Details Recorded Time 06/16/2025 text/html ROS as noted in the HPI Interval history: Overall has been feeling very fatigued since surgery per her ybbycbny-yf-fkb no extensive bleeding. S/p right nasal biopsy, endoscopic medial maxillectomy, middle turbinectomy, and anterior ethmoidectomy for right nasal mass. 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 She had an MRI brain at [facility] back in August which showed a [...] by daughter in law who acts as batchmaker. Daniel Isabel, DO 100 [facility],[address], [address], [facility] - [facility] 06/16/2025 13:42:36 OBGyn Episode No OBEpisode recorded.
--- OUTSIDE RECORDS SUMMARY | 2025-06-28 09:36 | XMS_ITS | Continuity of Care Document ---
Author Organization [place] - [facility], [facility] Address [address] [place] [address] Care Team Providers Care Bobbin Sorter Name Role Phone CJ MEZA Referring Provider Assessment Encounter Date Assessment Date Assessment LastModified by Organization Details LastModified Time 06/03/2025 06/03/2025 75-year-old female presents for evaluation of right maxillary sinus nasal polyp. [place] [facility] [place] 4.8 cm soft tissue mass in [...] y & tissue removal (SURG) 2024 025 [email or web address] Not available 06/03/2025 11:45:15 stereotac tic computer- assisted navigatio n (SURG) 2024 025 [email or web address] Not available 06/03/2025 11:45:15 Imaging None recorded. Medication Orders None recorded. Patient TargetsNo targets recorded. Patient InstructionsNo instructions recorded. Reason for Referral None Reported. Results Created Date Observation Date Name Description Value Unit Range Abnormal Flag Note LastModifiedBy Organization Detail LastModifiedTime 06/09/20 25 imagi ng/di agnos tic resul t No observ ation record ed. [email or web address] Not Available 2024 12:08:36 Result Notes None recorded. Problems Name Problem SNOMED Code Status Onset Date Resolution Date Notes Provider Name and Address Organization Details Recorded Time Polyp of nasal cavity and/or nasal sinus 674759260 Active 2024 MELONIE MORGAN PA-C [address] [place] [address], [place], [address] , [facility] - [facility] 10:07:45 Polyp of right nasal cavity 670450937 Active 2024 MELONIE MORGAN PA-C [address] [facility],[place] [address] [address], [place], [address], [facility] - [facility] [place] 10:07:56 Chronic rhinitis 11262124 Active 2024 PONCHO CHILEL [address] [address], [place], [address], [facility] - [facility] [place] 10:30:32 Nasal congestion 63771083 Active [address],[place] [address], [place], [address], [facility] - [facility] [place] 10:30:36 Deviated nasal septum 868393159 Active 2024 Daniel Isabel [address] [address], [place], [address], [facility] - [facility] [place] 11:10:23 Chronic sinusitis 78289440 Active 2024 Daniel Isabel [address] [address], [place], [address], [facility] [place] 11:10:23 Hypertrophy of nasal turbinates 65452510 Active 2024 Daniel Isabel [address] [address], [place], [address], [facility] - [facility] [place] 11:10:23 Problem Notes None recorded. Procedures Surgical History Date Name Laterality Status Provider Name and Address Organization Details Recorded Time 06/16/20 25 debride_sinus_ri ght_DHL completed Daniel Isabel [address], [address], [facility] 06/16/2025 13:41:50 06/08/20 25 endoscopic medial maxillectomy completed Daniel Isabel [address], [address], [facility] 06/08/2025 16:24:17 06/03/[address] sinus - Xoran completed Daniel Isabel, [address], [address], [facility] 06/03/2025 11:09:01 05/19/20 25 NasalEndoscopy_D P completed MELONIE MORGAN PA-C [address], [address], [facility] 05/19/2025 10:29:41 Imaging Results None recorded. [...] Details Last Updated DateTime 06/03/2025 167.64 cm 87723.59 g Marita Jarrett [place] - [facility] 06/03/2025 10:42:03 Social History None recorded. Functional Status Question Answer Note LastModified by Organization D etails LastModified Time What is your level of alcohol consumption? None [email or web address] Information not available 05/19/2025 Mental Status None recorded. Family History Nothing Reported. Medical History Condition Response Heart Attack ([place]) Y Arthritis Y Anxiety Y Hypertension Y Depression Y Kidney Disease Y Gynecological HistoryNo gynecological history recorded. Obstetrics History GPAL:G 0 P 0 0 0 0 Past Encounters Encounter ID Performer Location Encounter Start Date Encounter Closed Date Diagnosis/Indication Diagnosis SNOMED-CT Code Diagnosis ICD10 Code Diagnosis IMO Codes Diagnosis Note [id number] MELONIE MORGAN PA-C [facility] of [address] [address] 05/19/2025 09:38:11 05/19/2025 10:21:14 Polyp of right nasal cavity 300814632 J33.0 4182902346 Chronic rhinitis 7722696 6 J31.0 2545 Nasal congestion 4896576 0 R09.81 [id number] Daniel Isabel DO [facility] of [address] [address] 06/03/2025 09:53:22 06/03/2025 11:15:45 Polyp of right nasal cavity 236867897 J33.0 0188999299 Chronic rhinitis 5305846 6 J31.0 2545 Nasal congestion 0852904 0 R09.81 58396 Chronic sinusitis 443302 00 J32.8 53827 Hypertroph y of nasal turbinates 52912727 J34.3 5945132 Health Concerns Section Related Observation LastModified by Organization Detai ls LastModified Time None Recorded Concern Status LastModified by Organization Details LastModified Time None Recorded Payers Encounter Date Sequence Insurance Name Policy Number Policy Valdovinos Covered Member ID Valdovinos Member ID Guarantor Name 06/03/2025 2 [place] 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 She had an MRI brain at [facility] back in August which showed a [...] by daughter in law who acts as nursery school teacher. Daniel Isabel, DO [address] [facility],[address] [place] [address], [place], [address], [facility] - [facility] 06/03/2025 11:11:08 OBGyn Episode No OBEpisode recorded.
--- OUTSIDE RECORDS SUMMARY | 2025-06-28 09:36 | XMS_ITS | Continuity of Care Document ---
Author Organization [place] - [facility], [facility] Address [address] [place] [address] Care Team Providers Care Customer Servicer Name Role Phone CJ MEZA Referring Provider Assessment Encounter Date Assessment Date Assessment LastModified by Organization Details LastModified Time 05/19/2025 05/19/2025 75-year-old female presents for evaluation of nasal polyp. MRI brain without contrast 08/24/2024 at [facility] [place] demonstrated 4.8 cm soft tissue mass in the right maxillary sinus extending into the nasal vault and right ethmoid sinuses. Images were not available for review. Nasal endoscopy demonstrated right middle meatal polyp. No purulence. Recommended CT sinus for further evaluation. We will arrange follow-up with a surgeon to review imaging and to discuss surgical intervention. Patient and her bnfatpmq-ez-fgb agree with the plan and all questions were answered. [email or web address] Not available 05/19/2025 10:34:31 Plan of Treatment [...] office with MD follow up 2024 025 [email or web address] Not available 05/21/2025 14:04:49 Medication Orders None recorded. Patient TargetsNo targets recorded. Patient InstructionsNo instructions recorded. Reason for Referral None Reported. Results Created Date Observation Date Name Description Value Unit Range Abnormal Flag Note LastModifiedBy Organization Detail LastModifiedTime 06/09/20 25 imagi ng/di agnos tic resul t No observ ation record ed. [email or web address] Not Available 2024 12:08:36 Result Notes None recorded. Problems Name Problem SNOMED Code Status Onset Date Resolution Date Notes Provider Name and Address Organization Details Recorded Time Polyp of nasal cavity and/or nasal sinus 776536756 Active 2024 MELONIE MORGAN PA-C [address] [facility] [place] [address], [place], [address], [facility] [place] 10:07:45 Polyp of right nasal cavity 237957045 Active 2024 MELONIE MORGAN PA-C [address] [place] [address], [facility], [place], [address], [facility] - [facility] 10:07:56 Chronic rhinitis 25037944 Active 2024 MELONIE MORGAN PA-C [address] [place] [address], [facility], [place], [address], [facility] - [facility] [place] 10:30:32 Nasal congestion 56298915 Active 2024 MELONIE MORGAN PA-C [address] [place] [address], [facility], [place], [address], [facility] - [facility] 10:30:36 Deviated nasal septum 401699198 Active 2024 Daniel Isabel DO [address] [place] [address], [facility], [place], [address], [facility] - [facility] 11:10:23 Chronic sinusitis 44686504 Active 2024 Daniel Isabel DO [address] [place] [address], [facility], [place], [address], [facility] - [facility] [place] 11:10:23 Hypertrophy of nasal turbinates 39069639 Active 2024 Daniel Isabel DO [address] [facility] [place], [facility], [place], [address], [facility] - [facility] 11:10:23 Problem Notes None recorded. Procedures Surgical History Date Name Laterality Status Provider Name and Address Organization Details Recorded Time 06/16/20 debride_sinus_ri ght_DHL completed Daniel Isabel, DO [address] [facility] [place],[address], [address], [facility] 06/16/2025 13:41:50 06/08/20 25 endoscopic medial maxillectomy completed Daniel Isabel, 100 [facility] [place],[address], [address], [facility] 06/08/2025 16:24:17 06/03/20 CT sinus - Xoran completed Daniel Isabel, 100 [facility] [place],[address], [address], [facility] 06/03/2025 11:09:01 05/19/20 NasalEndoscopy_D P completed MELONIE MORGAN PA-C [address] [facility] [place],[address], [address], [facility] 05/19/2025 10:29:41 Imaging Results None recorded. [...] completed Not Available Not Available Not Available [employer] Seed[employer]Touch Ultra Test strips USE TO TEST TWICE [...] Updated DateTime 05/19/2025 167.64 cm 30 kg/m2 56406.18 g Jessica Larios [facility] 05/19/2025 09:55:05 Social History None recorded. Functional [...] ICD10 Code Diagnosis IMO Codes Diagnosis Note [id number] MELONIE MORGAN PA-C [facility] [place] [address] [place] [address] 05/19/2025 09:38:11 05/19/2025 10:21:14 Polyp of right nasal cavity 111514128 J33.0 4652270027 Chronic rhinitis 6352212 6 J31.0 2545 Nasal congestion 3816214 0 R09.81 75783 Health Concerns Section Related Observation LastModified by Organization Detai ls LastModified Time None Recorded Concern Status LastModified by Organization Details LastModified Time None Recorded Payers Encounter Date Sequence Insurance Name Policy Number Policy Valdovinos Covered Member ID Valdovinos Member ID Guarantor Name 05/19/2025 2 [place] [facility] Sheri Travis [id number] Sheri U[place]ado 05/19/2025 1 [place] [employer] Sheri Travis [id number] Sheri Travis Notes Date Note Type Note Provider Name and Address Organization Details Recorded Time 05/19/2025 text/html ROS as noted in the HPI 75-year-old female presents for evaluation of nasal polyp. She had an MRI brain at [facility] back in August which showed a [...] by daughter in law who acts as foreclosure specialist. MELONIE MORGAN PA-C [address] [place] [address], [address], [facility] - [facility] 05/19/2025 10:35:09 OBGyn Episode No OBEpisode recorded.
--- OUTSIDE RECORDS SUMMARY | 2025-06-28 09:36 | XMS_ITS | Data Portability ---
Author Organization [place] - [facility], [facility] Address [address] [address] Care Team Providers Care Sales Designer Name Role Phone CJ MEZA Referring Provider [phone] Assessment Encounter Date Assessment Date Assessment LastModified by Organization Details LastModified Time 05/19/2025 05/19/2025 75-year-old female presents for evaluation of nasal polyp. MRI brain [place] contrast [place] [facility] [place] 4.8 cm soft tissue mass in the right maxillary sinus extending into the nasal vault and right ethmoid sinuses. Images were not available for review. Nasal endoscopy demonstrated right middle meatal polyp. No purulence. Recommended CT sinus for further evaluation. We will arrange follow-up with a surgeon to review imaging and to discuss surgical intervention. Patient and her oxtsbigz-we-ldy agree with the plan and all questions were answered. Not available 05/19/2025 10:34:31 06/03/2025 06/03/2025 75-year-old female presents for evaluation of right maxillary sinus nasal polyp. MRI brain without contrast [place]24[place] [facility] [place] 4.8 cm soft tissue mass in [...] submucous resection inferior turbinate (SURG) 2024 025 [email or web address] Not available 06/03/2025 11:45:15 endoscopy , nasal/sin us, w/ maxillary antrostom y & tissue removal (SURG) 2024 025 [email or web address] Not available 06/03/2025 11:45:15 stereotac tic computer- assisted navigatio n (SURG) 2024 [email or web address] Not available 06/03/2025 11:45:[address], sinuses, w/o contrast - to be scheduled in office with MD follow up 2024 [email or web address] Not available 05/21/2025 14:04:49 Medication Orders None [...] Polyp of nasal cavity and/or nasal sinus 188877894 Active 2024 MELONIE MORGAN PA-C [address] [place] [address], [place], [address], [facility] - [facility] 10:07:45 Polyp of right nasal cavity 293666810 Active 2024 MELONIE MORGAN PA-C [address] [place] [address], [place], [address], [facility] - [facility] 10:07:56 Chronic rhinitis 97263462 Active 2024 MELONIE MORGAN PA-C [address] [address], [place], [address], [facility] - [facility] 10:30:32 Nasal congestion 01287333 Active 2024 MELONIE MORGAN PA-C [address] [address], [place], [address], [facility] [place] 10:30:36 Deviated nasal septum 658199009 Active 2024 Daniel Isabel, [address] [address], [place], [address], [facility] [place] 11:10:23 Chronic sinusitis 14136464 Active 2024 Daniel Isabel, [address] [address], [place], [address], [facility] [place] 11:10:23 Hypertrophy of nasal turbinates 15669117 Active 2024 Daniel Isabel [address] [address], [place], [address], [facility] [place] 11:10:23 Problem Notes None recorded. Procedures Surgical History Date Name Laterality Status Provider Name and Address Organization Details Recorded Time 06/16/20 25 debride_sinus_ri ght_L completed Daniel Isabel [address], [address], [facility] - [facility] 06/16/2025 13:41:50 06/08/20 25 endoscopic medial maxillectomy completed Daniel Isabel [address], [address], [facility] - [facility] [place] 06/08/2025 16:24:17 06/03/[address] sinus - Xoran completed Daniel Isabel [address], [address], [facility] [place] 06/03/2025 11:09:01 05/19/20 25 NasalEndoscopy_D P completed MELONIE MOGRAN PA-C [address] [place] [address],[address], [address], [place] - [facility] 05/19/2025 10:29:41 Imaging Results None recorded. [...] Updated DateTime 05/19/2025 167.64 cm 30 kg/m2 30050.18 g Jessica Larios [facility] [place] 05/19/2025 09:55:05 Date Recorded Body height Body weight Provider Name and Address Organization Details Last Updated DateTime 06/03/2025 167.64 cm 09713.59 g Marita Jarrett [place] - [facility] [place] 06/03/2025 10:42:03 Date Recorded Body height Provider Name an d Address Organization Details Last Updated DateTime 06/16/2025 167.64 cm JAZMINE PACHECO [place] - [facility] [place] 06/16/2025 13:11:03 Social History None recorded. Functional Status Question Answer Note LastModified by Organization D etails LastModified Time What is your level of alcohol consumption? None [email or web address] Information not available 05/19/2025 Mental Status None recorded. Family History Nothing Reported. Medical History Condition Response Heart Attack ([place]) Y Arthritis Y Hypertension Y Anxiety Y Depression Y Kidney Disease Y Gynecological HistoryNo gynecological history recorded. Obstetrics History GPAL:G 0 P 0 0 0 0 Past Encounters Encounter ID Performer Location Encounter Start Date Encounter Closed Date Diagnosis/Indication Diagnosis SNOMED-CT Code Diagnosis ICD10 Code Diagnosis IMO Codes Diagnosis Note [id number] MELONIE MORGAN PA-C [facility] of [address] [address] 05/19/2025 09:38:11 05/19/2025 10:21:14 Polyp of right nasal cavity 707775541 J33.0 6989551729 Chronic rhinitis 9206468 6 J31.0 2545 Nasal congestion 6198681 0 R09.81 [id number] Daniel Isabel, DO [facility] of [address] [address] 06/03/2025 09:53:22 06/03/2025 11:15:45 Polyp of right nasal cavity 796059080 J33.0 1354281825 Chronic rhinitis 1574024 6 J31.0 2545 Nasal congestion 0597205 0 R09.81 26444 Chronic sinusitis 810834 00 J32.8 30025 Hypertroph y of nasal turbinates 46439016 J34.3 [id number] Daniel Isabel DO [facility] [address] [place] [address] 06/16/2025 12:57:34 06/16/2025 13:39:47 Polyp of right nasal cavity 182118951 J33.0 7914240999 Chronic rhinitis 8165030 6 J31.0 2545 Nasal congestion 7646190 0 R09.81 30557 Chronic sinusitis 883849 00 J32.8 66047 Hypertroph y of nasal turbinates 21943071 J34.3 5403596 Health Concerns Section Related Observation LastModified by Organization Detai ls LastModified Time None Recorded Concern Status LastModified by Organization Details LastModified Time None Recorded Advance Directives Directive None Recorded Payers Insurance Date Sequence Insurance Name Policy Number Policy Valdovinos Covered Member ID Valdovinos Member ID Guarantor Name 06/16/2025 2 [place]ID-[place]: [facility] Sheri Travis [id number] Sheri Travis 06/16/2025 1 [place] [employer] Sheri Travis [id number] Sheri Travis Notes Date Note Type Note Provider Name and Address Organization Details Recorded Time 05/19/2025 text/html ROS as noted in the HPI 75-year-old female presents for evaluation of nasal polyp. She had an MRI brain at [facility] back in August which showed a [...] by daughter in law who acts as regional coordinator. MELONIE MORGAN PA-C [address] [place] [address], [place], [address], [facility] - [facility] 05/19/2025 10:35:09 06/03/2025 text/html ROS as noted in the HPI Interval history: The patient's bnrmvtaf-cl-rol does act as a regional coordinator today the did not require the use [...] polyp. She had an MRI brain at [facility] back in August which showed a [...] by daughter in law who acts as regional coordinator. Daniel Isabel, DO [address], [address], [facility] - [facility] 06/03/2025 11:11:08 06/16/2025 text/html ROS as noted in the HPI Interval history: Overall has been feeling very fatigued since surgery per her alxeskjm-xt-hbt no extensive bleeding. S/p right nasal biopsy, endoscopic medial maxillectomy, middle turbinectomy, and anterior ethmoidectomy for right nasal mass. 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 PV: The patient's lxbjxgiw-wa-har does act as a regional coordinator today the did not require the use [...] polyp. She had an MRI brain at [facility] back in August which showed a [...] by daughter in law who acts as regional coordinator. Daniel Isabel, 100 [facility],[address] [address], [place], [address], [facility] - [facility] 06/16/2025 13:42:36 OBGyn Episode No OBEpisode recorded.
[2025-06-28 09:38] LABS: Appearance Urine Cloudy; Glucose Urine UA Negative (Negative); PH 6.5 (5.0-9.0); Specific Gravity - Urine 1.015 (1.005-1.025); UMIC TRIGGER UACC YES
[2025-06-28 09:43] LABS: UACC Culture Trigger YES
[2025-06-28 10:18] LABS: Ferritin 31 ng/mL (10-250)
[2025-06-28 10:34] LABS: Folate 6.2 ng/mL (> or = 4.0); Vitamin B12 1546 pg/mL (200-900)
== END 2025-06-28 08:57 | disposition home or self-care (01) ==
LOC: HO.LAB 08:56
PROVIDERS: Absent Provider Physician Assistant Medical; PCP Internal Medicine
DX: Z13.6 Encounter for screening for cardiovascular disorders (principal); G47.9 Sleep disorder, unspecified; F41.9 Anxiety disorder, unspecified; D64.9 Anemia, unspecified; R44.1 Visual hallucinations; R53.83 Other fatigue; R45.89 Other symptoms and signs involving emotional state; R35.89 Other polyuria
CPT/HCPCS: 36415; 81001; 82306; 82607; 82728; 82746; 83090; 83921; 85025; 87086

== ENCOUNTER 2025-07-01 15:12 | Outpatient (REF) | payer MEDICARE, MEDICAID, SELFPAY ==
--- NOTE | ~2025-07-01 | US_ITS ---
EXAMINATION: US TRIPLEX LOWER EXTREMITY, LEFT CLINICAL INFORMATION: History of prior DVT left lower extremity COMPARISON: November 11, 2024 TECHNIQUE: Color-flow triplex imaging with spectral analysis and compression Doppler were performed on the left lower extremity. FINDINGS: Respiratory variation, normal compression and augmented flow are demonstrated in the interrogated left common femoral vein, superficial femoral vein, profunda femoral vein, popliteal vein and midcalf peroneal and posterior tibial venous segments . There is no Mcfarland's cyst. US/US venous duplex LE IMPRESSION: No acute deep venous thrombosis interrogated veins, left lower extremity. Negative for DVT. Electronically signed by: Nabeel Hardin MD 07/01/2025 03:40 PM EST
--- OUTSIDE RECORDS SUMMARY | 2025-07-01 18:24 | XMS_ITS | Clinical Summary ---
Author Organization 175 [facility] Address [address] [place] [address] Phone Care Team Providers Care Parts Clerk Plant Maintenance Name Role Phone Marci Hart Primary Care Provider [phone] Allergies No known active allergies Medications dulaglutide [...] Nasal mass 06/08/2025 Chronic maxillary sinusitis 06/08/2025 [place] (myocardial infarction) ([facility] V24, [facility] V28) 06/08/2025 HTN (hypertension) 06/08/2025 CAD (coronary artery disease) 06/08/2025 Diabetes mellitus, type 2 ([facility] V24, [facility] V28) 06/08/2025 Liver disease 06/08/2025 Encounters Date Type Department Care Team Description 06/08/2025 7:31 AM EDT Anesthesia Event [facility] [place] [address] [place] [phone] Krystian Darling MD Lema Alava, Steven, SRNA 06/08/2025 7:30 AM EDT - 06/08/2025 9:30 AM EDT Surgery [facility] [place] [address] [place] [phone] Daniel Isabel DO LEFT ENDOSCOPIC NASAL BIOPSY, LEFT ENDOSCOPIC MAXILLARY ANTROSTOMY [46579 (CPT )] 06/08/2025 5:55 AM EDT - 06/08/2025 11:04 AM EDT Hospital Encounter [facility] [place] [address] [place] [phone] Daniel Isabel DO Chronic maxillary sinusitis Discharge Disposition: Home or Self Care from Last 3 Months Surgical History Surgery Date Site/Laterality Comments OTHER SURGICAL HISTORY KIDNEY STONE SURGERY LITHOTRIPSY BLADDER SURGERY Medical History Medical History Date Comments Hypertension Hyperlipidemia Myocardial infarction ([facility] V24, [facility] V28) X3 Diabetes mellitus ([facility] V24, [facility] V28) Chronic kidney disease Peripheral vascular disease ([facility] V24) BLOOD CLOT Pulmonary embolism ([facility] V24, [facility] V28) Arthritis Joint pain Dementia ([facility] V24, [facility] V28) Social History Tobacco Use Types Packs/Day [...] - 1-dose 75+ series) 2025 COVID-19 Vaccine (2024-2 6 season) 2025 Influenza Vaccine (#1) 2025 Diabetes: [...] Eh [employer] Implanted Type Area Telephone Station Installer Device Identifier Shelf Expiration Date Model / Serial / Lot Hemostat Flour Collgn 1gm Avitene - Sna - [id number] Implanted:Qty: 1 on 06/08/2025 by Daniel Isabel DO at [facility] Hemostasis Right: Nose CR BARD - DAVOL DIV 11/14/2027 [id number] / NA / [id number] Hemostat Flour Collgn 1gm Avitene - Sna - [id number] Implanted:Qty: 1 on 06/08/2025 by Daniel Isabel DO at [facility] Hemostasis Right: Nose CR BARD - DAVOL DIV [id number] 11/14/2027 [id number] / NA / [id number] Procedures Procedure Name Priority Date/Time Associated Diagnosis Comments TISSUE EXAM Routine 06/08/2025 8:07 AM EDT Chronic maxillary sinusitis TH AN ENDOTRACHEAL(NO CHARGE) Routine 06/08/2025 7:59 AM EDT [place] NASAL/SINUS ENDO W MAXILLARY ANTROSTOMY W REM [...] PAPILLOMA (SCHNEIDERIAN PAPILLOMA) 06/09/2025 3:12 PM EDT [facility] at 1512 EDT Gross [...] abundant clotted blood of which sales representative rural power sections are submitted in one cassette, multiple pieces. RAJIV 06/09/2025 3:12 PM EDT [facility] Disclaimer Unless otherwise specified, all tissue is 10% NB formalin fixed and paraffin embedded. 06/09/2025 3:12 PM EDT [facility] Tissue Nasal sinus structure / Unknown 06/08/2025 8:07 AM EDT 06/08/2025 9:37 AM EDT Tissue specimen (specimen) Nasal sinus structure / Unknown 06/08/2025 8:25 AM EDT 06/08/2025 9:37 AM EDT Daniel Isabel DO LAB PATHOLOGY ORDERABLES Final Result [facility]) [facility] [address] [place] [address], [place] [phone] * TH AN ENDOTRACHEAL(NO CHARGE) (06/08/2025 7:59 AM EDT) Narrative Cresencio Carbajal SRNA - 06/08/2025 7:59 AM EDT MIKE Day 06/08/2025 7:59 AM General Information and Staff Patient location during procedure: OR Other anesthesia staff: MIKE Day Performed: resident/STABLE HELPER/CAA Performed by: MIKE Day Authorized by: Krystian [...] - 100 mg/dL 06/08/2025 6:19 AM EDT [facility] Blood Capillary blood specimen / Unknown 06/08/2025 6:18 AM EDT 06/08/2025 6:20 AM EDT us Daniel Isabel DO LAB POINT OF CARE TE ST DOCKED DEVICE UNSOLICITED RESULTS Final Result [facility] ([facility]) [facility] [address] [place] [address], [place] [phone] from Last 3 Months Additional Health Concerns Active Problems Noted Date Diagnosed Date Autogenerated Problem 06/09/2025 [place] [address] MEDICAID - [place]ICARE Advance Directives Documents on File Type Date Recorded Patient Assistant Public Defender Expl anation Power of Transformation Coach 06/08/2025 5:54 AM hcp Care Teams Parts Clerk Plant Maintenance Relationship Specialty Start Date End Date Marci Hart PA [address] [place] [id number] PCP - General 06/03/25
--- OUTSIDE RECORDS SUMMARY | 2025-07-01 18:24 | XMS_ITS | Data Portability ---
Author Organization [place] - [facility], [facility] Address [address] [address] Care Team Providers Care Bone Process Operator Name Role Phone CJ MEZA Referring Provider Assessment Encounter Date Assessment Date Assessment LastModified by Organization Details LastModified Time 05/19/2025 05/19/2025 75-year-old female presents for evaluation of nasal polyp. MRI brain without contrast 08/24/2024 at [facility] demonstrated 4.8 cm soft tissue mass in the right maxillary sinus extending into the nasal vault and right ethmoid sinuses. Images were not available for review. Nasal endoscopy demonstrated right middle meatal polyp. No purulence. Recommended CT sinus for further evaluation. We will arrange follow-up with a surgeon to review imaging and to discuss surgical intervention. Patient and her jylnvzdm-dv-lks agree with the plan and all questions were answered. [email or web address] Not available 05/19/2025 10:34:31 06/03/2025 06/03/2025 75-year-old female presents for evaluation of right maxillary sinus nasal polyp. MRI brain without contrast 08/24/2024 at [facility] demonstrated 4.8 cm soft tissue mass in [...] y & tissue removal (SURG) 2024 025 [email or web address] Not available 06/03/2025 11:45:15 stereotac tic computer- assisted navigatio n (SURG) 2024 Not available 06/03/2025 11:45:[address], sinuses, w/o contrast - to be scheduled in office with MD follow up 2024 Not available 05/21/2025 14:04:49 Medication Orders None recorded. Patient TargetsNo targets recorded. Patient InstructionsNo instructions recorded. Reason for Referral None Reported. Results Created Date Observation Date Name Description Value Unit Range Abnormal Flag Note LastModifiedBy Organization Detail LastModifiedTime 06/09/20 25 imagi ng/di agnos tic resul t No observ ation record ed. [email or web address] Not Available 2024 12:08:36 Result Notes None recorded. Problems Name Problem SNOMED Code Status Onset Date Resolution Date Notes Provider Name and Address Organization Details Recorded Time Polyp of nasal cavity and/or nasal sinus 454334246 Active 2024 MELONIE MORGAN PA-C [address] [place] [address], [place], [address], [facility] - [facility] 10:07:45 Polyp of right nasal cavity 273175305 Active 2024 MELONIE MORGAN PA-C [address] [place] [address], [place], [address], [facility] - [facility] 10:07:56 Chronic rhinitis 42270221 Active 2024 MELONIE MORGAN PA-C [address] [address], [place], [phone], [facility] - [facility] 10:30:32 Nasal congestion 77485424 Active 2024 MELONIE MORGAN PA-C [address] [address], [place], [phone], [facility] - [facility] [place] 10:30:36 Deviated nasal septum 785990523 Active 2024 Daniel Isabel, [address] [address], [place], [address], [facility] - [facility] [place] 11:10:23 Chronic sinusitis 86839819 Active 2024 Daniel Isabel, [address] [address], [place], [address], [facility] - [facility] [place] 11:10:23 Hypertrophy of nasal turbinates 08158134 Active 2024 Daniel Isabel [address] [address], [place], [address], [facility] - [facility] [place] 11:10:23 Problem Notes None recorded. Procedures Surgical History Date Name Laterality Status Provider Name and Address Organization Details Recorded Time 06/16/20 25 debride_sinus_ri ght_L completed Daniel Isabel [address], [address], [facility] - [facility] 06/16/2025 13:41:50 06/08/20 25 endoscopic medial maxillectomy completed Daniel Isabel [address], [address], [facility] - [facility] [place] 06/08/2025 16:24:17 06/03/[address] sinus - Xoran completed Daniel Isabel [address], [address], [facility] - [facility] [place] 06/03/2025 11:09:01 05/19/20 25 NasalEndoscopy_D P completed MELONIE MORGAN PA-C [address] [place] [address],[address], [address], [place] - [facility] 05/19/2025 10:29:41 Imaging Results None recorded. [...] Updated DateTime 05/19/2025 167.64 cm 30 kg/m2 63942.18 g Jessica Larios [facility] 05/19/2025 09:55:05 Date Recorded Body height Body weight Provider Name and Address Organization Details Last Updated DateTime 06/03/2025 167.64 cm 42432.59 g Marita Jarrett [place] [facility] [place] 06/03/2025 10:42:03 Date Recorded Body height Provider Name an d Address Organization Details Last Updated DateTime 06/16/2025 167.64 cm JAZMINE PACHECO [place] - [facility] [place] 06/16/2025 13:11:03 Social History None recorded. Functional Status Question Answer Note LastModified by Organization D etails LastModified Time What is your level of alcohol consumption? None [email or web address] Information not available 05/19/2025 Mental Status None recorded. Family History Nothing Reported. Medical History Condition Response Heart Attack ([place]) Y Arthritis Y Anxiety Y Hypertension Y Depression Y Kidney Disease Y Gynecological HistoryNo gynecological history recorded. Obstetrics History GPAL:G 0 P 0 0 0 0 Past Encounters Encounter ID Performer Location Encounter Start Date Encounter Closed Date Diagnosis/Indication Diagnosis SNOMED-CT Code Diagnosis ICD10 Code Diagnosis IMO Codes Diagnosis Note [id number] MELONIE MORGAN PA-C [facility] [address] [address] 05/19/2025 09:38:11 05/19/2025 10:21:14 Polyp of right nasal cavity 516966586 J33.0 [id number] Chronic rhinitis 6176710 6 J31.0 2545 Nasal congestion 2961066 0 R09.81 [id number] Daniel Isabel, DO [facility] [address] [address] 06/03/2025 09:53:22 06/03/2025 11:15:45 Polyp of right nasal cavity 249243825 J33.0 3778152080 Chronic rhinitis 6007343 6 J31.0 2545 Nasal congestion 0138084 0 R09.81 37017 Chronic sinusitis 869495 00 J32.8 93635 Hypertroph y of nasal turbinates 88783120 J34.3 [id number] Daniel Isabel DO [facility] [address] [place] [address] 06/16/2025 12:57:34 06/16/2025 13:39:47 Polyp of right nasal cavity 129961275 J33.0 4220437438 Chronic rhinitis 6798146 6 J31.0 2545 Nasal congestion 9832233 0 R09.81 01914 Chronic sinusitis 147531 00 J32.8 67114 Hypertroph y of nasal turbinates 60124251 J34.3 3475125 Health Concerns Section Related Observation LastModified by Organization Detai ls LastModified Time None Recorded Concern Status LastModified by Organization Details LastModified Time None Recorded Advance Directives Directive None Recorded Payers Insurance Date Sequence Insurance Name Policy Number Policy Valdovinos Covered Member ID Valdovinos Member ID Guarantor Name 06/30/2025 2 [place] [facility] Sheri Travis [id number] Sheri Travis 06/16/2025 1 [place]IC[place] B-[place]: [employer] Sheri Travis [id number] Sheri Travis Notes Date Note Type Note Provider Name and Address Organization Details Recorded Time 05/19/2025 text/html ROS as noted in the HPI 75-year-old female presents for evaluation of nasal polyp. She had an MRI brain at [facility] back in August which showed a [...] by daughter in law who acts as sas developer. MELONIE MORGAN PA-C [address] [place] [address], [place], [address], [facility] - [facility] 05/19/2025 10:35:09 06/03/2025 text/html ROS as noted in the HPI Interval history: The patient's fftzydcf-do-ezy does act as a sas developer today the did not require the use [...] polyp. She had an MRI brain at [facility] back in August which showed a [...] by daughter in law who acts as sas developer. Daniel Isabel, DO [address], [address], [facility] - [facility] 06/03/2025 11:11:08 06/16/2025 text/html ROS as noted in the HPI Interval history: Overall has been feeling very fatigued since surgery per her ysmwkixh-pv-pyc no extensive bleeding. S/p right nasal biopsy, endoscopic medial maxillectomy, middle turbinectomy, and anterior ethmoidectomy for right nasal mass. 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 PV: The patient's wlqrsmfs-ge-nzw does act as a sas developer today the did not require the use [...] polyp. She had an MRI brain at [facility] back in August which showed a [...] by daughter in law who acts as sas developer. Daniel Isabel, 100 [facility],[address] [address], [place], [address], [facility] - [facility] 06/16/2025 13:42:36 OBGyn Episode No OBEpisode recorded.
--- OUTSIDE RECORDS SUMMARY | 2025-07-01 18:24 | XMS_ITS | Continuity of Care Document ---
Author Organization [place] - [facility], [facility] Address [address] [place] [address] Care Team Providers Care Furnace Installer Name Role Phone CJ MEZA Referring Provider Assessment Encounter Date Assessment Date Assessment LastModified by Organization Details LastModified Time 06/03/2025 06/03/2025 75-year-old female presents for evaluation of right maxillary sinus nasal polyp. MRI brain without contrast 08/24/2024 at [facility] demonstrated 4.8 cm soft tissue mass in [...] submucous resection inferior turbinate (SURG) 2024 025 [email or web address] Not available 06/03/2025 11:45:15 endoscopy , nasal/sin us, w/ maxillary antrostom y & tissue removal (SURG) 2024 025 [email or web address] Not available 06/03/2025 11:45:15 stereotac tic computer- assisted navigatio n (SURG) 2024 025 [email or web address] Not available 06/03/2025 11:45:15 Imaging None recorded. Medication Orders None recorded. Patient TargetsNo targets recorded. Patient InstructionsNo instructions recorded. Reason for Referral None Reported. Results Created Date Observation Date Name Description Value Unit Range Abnormal Flag Note LastModifiedBy Organization Detail LastModifiedTime 06/09/20 25 imagi ng/di agnos tic resul t No observ ation record ed. [email or web address] Not Available 2024 12:08:36 Result Notes None recorded. Problems Name Problem SNOMED Code Status Onset Date Resolution Date Notes Provider Name and Address Organization Details Recorded Time Polyp of nasal cavity and/or nasal sinus 622665660 Active 2024 MELONIE MORGAN PA-C [address] [place] [address], [place], [address] , [facility] - [facility] 10:07:45 Polyp of right nasal cavity 905247108 Active 2024 MELONIE MORGAN PA-C [address] [facility],[address] [address], [place], [address], [facility] - [facility] [place] 10:07:56 Chronic rhinitis 61070726 Active 2024 PONCHO CHILEL [address] [address], [place], [address], [facility] - [facility] [place] 10:30:32 Nasal congestion 85549809 Active [address] [address], [place], [address], [facility] - [facility] [place] 10:30:36 Deviated nasal septum 349211615 Active 2024 Daniel Isabel [address] [address], [place], [address], [facility] - [facility] [place] 11:10:23 Chronic sinusitis 84343380 Active 2024 Daniel Isabel [address] [address], [place], [address], [facility] [place] 11:10:23 Hypertrophy of nasal turbinates 88626339 Active 2024 Daniel Isabel [address] [address], [place], [address], [facility] - [facility] [place] 11:10:23 Problem Notes None recorded. Procedures Surgical History Date Name Laterality Status Provider Name and Address Organization Details Recorded Time 06/16/20 25 debride_sinus_ri ght_DHL completed Daniel Isabel [address], [address], [facility] 06/16/2025 13:41:50 06/08/20 25 endoscopic medial maxillectomy completed Daniel Isabel [address], [address], [facility] 06/08/2025 16:24:17 06/03/[address] sinus - Xoran completed Daniel Isabel, [address], [address], [facility] 06/03/2025 11:09:01 05/19/20 25 NasalEndoscopy_D P completed MELONIE MORGAN PA-C [address], [address], [facility] 05/19/2025 10:29:41 Imaging Results None recorded. [...] Details Last Updated DateTime 06/03/2025 167.64 cm 15484.59 g Marita Jarrett [place] - [facility] 06/03/2025 10:42:03 Social History None recorded. Functional Status Question Answer Note LastModified by Organization D etails LastModified Time What is your level of alcohol consumption? None [email or web address] Information not available 05/19/2025 Mental Status None recorded. Family History Nothing Reported. Medical History Condition Response Heart Attack ([place]) Y Arthritis Y Anxiety Y Hypertension Y Depression Y Kidney Disease Y Gynecological HistoryNo gynecological history recorded. Obstetrics History GPAL:G 0 P 0 0 0 0 Past Encounters Encounter ID Performer Location Encounter Start Date Encounter Closed Date Diagnosis/Indication Diagnosis SNOMED-CT Code Diagnosis ICD10 Code Diagnosis IMO Codes Diagnosis Note [id number] MELONIE MORGAN PA-C [facility] [address] [address] 05/19/2025 09:38:11 05/19/2025 10:21:14 Polyp of right nasal cavity 999509127 J33.0 1890560983 Chronic rhinitis 7373490 6 J31.0 2545 Nasal congestion 7605075 0 R09.81 [id number] Daniel Isabel DO [facility] [address] [address] 06/03/2025 09:53:22 06/03/2025 11:15:45 Polyp of right nasal cavity 964529381 J33.0 9945826681 Chronic rhinitis 7302452 6 J31.0 2545 Nasal congestion 2853896 0 R09.81 17245 Chronic sinusitis 274025 00 J32.8 23099 Hypertroph y of nasal turbinates 79427738 J34.3 4021196 Health Concerns Section Related Observation LastModified by Organization Detai ls LastModified Time None Recorded Concern Status LastModified by Organization Details LastModified Time None Recorded Payers Encounter Date Sequence Insurance Name Policy Number Policy Valdovinos Covered Member ID Valdovinos Member ID Guarantor Name 06/03/2025 2 [place]: [facility] Sheri Travis [id number] Sheri Travis 06/03/2025 1 MEDIC[place] B-[place]: [employer] Sheri Travis [id number] Sheri Travis Notes Date Note Type Note Provider Name and Address Organization Details Recorded Time 06/03/2025 text/html ROS as noted in the HPI Interval history: The patient's wkgczyrd-bz-pim does act as a primary counselor today the did not require the use [...] polyp. She had an MRI brain at [facility] back in August which showed a [...] by daughter in law who acts as primary counselor. Daniel Isabel, DO [address] [facility],[address] [address], [place], [address], [facility] - [facility] 06/03/2025 11:11:08 OBGyn Episode No OBEpisode recorded.
--- OUTSIDE RECORDS SUMMARY | 2025-07-01 18:24 | XMS_ITS | Continuity of Care Document ---
Author Organization [place] - [facility], [facility] Address [address] [place] [address] Care Team Providers Care Stacker Straightener Name Role Phone CJ MEZA Referring Provider Assessment Encounter Date Assessment Date Assessment LastModified by Organization Details LastModified Time 05/19/2025 05/19/2025 75-year-old female presents for evaluation of nasal polyp. MRI brain without contrast 08/24/2024 at [facility] demonstrated 4.8 cm soft tissue mass in the right maxillary sinus extending into the nasal vault and right ethmoid sinuses. Images were not available for review. Nasal endoscopy demonstrated right middle meatal polyp. No purulence. Recommended CT sinus for further evaluation. We will arrange follow-up with a surgeon to review imaging and to discuss surgical intervention. Patient and her nittyhlq-sk-dar agree with the plan and all questions were answered. [email or web address] Not available 05/19/2025 10:34:31 Plan of Treatment [...] office with MD follow up 2024 025 [email or web address] Not available 05/21/2025 14:04:49 Medication Orders None recorded. Patient TargetsNo targets recorded. Patient InstructionsNo instructions recorded. Reason for Referral None Reported. Results Created Date Observation Date Name Description Value Unit Range Abnormal Flag Note LastModifiedBy Organization Detail LastModifiedTime 06/09/20 25 imagi ng/di agnos tic resul t No observ ation record ed. [email or web address] Not Available 2024 12:08:36 Result Notes None recorded. Problems Name Problem SNOMED Code Status Onset Date Resolution Date Notes Provider Name and Address Organization Details Recorded Time Polyp of nasal cavity and/or nasal sinus 608404040 Active 2024 MELONIE MORGAN PA-C [address] [facility],[place] [address], [place], [address], [facility] [place] 10:07:45 Polyp of right nasal cavity 720712856 Active 2024 MELONIE MORGAN PA-C [address] [place] [address], E [facility], [place], [address], [facility] - [facility] 10:07:56 Chronic rhinitis 82247713 Active 2024 MELONIE MORGAN PA-C [address] [place] [address], [address] [facility], [place], [address], [facility] - [facility] [place] 10:30:32 Nasal congestion 71605627 Active 2024 MELONIE MORGAN PA-C [address] [place] [address], [facility], [place], [address], [facility] - [facility] 10:30:36 Deviated nasal septum 596877811 Active 2024 Daniel Isabel DO [address] [place] [address], [facility], [place], [address], [facility] - [facility] 11:10:23 Chronic sinusitis 49666839 Active 2024 Daniel Isabel DO [address] [place] [address], [facility], [place], [address], [facility] - [facility] [place] 11:10:23 Hypertrophy of nasal turbinates 11541061 Active 2024 Daniel Isabel DO [address] [facility], [facility], [place], [address], [facility] - [facility] 11:10:23 Problem Notes None recorded. Procedures Surgical History Date Name Laterality Status Provider Name and Address Organization Details Recorded Time 06/16/20 debride_sinus_ri ght_DHL completed Daniel Isabel, DO [address] [facility],[address], [address], [facility] 06/16/2025 13:41:50 06/08/20 25 endoscopic medial maxillectomy completed Daniel Isabel, [address] [facility],[address], [address], [facility] 06/08/2025 16:24:17 06/03/20 CT sinus - Xoran completed Daniel Isabel, [address] [facility],[address], [address], [facility] 06/03/2025 11:09:01 05/19/20 NasalEndoscopy_D P completed MELONIE MORGAN PA-C [address] [facility],[address], [address], [facility] [...] completed Not Available Not Available Not Available [email or web address] Ultra Test strips USE TO TEST TWICE [...] Updated DateTime 05/19/2025 167.64 cm 30 kg/m2 57619.18 g Jessica Larios [facility] 05/19/2025 09:55:05 Social History None recorded. Functional Status Question Answer Note LastModified by Organization D etails LastModified Time What is your level of alcohol consumption? None [email or web address] Information not available 05/19/2025 Mental Status None recorded. Family History Nothing Reported. Medical History Condition Response Heart Attack ([place]) Y Arthritis Y Hypertension Y Anxiety Y Depression Y Kidney Disease Y Gynecological HistoryNo gynecological history recorded. Obstetrics History GPAL:G 0 P 0 0 0 0 Past Encounters Encounter ID Performer Location Encounter Start Date Encounter Closed Date Diagnosis/Indication Diagnosis SNOMED-CT Code Diagnosis ICD10 Code Diagnosis IMO Codes Diagnosis Note [id number] MELONIE MORGAN PA-C [facility] of [address] [place] [address] 05/19/2025 09:38:11 05/19/2025 10:21:14 Polyp of right nasal cavity 344110722 J33.0 [id number] Chronic rhinitis 7339855 6 J31.0 2545 Nasal congestion 5610087 0 R09.81 14078 Health Concerns Section Related Observation LastModified by Organization Detai ls LastModified Time None Recorded Concern Status LastModified by Organization Details LastModified Time None Recorded Payers Encounter Date Sequence Insurance Name Policy Number Policy Valdovinos Covered Member ID Valdovinos Member ID Guarantor Name 05/19/2025 2 [place] [facility] Sheri Travis [id number] Sheri Urenado 05/19/2025 1 [place] B[place] [employer] Sheri Travis [id number] Sheri Travis Notes Date Note Type Note Provider Name and Address Organization Details Recorded Time 05/19/2025 text/html ROS as noted in the HPI 75-year-old female presents for evaluation of nasal polyp. She had an MRI brain at [facility] back in August which showed a [...] by daughter in law who acts as slubber frame changer. MELONIE MORGAN PA-C [address] [place] [address], [address], [facility] - [facility] 05/19/2025 10:35:09 OBGyn Episode No OBEpisode recorded.
--- OUTSIDE RECORDS SUMMARY | 2025-07-01 18:24 | XMS_ITS | Continuity of Care Document ---
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, [place], [address], [facility] [place] 10:07:56 Chronic rhinitis 56430974 Active 2024 MELONIE MORGAN PA-C [address] [place] [address], [address] [facility], [place], [address], [facility] [place] 10:30:32 Nasal congestion 10039133 Active 2024 MELONIE MORGAN PA-C [address] [place] [address], [address] [facility], [place], [address], [facility] [place] 10:30:36 Deviated nasal septum 837538658 Active 2024 Daniel Isabel DO [address] [place] [address], [place], [address], [facility] [place] 11:10:23 Chronic sinusitis 61200342 Active 2024 Daniel Isabel [place] [address], [place], [address], [facility] [place] 11:10:23 Hypertrophy of nasal turbinates 64135353 Active 2024 Daniel Isabel DO [address] [facility],[place] [address], [place], [address], [facility] 11:10:23 Problem Notes None recorded. Procedures Surgical History Date Name Laterality Status Provider Name and Address Organization Details Recorded Time 06/16/20 25 debride_sinus_ri ght_DHL completed Daniel Isabel, DO [facility] [place],[address], [address], [facility] 06/16/2025 13:41:50 06/08/20 25 endoscopic medial maxillectomy completed Daniel Isabel, DO [address] [facility] [address], [address], [facility] 06/08/2025 16:24:17 06/03/[address] sinus - Xoran completed Daniel Isabel, DO [address] [facility],[address], [address], [facility] 06/03/2025 11:09:01 05/19/20 25 NasalEndoscopy_D P completed MELONIE MORGAN PA-C [address] [facility],[address], [address], [facility] 05/19/2025 10:29:41 Imaging Results None recorded. Procedure [...] completed Not Available Not Available Not Available [employer] Ultra Test strips USE TO TEST TWICE [...] Updated DateTime 06/16/2025 167.64 cm JAZMINE PACHECO [place] [facility] 06/16/2025 13:11:03 Social History None recorded. Functional Status Question Answer Note LastModified by Organization D etails LastModified Time What is your level of alcohol consumption? None [email or web address] Information not available 05/19/2025 Mental Status None recorded. Family History Nothing Reported. Medical History Condition Response Heart Attack ([place]) Y Arthritis Y Hypertension Y Anxiety Y Depression Y Kidney Disease Y Gynecological HistoryNo gynecological history recorded. Obstetrics History GPAL:G 0 P 0 0 0 0 Past Encounters Encounter ID Performer Location Encounter Start Date Encounter Closed Date Diagnosis/Indication Diagnosis SNOMED-CT Code Diagnosis ICD10 Code Diagnosis IMO Codes Diagnosis Note [id number] MELONIE MORGAN PA-C [facility] of [address] [address] 05/19/2025 09:38:11 05/19/2025 10:21:14 Polyp of right nasal cavity 712843529 J33.0 7878967346 Chronic rhinitis 0048515 6 J31.0 2545 Nasal congestion 5568885 0 R09.81 83951 [id number] aDniel Isabel DO [facility] [address] [place] [address] 06/03/2025 09:53:22 06/03/2025 11:15:45 Polyp of right nasal cavity 709789879 J33.0 7092337879 Chronic rhinitis 4868930 6 J31.0 2545 Nasal congestion 3068799 0 R09.81 71788 Chronic sinusitis 547628 00 J32.8 43150 Hypertroph y of nasal turbinates 33530077 J34.3 [id number] Daniel Isabel DO [facility] [address] [place] [address] 06/16/2025 12:57:34 06/16/2025 13:39:47 Polyp of right nasal cavity 080358085 J33.0 1976855000 Chronic rhinitis 2397645 6 J31.0 2545 Nasal congestion 1283017 0 R09.81 60349 Chronic sinusitis 261126 00 J32.8 08339 Hypertroph y of nasal turbinates 82193438 J34.3 8002840 Health Concerns Section Related Observation LastModified by Organization Detai ls LastModified Time None Recorded Concern Status LastModified by Organization Details LastModified Time None Recorded Payers Encounter Date Sequence Insurance Name Policy Number Policy Valdovinos Covered Member ID Valdovinos Member ID Guarantor Name 06/16/2025 2 [place]: [facility] Sheri Travis [id number] Sheri Travis 06/16/2025 1 MEDICARE B-[place]: [facility] [employer] Sheri Travis [id number] Sheri Travis Notes Date Note Type Note Provider Name and Address Organization Details Recorded Time 06/16/2025 text/html ROS as noted in the HPI Interval history: Overall has been feeling very fatigued since surgery per her [id number] no extensive bleeding. S/p right nasal biopsy, endoscopic medial maxillectomy, middle turbinectomy, and anterior ethmoidectomy for right nasal mass. 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 She had an MRI brain at [facility] back in August which showed a [...] by daughter in law who acts as chief clinical officer. Daniel Isabel, DO [address] [facility],[address], [address], [facility] 06/16/2025 13:42:36 OBGyn Episode No OBEpisode recorded.
== END 2025-07-01 15:13 | disposition home or self-care (01) ==
LOC: HO.US 15:12
PROVIDERS: PCP Internal Medicine; Visit Provider Internal Medicine Medical Oncology
DX: I82.402 Acute embolism and thrombosis of unspecified deep veins of left lower extremity (principal)
CPT/HCPCS: 93971

== ENCOUNTER → 2025-07-01 15:14 | Outpatient (BNV) | payer MEDICARE, MEDICAID, SELFPAY | PROVIDERS: PCP Internal Medicine; Visit Provider Radiology Diagnostic Radiology | DX: I82.402 Acute embolism and thrombosis of unspecified deep veins of left lower extremity (principal) | CPT/HCPCS: 93971 ==

== ENCOUNTER 2025-07-02 08:56 | Emergency (ER) | payer MEDICARE, MEDICAID, SELFPAY ==
--- NOTE | ~2025-07-02 | CT_ITS ---
EXAMINATION: CT ABDOMEN AND PELVIS WITH CONTRAST CLINICAL INFORMATION: Diffuse abdominal pain COMPARISON: CT abdomen 05/06/2024 TECHNIQUE: Multidetector volumetric images were obtained from the superior aspect of the liver through the pubic symphysis following administration 85 mL of Omnipaque 350 intravenous contrast. Sagittal and coronal reformatted images were obtained on the technologist's workstation. Oral contrast: No This CT examination was performed using dose optimization techniques as appropriate, variously including the following: *Automated exposure control *Adjustment of mA and/or kV according to patient size (this includes techniques or standardized protocols for targeted exams where dose is matched to indication/reason for exam; i.e. extremities or head) *Use of iterative reconstruction technique FINDINGS: LUNG BASES: Mild bibasilar atelectasis. LIVER, GALLBLADDER, AND BILIARY TREE: The liver is normal in size, shape, and attenuation. No focal hepatic lesion or biliary ductal dilatation is present. The gallbladder is unremarkable with no evidence of radiopaque gallstones, gallbladder wall thickening, or obvious pericholecystic inflammatory changes. PANCREAS: Unremarkable. No acute inflammatory changes SPLEEN: Unremarkable. ADRENAL GLANDS: Unremarkable. KIDNEYS AND URETERS: The right renal calyces and pelvis are slightly prominent, similar findings in the prior study. Redemonstrated is a stent from the proximal renal collecting system to the urinary bladder. 1.5 cm calculus in the right renal pelvis. No hydroureter. Mild right perinephric stranding. No left renal calculus or hydroureteronephrosis. BLADDER: Pigtail catheter coiled in the bladder. Bladder is partially distended. Mild bladder wall thickening. GASTROINTESTINAL TRACT: Stomach is essentially nondistended. No dilated small or large bowel loops. Nonobstructive bowel gas pattern. Moderate-large volume stool in the large colon. There is prominent stool in the rectosigmoid region. Appendix is unremarkable. Peritoneum: No free fluid. No pneumoperitoneum. No organized fluid collection. No significant mesenteric edema is seen. ABDOMINAL WALL: No significant hernia is appreciated. LYMPH NODES: No pathologically enlarged lymph nodes seen.. VASCULAR: No abnormal dilatation of the abdominal aorta. Aortic calcified plaques. PELVIC VISCERA: Unremarkable. OSSEOUS STRUCTURES: No suspicious acute osseous finding seen. CT/CT abdomen pelvis w IV con IMPRESSION: * Right ureteral stent extending from the renal pelvis to the bladder. There is dilatation of the right renal pelvis and calyceal system, appearing similar to previous. 1.5 cm calculus in the right renal pelvis. Mild right perinephric stranding. * Partially distended urinary bladder. Mild urinary bladder wall thickening, could reflect cystitis. Correlate with urinalysis. * Moderate-large volume stool in the large colon. Prominent stool in the rectosigmoid region. Fleischner guidelines were followed. Electronically signed by: Carlyle Robb MD 07/02/2025 11:23 AM [facility]
[2025-07-02 09:04] VITALS: BP 140/61; PULSE 70; RESP 16; TEMP 36.1; O2SAT 98
--- NOTE | 2025-07-02 09:08 | ECG_ITS ---
Test Reason : DIZZINESS Blood Pressure : */* mmHG Vent. Rate : 69 BPM Atrial Rate : 69 BPM P-R Int : 198 ms QRS Dur : 146 ms QT Int : 436 ms P-R-T Axes : 65 -20 75 degrees QTcB Int : 467 ms Normal sinus rhythm Left bundle branch block Abnormal ECG When compared with ECG of 06-May-2024 11:22, Left bundle branch block is now Present Minimal criteria for Anterior infarct are no longer Present Referred By: Generic ED Physician Electronically Signed By: TIFFANY BUENO MD
--- NOTE | 2025-07-02 09:15 | ED_ITS ---
HPI - General Adult General Chief complaint: General Medical Stated complaint: Cough Congestion Running Nose Time Seen by Provider: 07/02/25 09:11 Source: patient and family (Daughter) Mode of arrival: ambulatory Limitations: altered mental status (History of dementia) History of Present Illness ED Provider: DAREN Meza HPI narrative: Chief Complaint: ?I woke up this morning feeling dizzy and weak and have been vomiting.? History of Present Illness: 75-year-old female history of pulmonary emboli on apixaban, DVT, hypertension, dementia, diabetes, night terrors, vitamin-D deficiency, anxiety, anemia, thrush, was brought in by daughter after awakening this morning with sudden- onset dizziness, generalized weakness, and multiple episodes of vomiting. She denies chest pain, shortness of breath, diarrhea, abdominal pain, fevers, or chills. Urination is reported as normal. Relevant surgical history includes endoscopic nasal polypectomy performed on 06/09 at [facility]; since surgery, she has had increased nasal discharge with a foul odor. Family contacted ENT and was told this is expected post-operatively. No known sick contacts at home. Recent medical events include a blood transfusion on Saturday for anemia (labs done by Dr. Clark at [place]). Most of the history obtianed from daughter patient poor historian. Related Data Previous Rx's ?Medication ?Instructions ?Recorded blood-glucose meter (OneTouch #1 ea 12/16/24 Ultra2 Meter) lancets 33 gauge (OneTouch Delica #100 ea 12/16/24 Plus Lancet) underpads (Bed Underpads) #100 ea 12/16/24 mecobalamin (vitamin B12) 1,000 1,000 mcg sublingual B EDTIME low 01/26/25 mcg disintegrating b12 levels 2 months #60 tab s tablet,sublingual rosuvastatin 10 mg tablet 10 mg PO DAILY #90 tabs 01/17 03/12 cholecalciferol (vitamin D3) 25 25 mcg PO DAILY insuff icient 03/09/25 mcg (1,000 unit) capsule vitamin D levels 4 months #1 20 caps risperidone 0.5 mg tablet 0.5 mg PO BID #180 tabs 07/ 025 blood sugar diagnostic (OneTouch #100 ea 05/23/25 Ultra Test strips) apixaban 5 mg tablet (Eliquis) 5 mg PO BID #180 tabs 1 dulaglutide 0.75 mg/0.5 mL 0.75 mg (0.5 mL) subcut QWE EK #2 mL 06/18/25 subcutaneous pen injector ([facility]) metoprolol succinate 25 mg 25 mg PO DAILY #90 tabs tablet,extended release 24 hr nystatin 100,000 unit/mL oral 1 ml PO DAILY #60 mL suspension trazodone 50 mg tablet 50 mg PO BEDTIME for insomni a #90 06/18/25 tabs vibegron 75 mg tablet 75 mg PO DAILY 90 days #90 t abs 06/18/25 melatonin 5 mg capsule 5 mg PO DAILY sleep difficul ties 06/20/25 30 days #30 caps sertraline 50 mg tablet 75 mg (1.5 x 50 mg) PO DAILY 06/21/25 anxiety #90 tabs memantine 28 mg capsule 28 mg PO DAILY dementia 1 mo nth 06/25/25 sprinkle,extended release 24hr #30 ea prazosin 1 mg capsule 1 mg PO Q12H 3 months #90 ca ps 06/25/25 urmegklaufxvyu-eimfcfdzpqa-twawmaanltdc 1 tab PO BEDTI ME alzheimers 06/27/25 calc. 600 mg-2 mg-6 mg tablet dementia 3 months #90 ta bs ([facility]) ferrous sulfate 325 mg (65 mg 325 mg PO DAILY anemia 3 months 06/27/25 iron) tablet #90 tabs levofloxacin 500 mg tablet 500 mg PO DAILY #5 tabs 06/12 amoxicillin 875 mg-potassium 1 tab PO BID 7 days #14 t abs 07/02/25 clavulanate 125 mg tablet Allergies Allergy/AdvReac Type Severity Reaction Status Date / Time No Known Allergies Allergy Verified 07/02/25 09:07 Review of Systems 2 Review of Systems: * General: Positive for dizziness, weakness, vomiting since this morning. * HEENT: Increased nasal discharge with foul odor post-surgery. * Cardiovascular: Denies chest pain. * Respiratory: Denies shortness of breath. * Gastrointestinal: Denies diarrhea and abdominal pain; positive for vomiting. * Genitourinary: Urination normal. * Constitutional: Denies fever or chills. Yes all other systems are reviewed and are negative PMFSH Past Medical History Attestation statement: The following information was validated with the patient. Source: old records reviewed and nursing notes reviewed Medical History History of HI (myocardial infarction) Hx of blood clots Leg edema Dementia TIA (transient ischemic attack) HTN (hypertension) Surgical History Hx of cystoscopy Hx of cardiac catheterization Hx of hysterectomy Family History Family History Mother Dementia Other Mental health disorder Social History Social History Household Members: Family and Children Household Members Other:: lives with son and daughter in law Housing: House Are you a primary intensive care ambulance paramedic to a significant other at home: No Do you presently have visiting nurse or other home services: No Alcohol intake: never Comment: within the last year prior to moving in with family Patient Tobacco Use Status: Former Tobacco user Tobacco use type: Cigarette Years Smoked: quit smoking e-Cigarette/Vaping Use: Never Used Second Hand Smoke Exposure: No Advance Directives: Yes Advance Directives on File: Yes Advance Directives Date on File: 05/11/25 service: No Current occupational status: disabled Current occupation: right hand dominant Gender identity: Female Cognitive needs: Yes Hearing needs: No Vision needs: Yes Physical Exam ED Exam Exam: Appearance: Alert.? Oriented X3.? No acute distress.? Head: Normocephalic, atraumatic, no step-offs or deformities Eyes: Pupils equal, round and reactive to light.? ENT: Pharynx normal.? Negative Kernig and Brudzinski. There is dry discharge noted in nares the some pus. Bilaterally. Post-operative nasal cavity with reported malodorous discharge (per family not noted on my exams). Neck: Normal inspection.? Neck supple.? CVS: Normal heart rate and rhythm.? Pulses normal.? Respiratory: No respiratory distress.? Breath sounds normal.? Abdomen: Soft and nontender.? Skin: Skin warm and dry.? Normal skin color.? Normal skin turgor.? Extremities: No lower extremity edema.? No calf ttp. 5/5 strength to bilateral upper and lower extremities Neuro: Oriented X 3.? No motor deficit.? No sensory deficit. CN 2-12 intact Vital Signs: Vital Signs - 24 hr 07/02/25 09:04 07/02/25 09:19 Temperature 97 F Pulse Rate 70 67 Respiratory Rate 16 16 Blood Pressure 140/61 H 161/68 H Pulse Oximetry 98 96 Oxygen Delivery Method Room Air Room Air BMI result Body Mass Index 30.0 vss Course Reevaluation(s) Reevaluation #1: CBC with a normocytic anemia. Chemistry pending. Nasal swabs were obtained of bilateral nares for Gram stain and culture. I did speak with [facility] ENT DAREN Olsen who tells me to treat for sinusitis with Augmentin she has a follow-up on 07/19 with their office. No need to move this appointment forward. No need for further intervention in the ED. She does state sinus wash with saline would be good. Time: 10:38 Reevaluation #2: Chemistry with no acute findings eating intervention CKD noted. UA with positive leukocyte esterases and blood however no bacteria unlikely UTI. UTI abdomen and pelvis right ureteral stent extending from the renal pelvis to the bladder there is dilation of the right renal pelvis and calyceal system appearing similar to previous. 1.5 cm calculus in the right renal pelvis. Mild right perinephric stranding. Partially distended urinary bladder. Mild urinary bladder wall thickening. UA does not show infection however. Moderate large volume stool in the colon. COVID, influenza negative. Patient will be discharged home with antibiotics per ENT. This she will follow up with the ENT and return here with any new or worsening symptoms. Nausea, abdominal discomfort likely in the setting of viral illness. Time: 11:53 Reevaluation #3: At this time patient will be placed into observation to allow more time to be evaluated by physical therapy and case management. I did put in a code status she is DNR DNI. Family interested in patient possibly going to a half-way. They can discuss this further with case management. Diabetic diet placed. Med reconciliation has not yet been done by pharmacy I will approve these meds after med rec is done Time: 12:05 Medications Administered Discontinued Medications Generic Name Dose Route Start Last Admin Trade Name Freq PRN Reason Stop Dose Admin Iohexol 100 ml 07/02/25 11:03 07/02/25 11:03 Iohexol 350 Mg/Ml 100 Ml Infus..Btl IV 07/02/25 11:04 85 ml ONCE ONE Administration Ondansetron HCl 4 mg 07/02/25 10:39 07/02/25 12:06 Ondansetron Odt 4 Mg Tab.Arlen SYEDU 07/02/25 10:40 4 mg ONCE ONE Administration Medical Decision Making Medical Decision Making [facility] Narrative: 09 The patient presents with acute dizziness, weakness, and vomiting of unclear etiology in the context of multiple chronic conditions and recent nasal surgery. Initial evaluation today will focus on infectious, metabolic, and abdominal causes, as well as assessment for post-operative complications or anemia recurrence. Problem #1: Acute dizziness, weakness, and vomiting Reason for evaluation: Patient presents with sudden-onset dizziness, weakness, and vomiting since this morning. Physical exam findings: Alert but appears weak; lungs and heart normal; abdomen soft, non-tender. Differential diagnosis: Infectious (viral gastroenteritis, post-op sinus infection), metabolic derangement (hypoglycemia, electrolyte imbalance), anemia recurrence, medication side effect, cardiovascular (arrhythmia, orthostatic hypotension), neurologic (stroke, TIA), dehydration. Plan: Viral testing, CBC and BMP, urinalysis, consider abdominal CT if indicated, monitor and reassess after results. Problem #2: Post-operative nasal discharge after polypectomy (06/09) Reason for evaluation: Patient has increased malodorous nasal discharge following recent nasal polypectomy. Physical exam findings: Post-operative nasal cavity with malodorous discharge (per family). Differential diagnosis: Normal post-operative change, post-op sinus infection, abscess. Plan: Continue to monitor; re-contact ENT if discharge worsens or new symptoms develop. Problem #3: Anemia, status post blood transfusion Saturday Reason for evaluation: Recent history of anemia treated with blood transfusion on Saturday. Physical exam findings: Appears weak; no acute bleeding noted. Differential diagnosis: Anemia recurrence, acute blood loss, chronic disease- related anemia. Plan: Include CBC in today?s labs to reassess hemoglobin/hematocrit. Problem #4: Chronic medical conditions Reason for evaluation: History of diabetes mellitus, hypertension, dementia, lower-extremity blood clot (2023), and heart disease. Physical exam findings: No acute findings related to chronic conditions today. Differential diagnosis: Stable chronic conditions, no acute exacerbation. Plan: Continue routine management; follow-up disposition based on diagnostic findings and clinical course. and heart disease noted. No acute issues from these conditions identified today. Follow-up disposition will be determined based on diagnostic findings and clinical course. Differential Diagnosis Differential Diagnoses: The differential diagnosis associated with the presentation includes * Infectious causes (e.g., viral gastroenteritis, post-operative sinus infection) * Metabolic derangements (e.g., hypoglycemia, electrolyte imbalance, uremia) * Medication side effects or interactions * Anemia recurrence or acute blood loss * Cardiovascular causes (e.g., arrhythmia, orthostatic hypotension) * Neurologic causes (e.g., stroke, TIA) --> non focal this low suspision * Post-operative complications (e.g., sinusitis, abscess) * Other causes (e.g., dehydration, vestibular dysfunction) * No signs of meningitis on exam Admission/Observation Consideration of admission/observation: Escalation of care including admission/observation considered (possible ) Consult Healthcare Provider Management of the patient was discussed with: Road Production General Manager ([facility] ) Lab Data MDM Lab Attestation statement: I reviewed the patient's lab results. 07/02/25 10:18 07/02/25 10:18 Labs: Lab Results 07/02/25 07/02/25 07/02/25 Range/Units 10:14 10:18 10:32 WBC 7.7 (4.8-10.8) X10*3/uL RBC 3.72 L (4.20-5.50) X10*6/uL Hgb 10.0 L (12.0-16.0) g/dl Hct 31.1 L (37.0-47.0) % MCV 83.6 (80.0-98.0) fL MCH 26.9 L (27.0-33.0) pg MCHC 32.2 (31.0-35.0) g/dl RDW 17.1 H (11.0-16.0) % Plt Count 207 (160-400) X10*3/uL MPV 9.0 L (9.4-12.3) fL Immature Gran % (Auto) 0.4 (0.0-0.4) % Neut % (Auto) 80.5 H (45-73) % Lymph % (Auto) 9.7 L (20-40) % [place] % (Auto) 8.4 (2-11) % Eos % (Auto) 0.6 (0-4) % Baso % (Auto) 0.4 (0-2) % Lymph # (Auto) 0.8 L (1.2-4.9) X10*3/uL [place] # (Auto) 0.7 (0.1-1.2) X10*3/uL Eos # (Auto) 0.1 (0.0-0.4) X10*3/uL Baso # (Auto) 0.0 (0.0-0.2) X10*3/uL Abs Immat Gran (auto) 0.03 (0.00-0.03) X10*3/uL Absolute Neuts (auto) 6.2 (2.0-8.3) x10*3/uL Absolute Nucleated RBC 0.000 (0.0-0.012) X10*3/uL Nucleated RBC % (auto) 0.0 (0.0-0.2) /100WBC Sodium 142 (135-145) mmol/L Potassium 4.5 (3.3-5.1) mmol/L Chloride 108 (96-108) mmol/L Carbon Dioxide 27 (22-29) mmol/L Anion Gap 12 (12-20) BUN 19 H (9-16) mg/dL Creatinine 1.57 H (0.5-1.4) mg/dL Estim Creat Clear Calc 33.8 Estimated GFR 32 Random Glucose 151 H (60-115) mg/dL Calcium 9.6 (8.4-10.2) mg/dL Magnesium 2.0 (1.6-2.6) mg/dL Total Bilirubin 0.3 (0.0-1.0) mg/dL AST 17 (5-31) U/L ALT 18 (0-31) U/L Alkaline Phosphatase 114 (39-117) U/L Total Protein 7.5 (6.5-8.0) g/dL Albumin 3.9 (3.5-5.0) g/dL Lipase 39 (8-78) U/L Urine Color Yellow Urine Appearance Cloudy Urine pH 6.5 (5.0-9.0) Ur Specific [place] 1.015 (1.005-1.025) Urine Protein 30 (1+) H (Neg-Trace) mg/dL Urine Glucose (UA) Negative (Negative) mg/dL Urine Ketones Negative (Negative) mg/dL Urine Blood Moderate (2+) H (Negative) Urine Nitrite Negative (Negative) Ur Leukocyte Esterase Large (3+) H (Negative) Urine RBC >20 H (0-2) /HPF Urine WBC >50 H (0-5) /HPF Ur Squamous Epith Cells 0-2 (0-2) /HPF Urine Bacteria None Seen (None Seen) Hyaline Casts 0-2 (0-2) /LPF COVID-19 (FREDI) Negative (Negative) COVID-19 Clin Com See Note Influenza Type A (KELSEY) Invalid (Negative) Influenza Type B (KELSEY) Invalid (Negative) Influenza A & B Note See Note 07/02/25 Range/Units 11:24 WBC (4.8-10.8) X10*3/uL RBC (4.20-5.50) X10*6/uL Hgb (12.0-16.0) g/dl Hct (37.0-47.0) % MCV (80.0-98.0) fL MCH (27.0-33.0) pg MCHC (31.0-35.0) g/dl RDW (11.0-16.0) % Plt Count (160-400) X10*3/uL MPV (9.4-12.3) fL Immature Gran % (Auto) (0.0-0.4) % Neut % (Auto) (45-73) % Lymph % (Auto) (20-40) % [place] % (Auto) (2-11) % Eos % (Auto) (0-4) % Baso % (Auto) (0-2) % Lymph # (Auto) (1.2-4.9) X10*3/uL [place] # (Auto) (0.1-1.2) X10*3/uL Eos # (Auto) (0.0-0.4) X10*3/uL Baso # (Auto) (0.0-0.2) X10*3/uL Abs Immat Gran (auto) (0.00-0.03) X10*3/uL Absolute Neuts (auto) (2.0-8.3) x10*3/uL Absolute Nucleated RBC (0.0-0.012) X10*3/uL Nucleated RBC % (auto) (0.0-0.2) /100WBC Sodium (135-145) mmol/L Potassium (3.3-5.1) mmol/L Chloride (96-108) mmol/L Carbon Dioxide (22-29) mmol/L Anion Gap (12-20) BUN (9-16) mg/dL Creatinine (0.5-1.4) mg/dL Estim Creat Clear Calc Estimated GFR Random Glucose (60-115) mg/dL Calcium (8.4-10.2) mg/dL Magnesium (1.6-2.6) mg/dL Total Bilirubin (0.0-1.0) mg/dL AST (5-31) U/L ALT (0-31) U/L Alkaline Phosphatase (39-117) U/L Total Protein (6.5-8.0) g/dL Albumin (3.5-5.0) g/dL Lipase (8-78) U/L Urine Color Urine Appearance Urine pH (5.0-9.0) Ur Specific [place] (1.005-1.025) Urine Protein (Neg-Trace) mg/dL Urine Glucose (UA) (Negative) mg/dL Urine Ketones (Negative) mg/dL Urine Blood (Negative) Urine Nitrite (Negative) Ur Leukocyte Esterase (Negative) Urine RBC (0-2) /HPF Urine WBC (0-5) /HPF Ur Squamous Epith Cells (0-2) /HPF Urine Bacteria (None Seen) Hyaline Casts (0-2) /LPF COVID-19 (FREDI) (Negative) COVID-19 Clin Com Influenza Type A (KELSEY) Negative (Negative) Influenza Type B (KELSEY) Negative (Negative) Influenza A & B Note See Note Independent Interpretation I performed an independent interpretation of an: EKG (Normal sinus rhythm Left bundle branch block Abnormal ECG When compared with ECG of 06-May-2024 11:22, Left bundle branch block is now Present Minimal criteria for Anterior infarct are no long) and CT Scan (CT/CT abdomen pelvis w IV con IMPRESSION: * Right ureteral stent extending from the renal pelvis to the bladder. There is dilatation of the right renal pelvis and calyceal system, appearing similar to previous. 1.5 cm calculus in the right renal pelvis. Mild right perinephric stranding. * Parti) Radiology Impression Discussion of test interpretation with radiology: I have reviewed the radiologist's reading. External Record Review External record reviewed: Inpatient record, Office record, Outpatient record, Prior outpatient labs, Prior outpatient radiology, Primary care record and Outside ED record Critical Care Time Critical Care Time Critical Care Time: Yes Total Critical Care Time: 35 Attestation: I attest to this time spent taking care of the patient, obtaining history, physical, reviewing labs, imaging, treatment of patients condition +/- specialist/hospitalist consult +/- procedure Discharge Plan Discharge Clinical Impression: Sinusitis, Nausea & vomiting, Abdominal pain Patient Disposition: Home, Self-Care Instructions: Sinusitis (ED), Acute Nausea and Vomiting (ED), Abdominal Pain (ED) Additional Instructions: Take your medications as prescribed. If you were prescribed antibiotics today, it is important that you take your medication to their entirety, do not skip any doses, do not finish them early. Follow-up with your primary care provider this week. Return to the emergency department with new or worsening symptoms. Such as fevers, chills, chest pain, shortness of breath, nausea, vomiting, dizziness, headache, vision changes, lethargy In case of emergency call 911 CT/CT abdomen pelvis w IV con IMPRESSION: * Right ureteral stent extending from the renal pelvis to the bladder. There is dilatation of the right renal pelvis and calyceal system, appearing similar to previous. 1.5 cm calculus in the right renal pelvis. Mild right perinephric stranding. * Partially distended urinary bladder. Mild urinary bladder wall thickening, could reflect cystitis. Correlate with urinalysis. * Moderate-large volume stool in the large colon. Prominent stool in the rectosigmoid region. Prescriptions: New amoxicillin-pot clavulanate 875-125 mg tablet 1 tab PO BID 7 Days Qty: 14 0RF No Action mecobalamin (vitamin B12) 1,000 mcg tablet,disintegrating 1,000 mcg sublingual BEDTIME MDD 1 tablet 60 Days Qty: 60 1RF Rx Instructions: place tablet under tongue and allow to dissolve for at least30 secs before swallowing cholecalciferol (vitamin D3) 25 mcg (1,000 unit) capsule 25 mcg PO DAILY MDD 1 capsule 1000 units 120 Days Qty: 120 2RF Rx Instructions: take one capsule daily at bedtime. risperidone 0.5 mg tablet 0.5 mg PO BID Qty: 180 2RF (DME) OneTouch Ultra Test Strip See Rx Instructions .Route Qty: 100 0RF Rx Instructions: As directed. BID vibegron 75 mg tablet 75 mg PO DAILY 90 Days Qty: 90 0RF Eliquis 5 mg tablet 5 mg PO BID Qty: 180 2RF trazodone 50 mg tablet 50 mg PO BEDTIME Qty: 90 2RF Trulicity 0.75 mg/0.5 mL pen injector 0.75 mg subcut QWEEK Qty: 2 0RF Rx Instructions: takes on metoprolol succinate 25 mg tablet extended release 24 hr 25 mg PO DAILY Qty: 90 3RF melatonin 5 mg capsule 5 mg PO DAILY MDD 5mg 30 Days Qty: 30 3RF Rx Instructions: take one 5mg po capsule daily. sertraline 50 mg tablet 75 mg PO DAILY MDD 75mg Qty: 90 3RF Rx Instructions: take one 75 mg po tablet daily in the morning. levofloxacin 500 mg tablet 500 mg PO DAILY Qty: 5 0RF nystatin 100,000 unit/mL suspension 1 ml PO DAILY Qty: 60 0RF Rx Instructions: swish and swallow prazosin 1 mg capsule 1 mg PO Q12H 90 Days Qty: 90 1RF memantine 28 mg capsule,sprinkle,ER 24hr 28 mg PO DAILY MDD 28 30 Days Qty: 30 3RF Rx Instructions: take one tablet daily at bedtime. ferrous sulfate 325 mg (65 mg iron) tablet 325 mg PO DAILY MDD 1 tablet 90 Days Qty: 90 3[facility] 600-2-6 mg tablet 1 tab PO BEDTIME MDD 1tablet 90 Days Qty: 90 0RF (DME) blood-glucose meter [OneTouch Ultra2 Meter] Misc See Rx Instructions .Route Qty: 1 0RF Rx Instructions: As directed BID (DME) lancets [OneTouch Delica Plus Lancet] 33 gauge misc See Rx Instructions .Route Qty: 100 0RF Rx Instructions: As directed. BID (DME) underpads [Bed Underpads] Pad See Rx Instructions .Route Qty: 100 0RF Rx Instructions: As directed. nightly use rosuvastatin 10 mg tablet 10 mg PO DAILY Qty: 90 3RF Referrals: Audrey Christian MD [Primary Care Provider, Internal Medicine] Stand Alone Forms: Work/School Release Print Language: [place]
--- NOTE | 2025-07-02 09:17 | PC.NURSE ---
Pt roomed and placedon 1/2 monitor- Qmuslsmg-yj-lri at bedside. States post surgery has foul smelling discharge from nose that isdark brown in color. Advised by ENT to come for eval. No fever. Vomited X1 this am. also c/o dizziness. Has hx HTN for which she takes Metoprolol.
[2025-07-02 09:19] VITALS: BP 161/68; PULSE 67; RESP 16; O2SAT 96
--- OUTSIDE RECORDS SUMMARY | 2025-07-02 09:57 | XMS_ITS | Clinical Summary ---
Author Organization [address] [facility] Address [address] [place] [address] Phone Care Team Providers Care Construction Controller Name Role Phone Marci Hart Primary Care Provider [phone] Allergies No known active allergies Medications dulaglutide [...] Nasal mass 06/08/2025 Chronic maxillary sinusitis 06/08/2025 [place] (myocardial infarction) ([facility], [facility] V[facility]) 06/08/2025 HTN (hypertension) 06/08/2025 CAD (coronary artery disease) 06/08/2025 Diabetes mellitus, type 2 ([facility] [place], [facility] V28) 06/08/2025 Liver disease 06/08/2025 Encounters Date Type Department Care Team Description 06/08/2025 7:31 AM EDT Anesthesia Event [facility] OR [address] [place] [phone] Krystian Darling MD Lema Alava, Steven, SRNA 06/08/2025 7:30 AM EDT - 06/08/2025 9:30 AM EDT Surgery [facility] OR [address] [place] [phone] Daniel Isabel DO LEFT ENDOSCOPIC NASAL BIOPSY, LEFT ENDOSCOPIC MAXILLARY ANTROSTOMY [36582 (CPT )] 06/08/2025 5:55 AM EDT - 06/08/2025 11:04 AM EDT Hospital Encounter [facility] OR [address] [place] [phone] Daniel Isabel DO Chronic maxillary sinusitis Discharge Disposition: Home or Self Care from Last 3 Months Surgical History Surgery Date Site/Laterality Comments OTHER SURGICAL HISTORY KIDNEY STONE SURGERY LITHOTRIPSY BLADDER SURGERY Medical History Medical History Date Comments Hypertension Hyperlipidemia Myocardial infarction ([facility] V24, [facility] V28) X3 Diabetes mellitus ([facility] V24, [facility] V28) Chronic kidney disease Peripheral vascular disease ([facility] V24) BLOOD CLOT Pulmonary embolism ([facility] V24, [facility] V28) Arthritis Joint pain Dementia ([facility], [facility] V28) Social History Tobacco Use Types Packs/Day [...] [employer] Implanted Type Area Laboratory Technology Teacher Device Identifier Shelf Expiration Date Model / Serial / Lot Hemostat Flour Collgn 1gm Avitene - Sna - [id number] Implanted:Qty: 1 on 06/08/2025 by Daniel Isabel DO at [facility] Hemostasis Right: Nose CR BARD - [employer] DIV 11/14/2027 [id number] / NA / [id number] Hemostat Flour Collgn 1gm Avitene - Sna - [id number] Implanted:Qty: 1 on 06/08/2025 by Daniel Isabel DO at [facility] Hemostasis Right: Nose CR BARD [employer] [id number] 11/14/2027 [id number] / NA / [id number] Procedures Procedure Name Priority Date/Time Associated Diagnosis Comments TISSUE EXAM Routine 06/08/2025 8:07 AM EDT Chronic maxillary sinusitis TH AN ENDOTRACHEAL(NO CHARGE) Routine 06/08/2025 7:59 AM EDT AL NASAL/SINUS ENDO W MAXILLARY ANTROSTOMY W REM [...] PAPILLOMA (SCHNEIDERIAN PAPILLOMA) 06/09/2025 3:[address] [facility] at 1512 EDT Gross Description [...] fragments and abundant clotted blood of which loan servicing representative sections are submitted in one cassette, multiple pieces. RAJIV 06/09/2025 3:[address] [facility] Disclaimer Unless otherwise specified, all tissue is 10% NB formalin fixed and paraffin embedded. 06/09/2025 3:[address] [facility] Tissue Nasal sinus structure / Unknown 06/08/2025 8:07 AM EDT 06/08/2025 9:37 AM EDT Tissue specimen (specimen) Nasal sinus structure / Unknown 06/08/2025 8:25 AM EDT 06/08/2025 9:37 AM EDT Daniel Isabel DO LAB PATHOLOGY ORDERABLES Final Result [facility]) [facility] [address] [place] [address], [place] [phone] * TH AN ENDOTRACHEAL(NO CHARGE) (06/08/2025 7:59 AM EDT) Narrative Cresencio Carbajal SRNA - 06/08/2025 7:59 AM EDT MIKE Day 06/08/2025 7:59 AM General Information and Staff Patient location during procedure: OR Other anesthesia staff: MIKE Day Performed: resident/MECHANICAL ENGINEERING LECTURER/CAA Performed by: MIKE Day Authorized by: Krystian [...] - 100 mg/dL 06/08/2025 6:19 AM EDT [facility] ([facility] Blood Capillary blood specimen / Unknown 06/08/2025 6:18 AM EDT 06/08/2025 6:20 AM EDT us Daniel Isabel DO LAB POINT OF CARE TE ST DOCKED DEVICE UNSOLICITED RESULTS Final Result [facility] ([facility]) [facility] [address] [place] [address], [place] [phone] from Last 3 Months Additional Health Concerns Active Problems Noted Date Diagnosed Date Autogenerated Problem 06/09/2025 [place] [address] MEDICA[place] - [place]ICARE Advance Directives Documents on File Type Date Recorded Patient Exercise Teacher Expl anation Power of Clinical Informatics Educator 06/08/2025 5:54 AM hcp Care Teams Construction Controller Relationship Specialty Start Date End Date Marci Hart PA [address] [place] [phone] PCP - General 06/03/25
[2025-07-02 10:22] LABS: MANUAL DIFF FLAG NO
[2025-07-02 10:26] LABS: Hematocrit 31.1 % (37.0-47.0); Hemoglobin 10.0 g/dl (12.0-16.0); Imm Gran Abs Auto 0.03 X10*3/uL (0.00-0.03); Imm Gran Pct Auto 0.4 % (0.0-0.4); Lymphocytes Absolute Auto 0.8 X10*3/uL (1.2-4.9); Mean Corpuscular HGB Conc 32.2 g/dl (31.0-35.0); Mean Corpuscular Hemoglobin 26.9 pg (27.0-33.0); Mean Corpuscular Volume 83.6 fL (80.0-98.0); NRBC Abs Auto 0.000 X10*3/uL (0.0-0.012); NRBC Pct Auto 0.0 /100WBC (0.0-0.2); Platelet Count 207 X10*3/uL (160-400); Red Blood Count 3.72 X10*6/uL (4.20-5.50); White Blood Count 7.7 X10*3/uL (4.8-10.8)
[2025-07-02 10:38] LABS: Alanine Aminotransferase 18 U/L (0-31); Albumin Level 3.9 g/dL (3.5-5.0); Alkaline Phosphatase 114 U/L (39-117); Anion Gap 12 (12-20); Aspartate Amino Transferase 17 U/L (5-31); Blood Urea Nitrogen 19 mg/dL (9-16); Calcium 9.6 mg/dL (8.4-10.2); Carbon Dioxide 27 mmol/L (22-29); Chloride 108 mmol/L (96-108); Creatinine Clr Calc Pharmacy 33.8; Estimated Glomerular Filt Rate 32; Lipase 39 U/L (8-78); Magnesium 2.0 mg/dL (1.6-2.6); Potassium 4.5 mmol/L (3.3-5.1); Sodium 142 mmol/L (135-145); Total Protein 7.5 g/dL (6.5-8.0)
[2025-07-02 10:42] LABS: Appearance Urine Cloudy; Glucose Urine UA Negative (Negative); PH 6.5 (5.0-9.0); Specific Gravity - Urine 1.015 (1.005-1.025); UMIC TRIGGER UACC YES
[2025-07-02 10:44] LABS: COVID-19 Test Negative (Negative); IDNOW Serial# 55D5AD1C
[2025-07-02 10:46] LABS: UACC Culture Trigger YES
[2025-07-02] MEDS: iohexoL 350 MG/ML 100 ML INFUS..BTL IV (11:03)
[2025-07-02 11:11] LABS: IDNOW Serial# 55D5AD1C; Influenza B2 Invalid (Negative)
[2025-07-02 11:48] LABS: IDNOW Serial# 08D9AD1C; Influenza B2 Negative (Negative)
[2025-07-02 13:06] LABS: Troponin-I High Sensitivity < 2.7 ng/L (<3.5-17.0)
[2025-07-02 13:50] VITALS: BP 161/68; PULSE 67; O2SAT 96
[2025-07-02 14:47] VITALS: BP 170/78; PULSE 74; RESP 14; TEMP 36.9
[2025-07-02 15:05] VITALS: BP 170/78; PULSE 74; RESP 14; TEMP 36.9
--- NOTE | 2025-07-02 15:18 | MHC.CM.ED ---
Received case management consult from Nargis MERCEDES. Patient came to the ER due to a nose bleed s/p surgery. Received consult for weakness. Met with patient and daughter in law, Jessica. Jessica is patient's primary long term care administrator. Patient has a history of dementia with worsening symptoms. Patient has a neurologist but Dayana doesn't feel patient is on the right meds. Offered psych consult for medication recommended. Jessica not interested at this time but will attempt to find outpatient psych for patient. Jessica will transport patient home. Nargis MERCEDES aware. Continue to monitor for d/c needs.
== END 2025-07-02 15:07 | disposition home or self-care (01) ==
PROVIDERS: Emergency Medicine; Physician Assistant; Emergency Provider Emergency Medicine; PCP Internal Medicine
DX: J32.9 Chronic sinusitis, unspecified (principal); R10.9 Unspecified abdominal pain; R11.2 Nausea with vomiting, unspecified; R42 Dizziness and giddiness; R53.1 Weakness; I10 Essential (primary) hypertension; E11.9 Type 2 diabetes mellitus without complications; I82.409 Acute embolism and thrombosis of unspecified deep veins of unspecified lower extremity; I44.7 Left bundle-branch block, unspecified; D64.9 Anemia, unspecified; R94.31 Abnormal electrocardiogram [ECG] [EKG]; R26.81 Unsteadiness on feet; Z03.818 Encounter for observation for suspected exposure to other biological agents ruled out; Z86.711 Personal history of pulmonary embolism; Z79.01 Long term (current) use of anticoagulants; Z79.899 Other long term (current) drug therapy
CPT/HCPCS: 36415; 74177; 80053; 81001; 83690; 83735; 84484; 85025; 87070; 87077; 87086; 87186; 87205; 87502; 87635; 93005; 97162; 99284; Q9967

== ENCOUNTER → 2025-07-02 09:08 | Outpatient (BNV) | payer MEDICARE, MEDICAID, SELFPAY | PROVIDERS: Emergency Provider Emergency Medicine; PCP Internal Medicine; Visit Provider Internal Medicine Cardiovascular Disease | DX: I44.7 Left bundle-branch block, unspecified (principal) | CPT/HCPCS: 93010 ==

== ENCOUNTER → 2025-07-02 09:24 | Outpatient (BNV) | payer MEDICARE, MEDICAID, SELFPAY | PROVIDERS: Emergency Provider Emergency Medicine; PCP Internal Medicine; Visit Provider Radiology Diagnostic Ultrasound | DX: N20.0 Calculus of kidney (principal); N32.89 Other specified disorders of bladder | CPT/HCPCS: 74177 ==

== ENCOUNTER 2025-07-28 09:56 | Outpatient (AMB) | payer MEDICARE, MEDICAID, SELFPAY ==
[2025-07-28 10:05] VITALS: BP 116/55; PULSE 68; BMI 25.8
--- NOTE | 2025-07-28 10:05 | A.OFFVIS_ITS ---
Vital Signs 07/28/25 10:05 Height 5 ft 9 in Weight 175 lb BMI 25.8 BP 116/55 L Blood Pressure Location Lt brachial Position Sitting Pulse 68 Intake Visit Reasons: Dark Stools Intake Note: Patient new consult for dark stool Patient cc: N/V, Dizziness, constipation with hard and dark stool and swallowing difficulties with liquid ans solid on and off. 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 Pt accompanied by daughter in law who provides most of the history given pt's coginitive impairment. Seen wi emery grinder. D.I.L reports pt has had intermittnet choking and difficulty swallowing x 1 year. Mostly to solids but has noticed with liquids as well. Assoc with fasciculations in tongue. No appetite changes or unintentional weight loss reported. Pt also occ reports abd discomfort and dizziness. Follows with Dr Clark for symptomatic PAU and plan is to start IV iron replacement. Pt used to be in [place] by herself and was brought to [place] by her son last year due to her progressive decline from dementia. DIL is not aware if pt has ever had a colo before. [facility] Medical History History of GA (myocardial infarction) Hx of blood clots Leg edema Dementia TIA (transient ischemic attack) HTN (hypertension) Surgical History Hx of cystoscopy Hx of cardiac catheterization Hx of hysterectomy Family History Mother Dementia Other Mental health disorder Social History Household Members: Family and Children Household Members Other:: lives with son and daughter in law Housing: House Are you a primary hospice care consultant to a significant other at home: No Do you presently have visiting nurse or other home services: No Alcohol intake: never Comment: within the last year prior to moving in with family Patient Tobacco Use Status: Former Tobacco user Tobacco use type: Cigarette Years Smoked: quit smoking e-Cigarette/Vaping Use: Never Used Second Hand Smoke Exposure: No Advance Directives Date on File: 05/11/25 service: No Current occupational status: disabled Current occupation: right hand dominant Gender identity: Female Cognitive needs: Yes Hearing needs: No Vision needs: Yes Review of Systems Const All systems reviewed & are unremarkable except as noted in HPI and below Physical Exam Exam Exam: elderly female NAD nonicteric abd soft maintains eye contact but minimally verbal Needs assistance with walking Vital Signs: Last Vital Signs Pulse 68 07/28/25 10:05 BP 116/55 L 07/28/25 10:05 BMI result Body Mass Index 25.8 Assessment & Plan Assessment & Plan (1) Dysphagia: Code(s): R13.10 - Dysphagia, unspecified Category: Medical (2) Iron deficiency anemia: Code(s): D50.9 - Iron deficiency anemia, unspecified Category: Medical (3) Pulmonary emboli: Code(s): I26.99 - Other pulmonary embolism without acute cor pulmonale Category: Medical Qualifiers: Acute cor pulmonale presence: without acute cor pulmonale Chronicity: acute Pulmonary embolism type: unspecified Qualified Code(s): I26.99 - Other pulmonary embolism without acute cor pulmonale (4) Alzheimer's dementia with behavioral disturbance: Code(s): G30.9 - Alzheimer's disease, unspecified; F02.818 - Dementia in other diseases classified elsewhere, unspecified severity, with other behavioral disturbance Category: Medical Plan Reviewed with the pt that dysphagia could be oropharyngeal vs 2/2 esophageal. Will recommend MBSS to help differentiate as may need neuro + ST if this is 2/2 dementia. Pt also with PAU - DIL reports significant post op bleeding after nasal mass removing however on review of labs, noted to have anemia going back to 2023. ideally should undergo endoscopic work up. DIL will discuss with pt's son and review at next appt. Plan: - MBSS - IV iron through hematology being set up per pt reported - Will likely need colo, +/- EGD based on results of MBS Follow up 6-8 weeks after barium swallow Orders: Orders FL Modified Barium Swallow 08/03/25 R13.10 - Dysphagia, unspecified Coding Level of Care Code New Pt Level 4 (86513) Diagnoses Dysphagia R13.10 Iron deficiency anemia D50.9 Acute pulmonary embolism without acute cor pulmonale, unspecified pulmonary embolism type I26.99 Acute cor pulmonale presence: without acute cor pulmonale Chronicity: acute Pulmonary embolism type: unspecified Alzheimer's dementia with behavioral disturbance G30.9; F02.818
== END 2025-07-28 10:44 | disposition home or self-care (01) ==
LOC: HO.HGI 09:57
PROVIDERS: PCP Internal Medicine; Visit Provider Internal Medicine
DX: R13.10 Dysphagia, unspecified (principal); D50.9 Iron deficiency anemia, unspecified; I26.99 Other pulmonary embolism without acute cor pulmonale; G30.9 Alzheimer's disease, unspecified; F02.818 Dementia in other diseases classified elsewhere, unspecified severity, with other behavioral disturbance
CPT/HCPCS: 99204

== ENCOUNTER → 2025-07-28 09:56 | Outpatient (BNVA) | payer MEDICARE, MEDICAID, SELFPAY | PROVIDERS: PCP Internal Medicine; Visit Provider Internal Medicine | DX: G30.9 Alzheimer's disease, unspecified (principal); F02.818 Dementia in other diseases classified elsewhere, unspecified severity, with other behavioral disturbance; D50.9 Iron deficiency anemia, unspecified; R13.10 Dysphagia, unspecified | CPT/HCPCS: 99202 ==

== ENCOUNTER 2025-08-03 14:03 | Outpatient (REF) | payer MEDICARE, MEDICAID, SELFPAY ==
--- NOTE | ~2025-08-03 | FL_ITS ---
EXAMINATION: XR MODIFIED BARIUM SWALLOW CLINICAL INFORMATION: Dysphagia COMPARISON: None available. TECHNIQUE: Patient swallowed solids and liquids of varying consistency. FINDINGS: Modified barium swallow performed by speech pathology. No aspiration is seen. FLUOROSCOPY TIME: 1 minute 42 seconds DOSE AREA PRODUCT: 1216 uGy-m2 (microgray-meter squared) FL/FL Modified Barium Swallow IMPRESSION: No aspiration is seen.] See speech pathology report for details. Electronically signed by: Carlyle Robb MD 08/04/2025 12:18 PM [facility]
--- NOTE | 2025-08-04 10:21 | MHC.SL.IMP ---
Date of Plan of Treatment: 08/03/25 Onset of Symptoms/Illness: 08/03/24 Date Treatment Started: 08/03/25 Admitting Diagnosis: Dementia Primary Speech & Language Diagnosis: R13.11 Oral Phase Dysphagia Reason for Today's Visit: 37435 Modified Barium Swallow Study Pre-evaluation Dietary Consistencies: Regular Pre-evaluation Liquid Consistency: Thin Pre-evaluation Medication Administration: Whole with Liquid Medical History: Modified Barium Swallow Study Fluoroscopic Evaluation of Swallowing Function CPT Code 77123 Evaluation Year: 2024 Reason for Study: Family reporting coughing and choking at meals Referring Physician: Kristie Sánchez MD Evaluating Clinician: Amanda Tracy MA, CCC-HEALTHCARE ECONOMICS CONSULTANT Study Number: 1 Patient Name: Sheri Travis Status: Outpatient Age: 75 Sex: Female Medical History Medical History History of TN (myocardial infarction) Hx of blood clots Leg edema Dementia TIA (transient ischemic attack) HTN (hypertension) Surgical History Hx of cystoscopy Hx of cardiac catheterization Hx of hysterectomy Current (pre-evaluation) Intake/Diet: Route: PO Diet Grade: Regular Liquid Consistencies: Thin Pre-Study Functional Oral Intake Scale (FOIS): 7- Total oral intake with no restrictions Pain: None reported at time of study SUBJECTIVE: Patient is a 75 year old female referred for a modified barium swallow study by Dr. Sánchez from the [facility]. Patient was accompanied today by her [id number], who provided background information and reported being patient?s primary human resources benefits assistant and HCP. Patient?s [id number] reports that patient has episodes almost daily of choking ?on everything,? with both solids and liquids. Patient has top and bottom dentures, which she ?will not wear when eating or drinking.? She had them in at the onset of the visit and took her dentures out just before eating, as this is how she always eats. Per Dr. Sánchez, patient presents with fasciculations on the tongue, with intermittent swallow difficulty over the past year, without appetite changes or unintentional weight loss. 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 Oral Motor Exam Facial Symmetry: Symmetrical Mouth Occlusion: Normal Oral-Facial Teeth Characteristics: Edentulous Oral-Facial Teeth Miscellaneous Observation: Will not wear dentures when eating Tongue Size: Normal Is patient able to manage secretions?: Yes Food and Liquid Trials: Oral Impairment: Lip Closure: Did not test Oral Impairment: Tongue Control During Bolus Hold: 1=Escape to lateral buccal cavity/floor of mouth (FOM) Oral Impairment: Bolus Preparation/Mastication: 1=Slow prolonged chewing/mashing with complete re-collection Oral Impairment: Bolus Transport/Lingual Motion: 3=Repetitive/disorganized tongue motion Oral Impairment: Oral Residue: 2=Residue collection on oral structures Oral Impairment:Initiation of Pharyngeal Swallow: 2=Bolus head at posterior laryngeal surface of epiglottis Pharyngeal Impairment: Soft Palate Elevation: 0=No bolus between soft palate (SP)/pharyngeal wall (PW) Pharyngeal Impairment: Laryngeal Elevation: 1=Partial thyroid cartilage/arytenoids to epiglottic petiole movement Pharyngeal Impairment: Anterior Hyoid Excursion: 1=Partial anterior movement Pharyngeal Impairment: Epiglottic Movement: 1=Partial inversion Pharyngeal Impairment: Laryngeal Vestibular Closure:: 0=Complete: no air/contrast in laryngeal vestibule Pharyngeal Impairment: Pharyngeal Stripping Wave: 0=Present: complete Pharyngeal Impairment: Pharyngeal Contraction: Did not test Pharyngeal Impairment: Pharyngoesophageal Segment Openin=Complete distension and complete duration: no obstruction of flow Pharyngeal Impairment: Tongue Base (TB) Retraction: 2=Narrow column of contrast/air between TB and posterior PW Pharyngeal Impairment: Pharyngeal Residue: 1=Trace residue within or on pharyngeal structures Pharyngeal Impairment: Esophageal Clearance Upright Position: Did not test Impressions and Recommendations OBJECTIVE: Time-out: performed at 15:00 Evaluation Start: 14:45; Stop: 14:50 Patient Positioning: Seated 70-90 degrees Viewing Planes: LATERAL ONLY Contrast: MBSImP? Standardized Protocol using commercially prepared, standardized Barium viscosities, including: Varibar? THIN LIQUID (40% w/v, <15 cps) , Varibar? PUDDING (40% w/v, <1927-1758 cps) , 1/2 Shortbread Cookie (1 x1 x.25 ) MBSImP ID: [id number] MBSImP Results: Lip closure for intraoral bolus containment could not be assessed due to logistical reasons not related to physiologic impairment. Tongue control during bolus hold allowed bolus escape to the lateral buccal cavity/floor of mouth. Bolus preparation and mastication resulted in slow, prolonged chewing/mashing but with complete re-collection. Bolus transport/lingual motion was with repetitive/disorganized motion of the tongue. Oral residue was a collection on oral structures. Initiation of the pharyngeal swallow occurred as the bolus head was at the posterior laryngeal surface of the epiglottis. Soft palate elevation resulted in no bolus between the soft palate and the pharyngeal wall. Laryngeal elevation was decreased, with partial superior movement of the thyroid cartilage/partial approximation of the arytenoids to the epiglottic petiole. Anterior hyoid excursion demonstrated partial anterior movement. Epiglottic movement resulted in partial inversion. Laryngeal vestibular closure was complete, as indicated by no air or contrast within the laryngeal vestibule at the height of the swallow. Pharyngeal stripping wave was present and complete. Pharyngeal contraction could not be determined due to logistical reasons not related to physiologic impairment. Pharyngoesophageal segment opening was completely distended for complete duration with no obstruction of bolus flow. Tongue base retraction allowed a narrow column of contrast or air between the retracted tongue base and the posterior pharyngeal wall. Pharyngeal residue was a trace within or on pharyngeal structures. Esophageal clearance in the upright position could not be assessed due to logistical reasons not related to physiologic impairment. Oral Impairment Score: 9 (absence of score, component 1) Pharyngeal Impairment Score: 5 (absence of score, component 13) Esophageal Impairment Score: --- (absence of score, component 17) Laryngeal Penetration and Aspiration: Neither penetration nor aspiration was observed in today's study with Cookie, Pudding-thick, Thin. ASSESSMENT: Clinician Assessment: This exam was performed by the radiologist and the speech pathologist. Patient was seated upright in a chair at approximately 90 degrees. She fed herself independently and trialed the following consistencies: -Thin liquid (via individual and rapid sequential cup sips) -Puree (mixture applesauce w/ barium pudding) -Regular (shortbread cookies coated w/ barium pudding) There was a small amount of liquid pooling in the floor of mouth without any premature posterior spillage from the oral cavity. Mastication was mildly slowed and prolonged, characterized by piece meal clearing. Patient chewed bolus, swallowed partial bolus, continued chewing, and then swallowed again to clear the oral cavity. Posterior bolus transport was delayed in initiation, with slowed lingual movements and at times repetitive tongue pumping. Pharyngeal swallow trigger was delayed, initiated as the bolus head reached the posterior laryngeal surface of the epiglottis. Post-swallow, there was mild residue seen on the tongue, which cleared with subsequent swallows. No escape to the nasopharynx or nasal cavity. Incomplete laryngeal elevation, with partial epiglottic inversion and complete laryngeal vestibular closure. There was no evidence of aspiration or penetration during this exam. Trace pooling of contrast in the valleculae and pyriform sinuses with trials of thin liquid. Complete pharyngeal clearance seen with puree and regular solid. No obstruction of flow through the pharyngoesophageal segment opening (PES). Liquid Intake Recommendation: Thin Dietary Recommendations: IDDSI Easy to Chew Medication Administration: Whole with Liquid Please contact the pharmacy regarding appropriate crushable or liquid drug formulations that are available whenever modified delivery is recommended. Compensatory Strategies Recommended: Sitting Upright (90 deg), Small Bites and Sips, Alternate Liquids/Solids, Rate of Ingestion Change, Avoid Specific Foods Supervision during eating and or drinking: Direct Supervision (1:1) Recommendation for Speech Therapy: NA:Typical Evaluation Text Comment: Intake Recommendations: Route: PO Diet Grade: IDDSI 7 Easy to Chew Foods Liquid Consistencies: Thin Post-Study Functional Oral Intake Scale (FOIS): 6- Total oral intake with no special preparation, but must avoid specific foods or liquid items Patient presents with mild oral phase dysphagia, characterized by slowed mastication and disorganized lingual motion. Pharyngeal swallow trigger was delayed. Adequate airway protection seen with no evidence of aspiration or penetration during this exam. Good oral and pharyngeal clearance. Therapy Recommendations: Further speech therapy intervention is not warranted at this time. Patient is recommended IDDSI 7 Easy to Chew foods. Advised patient?s family to encourage patient to wear her dentures if eating harder solid foods, otherwise avoid these overly tough or chewy foods. Supervise patient at meal time and cue as needed for aspiration precautions: upright 90 degree positioning, small bites/sips, chew food well, alternate with sips of liquid for clearance. Clinician - Supplemental, Miscellaneous Communication: It is important to note MBSS objective studies are snapshots in time and Patient function might vary with factors such as time of day or concomitant medical conditions. For this reason, the final treatment plan for this patient should rest with their medical care team. Additional recommendations should be considered with the totality of the Patient in mind. Thank for the opportunity to participate in the care of this patient. If you have any questions about the content of this report, please contact the [facility]. Education: Education regarding findings from today's study and plans for therapy were provided to Family/caregiver only through Verbal Instruction. Understanding was expressed by the Family/caregiver only. Distribution Technician Clinician/Clinical Fellow: No Supervisory Statement: N/A Speech Language Pathologist: Amanda Tracy M.A., [facility]-HEALTHCARE ECONOMICS CONSULTANT
== END 2025-08-03 14:04 | disposition home or self-care (01) ==
LOC: HO.XRAY 14:03
PROVIDERS: Visit Provider Internal Medicine
DX: R13.11 Dysphagia, oral phase (principal)
CPT/HCPCS: 74230; 92611

== ENCOUNTER → 2025-08-03 14:30 | Outpatient (BNV) | payer MEDICARE, MEDICAID, SELFPAY | PROVIDERS: Visit Provider Radiology Diagnostic Ultrasound | DX: R13.10 Dysphagia, unspecified (principal) | CPT/HCPCS: 74230 ==

== ENCOUNTER 2025-08-13 10:30 | Outpatient (RCR) | payer MEDICARE, MEDICAID, SELFPAY ==
[2025-08-06 09:24] VITALS: BP 135/74; PULSE 83; RESP 16; TEMP 37.1; O2SAT 97
[2025-08-13 10:13] VITALS: BP 152/59; PULSE 71; RESP 16; TEMP 36.6; O2SAT 100
== END 2025-08-13 10:57 | disposition home or self-care (01) ==
LOC: HO.INF 10:30
PROVIDERS: Visit Provider Internal Medicine Medical Oncology
DX: D50.9 Iron deficiency anemia, unspecified (principal)
CPT/HCPCS: 96365; J1439